=== PATIENT | male | born 1965 | race Caucasian/White ===

== ENCOUNTER → 2017-09-29 07:27 | Outpatient (CLI) | payer MEDICAID, SELFPAY ==
[2017-09-29 10:36] LABS: ALB/GLOB Ratio 1.2 RATIO (0.9-2.4); AST(SGOT) 25 U/L (15-37); Alanine Aminotransfer ALT/SGPT 57 U/L (16-61); Albumin, Serum 3.9 g/dL (3.2-5.0); Alkaline Phosphatase 71 U/L (45-117); Anion Gap 7 (5-15); BUN 24 mg/dL (7-18); BUN/Creat Ratio 27.7 RATIO (10-20); Calcium,Total 8.5 mg/dL (8.5-10.1); Chloride 105 mmol/L (98-107); Cholesterol 187 mg/dL (200); Creatinine, Serum 0.87 mg/dL (0.70-1.30); EST Glomerular Filtration Rate 98 mL/min (>60); Est Glom Filt Rate - Afr Amer 119 mL/min (>60); Globulin 3.2 g/dL (2.2-4.2); Glucose 87 mg/dL (74-106); High Density Lipoprotein 52 mg/dL; Potassium 4.1 mmol/L (3.5-5.1); Protein, Total 7.1 g/dL (6.4-8.2); Sodium Level 140 mmol/L (136-145); Triglycerides 80 mg/dL; Very Low Density Lipoprotein 16 mg/dL (5-40)
== END ==
PROVIDERS: Family Provider Family Medicine; PCP Family Medicine; Visit Provider Family Medicine
DX: I10 Essential (primary) hypertension (principal)
CPT/HCPCS: 36415; 80053; 80061

== ENCOUNTER → 2018-09-23 07:15 | Outpatient (CLI) | payer MEDICAID, SELFPAY ==
[2018-09-23 10:22] LABS: ALB/GLOB Ratio 1.2 RATIO (0.9-2.4); AST(SGOT) 23 U/L (15-37); Alanine Aminotransfer ALT/SGPT 55 U/L (16-61); Albumin, Serum 3.7 g/dL (3.2-5.0); Alkaline Phosphatase 68 U/L (45-117); Anion Gap 7 (5-15); BUN 21 mg/dL (7-18); BUN/Creat Ratio 22.8 RATIO (10-20); Calcium,Total 8.8 mg/dL (8.5-10.1); Chloride 105 mmol/L (98-107); Cholesterol 192 mg/dL (200); Creatinine, Serum 0.92 mg/dL (0.70-1.30); EST Glomerular Filtration Rate 91 mL/min (>60); Est Glom Filt Rate - Afr Amer 111 mL/min (>60); Globulin 3.2 g/dL (2.2-4.2); Glucose 94 mg/dL (74-106); High Density Lipoprotein 55 mg/dL; Potassium 4.2 mmol/L (3.5-5.1); Protein, Total 6.9 g/dL (6.4-8.2); Sodium Level 140 mmol/L (136-145); Triglycerides 83 mg/dL; Very Low Density Lipoprotein 17 mg/dL (5-40)
== END ==
PROVIDERS: Family Provider Family Medicine; PCP Family Medicine; Referring Provider Family Medicine; Visit Provider Family Medicine
DX: I10 Essential (primary) hypertension (principal); E29.1 Testicular hypofunction
CPT/HCPCS: 36415; 80053; 80061; 84403

== ENCOUNTER 2021-01-06 08:07 | Day surgery (SDC) | payer OTHER, SELFPAY ==
--- NOTE | 2021-01-06 08:31 | H&P.OPEN ---
HPI - General HPI Narrative BENJAMIN SINGLETON, is a 55 M who presents for screening colonoscopy. Patient is never had a previous colonoscopy. Patient denies any family history of colon cancer. Patient has bowel moods daily denies any blood. Patient denies any chronic abdominal pain/nausea/vomiting/reflux. [facility] Medical History (Updated 01/06/21 @ 08:[address] Radha Coe MD) High cholesterol Hypertension Non-smoker Wears glasses Home Medications atorvastatin 10 mg PO QHS 01/02/21 [History Last Taken Unknown] ibuprofen 400 mg PO Q6H PRN 01/02/21 [History Last Taken Unknown] lisinopril 5 mg PO DAILY 01/02/21 [History Last Taken Unknown] Allergy/AdvReac Type Severity Reaction Status Date / Time No Known Allergies Allergy Verified 01/02/21 09:51 Surgical History (Updated 01/02/21 @ 09:58 by Maribell Reid) History of total right hip replacement Hx of arthroscopic knee surgery Social History Smoking Status: Never smoker Past Medical/Surgical History Planned Operation Planned Operative Procedure/s: COLONOSCOPY Previous Hospitalizations/Surgeries HX Hospitalizations: No Any Problems With Anesthesia: No You/Your Family Experience Fever (Hyperthermia) With Anes: No Cholinesterase deficiency: No Cardiovascular Hx of Irregular Heartbeat and/or Afib: No Hx Heart Attack: No Hx Congestive Heart Failure: No Hx Hypertension: Yes (CONTROLLED ON MED) Hx Pacemaker: No Respiratory Hx Chronic Obstructive Pulmonary Disease (COPD): No Hx Asthma: No Hx Emphysema: No Hx Sleep Apnea: No Hx Respiratory Tract Infection/Cold (presently): No Do You Snore Loudly (louder than talking or can be heard): No Do You Often Feel Tired/ Fatigued/ Sleepy Dring Daytime?: No Has Anyone Observed You Stop Breathing During Sleep?: No Result (for STOP score): Negative Smoking Status: Never smoker Gastrointestinal Hx Gastroesophageal Reflux: No Hx Ulcer: No Neurological Hx Seizures: No Hx Head/Neck Injury: No Hx Headaches: No Hx Back Injury/Pain: No Does patient have nerve stimulator: No Allergies No Known Allergies Allergy (Verified 01/02/21 09:51) Discharge Is Pt Admitted From a [facility], or a [place] [facility]: No After D/C, Where Do you Plan to Go: Return Home Physical Exam Const alert, oriented x3 and no apparent distress HEENT normocephalic and head/scalp atraumatic Resp normal respiratory effort Cardio regular rate GI soft to palpation and non-tender; Negative for non-distended Palpation: Negative for guarding Extremity no clubbing, cyanosis or edema Neuro CN's II-XII intact bilaterally Psych mental status grossly normal Assessment & Plan Assessment/Plan (1) Screening for colon cancer: Procedure Criteria Type of Procedure Procedure Type: Elective Elective Risks - COVID COVID Risk Discussion: The surgeon/proceduralist and patient have discussed in detail the risk of exposure to and/or potential harm posed by the COVID-19 virus with having a surgery/procedure at this time versus the risk of delaying the surgery/procedure. It is not possible to know either the risk of delaying the surgery or procedure or chance of getting an infection with perfect accuracy, but a joint decision was made between the patient and the surgeon/proceduralist to proceed at this time with the scheduled surgery/procedure as indicated on the consent form. Surgery Risks - Colonoscopy Risks Include but are not Limited To: Risks include but are not limited to: Bleeding, perforation requiring further surgery, inability to complete colonoscopy requiring barium enema.
[2021-01-06 08:40] VITALS: BP 145/104; PULSE 92; RESP 16; TEMP 36.8; O2SAT 99; BMI 26.0
[2021-01-06] MEDS: Lactated Ringers 1,000 ML 100 ML IV (08:44)
[2021-01-06 09:12] VITALS: BP 101/79; BP 145/104; PULSE 75; RESP 16; TEMP 36.1; O2SAT 100
[2021-01-06 09:15] VITALS: BP 145/104; BP 99/84; PULSE 75; RESP 16; O2SAT 99
[2021-01-06 09:20] VITALS: BP 117/94; BP 145/104; PULSE 67; RESP 16; O2SAT 99
--- NOTE | 2021-01-06 09:23 | OP.COLON_ITS ---
Patient Name: Loyd Green Procedure Date: 01/06/2021 8:40 AM Date of : 1965 Age: 55 Procedure: Colonoscopy Indications: Screening for colorectal malignant neoplasm Providers: Radha Coe MD Medicines: Monitored Anesthesia Care Patient Profile: This is a 55 year old male. Last Colonoscopy: none. The patient's first colonoscopy is today. Complications: No immediate complications. Procedure: Pre-Anesthesia Assessment: - Prior to the procedure, a History and Physical was performed, and patient medications and allergies were reviewed. The patient's tolerance of previous anesthesia was also reviewed. The risks and benefits of the procedure and the sedation options and risks were discussed with the patient. All questions were answered, and informed consent was obtained. Prior Anticoagulants: The patient has taken no previous anticoagulant or antiplatelet agents. ASA Grade Assessment: Per anesthesia. After reviewing the risks and benefits, the patient was deemed in satisfactory condition to undergo the procedure. After I obtained informed consent, the scope was passed under direct vision. Throughout the procedure, the patient's blood pressure, pulse, and oxygen saturations were monitored continuously. The Duodenoscope was introduced through the anus and advanced to the cecum, identified by the appendiceal orifice, ileocecal valve and palpation. The colonoscopy was performed without difficulty. The patient tolerated the procedure well. The quality of the bowel preparation was good. Scope In: 8:56:29 AM Scope Withdrawal Time 0 hours 6 minutes 39 seconds Scope Out: 9:08:16 AM Total Procedure Duration Time 0 hours 11 minutes 47 seconds Findings: The perianal and digital rectal examinations were normal. Internal hemorrhoids were found during retroflexion. The hemorrhoids were Grade I (internal hemorrhoids that do not prolapse). The entire examined colon appeared normal. Impression: - Internal hemorrhoids. - The entire examined colon is normal. - No specimens collected. Recommendation: - Discharge patient to home. - Resume previous diet. - Continue present medications. - Repeat colonoscopy in 10 years for screening purposes. Procedure Code(s): --- Professional --- G0121, PT, Colorectal cancer screening; colonoscopy on individual not meeting criteria for high risk Diagnosis Code(s): --- Professional --- Z12.11, Encounter for screening for malignant neoplasm of colon CPT copyright 2017 [employer]. All rights reserved. The codes documented in this report are preliminary and upon tow motor operator review may be revised to meet current compliance requirements. MD Radha Zapata MD 01/06/2021 9:22:35 AM This report has been signed electronically. Number of Addenda: 0 Note Initiated On: 01/06/2021 8:40 AM
--- NOTE | 2021-01-06 09:24 | OP.CCLET_ITS ---
01/06/2021 Shay Askew MD [address] [phone] Re : Colonoscopy procedure for Loyd Green Dear Dr. Askew This procedure was performed on Wednesday, January 06, 2021. My impressions and recommendations are as follows: Impressions : - Internal hemorrhoids. - The entire examined colon is normal. - No specimens collected. Recommendations : - Discharge patient to home. - Resume previous diet. - Continue present medications. - Repeat colonoscopy in 10 years for screening purposes. My findings are described in the full procedure note, which is enclosed. If I can be of further assistance, please feel free to contact me at Doctor phone number(s): , Work: . Sincerely, MD Radha Zapata MD 01/06/2021 9:22:35 AM This report has been signed electronically.
[2021-01-06 09:25] VITALS: BP 145/104; BP 145/85; PULSE 72; RESP 16; TEMP 35.9; O2SAT 99
[2021-01-06 09:52] VITALS: BP 145/104
== END 2021-01-06 09:55 ==
LOC: EN 08:10 → AC 08:12
PROVIDERS: PCP Family Medicine; Referring Provider Family Medicine; Visit Provider Surgery
PROC: 0DJD8ZZ Inspection of Lower Intestinal Tract, Via Natural or Artificial Opening Endoscopic (ICD-10-PCS; CPT 45378; principal; 2021-01-06 08:55)
DX: Z12.11 Encounter for screening for malignant neoplasm of colon (principal); K64.0 First degree hemorrhoids; I10 Essential (primary) hypertension; E78.00 Pure hypercholesterolemia, unspecified; Z79.899 Other long term (current) drug therapy
CPT/HCPCS: 45378; J7120; J2405

== ENCOUNTER → 2021-12-19 | Outpatient (CLI) | payer OTHER, SELFPAY ==
[2021-12-19 11:34] LABS: ALB/GLOB Ratio 1.2 RATIO (0.9-2.4); AST(SGOT) 18 U/L (15-37); Alanine Aminotransfer ALT/SGPT 37 U/L (16-61); Albumin, Serum 3.9 g/dL (3.2-5.0); Alkaline Phosphatase 70 U/L (45-117); Anion Gap 7 (5-15); BUN 20 mg/dL (7-18); BUN/Creat Ratio 22.1 RATIO (10-20); Calcium,Total 8.9 mg/dL (8.5-10.1); Chloride 101 mmol/L (98-107); EST Glomerular Filtration Rate 92 mL/min (>60); Est Glom Filt Rate - Afr Amer 112 mL/min (>60); Globulin 3.3 g/dL (2.2-4.2); Glucose 87 mg/dL (74-106); PSA,Total - Annual Screen 0.46 ng/mL (0.00-4.00); Potassium 4.2 mmol/L (3.5-5.1); Protein, Total 7.2 g/dL (6.4-8.2); Sodium Level 136 mmol/L (136-145)
== END | disposition home or self-care (01) ==
PROVIDERS: PCP Family Medicine; Referring Provider Family Medicine; Visit Provider Family Medicine
DX: Z00.00 Encounter for general adult medical examination without abnormal findings (principal); Z12.5 Encounter for screening for malignant neoplasm of prostate
CPT/HCPCS: 36415; 80053; 84153; 84403; G0103

== ENCOUNTER → 2022-12-22 | Outpatient (CLI) | payer OTHER, SELFPAY ==
[2022-12-22 10:39] LABS: ALB/GLOB Ratio 1.2 RATIO (0.9-2.4); AST(SGOT) 16 U/L (15-37); Alanine Aminotransfer ALT/SGPT 34 U/L (16-61); Albumin, Serum 3.6 g/dL (3.2-5.0); Alkaline Phosphatase 59 U/L (45-117); Anion Gap 4 (5-15); BUN 18 mg/dL (7-18); BUN/Creat Ratio 20.9 RATIO (10-20); Calcium,Total 8.8 mg/dL (8.5-10.1); Chloride 106 mmol/L (98-107); Cholesterol 257 mg/dL (200); Creatinine, Serum 0.86 mg/dL (0.70-1.30); EST Glomerular Filtration Rate 97 mL/min (>60); Est Glom Filt Rate - Afr Amer 117 mL/min (>60); Globulin 3.1 g/dL (2.2-4.2); Glucose 95 mg/dL (74-106); High Density Lipoprotein 66 mg/dL; Potassium 4.3 mmol/L (3.5-5.1); Protein, Total 6.7 g/dL (6.4-8.2); Sodium Level 139 mmol/L (136-145); Triglycerides 83 mg/dL; Very Low Density Lipoprotein 17 mg/dL (5-40)
[2022-12-25 01:06] LABS: Alternaria alternata <0.10 kU/L (Class 0); Aspergillus fumigatus <0.10 kU/L (Class 0); Bahia Grass <0.10 kU/L (Class 0); Bermuda Grass <0.10 kU/L (Class 0); Bluegrass, Kentucky <0.10 kU/L (Class 0); Cat Hair/Dander, Standard <0.10 kU/L (Class 0); Cedar, Mountain <0.10 kU/L (Class 0); Cladosporium herbarum <0.10 kU/L (Class 0); Cockroach, American 0.31 kU/L (Class 0/I); D farinae Mite <0.10 kU/L (Class 0); D pteronyssinus <0.10 kU/L (Class 0); Dog Epithelia <0.10 kU/L (Class 0); Elm, American White <0.10 kU/L (Class 0); Hazelnut Tree <0.10 kU/L (Class 0); Hickory, White <0.10 kU/L (Class 0); Johnson Grass <0.10 kU/L (Class 0); Maple/Box Elder <0.10 kU/L (Class 0); Mucor racemosus <0.10 kU/L (Class 0); Mugwort <0.10 kU/L (Class 0); Mulberry, White <0.10 kU/L (Class 0); Nettle <0.10 kU/L (Class 0); Oak, White <0.10 kU/L (Class 0); Penicillium chrysogen <0.10 kU/L (Class 0); Pigweed, Rough <0.10 kU/L (Class 0); Plantain, English <0.10 kU/L (Class 0); Ragweed, Short/Common <0.10 kU/L (Class 0); Sheep Sorrel(Dock) <0.10 kU/L (Class 0); Stemphylium herbarum <0.10 kU/L (Class 0); Sweet Gum <0.10 kU/L (Class 0); Sycamore, American <0.10 kU/L (Class 0)
== END | disposition home or self-care (01) ==
PROVIDERS: PCP Family Medicine; Referring Provider Family Medicine; Visit Provider Family Medicine
DX: T78.40XA Allergy, unspecified, initial encounter (principal); X58.XXXA Exposure to other specified factors, initial encounter; I10 Essential (primary) hypertension
CPT/HCPCS: 36415; 80053; 80061; 86003

== ENCOUNTER → 2024-01-04 | Outpatient (CLI) | payer OTHER, SELFPAY ==
[2024-01-04 13:44] LABS: ALB/GLOB Ratio 1.2 RATIO (0.9-2.4); AST(SGOT) 16 U/L (15-37); Alanine Aminotransfer ALT/SGPT 32 U/L (16-61); Albumin, Serum 3.7 g/dL (3.2-5.0); Alkaline Phosphatase 63 U/L (45-117); Anion Gap 7 (5-15); BUN 17 mg/dL (7-18); Calcium,Total 8.8 mg/dL (8.5-10.1); Chloride 104 mmol/L (98-107); Cholesterol 196 mg/dL (200); Creatinine, Serum 0.85 mg/dL (0.70-1.30); EST Glomerular Filtration Rate 98 mL/min (>60); Est Glom Filt Rate - Afr Amer 119 mL/min (>60); Globulin 3.1 g/dL (2.2-4.2); Glucose 89 mg/dL (74-106); High Density Lipoprotein 59 mg/dL; PSA,Total - Annual Screen 1.47 ng/mL (0.00-4.00); Protein, Total 6.8 g/dL (6.4-8.2); Sodium Level 137 mmol/L (136-145); Triglycerides 104 mg/dL; Very Low Density Lipoprotein 21 mg/dL (5-40)
== END | disposition home or self-care (01) ==
LOC: MTLAB 09:43
PROVIDERS: PCP Family Medicine; Referring Provider Family Medicine; Visit Provider Family Medicine
DX: Z00.00 Encounter for general adult medical examination without abnormal findings (principal)
CPT/HCPCS: 36415; 80053; 80061; 84153; G0103

== ENCOUNTER → 2024-06-23 | Outpatient (CLI) | payer OTHER, SELFPAY ==
[2024-06-23 11:12] LABS: ALB/GLOB Ratio 1.2 RATIO (0.9-2.4); AST(SGOT) 24 U/L (15-37); Alanine Aminotransfer ALT/SGPT 54 U/L (16-61); Albumin, Serum 3.9 g/dL (3.2-5.0); Alkaline Phosphatase 63 U/L (45-117); Anion Gap 5 (5-15); BUN 19 mg/dL (7-18); BUN/Creat Ratio 19.3 RATIO (10-20); Calcium,Total 9.4 mg/dL (8.5-10.1); Chloride 104 mmol/L (98-107); Cholesterol 254 mg/dL (200); Creatinine, Serum 0.98 mg/dL (0.70-1.30); EST Glomerular Filtration Rate 83 mL/min (>60); Est Glom Filt Rate - Afr Amer 101 mL/min (>60); Globulin 3.2 g/dL (2.2-4.2); Glucose 99 mg/dL (74-106); High Density Lipoprotein 68 mg/dL; Potassium 4.4 mmol/L (3.5-5.1); Protein, Total 7.1 g/dL (6.4-8.2); Sodium Level 137 mmol/L (136-145); Triglycerides 115 mg/dL; Very Low Density Lipoprotein 23 mg/dL (5-40)
== END | disposition home or self-care (01) ==
LOC: MTLAB 08:39
PROVIDERS: PCP Family Medicine; Referring Provider Family Medicine; Visit Provider Family Medicine
DX: E78.00 Pure hypercholesterolemia, unspecified (principal)
CPT/HCPCS: 36415; 80053; 80061

== ENCOUNTER → 2024-09-29 | Outpatient (CLI) | payer OTHER, SELFPAY ==
--- NOTE | 2024-09-29 10:15 | RAD_ITS ---
EXAM: XR Lumbosacral Spine, 4 or 5 Views CLINICAL INDICATION: BACK PAIN TECHNIQUE: Frontal, lateral and bilateral oblique views of the lumbar spine. COMPARISON: No relevant prior studies available. FINDINGS: VERTEBRAE: Multilevel endplate degenerative change and disc disease of the lumbar spine from L1-S1. Mild vertebral body height loss of L5, L4, and L3 vertebral bodies, likely chronic. No acute fracture. Normal alignment. SACRUM/COCCYX: Unremarkable as visualized. No acute fracture. DISC SPACES: See above. SOFT TISSUES: Unremarkable. RAD/L/S Spine Min 4 Views IMPRESSION: 1. Mild vertebral body height loss of L5, L4, and L3 vertebral bodies, likely chronic. 2. If symptoms persist, further evaluation with MRI is recommended. Reading Location: [facility]
--- NOTE | 2024-09-29 10:15 | RAD_ITS ---
EXAM: XR Bilateral Hips With Pelvis When Performed, 2 Views CLINICAL INDICATION: HIP PAIN TECHNIQUE: Frontal view of the bilateral hips with pelvis when performed. COMPARISON: No relevant prior studies available. FINDINGS: BONES/JOINTS: Total right hip replacement. Intact hardware. Anatomic position. No acute fracture. No dislocation. SOFT TISSUES: Unremarkable. RAD/Hips B/L min 2 views w/ Pelvis IMPRESSION: Postoperative changes as above. Reading Location: [facility]
== END | disposition home or self-care (01) ==
LOC: MTRAD 10:11
PROVIDERS: PCP Family Medicine; Referring Provider Family Medicine; Visit Provider Family Medicine
DX: M54.9 Dorsalgia, unspecified (principal); M25.559 Pain in unspecified hip
CPT/HCPCS: 72110; 73521

== ENCOUNTER → 2024-11-01 | Outpatient (CLI) | payer OTHER, SELFPAY ==
[2024-11-01 11:01] LABS: ALB/GLOB Ratio 1.8 RATIO (0.9-2.4); AST(SGOT) 18 U/L (<=37); Alanine Aminotransfer ALT/SGPT 29 U/L (<=46); Albumin, Serum 4.4 g/dL (3.5-5.0); Alkaline Phosphatase 58 U/L (40-129); Anion Gap 10 (5-15); BUN 23 mg/dL (4-19); BUN/Creat Ratio 27.2 RATIO (10-20); Calcium,Total 9.3 mg/dL (7.6-11.0); Carbon Dioxide 24.8 mmol/L (21.0-32.0); Chloride 103 mmol/L (98-108); Cholesterol 208 mg/dL (<=200); Creatinine, Serum 0.83 mg/dL (0.70-1.20); EST Glomerular Filtration Rate 101 (>60); Globulin 2.4 g/dL (2.2-4.2); Glucose 104 mg/dL (70-99); High Density Lipoprotein 54 mg/dL; Low Density Lipoprotein Calc. 130 mg/dL; Potassium 4.6 mmol/L (3.3-5.1); Protein, Total 6.8 g/dL (5.9-8.4); Sodium Level 138 mmol/L (133-145); Total Bilirubin 0.58 mg/dL (0.00-1.30); Triglycerides 120 mg/dL; Very Low Density Lipoprotein 24 mg/dL (5-40); cholesterol:hdl ratio screen 3.84
== END | disposition home or self-care (01) ==
LOC: MTLAB 08:16
PROVIDERS: PCP Family Medicine; Referring Provider Family Medicine; Visit Provider Family Medicine
DX: E78.00 Pure hypercholesterolemia, unspecified (principal)
CPT/HCPCS: 36415; 80053; 80061

== ENCOUNTER 2024-11-03 09:30 | Outpatient (RCR) | payer OTHER, SELFPAY ==
--- NOTE | 2024-10-10 10:49 | HP.PTEVAL ---
Patient's Visit Information Visit Information Visit Information: BENJAMIN SINGLETON is a 59 year old M referred to Physical Therapy by Dr. Shay Askew MD with a diagnosis of Back pain. Date of Evaluation: 10/10/24 Physical Therapist: Kush Bethea, IZAT, OCS, CSCS Visit Plan Frequency: 2x /Week Duration: 4-6 Weeks Plan: 2x/week for 4-6 weeks for: IE HEP: PPU 10x every two hours, posture with towel roll only in firm chair and minimize sitting, body mechanics to avoid FW bending. Treat with : PA mobs and ext bias eex, L/S ROM ex, STM to lumbar paraspinals, rollout and stretch HS, core strength adn possibly eventual gym strength. ice and tens if needed. Subjective Subjective: June sat in [employer] long time 3 games and back started hurting, was not painful prior. Maybe previous episodes. Better in September with ibuprofen but helped neighbor [employer] sitting in tractor and got worse again. 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 sitting is the worst. Got much worse last week. Has seen R iverson and lateral leg/hip Askew and is now on ibuprofen 3x/day. Much worse in the am. Has to crawl sometimes. Has some pain in R iverson and lateral leg into LB. Long time it takes to shower and dress. has been this way for a week. Can walk 45 min a couple times per day with very little pain. Hurts to sit and relax and worse upon getting up, mostly in LB. Sleep is Ok with muscle relaxer is not bad. AM feels good , moves OK but hard to stand and walk to bathroom. Trying cobra pose in am trunk rotations, cat cow, PPU. 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 Pain R LB and leg: Pain Intensity (Out of 10): 5 Pain Intensity Range: 1 and 9 Objective Objective: Posture is flat lordosis, very stiff lumbar to PA pressure with just slight lower lumbar discomfort. L/S AROM ext mod limited with some pain, flexion mod limited, SB mod limited. Stiff and tight parapsinal mm prevent a lot of segmental spinal movemnt in lumbar and lower thoracic. parspinals not overly tender. reflexes 2/3 Patella andres achilles B. Sensation LE WNL to gross light touch. strength LE 4+/5 without myotomal abnormalities. core strength 4- abs and ext without much pain. transfers sit to stand and off table today without much evidence of pain. Balance/Special Test Scores Oswestry Low Back Score: 23 Goals Goal 1:: Lumbar spine AROM full and without pain Goal Time Frame: 2-4 Weeks Goal 2:: Pain for patient in am 80% better and 1/10 at worst Goal Time Frame: 2-4 Weeks Goal 3:: I appropriate HEP to minimize future probems(leg stretches, back ROM, posture adn core strength, possibly gym) Goal Time Frame: 2-4 Weeks Goal 4:: back oswestry 4 or better Goal Time Frame: 2-4 Weeks Goal 5:: Sit in car for trip in community without back pain Goal Time Frame: 2-4 Weeks Rehabilitation Potential Physical Therapy Diagnosis: Back pain limiting comfortable funciton likely discal in nature Rehabilitation Potential: Fair Anticipated Interventions Patient/Client Instruction: Educate patient on: Condition and Plan of Care For the Purpose of:: To decrease pain, To increase ROM, To improve nutrient delivery to tissue, To improve muscle performance and motor function, To increase tolerance to activity/condition/position, To improve ability of physical actions for home/community/work/leisure and To improve gait and locomotor functions Therapeutic Exercise to Include: Strength training, Postural training, Flexibilty training, Relaxation training, Passive ROM, Active ROM and Dynamic Lumbar Stabilization For the Purpose of:: To decrease pain, To increase ROM, To improve nutrient delivery to tissue, To improve muscle performance and motor function, To increase tolerance to activity/condition/position, To improve performance and independence with ADL's and To improve ability of physical actions for home/community/work/leisure Manual Therapy Techniques to Include: Mobilization, Passive ROM and Soft tissue mobilization For the Purpose of:: To decrease pain, To increase ROM and To improve nutrient delivery to tissue TENS: Yes Cryotherapy (ice pack, ice massage): Yes For the Purpose of:: To decrease pain, To decrease swelling/inflammation, To increase ROM, To improve nutrient delivery to tissue and To improve muscle performance and motor function Text: Thank you for the opportunity to evaluate your patient. For Medicare and Medicare HMO plans, please review the plan of care and approve it. It will need to be FAXED BACK to us at [phone] for Medicare purposes. For Medicare only, by signing this I certify the plan of care. Please let me know if there are questions or concerns regarding this plan of care. Physician Signature: Date:
--- NOTE | 2024-11-03 10:22 | HP.PTDCSUM ---
Discharge Summary D/C summary: It has been my pleasure to treat BENJAMIN SINGLETON referred by Dr. Shay Tejeda MD, with the diagnosis of Back pain for a total of 9 visit(s). Discharge Date: 11/03/24 Please see the following information for a summary of their discharge status. Subjective Subjective: Feeling better sometimes. Can walk again now. was great for 2 days. Sat a lot to travel and got worse again. am pain in the morning in iverson R . Better as day goes on bu 9 in am. Took muscle relaxer until 2 nights ago. Appointment with Dr. tejeda next Wednesday. Used towel roll . PT fels good as do dtrenthening. Walking 20 minutes afteer pain goes away in am. PPU religiously Pain R LB and leg: Pain Intensity (Out of 10): 0 Overall Improvement % Improvement: 50 Objective Objective/Function: ext adn SB are hesitant but decent and slight pain central LB with ext. Flexion is veery hsitant and unwilling and limited today, feels unstable. walks is good, trasnfers are hesitant and painful until upright with compression. Goals Goal 1:: Lumbar spine AROM full and without pain Goal Progress: Not Progressing Goal 2:: Pain for patient in am 80% better and 1/10 at worst Goal Progress: Progressing Goal 3:: I appropriate HEP to minimize future probems(leg stretches, back ROM, posture adn core strength, possibly gym) Goal Progress: Progressing Goal 4:: back oswestry 4 or better Goal Progress: Not Progressing Goal 5:: Sit in car for trip in community without back pain Goal Progress: Not Progressing Plan Plan: Overall some improvement but still veery unstable in improveement and wants appropriately to take nxt step with doctor. Will continue HEP and Posture and PPU and stretching, d/c and f/u with doctor for next medical step. D/C Information Discharge Comments: Pt back to doctor for next medical step. d/c sentence: If there are questions or concerns regarding this patient's physical therapy, please feel free to call me at [phone]. Thank you for the referral of this patient. Sincerely, Kush Bethea, DPT, OCS, CSCS Balance/Gait/Functional tests Balance/Special Test Scores Oswestry Low Back Score: 23 Improvement % Improvement: 50
== END 2024-11-03 19:00 | disposition home or self-care (01) ==
LOC: PT 09:30
PROVIDERS: PCP Family Medicine; Visit Provider Family Medicine
DX: M54.9 Dorsalgia, unspecified (principal)
CPT/HCPCS: 97014; 97110; 97140; 97161; 97164; G0283

== ENCOUNTER 2024-11-05 18:01 | Emergency (ER) | payer OTHER, SELFPAY ==
[2024-11-05 18:02] VITALS: PULSE 124; RESP 18; TEMP 36.7; O2SAT 98
[2024-11-05 18:04] VITALS: BMI 27.1
[2024-11-05 18:14] VITALS: BP 151/115
--- NOTE | 2024-11-05 18:21 | EDS_ITS ---
<Statement entered by Gagan Fong DO - 11/07/24 14:14> Patient was seen and examined with physician executive administrative assistant Nallely All components of the history and physical confirmed and agreed. History of present illness and physical exam: Patient is a 59-year-old male past medical history hypertension, hypercholesteremia who presented to the emergency department with a chief compla int of back pain. Patient states that he has had ongoing back pain for significant time now he states that he was doing well he was doing physical therapy and had improvement however the last 3 days he noted that he had worsening pain he states that he is trying to stretch. He states the pain is getting worse with sitting. Patient states that the physical therapy team ordered an MRI. He states that he has been taking ibuprofen and muscle relaxer at night. He states that he woke up this morning with pain shooting down to his foot and tingling. He states that it did resolve and he had another episode again. Patient denies any new falls or trauma. Patient states he has been urinating normally for himself having normal bowel movements. Review of systems: Agree with above Physical exam: Agree with above MDM Patient is a 59-year-old male who presented to the emergency department the chief complaint of back pain on the right side rating down his right leg. Patient has been going to physical therapy. On the differential diagnose includes Melamin to herniated disc, sciatica, musculoskeletal strain, compression fracture although do have low suspicion for this as he has no injuri es or new falls and no midline tenderness. Patient was given IM Toradol and later on he was reevaluated still having pain therefore he was given IM morphine. He is feeling better he would like to go home this point time. Discussed with him using multimodal pain therapy approach such as rotating Tylenol ibuprofen [id number] when he does this he can take something every 3 hours and he should use this for mild to moderate pain. He will be placed on prednisone taper as well as gabapentin and he is to use the Percocet and Zofran for breakthrough pain. He is also given prescription for Lidoderm patches. He is encouraged to follow-up his primary care physician as well as the physical therapy team he is agreeable to plan all questions turns answered he is discharged home in stable condition. Final impression: Back pain Lumbar radiculopathy Disposition: Patient will be discharged home in stable condition Supervising attending attestation: Gagan CONTRERAS History of Present Illness Chief Complaint: Back Narrative Narrative: 59-year-old male states he developed lumbar pain, right lateral hip pain, and pain in his right anterior iverson in June 2024. It feels like a sharp stabbing pain. He had x-rays of his lumbar spine and hips since he has had a right hip replacement and states they were normal. He just completed a month of physical therapy and initially had improvement, but over the last 3 days the stretches felt worse and he has had increased pain. The pain is worse with sitting. PT sent a request to his PCP to have an MRI done. He is taking ibuprofen every 6 hours and a muscle relaxer at night. This morning when he woke up his right foot was tingling. It resolved but then he had another episode of tingling and it has again gone away. Since these paresthesias were new he decided to come in for evaluation. He is had no new trauma or falls. No weakness. No saddle anesthesia or bladder or bowel incontinence. 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) Wears glasses High cholesterol Non-smoker Hypertension Home Medications ?Medication ?Instructions ?Recorded ?Last Taken ?Type atorvastatin 10 mg tablet 10 mg PO QHS 01/02/21 Unknow n History ibuprofen 200 mg tablet 400 mg PO Q6H PRN Pain 01/02 Unknown History lisinopril 5 mg tablet 5 mg PO DAILY 01/02/21 Unkno wn History atorvastatin 20 mg tablet 20 mg PO DAILY 11/05/24 Unkn own History cyclobenzaprine 5 mg tablet 5 mg PO QHS 11/05/24 Unkno wn History gabapentin 300 mg capsule 300 mg PO DAILY 14 days #14 caps 11/05/24 Unknown Rx hydrocodone-acetaminophen 5-325mg 1 tab PO Q6H PRN PRN Pain 3 days 11/05/24 Un known Rx 5mg-325mg #12 TABLETS lidocaine 5 % topical patch 1 patch topical DAILY #15 ea 11/05/24 Unknown Rx (Lidoderm) lisinopril 10 mg tablet 10 mg PO DAILY 11/05/24 Unkn own History ondansetron 4 mg disintegrating 4 mg PO Q8H PRN PRN Na usea #10 tabs 11/05/24 Unknown Rx tablet prednisone 20 mg tablet 40 mg (2 x 20 mg) PO DAILY 5 days 11/05/24 Unknown Rx #10 tabs Allergy/AdvReac Type Severity Reaction Status Date / Time No Known Allergies Allergy Verified 11/05/24 18:02 Surgical History Hx of arthroscopic knee surgery History of total right hip replacement Social History Smoking Status: Never smoker ROS ROS ED ROS Narrative Constitutional: Negative for fever, chills, malaise. : Negative for dysuria. Neuro: Negative for motor dysfunction. Musc: Negative for joint pain, swelling, trauma. EXAM Physical Exam Narrative Exam Narrative: CONST: Patient lying in bed in no acute distress. EYES: Normal inspection. NECK: Normal inspection. RESP: No respiratory distress, CTAB. CVS: Regular rate and rhythm, no murmur, no gallop. Back: Normal inspection, no midline tenderness or step-offs. SKIN: Color normal, no rash, warm, dry, intact. EXTREMITIES: Normal appearance, negative straight leg raise bilaterally. 5/5 strength in bilateral hip flexion, knee flexion/extension, and DF/PF. Normal sensation in all dermatomes. 2+ DP pulses. 2+ patellar and ankle reflexes. NEURO: Alert and answering questions appropriately. PSYCH: Normal affect. Const Vital Signs: 11/05/24 18:02 11/05/24 18:14 11/05/24 19:18 Temperature 98.1 F 98.1 F Temperature Source Oral Pulse Rate 124 H 124 H Respiratory Rate 18 18 Blood Pressure 151/115 H 151/115 H Blood Pressure Mean 127 127 Pulse Ox 98 98 Oxygen Delivery Method Room Air 11/05/24 19:47 Temperature Temperature Source Pulse Rate 84 Respiratory Rate 16 Blood Pressure Blood Pressure Mean Pulse Ox Oxygen Delivery Method MDM MDM MDM Narrative Medical decision making narrative: Differential includes but not limited to myofascial strain, lumbar radiculopathy, cauda equina syndrome 59-year-old male has had low back pain and radicular symptoms down his right leg over the last 4 months. He has been in physical therapy. It worsened over the last few days without change in activity or injury. He has had new intermittent right foot paresthesia today but none presently. He appears uncomfortable but nontoxic. Heart rate is elevated likely secondary to pain. He has no midline tenderness or step-offs. He has full range of motion of both lower extremities, MSPs intact, normal reflexes. Negative straight leg raise bilaterally. He has no red flag signs concerning for cauda equina syndrome so he does not require an emergent MRI. He was concerned about the new intermittent right foot paresthesias but he has normal sensation currently. He was treated with IM Toradol and morphine with improvement. He is ambulatory. His primary care doctor is arranging an MRI already. He is taking ibuprofen and a muscle relaxer at bedtime at home. I prescribed gabapentin, prednisone, Percocet and Zofran for breakthrough pain, and Lidoderm patches. He was counseled to follow-up with his PCP and was discharged in stable condition. Discharge Plan Triage Chief Complaint: Back ED Midlevel Provider: Nallely Aguilar ED Provider: Gagan Fong Dx/Rx/DC Orders Clinical Impression: Low back pain, Paresthesia of right foot, Acute lumbar radiculopathy Instructions: Back Basics: A Healthy Spine Prescriptions: New prednisone 20 mg tablet 40 mg PO DAILY 5 Days Qty: 10 0RF ondansetron 4 mg tablet,disintegrating 4 mg PO Q8H PRN PRN (Reason: Nausea) Qty: 10 0RF hydrocodone-acetaminophen 5-325 mg tablet 1 tab PO Q6H PRN PRN (Reason: Pain) 3 Days Qty: 12 0RF gabapentin 300 mg capsule 300 mg PO DAILY 14 Days Qty: 14 0RF Rx Instructions: 300 mg at night x 1, then 300 mg BID from then on. short script and pcp can refill lidocaine [Lidoderm] 5 % adhesive patch,medicated 1 patch topical DAILY Qty: 15 0RF Rx Instructions: leave on most painful area for up to 12 hrs No Action atorvastatin 10 mg tablet 10 mg PO QHS Patient Comments: TAKE 1 TABLET BY MOUTH ONCE DAILY ibuprofen 200 mg Tablet 400 mg PO Q6H PRN (Reason: Pain) lisinopril 5 mg tablet 5 mg PO DAILY Patient Comments: TAKE 1 TABLET BY MOUTH ONCE DAILY atorvastatin 20 mg tablet 20 mg PO DAILY lisinopril 10 mg tablet 10 mg PO DAILY cyclobenzaprine 5 mg tablet 5 mg PO QHS Primary Care Provider: Shay Askew Referrals: Shay Askew MD [Primary Care Provider] - Activity Restrictions/Additional Instructions: You can continue ibuprofen every 6 hours in addition to the new prescribed pain medications. Follow-up with your primary care doctor to discuss how the medications are helping and schedule your MRI. Print Language: [place]ian Disposition Disposition: Home, Self Care
[2024-11-05] MEDS: Ketorolac 15 MG/ML Vial IM (18:29)
--- OUTSIDE RECORDS SUMMARY | 2024-11-05 18:33 | XMS RPT_ITS | CCD ---
Author Organization [facility] Care Team Providers Care Brick Off Bearer Name Role Phone Dr. Shay Tejeda Primary Care Provider Jamilah, Dr. Day Referring Provider [phone] Piter HARTMAN, DEVAN Collazo Attending Provider Jamilah LYONS, Dr. Day Primary Care Provider Jamilah LYONS, Dr. Day Attending Provider [phone] Jamilah LYONS, Dr. Day Referring Provider Shay Tejeda Referring Unavailable Jamilah, Shay Primary Care Unavailable Tejeda, Shay Attending Unavailable Tejeda, Shay Primary Care Unavailable Tejeda, Shay Attending Unavailable JANIS, ED1 Referring Unavailable Jamilah, Shay Primary Care Unavailable Jamilah, Shay Attending Unavailable Tejeda, Shay Referring Unavailable Tejeda, Shay Primary Care Unavailable Jamilah, Shay Attending Unavailable Tejeda, Shay Referring Unavailable Tejeda, Shay Referring Unavailable Tejeda, Shay Primary Care Unavailable Jamilah, Shay Attending Unavailable Medications Current Medications Medication Drug Class(es) Dates Sig (Normalized) Sig (Original) atorvastatin 10 mg oral tablet (3 sources) HMG-CoA Reductase Inhibitor Start: 01-02-2021 take 1 tablet by mouth at bedtime Atorvastatin 10 mg tablet Active 10 mg PO AT BEDTIME January 02, 2021 12:00am ibuprofen 200 mg oral tablet (3 sources) Nonsteroidal Anti-inflammatory Drug Start: 01-02-2021 take 2 tablets by mouth every six hours as needed for pain Ibuprofen 200 mg Tablet Active 400 mg PO EVERY 6 HOURS as needed for Pain January 02, 2021 12:00am Start: 01-02-2021 take 400 mg by mouth every six hours Ibuprofen Active 400 MG PO EVERY 6 HOURS January 02, 2021 12:00am lisinopril 5 mg oral tablet (3 sources) Angiotensin Converting Enzyme Inhibitor Start: 01-02-2021 take 1 tablet by mouth once daily Lisinopril 5 mg tablet Active 5 mg PO DAILY January 02, 2021 12:00am Problems Problem Classification Problem Date Documented Date Episodic/Chronic Administrative/social admission (4 sources) Administrative reason for encounter; Translations: [Encounter for other administrative examinations] Episodic Disorders of lipid metabolism (1 source) Pure hypercholesterolemia, unspecified; Translations: [Pure hypercholesterolemia, unspecified] Onset: 07-06-2024 Chronic Other screening for suspected conditions (not mental disorders or infectious disease) (3 sources) Patient encounter status; Translations: [Encounter for screening for malignant neoplasm of colon] 01-06-2021 Episodic Spondylosis; intervertebral disc disorders; other back problems (2 sources) Dorsalgia, unspecified; Translations: [Dorsalgia, unspecified] Onset: 10-05-2024 Episodic Results Test Name Value Interpretation Reference Range Facility PT D/C Summary (1)on 025 PT D/C Summary (1) [facility] [address] [place] [address] [address] [place] [address] / REHABILITATION SERVICES DISCHARGE SUMMARY MR#: [id number] Acct: [id number] Name: BENJAMIN SINGLETON Rep #: [id number] : 1965 59 From: Kush Bethea DPT, OCS, CSCS Referring Dr.: Dr. Shay Tejeda MD Status: REG R Insurance: [facility] SELF PAY INSURANCE Discharge Summary D/C summary: It has been my pleasure to treat BENJAMIN SINGLETON referred by Dr. Shay Tejeda MD, with the diagnosis of Back pain for a total of 9 visit(s). Discharge Date: 11/03/24 Please see the following information for a summary of their discharge status. Subjective Subjective: Feeling better sometimes. Can walk again now. was great for 2 days. Sat a lot to travel and got worse again. am pain in the morning in iverson R . Better as day goes on bu 9/10 in am. Took muscle relaxer until 2 nights ago. Appointment with Dr. tejeda next Wednesday. Used towel roll . PT fels good as do dtrenthening. Walking 20 minutes afteer pain goes away in am. PPU religiously Pain R LB and leg: Pain Intensity (Out of 10): 0 Overall Improvement % Improvement: 50 Objective Objective/Function: ext adn SB are hesitant but decent and slight pain central LB with ext. Flexion is veery hsitant and unwilling and limited today, feels unstable. walks is good, trasnfers are hesitant and painful until upright with compression. Goals Goal 1:: Lumbar spine AROM full and without pain Goal Progress: Not Progressing Goal 2:: Pain for patient in am 80% better and 1/10 at worst Goal Progress: Progressing Goal 3:: I appropriate HEP to minimize future probems(leg stretches, back ROM, posture adn core strength, possibly gym) Goal Progress: Progressing Goal 4:: back oswestry 4 or better Goal Progress: Not Progressing Goal 5:: Sit in car for trip in community without back pain Goal Progress: Not Progressing Plan Plan: Overall some improvement but still veery unstable in improveement and wants appropriately to take nxt step with doctor. Will continue HEP and Posture and PPU and stretching, d/c and f/u with doctor for next medical step. D/C Information Discharge Comments: Pt back to doctor for next medical step. d/c sentence: If there are questions or concerns regarding this patient's physical therapy, please feel free to call me at [phone]. Thank you for the referral of this patient. Sincerely, Kush Bethea, DPT, OCS, CSCS Balance/Gait/Functi onal tests Balance/Special Test Scores Oswestry Low Back Score: 23 Improvement % Improvement: 50 11/03/24 1022 CC: Dr. Shay Tejeda MD; Shay Tejeda EBG Signed Normal [facility] Comprehensive Metabolic Prof sravan 11-01-2024 Albumin [Mass/Vol] 4.4 g/dL Normal 3.5-5.0 [facility] Comment on above: Order Comment: Inter face Comments: Hyperlipidimia Order Date: 06/28/24 Order Info: [id number] - CMP Order Info: [id number] - LIPID Comments: Hyperlipidimia Hyperlipidimia Performed By: #### L 500.4050, L500.4100 #### [facility] [address] [place], [place], [id number] Albumin/Globulin [Mass ratio] 1.8 {ratio} Normal 0.9-2.4 [facility] Comment on above: Order Comment: Inter face Comments: Hyperlipidimia Order Date: 06/28/24 Order Info: [id number] - CMP Order Info: - LIPID Comments: Hyperlipidimia Hyperlipidimia Performed By: #### L 500.4050, L500.4100 #### [facility] [address] [place], [place], [id number] ALK PHOS 58 U/L Normal 40-129 [facility] Comment on above: Order Comment: Inter face Comments: Hyperlipidimia Order Date: 06/28/24 Order Info: [id number] - CMP Order Info: - LIPID Comments: Hyperlipidimia Hyperlipidimia Performed By: #### L 500.4050, L500.4100 #### [facility] [address] [place], [place], [id number] ALT [Catalytic activity/Vol] 29 U/L Normal <=46 [facility] Comment on above: Order Comment: Inter face Comments: Hyperlipidimia Order Date: 06/28/24 Order Info: [id number] - CMP Order Info: [id number] - LIPID Comments: Hyperlipidimia Hyperlipidimia Performed By: #### L 500.4050, L500.4100 #### [facility] [address] [place], [address] AST [Catalytic activity/Vol] 18 U/L Normal <=37 [facility] Comment on above: Order Comment: Inter face Comments: Hyperlipidimia Order Date: 06/28/24 Order Info: [id number] - CMP Order Info: [id number] - LIPID Comments: Hyperlipidimia Hyperlipidimia Performed By: #### L 500.4050, L500.4100 #### [facility] [address] [place], [address] Bilirubin [Mass/Vol] 0.58 mg/dL Normal 0.00-1.30 [facility] Comment on above: Order Comment: Inter face Comments: Hyperlipidimia Order Date: 06/28/24 Order Info: [id number] - CMP Order Info: [id number] - LIPID Comments: Hyperlipidimia Hyperlipidimia Performed By: #### L 500.4050, L500.4100 #### [facility] [address] [place], [address] BUN/CRE 27.2 RATIO High 10-20 [facility] Comment on above: Order Comment: Inter face Comments: Hyperlipidimia Order Date: 06/28/24 Order Info: [id number] - CMP Order Info: - LIPID Comments: Hyperlipidimia Hyperlipidimia Performed By: #### L 500.4050, L500.4100 #### [facility] [address] [place], [address] Calcium [Mass/Vol] 9.3 mg/dL Normal 7.6-11.0 [facility] Comment on above: Order Comment: Inter face Comments: Hyperlipidimia Order Date: 06/28/24 Order Info: [id number] - CMP Order Info: [id number] - LIPID Comments: Hyperlipidimia Hyperlipidimia Performed By: #### L 500.4050, L500.4100 #### [facility] [address] [place], [address] Chloride [Moles/Vol] 103 mmol/L Normal 98-108 [facility] Comment on above: Order Comment: Inter face Comments: Hyperlipidimia Order Date: 06/28/24 Order Info: [id number] - CMP Order Info: [id number] - LIPID Comments: Hyperlipidimia Hyperlipidimia Performed By: #### L 500.4050, L500.4100 #### [facility] [address] [place], [place], [address] CO2 [Moles/Vol] 24.8 mmol/L Normal 21.0-32.0 [facility] Comment on above: Order Comment: Inter face Comments: Hyperlipidimia Order Date: 06/28/24 Order Info: [id number]- - CMP Order Info: [id number] - LIPID Comments: Hyperlipidimia Hyperlipidimia Performed By: #### L 500.4050, L500.4100 #### [facility] [address] [place], [place], [address] Creatinine [Mass/Vol] 0.83 mg/dL Normal 0.70-1.20 [facility] Comment on above: Order Comment: Inter face Comments: Hyperlipidimia Order Date: 06/28/24 Order Info: 07 - CMP Order Info: [id number] - LIPID Comments: Hyperlipidimia Hyperlipidimia Performed By: #### L 500.4050, L500.4100 #### [facility] [address] [place], [place], [address] GAP 10 Normal 5-15 [facility] Comment on above: Order Comment: Inter face Comments: Hyperlipidimia Order Date: 06/28/24 Order Info: [id number] - CMP Order Info: [id number] - LIPID Comments: Hyperlipidimia Hyperlipidimia Performed By: #### L 500.4050, L500.4100 #### [facility] [address] [place], [address] GFR/1.73 sq M.predicted among non-blacks MDRD (S/P/Bld) [Vol rate/Area] 101 mL/min/{1.73_m2} Normal >60 [facility] Comment on above: Order Comment: Inter face Comments: Hyperlipidimia Order Date: 06/28/24 Order Info: [id number]- - CMP Order Info: [id number] - LIPID Comments: Hyperlipidimia Hyperlipidimia Result Comment: mL/m in/1.73m2 CKD-EPI Creatinine Equation (2020) Performed By: #### L 500.4050, L500.4100 #### [facility] [address] [place], [address] Globulin (S) [Mass/Vol] 2.4 g/dL Normal 2.2-4.2 [facility] Comment on above: Order Comment: Inter face Comments: Hyperlipidimia Order Date: 06/28/24 Order Info: 785-05 - CMP Order Info: [id number] - LIPID Comments: Hyperlipidimia Hyperlipidimia Performed By: #### L 500.4050, L500.4100 #### [facility] [address] [place], [address] Glucose [Mass/Vol] 104 mg/dL High 70-99 [facility] Comment on above: Order Comment: Inter face Comments: Hyperlipidimia Order Date: 06/28/24 Order Info: [id number] - CMP Order Info: [id number] - LIPID Comments: Hyperlipidimia Hyperlipidimia Performed By: #### L 500.4050, L500.4100 #### [facility] [address] [place], [address] Potassium [Moles/Vol] 4.6 mmol/L Normal 3.3-5.1 [facility] Comment on above: Order Comment: Inter face Comments: Hyperlipidimia Order Date: 06/28/24 Order Info: 785-05 - CMP Order Info: [id number] - LIPID Comments: Hyperlipidimia Hyperlipidimia Performed By: #### L 500.4050, L500.4100 #### [facility] [address] [place], [address] Sodium [Moles/Vol] 138 mmol/L Normal 133-145 [facility] Comment on above: Order Comment: Inter face Comments: Hyperlipidimia Order Date: 06/28/24 Order Info: 785-05 - CMP Order Info: [id number] - LIPID Comments: Hyperlipidimia Hyperlipidimia Performed By: #### L 500.4050, L500.4100 #### [facility] [address] [place], [place], [address] T PROT 6.8 g/dL Normal 5.9-8.4 [facility] Comment on above: Order Comment: Inter face Comments: Hyperlipidimia Order Date: 06/28/24 Order Info: [id number]- - CMP Order Info: [id number] - LIPID Comments: Hyperlipidimia Hyperlipidimia Performed By: #### L 500.4050, L500.4100 #### [facility] [address] [place], [address] Urea nitrogen [Mass/Vol] 23 mg/dL High - [facility] Comment on above: Order Comment: Inter face Comments: Hyperlipidimia Order Date: 06/28/24 Order Info: 07 - CMP Order Info: [id number] - LIPID Comments: Hyperlipidimia Hyperlipidimia Performed By: #### L 500.4050, L500.4100 #### [facility] [address] [place], [place], [address] Lipid Profileon 11-01-2024 CHOL:HDL 3.84 Normal [facility] Comment on above: Order Comment: Inter face Comments: Hyperlipidimia Order Date: 06/28/24 Order Info: 07 - CMP Order Info: [id number] - LIPID Comments: Hyperlipidimia Performed By: #### L 500.4050, L500.4100 #### [facility] [address] [place], [address] Cholesterol [Mass/Vol] 208 mg/dL High <=200 [facility] Comment on above: Order Comment: Inter face Comments: Hyperlipidimia Order Date: 06/28/24 Order Info: 07 - CMP Order Info: [id number] - LIPID Comments: Hyperlipidimia Result Comment: Chol esterol level, Desirable <200 mg/dL Borderline high cholesterol 200-239 mg/dL High cholesterol >=240 mg/dL Recommendations of the NCEP Adult Treatment Panel for the following risk-cutoff thresholds for the [place] population. Performed By: #### L 500.4050, L500.4100 #### [facility] [address] [place], [address] Cholesterol in HDL [Mass/Vol] 54 mg/dL Normal [facility] Comment on above: Order Comment: Inter face Comments: Hyperlipidimia Order Date: 06/28/24 Order Info: 0786-1 - CMP Order Info: [id number] - LIPID Comments: Hyperlipidimia Result Comment: [place] Cholesterol Education Program (NCEP) guidelines: <40 mg/dL: Low HDL-cholesterol (major risk factor for CHD) >= 60 mg/dL: High HDL-cholesterol (negative risk factor for CHD) HDL-cholesterol is affected by a number of factors, e.g. smoking, exercise, hormones, sex and age. Performed By: #### L 500.4050, L500.4100 #### [facility] [address] [place], [address] Cholesterol in LDL [Mass/Vol] 130 mg/dL Normal [facility] Comment on above: Order Comment: Inter face Comments: Hyperlipidimia Order Date: 06/28/24 Order Info: 0786- - CMP Order Info: [id number] - LIPID Comments: Hyperlipidimia Result Comment: Bord vkcuyt=871-646 mg/dL Higher Kcke=185 mg/dL or greater Performed By: #### L 500.4050, L500.4100 #### [facility] [address] [place], [address] Cholesterol in VLDL [Mass/Vol] 24 mg/dL Normal 5-40 [facility] Comment on above: Order Comment: Inter face Comments: Hyperlipidimia Order Date: 06/28/24 Order Info: 0786- - CMP Order Info: [id number] - LIPID Comments: Hyperlipidimia Performed By: #### L 500.4050, L500.4100 #### [facility] [address] [place], [address] Triglyceride [Mass/Vol] 120 mg/dL Normal [facility] Comment on above: Order Comment: Inter face Comments: Hyperlipidimia Order Date: 06/28/24 Order Info: 0786-1 - CMP Order Info: [id number] - LIPID Comments: Hyperlipidimia Result Comment: The drugs N-Acetylcysteine and Metamizole may falsely depress this assay. Normal range: <150 mg/dL Borderline High: 150-199 mg/dL High: 200-499 mg/dL Very High: >500 mg/dL Performed By: #### L 500.4050, L500.4100 #### [facility] [address] [place], [place], [id number] Inital Evaluation (1) - PTon 10-10-2024 Inital Evaluation (1) - PT [facility] [address] [place] [address] / REHABILITATION SERVICES INITIAL EVALUATION MR#: [id number] Acct: [id number] Name: BENJAMIN SINGLETON Rep #: [id number] : 1965 59 From: Kush Bethea DPT, OCS, CSCS Referring Dr.: Dr. Shay Tejeda MD Status: REG R Insurance: [facility] SELF PAY INSURANCE Patient's Visit Information Visit Information Visit Information: BENJAMIN SINGLETON is a 59 year old M referred to Physical Therapy by Dr. Shay Tejeda MD with a diagnosis of Back pain. Date of Evaluation: 10/10/24 Physical Therapist: Kush Bethea DPT, OCS, CSCS Visit Plan Frequency: 2x /Week Duration: 4-6 Weeks Plan: 2x/week for 4-6 weeks for: IE HEP: PPU 10x every two hours, posture with towel roll only in firm chair and minimize sitting, body mechanics to avoid FW bending. Treat with : PA mobs and ext bias eex, L/S ROM ex, STM to lumbar paraspinals, rollout and stretch HS, core strength adn possibly eventual gym strength. ice and tens if needed. Subjective Subjective: June sat in [employer] long time 3 games and back started hurting, was not painful prior. Maybe previous episodes. Better in September with ibuprofen but helped neighbor [employer] sitting in tractor and got worse again. 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 sitting is the worst. Got much worse last week. Has seen R iverson and lateral leg/hip Tejeda and is now on ibuprofen 3x/day. Much worse in the am. Has to crawl sometimes. Has some pain in R iverson and lateral leg into LB. Long time it takes to shower and dress. has been this way for a week. Can walk 45 min a couple times per day with very little pain. Hurts to sit and relax and worse upon getting up, mostly in LB. Sleep is Ok with muscle relaxer is not bad. AM feels good , moves OK but hard to stand and walk to bathroom. Trying cobra pose in am trunk rotations, cat cow, PPU. 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 Pain R LB and leg: Pain Intensity (Out of 10): 5 Pain Intensity Range: 1 and 9 Objective Objective: Posture is flat lordosis, very stiff lumbar to PA pressure with just slight lower lumbar discomfort. L/S AROM ext mod limited with some pain, flexion mod limited, SB mod limited. Stiff and tight parapsinal mm prevent a lot of segmental spinal movemnt in lumbar and lower thoracic. parspinals not overly tender. reflexes 2/3 Patella andres achilles B. Sensation LE WNL to gross light touch. strength LE 4+/5 without myotomal abnormalities. core strength 4- abs and ext without much pain. transfers sit to stand and off table today without much evidence of pain. Balance/Special Test Scores Oswestry Low Back Score: 23 Goals Goal 1:: Lumbar spine AROM full and without pain Goal Time Frame: 2-4 Weeks Goal 2:: Pain for patient in am 80% better and 1/10 at worst Goal Time Frame: 2-4 Weeks Goal 3:: I appropriate HEP to minimize future probems(leg stretches, back ROM, posture adn core strength, possibly gym) Goal Time Frame: 2-4 Weeks Goal 4:: back oswestry 4 or better Goal Time Frame: 2-4 Weeks Goal 5:: Sit in car for trip in community without back pain Goal Time Frame: 2-4 Weeks Rehabilitation Potential Physical Therapy Diagnosis: Back pain limiting comfortable funciton likely discal in nature Rehabilitation Potential: Fair Anticipated Interventions Patient/Client Instruction: Educate patient on: Condition and Plan of Care For the Purpose of:: To decrease pain, To increase ROM, To improve nutrient delivery to tissue, To improve muscle performance and motor function, To increase tolerance to activity/condition/ position, To improve ability of physical actions for home/community/work /leisure and To improve gait and locomotor functions Therapeutic Exercise to Include: Strength training, Postural training, Flexibilty training, Relaxation training, Passive ROM, Active ROM and Dynamic Lumbar Stabilization For the Purpose of:: To decrease pain, To increase ROM, To improve nutrient delivery to tissue, To improve muscle performance and motor function, To increase tolerance to activity/condition/ position, To improve performance and independence with ADL's and To improve ability of physical actions for home/community/work /leisure Manual Therapy Techniques to Include: Mobilization, Passive ROM and Soft tissue mobilization For the Purpose of:: To decrease pain, To increase ROM and To improve nutrient delivery to tissue TENS: Yes Cryotherapy (ice pack, ice massage): Yes For the Purpose of:: To decrease pain, To decrease swelling/inflammati on, To increase ROM, To improve nutrient delivery to tissue and To improve muscle performance and motor function Text: Thank you for the opportunity to evaluate your patient. For Medicare and Medicare HMO plans, please review the plan of care and approve (more content not included)... Normal [facility] Hips B/L min 2 views w/ Pelv ros 09-29-2024 Hips B/L min 2 views w/ Pelvis [facility] [address] [place], [place] [address] Hips B/L min 2 views w/ Pelvis MR#: [id number] Acct: [id number] Name: BENJAMIN SINGLETON Rep #: [id number] : 1965 M 59 From: Grover Chauhan MD PCP: Dr. Shay Tejeda MD Status: REG CLI Study: Hips B/L min 2 views w/ Pelvis Date of Exam: 0 09/29/24 Exam# [id number] Ordering Dr: Shay Tejeda MD EXAM: XR Bilateral Hips With Pelvis When Performed, 2 Views CLINICAL INDICATION: HIP PAIN TECHNIQUE: Frontal view of the bilateral hips with pelvis when performed. COMPARISON: No relevant prior studies available. FINDINGS: BONES/JOINTS: Total right hip replacement. Intact hardware. Anatomic position. No acute fracture. No dislocation. SOFT TISSUES: Unremarkable. RAD/Hips B/L min 2 views w/ Pelvis IMPRESSION: Postoperative changes as above. Reading Location: [facility] CC: Dr. Shay Tejeda MD Senior Java Programmer: Signed Normal [facility] L/S Spine Min 4 Viewson 09-08 L/S Spine Min 4 Views [facility] [address] [place], [place] [address] L/S Spine Min 4 Views MR#: [id number] Acct: [id number] Name: BENJAMIN SINGLETON Rep #: [id number] : 1965 M 59 From: Grover Chauhan MD PCP: Dr. Shay Tejeda MD Status: REG CLI Study: L/S Spine Min 4 Views Date of Exam: 09/29/24 Exam# [id number] Ordering Dr: Shay Tejeda MD EXAM: XR Lumbosacral Spine, 4 or 5 Views CLINICAL INDICATION: BACK PAIN TECHNIQUE: Frontal, lateral and bilateral oblique views of the lumbar spine. COMPARISON: No relevant prior studies available. FINDINGS: VERTEBRAE: Multilevel endplate degenerative change and disc disease of the lumbar spine from L1-S1. Mild vertebral body height loss of L5, L4, and L3 vertebral bodies, likely chronic. No acute fracture. Normal alignment. SACRUM/COCCYX: Unremarkable as visualized. No acute fracture. DISC SPACES: See above. SOFT TISSUES: Unremarkable. RAD/L/S Spine Min 4 Views IMPRESSION: 1. Mild vertebral body height loss of L5, L4, and L3 vertebral bodies, likely chronic. 2. If symptoms persist, further evaluation with MRI is recommended. Reading Location: [facility] CC: Dr. Shay Tejeda MD Senior Java Programmer: Signed Normal [facility] Albumin to globulin ratioOrd ered By: Shay Tejeda on 06-23-2024 Albumin/Globulin [Mass ratio] 1.2 {ratio} 0.9-2.4 [facility] Bilirubin, totalOrdered By: Shay Tejeda on 06-23-2024 Bilirubin [Mass/Vol] 0.70 mg/dL 0.20-1.00 [facility] Comment on above: For patients on eltr ombopag therapy, use of Dimension D Lo TBIL is not recommended. Blood urea nitrogen (BUN)/cr eatinine ratioOrdered By: Shay Tejeda on 06-23-2024 Urea nitrogen/Creatinine [Mass ratio] 19.3 mg/mg 10-20 [facility] Carbon dioxide measurementOr dered By: Shay Tejeda on 06-23-2024 CO2 [Moles/Vol] 28.0 mmol/L 21.0-32.0 [facility] Chloride measurementOrdered By: Shay Tejeda on 06-23-2024 Chloride [Moles/Vol] 104 mmol/L 98-107 [facility] Comprehensive Metabolic Prof ilon 06-23-2024 Albumin [Mass/Vol] 3.9 g/dL Normal 3.2-5.0 [facility] Comment on above: Performed By: #### L 500.4050, L500.4100 #### [facility] [address] [place], [address] Albumin/Globulin [Mass ratio] 1.2 {ratio} Normal 0.9-2.4 [facility] Comment on above: Performed By: #### L 500.4050, L500.4100 #### [facility] [facility] [address] [place], [address] ALK P 63 U/L Normal 45-117 [facility] Comment on above: Performed By: #### L 500.4050, L500.4100 #### [facility] [address] [place], [address] ALT [Catalytic activity/Vol] 54 U/L Normal 16-61 [facility] Comment on above: Performed By: #### L 500.4050, L500.4100 #### [facility] [address] [place], [address] AST [Catalytic activity/Vol] 24 U/L Normal 15-37 [facility] Comment on above: Performed By: #### L 500.4050, L500.4100 #### [facility] [address] [place], [address] Bilirubin [Mass/Vol] 0.70 mg/dL Normal 0.20-1.00 [facility] Comment on above: Result Comment: For patients on eltrombopag therapy, use of Dimension D Lo TBIL is not recommended. Performed By: #### L 500.4050, L500.4100 #### [facility] [address] [place], [address] BUN/CRE 19.3 RATIO Normal 10-20 [facility] Comment on above: Performed By: #### L 500.4050, L500.4100 #### [facility] [address] [place], [address] CA,Total 9.4 mg/dL Normal 8.5-10.1 [facility] Comment on above: Performed By: #### L 500.4050, L500.4100 #### [facility] [address] [place], [address] Chloride [Moles/Vol] 104 mmol/L Normal 98-107 [facility] Comment on above: Performed By: #### L 500.4050, L500.4100 #### [facility] [address] [place], [address] CO2 [Moles/Vol] 28.0 mmol/L Normal 21.0-32.0 [facility] Comment on above: Performed By: #### L 500.4050, L500.4100 #### [facility] [address] [place], [address] Creatinine [Mass/Vol] 0.98 mg/dL Normal 0.70-1.30 [facility] Comment on above: Result Comment: The validity of the calculated GFR GFRAA in patients over 70 years has not been determined. Clinical correlation is essential. Performed By: #### L 500.4050, L500.4100 #### [facility] [address] [place], [address] EST GFR - AA 101 mL/min Normal >60 [facility] Comment on above: Result Comment: Afri can Liberian GFR Calc Performed By: #### L 500.4050, L500.4100 #### [facility] [address] [place], [address] GAP 5 Normal 5-15 [facility] Comment on above: Performed By: #### L 500.4050, L500.4100 #### [facility] [address] [place], [address] GFR/1.73 sq M.predicted among non-blacks MDRD (S/P/Bld) [Vol rate/Area] 83 mL/min/{1.73_m2} Normal >60 [facility] Comment on above: Result Comment: Non- GFR Calc Performed By: #### L 500.4050, L500.4100 #### [facility] [address] [place], [address] Globulin (S) [Mass/Vol] 3.2 g/dL Normal 2.2-4.2 [facility] Comment on above: Performed By: #### L 500.4050, L500.4100 #### [facility] [address] [place], [address] Glucose [Mass/Vol] 99 mg/dL Normal 74-106 [facility] Comment on above: Performed By: #### L 500.4050, L500.4100 #### [facility] [address] [place], [address] Potassium [Moles/Vol] 4.4 mmol/L Normal 3.5-5.1 [facility] Comment on above: Performed By: #### L 500.4050, L500.4100 #### [facility] [address] [place], [address] Sodium [Moles/Vol] 137 mmol/L Normal 136-145 [facility] Comment on above: Performed By: #### L 500.4050, L500.4100 #### [facility] [address] [place], [address] T PROT 7.1 g/dL Normal 6.4-8.2 [facility] Comment on above: Performed By: #### L 500.4050, L500.4100 #### [facility] [address] [place], [address] Urea nitrogen [Mass/Vol] 19 mg/dL High 7-18 [facility] Comment on above: Performed By: #### L 500.4050, L500.4100 #### [facility] [address] [place], [address] Glomerular filtration rate ( GFR) estimationOrdered By: Shay Tejeda on 06-23-2024 GFR/1.73 sq M.predicted among non-blacks MDRD (S/P/Bld) [Vol rate/Area] 83 mL/min/{1.73_m2} >60 [facility] Comment on above: Non- GFR Calc Glucose measurementOrdered B y: Shay Tejeda on 06-23-2024 Glucose [Mass/Vol] 99 mg/dL 74-106 [facility] High density lipoprotein (HD L) measurementOrdered By: Shay Tejeda on 06-23-2024 Cholesterol in HDL [Mass/Vol] 68 mg/dL >40 [facility] Comment on above: The drugs N-Acetylcy steine and Metamizole may falsely depress this assay. Reference Range HDL <40 mg/dL Low HDL Cholesterol HDL >or= 60 mg/dL High HDL Cholesterol Laboratory - Chemistry and C hemistry - challengeOrdered By: Shay Tejeda on 06-23-2024 AST [Catalytic activity/Vol] 24 U/L 15-37 [facility] Lipid Profileon 06-23-2024 Cholesterol [Mass/Vol] 254 mg/dL High 200 [facility] Comment on above: Result Comment: <200 mg/dL Desirable 200-240 mg/dL Borderline >240 mg/dL High Risk Performed By: #### L 500.4050, L500.4100 #### [facility] [address] [place], [address] Cholesterol in HDL [Mass/Vol] 68 mg/dL Normal [facility] Comment on above: Result Comment: The drugs N-Acetylcysteine and Metamizole may falsely depress this assay. Reference Range HDL <40 mg/dL Low HDL Cholesterol HDL >or= 60 mg/dL High HDL Cholesterol Performed By: #### L 500.4050, L500.4100 #### [facility] [address] [place], [address] Cholesterol in LDL [Mass/Vol] 163 mg/dL High 0-130 [facility] Comment on above: Performed By: #### L 500.4050, L500.4100 #### [facility] [address] [place], [address] Cholesterol in VLDL [Mass/Vol] 23 mg/dL Normal 5-40 [facility] Comment on above: Performed By: #### L 500.4050, L500.4100 #### [facility] [address] [place], [address] Triglyceride [Mass/Vol] 115 mg/dL Normal [facility] Comment on above: Result Comment: The drugs N-Acetylcysteine and Metamizole may falsely depress this assay. Serum Triglycerides Reference Interval Normal <150 mg/dL Borderline high 150 - 199 mg/dL High 200 - 499 mg/dL Very High > or = 500 mg/dL Performed By: #### L 500.4050, L500.4100 #### [facility] [address] [place], [address] Low density lipoprotein (LDL ) cholesterol measurementOrdered By: Shay Tejeda on 06-23-2024 Cholesterol in LDL [Mass/Vol] 163 mg/dL High 0-130 [facility] Potassium measurementOrdered By: Shay Tejeda on 06-23-2024 Potassium [Moles/Vol] 4.4 mmol/L 3.5-5.1 [facility] Serum anion gap measurementO rdered By: Shay Tejeda on 06-23-2024 Anion gap [Moles/Vol] 5 mmol/L 5-15 [facility] Serum globulin measurementOr dered By: Shay Tejeda on 06-23-2024 Globulin (S) [Mass/Vol] 3.2 g/dL 2.2-4.2 [facility] Serum or plasma alanine johnson otransferase (ALT) measurementOrdered By: Shay Tejeda on 06-23-2024 ALT [Catalytic activity/Vol] 54 U/L 16-61 [facility] Serum or plasma albumin trevon urement (mass/volume)Ordered By: Shay Tejeda on 06-23-2024 Albumin [Mass/Vol] 3.9 g/dL 3.2-5.0 [facility] Serum or plasma alkaline edith sphatase measurementOrdered By: Shay Tejeda on 06-23-2024 ALP [Catalytic activity/Vol] 63 U/L 45-117 [facility] Serum or plasma calcium trevon urement (mass/volume)Ordered By: Shay Tejeda on 06-23-2024 Calcium [Mass/Vol] 9.4 mg/dL 8.5-10.1 [facility] Serum or plasma cholesterol measurement (mass/volume)Ordered By: Shay Tejeda on 06-23-2024 Cholesterol [Mass/Vol] 254 mg/dL High <200 [facility] Comment on above: <200 mg/dL Desirable 200-240 mg/dL Borderline >240 mg/dL High Risk Serum or plasma creatinine m easurement (mass/volume)Ordered By: Shay Tejeda on 06-23-2024 Creatinine [Mass/Vol] 0.98 mg/dL 0.70-1.30 [facility] Comment on above: The validity of the calculated GFR & GFRAA in patients over 70 years has not been determined. Clinical correlation is essential. Serum or plasma urea nitroge n measurement (mass/volume)Ordered By: Shay Tejeda on 06-23-2024 Urea nitrogen [Mass/Vol] 19 mg/dL High 7-18 [facility] Sodium levelOrdered By: Shay Tejeda on 06-23-2024 Sodium [Moles/Vol] 137 mmol/L 136-145 [facility] Total proteinOrdered By: Lori Tejeda on 06-23-2024 Protein [Mass/Vol] 7.1 g/dL 6.4-8.2 [facility] Triglycerides measurementOrd ered By: Shay Tejeda on 06-23-2024 Triglyceride [Mass/Vol] 115 mg/dL <199 [facility] Comment on above: The drugs N-Acetylcy steine and Metamizole may falsely depress this assay.Serum Triglycerides Reference Interval Normal <150 mg/dL Borderline high 150 - 199 mg/dL High 200 - 499 mg/dL Very High > or = 500 mg/dL Very low density lipoprotein (VLDL) cholesterol measurementOrdered By: Shay Tejeda on 06-23-2024 Very low density lipoprotein (VLDL) cholesterol measurement 23 mg/dL 5-40 [facility] Comprehensive Metabolic Prof ilon 01-04-2024 Albumin [Mass/Vol] 3.7 g/dL Normal 3.2-5.0 [facility] Comment on above: Performed By: #### L 501.9910, L500.4100, L500.4050 #### [facility] [address] [place], [address] Albumin/Globulin [Mass ratio] 1.2 {ratio} Normal 0.9-2.4 [facility] Comment on above: Performed By: #### L 501.9910, L500.4100, L500.4050 #### [facility] [address] [place], [address] ALK P 63 U/L Normal 45-117 [facility] Comment on above: Performed By: #### L 501.9910, L500.4100, L500.4050 #### [facility] [address] [place], [address] ALT [Catalytic activity/Vol] 32 U/L Normal 16-61 [facility] Comment on above: Performed By: #### L 501.9910, L500.4100, L500.4050 #### [facility] [address] [place], [address] AST [Catalytic activity/Vol] 16 U/L Normal 15-37 [facility] Comment on above: Performed By: #### L 501.9910, L500.4100, L500.4050 #### [facility] [address] [place], [address] Bilirubin [Mass/Vol] 0.70 mg/dL Normal 0.20-1.00 [facility] Comment on above: Result Comment: For patients on eltrombopag therapy, use of Dimension D Lo TBIL is not recommended. Performed By: #### L 501.9910, L500.4100, L500.4050 #### [facility] [address] [place], [address] BUN/CRE 20.0 RATIO Normal 10-20 [facility] Comment on above: Performed By: #### L 501.9910, L500.4100, L500.4050 #### [facility] [address] [place], [address] CA,Total 8.8 mg/dL Normal 8.5-10.1 [facility] Comment on above: Performed By: #### L 501.9910, L500.4100, L500.4050 #### [facility] [address] [place], [address] Chloride [Moles/Vol] 104 mmol/L Normal 98-107 [facility] Comment on above: Performed By: #### L 501.9910, L500.4100, L500.4050 #### [facility] [address] [place], [address] CO2 [Moles/Vol] 26.0 mmol/L Normal 21.0-32.0 [facility] Comment on above: Performed By: #### L 501.9910, L500.4100, L500.4050 #### [facility] [address] [place], [address] Creatinine [Mass/Vol] 0.85 mg/dL Normal 0.70-1.30 [facility] Comment on above: Result Comment: The validity of the calculated GFR GFRAA in patients over 70 years has not been determined. Clinical correlation is essential. Performed By: #### L 501.9910, L500.4100, L500.4050 #### [facility] [address] [place], [address] EST GFR - AA 119 mL/min Normal >60 [facility] Comment on above: Result Comment: Afri can Liberian GFR Calc Performed By: #### L 501.9910, L500.4100, L500.4050 #### [facility] [address] [place], [address] GAP 7 Normal 5-15 [facility] Comment on above: Performed By: #### L 501.9910, L500.4100, L500.4050 #### [facility] [address] [place], [address] GFR/1.73 sq M.predicted among non-blacks MDRD (S/P/Bld) [Vol rate/Area] 98 mL/min/{1.73_m2} Normal >60 [facility] Comment on above: Result Comment: Non- GFR Calc Performed By: #### L 501.9910, L500.4100, L500.4050 #### [facility] [address] [place], [address] Globulin (S) [Mass/Vol] 3.1 g/dL Normal 2.2-4.2 [facility] Comment on above: Performed By: #### L 501.9910, L500.4100, L500.4050 #### [facility] [address] [place], [address] Glucose [Mass/Vol] 89 mg/dL Normal 74-106 [facility] Comment on above: Performed By: #### L 501.9910, L500.4100, L500.4050 #### [facility] [address] [place], [address] Potassium [Moles/Vol] 4.0 mmol/L Normal 3.5-5.1 [facility] Comment on above: Performed By: #### L 501.9910, L500.4100, L500.4050 #### [facility] [address] [place], [address] Sodium [Moles/Vol] 137 mmol/L Normal 136-145 [facility] Comment on above: Performed By: #### L 501.9910, L500.4100, L500.4050 #### [facility] [address] [place], [address] T PROT 6.8 g/dL Normal 6.4-8.2 [facility] Comment on above: Performed By: #### L 501.9910, L500.4100, L500.4050 #### [facility] [address] [place], [address] Urea nitrogen [Mass/Vol] 17 mg/dL Normal 7-18 [facility] Comment on above: Performed By: #### L 501.9910, L500.4100, L500.4050 #### [facility] [address] [place], [address] Lipid Profileon 01-04-2024 Cholesterol [Mass/Vol] 196 mg/dL Normal 200 [facility] Comment on above: Result Comment: <200 mg/dL Desirable 200-240 mg/dL Borderline >240 mg/dL High Risk Performed By: #### L 501.9910, L500.4100, L500.4050 #### [facility] [address] [place], [address] Cholesterol in HDL [Mass/Vol] 59 mg/dL Normal [facility] Comment on above: Result Comment: The drugs N-Acetylcysteine and Metamizole may falsely depress this assay. Reference Range HDL <40 mg/dL Low HDL Cholesterol HDL >or= 60 mg/dL High HDL Cholesterol Performed By: #### L 501.9910, L500.4100, L500.4050 #### [facility] [address] [place], [address] Cholesterol in LDL [Mass/Vol] 116 mg/dL Normal 0-130 [facility] Comment on above: Performed By: #### L 501.9910, L500.4100, L500.4050 #### [facility] [address] [place], [address] Cholesterol in VLDL [Mass/Vol] 21 mg/dL Normal 5-40 [facility] Comment on above: Performed By: #### L 501.9910, L500.4100, L500.4050 #### [facility] [address] [place], [address] Triglyceride [Mass/Vol] 104 mg/dL Normal [facility] Comment on above: Result Comment: The drugs N-Acetylcysteine and Metamizole may falsely depress this assay. Serum Triglycerides Reference Interval Normal <150 mg/dL Borderline high 150 - 199 mg/dL High 200 - 499 mg/dL Very High > or = 500 mg/dL Performed By: #### L 501.9910, L500.4100, L500.4050 #### [facility] [address] [place], [address] PSA,Total - Annual Screenon 01-04-2024 PSA,TOT SCREEN 1.47 ng/mL Normal 0.00-4.00 [facility] Comment on above: Result Comment: This test was performed using the TPSA assay method for the [employer] chemistry system. Values obtained with different assay methods cannot be used interchangably. When changing PSA assays in the course of monitoring a patient, additional sequential testing should be carried out to confirm baseline values. Performed By: #### L 501.9910, L500.4100, L500.4050 #### [facility] [address] [place], [address] Alternaria alternata IgE ser umOrdered By: Shay Tejeda on 12-22-2022 A. alternata IgE Qn (S) <0.10 kU/L Class 0 [facility] Basophil percentageOrdered B y: Shay Tejeda on 12-22-2022 Bilirubin [Mass/Vol] 0.40 mg/dL 0.20-1.00 [facility] Comment on above: For patients on eltr ombopag therapy, use of Dimension D Lo TBIL is not recommended. Chloride [Moles/Vol] 106 mmol/L 98-107 [facility] Cholesterol [Mass/Vol] 257 mg/dL <200 [facility] Comment on above: <200 mg/dL Desirable 200-240 mg/dL Borderline >240 mg/dL High Risk Glucose [Mass/Vol] 95 mg/dL 74-106 [facility] Potassium [Moles/Vol] 4.3 mmol/L 3.5-5.1 [facility] Protein [Mass/Vol] 6.7 g/dL 6.4-8.2 [facility] Sodium [Moles/Vol] 139 mmol/L 136-145 [facility] Triglyceride [Mass/Vol] 83 mg/dL <199 [facility] Comment on above: The drugs N-Acetylcy steine and Metamizole may falsely depress this assay.Serum Triglycerides Reference Interval Normal <150 mg/dL Borderline high 150 - 199 mg/dL High 200 - 499 mg/dL Very High > or = 500 mg/dL Laboratory - Chemistry and C hemistry - challengeOrdered By: Shay Tejeda on 12-22-2022 ALP [Catalytic activity/Vol] 59 U/L 45-117 [facility] ALT [Catalytic activity/Vol] 34 U/L 16-61 [facility] CO2 [Moles/Vol] 29.0 mmol/L 21.0-32.0 [facility] Globulin (S) [Mass/Vol] 3.1 g/dL 2.2-4.2 [facility] Urea nitrogen/Creatinine [Mass ratio] 20.9 mg/mg 10-20 [facility] - Miscellaneous t estsOrdered By: Shay Tejeda on 12-22-2022 Service comment (Unsp spec) [Interp] Comment . [facility] Comment on above: Levels of Specific I gE Class Description of Class ----- < 0.10 0 Negative 0.10 - 0.31 0/I Equivocal/Low 0.32 - 0.55 I Low 0.56 - 1.40 II Moderate 1.41 - 3.90 III High 3.91 - 19.00 IV Very High 19.01 - 100.00 V Very High >100.00 Very High No Panel InformationOrdered By: Shay Tejeda on 12-22-2022 Aspergillus fumigatus Allergen <0.10 kU/L Class 0 [facility] Common Ragweed (Short) Allergen <0.10 kU/L Class 0 [facility] Malagasy Plantain Allergen (RAST) <0.10 kU/L Class 0 [facility] Estimated GFR (MDRD) Amer 117 mL/min >60 [facility] Comment on above: GFR Calc Estimated GFR (MDRD) Non-Af Amer 97 mL/min >60 [facility] Comment on above: Non- GFR Calc Maple ([place]) Allergen IgE Ab <0.10 kU/L Class 0 [facility] Anna Tree Allergen <0.10 kU/L Class 0 [facility] Rough pigweed specific IgE a ntibody assayOrdered By: Shay Tejeda on 12-22-2022 Rough Pigweed IgE Qn (S) <0.10 kU/L Class 0 [facility] Serum Bermuda grass IgE anti body assay (units/volume)Ordered By: Shay Tejeda on 12-22-2022 Bermuda grass IgE Qn (S) <0.10 kU/L Class 0 [facility] Serum Cladosporium herbarum IgE antibody assay (units/volume)Ordered By: Shay Tejeda on 12-22-2022 C. herbarum IgE Qn (S) <0.10 kU/L Class 0 [facility] Serum Dermatophagoides farin ae specific IgE antibody assay (units/volume)Ordered By: Shay Tejeda on 12-22-2022 Liberian house dust mite IgE Qn (S) <0.10 kU/L Class 0 [facility] Serum house dust mi te IgE antibody assay (units/volume)Ordered By: Shay Tejeda on 12-22-2022 house dust mite IgE Qn (S) <0.10 kU/L Class 0 [facility] Serum Santy grass IgE anti body assay (units/volume)Ordered By: Shay Tejeda on 12-22-2022 Santy grass IgE Qn (S) <0.10 kU/L Class 0 [facility] Serum [place] blue grass Ig E antibody assay (units/volume)Ordered By: Shay Tejeda on 12-22-2022 [place] blue grass IgE Qn (S) <0.10 kU/L Class 0 [facility] Serum Mucor racemosus IgE an tibody assay (units/volume)Ordered By: Shay Tejeda on 12-22-2022 Mucor racemosus IgE Qn (S) <0.10 kU/L Class 0 [facility] Serum Penicillium notatum Ig E antibody assay (units/volume)Ordered By: Shay Tejeda on 12-22-2022 P. notatum IgE Qn (S) <0.10 kU/L Class [address] [facility] Serum Periplaneta americana IgE antibody assay (units/volume)Ordered By: Shay Tejeda on 12-22-2022 Liberian Cockroach IgE Qn (S) 0.31 kU/L Class 0/I [facility] Serum bahia grass IgE antibo dy assay (units/volume)Ordered By: Shay Tejeda on 12-22-2022 Bahia grass IgE Qn (S) <0.10 kU/L Class 0 [facility] Serum cat dander IgE antibod y assay (units/volume)Ordered By: Shay Tejeda on 12-22-2022 Cat dander IgE Qn (S) <0.10 kU/L Class [address] [facility] Serum dog epithelium IgE ant ibody assay (units/volume)Ordered By: Shay Tejeda on 12-22-2022 Dog epithelium IgE Qn (S) <0.10 kU/L Class 0 [facility] Serum hazelnut pollen IgE an tibody assay (units/volume)Ordered By: Shay Tejeda on 12-22-2022 Hazelnut Pollen IgE Qn (S) <0.10 kU/L Class 0 [facility] Serum mountain cedar specifi c IgE antibody assayOrdered By: Shay Tejeda on 12-22-2022 Mountain Juniper IgE Qn (S) <0.10 kU/L Class 0 [facility] Serum mugwort IgE antibody a ssay (units/volume)Ordered By: Shay Tejeda on 12-22-2022 Mugwort IgE Qn (S) <0.10 kU/L Class 0 [facility] Serum nettle IgE antibody as say (units/volume)Ordered By: Shay Tejeda on 12-22-2022 Nettle IgE Qn (S) <0.10 kU/L Class 0 [facility] Comment on above: Performed at: [address] [id number] Director: Coty Cross MD, Phone: [phone] Serum or plasma albumin trevon urement (mass/volume)Ordered By: Shay Tejeda on 12-22-2022 Albumin [Mass/Vol] 3.6 g/dL 3.2-5.0 [facility] Serum or plasma albumin/glob ulin mass ratioOrdered By: Shay Tejeda on 12-22-2022 Albumin/Globulin [Mass ratio] 1.2 {ratio} 0.9-2.4 [facility] Serum or plasma calcium trevon urement (mass/volume)Ordered By: Shay Tejeda on 12-22-2022 Calcium [Mass/Vol] 8.8 mg/dL 8.5-10.1 [facility] Serum or plasma cholesterol in HDL measurement (mass/volume)Ordered By: Shay Tejeda on 12-22-2022 Cholesterol in HDL [Mass/Vol] 66 mg/dL >40 [facility] Comment on above: The drugs N-Acetylcy steine and Metamizole may falsely depress this assay. Reference Range HDL <40 mg/dL Low HDL Cholesterol HDL >or= 60 mg/dL High HDL Cholesterol Serum or plasma cholesterol in VLDL measurement (mass/volume)Ordered By: Shay Tejeda on 12-22-2022 Cholesterol in VLDL [Mass/Vol] 17 mg/dL 5-40 [facility] Serum or plasma creatinine m easurement (mass/volume)Ordered By: Shay Tejeda on 12-22-2022 Creatinine [Mass/Vol] 0.86 mg/dL 0.70-1.30 [facility] Comment on above: The validity of the calculated GFR & GFRAA in patients over 70 years has not been determined. Clinical correlation is essential. Serum or plasma low density lipoprotein (LDL) cholesterol measurement (mass/volume)Ordered By: Shay Tejeda on 12-22-2022 Cholesterol in LDL [Mass/Vol] 174 mg/dL 0-130 [facility] Serum or plasma urea nitroge n measurement (mass/volume)Ordered By: Shay Tejeda on 12-22-2022 Urea nitrogen [Mass/Vol] 18 mg/dL 7-18 [facility] Serum sheep sorrel IgE antib jackie assay (units/volume)Ordered By: Shay Tejeda on 12-22-2022 Sheep [place] IgE Qn (S) <0.10 kU/L Class 0 [facility] Serum sweet gum IgE radioall ergosorbent test (RAST) class determinationOrdered By: Shay Tejeda on 12-22-2022 Sweet gum IgE RAST class (S) <0.10 kU/L Class 0 [facility] Serum white elm IgE antibody assay (units/volume)Ordered By: Shay Tejeda on 12-22-2022 [place] IgE Qn (S) <0.10 kU/L Class 0 [facility] Serum white hick[place] IgE anti body assay (units/volume)Ordered By: Shay Tejeda on 12-22-2022 [place] IgE Qn (S) <0.10 kU/L Class 0 [facility] Serum white mulberry IgE ant ibody assay (units/volume)Ordered By: Shay Tejeda on 12-22-2022 [place] IgE Qn (S) <0.10 kU/L Class 0 [facility] Serum white oak IgE antibody assay (units/volume)Ordered By: Shay Tejeda on 12-22-2022 [place] IgE Qn (S) <0.10 kU/L Class 0 [facility] Stemphylium herbarum IgE ser umOrdered By: Shay Tejeda on 12-22-2022 Stemphylium botryosum IgE Qn (S) <0.10 kU/L Class 0 [facility] Thin prep Papanicolaou smear with manual screeningOrdered By: Shay Tejeda on 12-22-2022 Thin prep Papanicolaou smear with manual screening 16 U/L 15-37 [facility] Thin prep Papanicolaou smear with manual screening 4 5-15 [facility] Basophil percentageon 2021 Bilirubin [Mass/Vol] 0.70 mg/dL 0.20-1.00 [facility] Work Phone: Comment on above: For patients on eltr ombopag therapy, use of Dimension D Lo TBIL is not recommended. Chloride [Moles/Vol] 101 mmol/L 98-107 [facility] Work Phone: Glucose [Mass/Vol] 87 mg/dL 74-106 [facility] Work Phone: Potassium [Moles/Vol] 4.2 mmol/L 3.5-5.1 [facility] Work Phone: Protein [Mass/Vol] 7.2 g/dL 6.4-8.2 [facility] Work Phone: Sodium [Moles/Vol] 136 mmol/L 136-145 [facility] Work Phone: Testosterone [Mass/Vol] 280.04 ng/dL [facility] Work Phone: Comment on above: CENTRAL 90% REFERENC E RANGES MALE AGE <50 197.44 - 669.58 ng/dL MALE AGE > or = 50 187.72 - 684.19 ng/dL FEMALE AGE <50 8.38 - 35.01 ng/dL FEMALE AGE > or = 50 <7.00 - 35.92 ng/dL Effective as of 12/03/20 Laboratory - Chemistry and C hemistry - challengeon 12-19-2021 ALP [Catalytic activity/Vol] 70 U/L 45-117 [facility] Work Phone: ALT [Catalytic activity/Vol] 37 U/L 16-61 [facility] Work Phone: CO2 [Moles/Vol] 28.0 mmol/L 21.0-32.0 [facility] Work Phone: Globulin (S) [Mass/Vol] 3.3 g/dL 2.2-4.2 [facility] Work Phone: Urea nitrogen/Creatinine [Mass ratio] 22.1 mg/mg 10-20 [facility] Work Phone: No Panel Informationon 12-19 Estimated GFR (MDRD) Amer 112 mL/min >60 [facility] Work Phone: Comment on above: GFR Calc Estimated GFR (MDRD) Non-Af Amer 92 mL/min >60 [facility] Work Phone: Comment on above: Non- GFR Calc Prostate Specific Antigen Screen 0.46 ng/mL 0.00-4.00 [facility] Work Phone: Comment on above: This test was perfor med using the TPSA assay method for [employer] chemistry system. Values obtained with differentassay methods cannot be used interchangably.When changing PSA assays in the course of monitoring apatient, additional sequential testing should be carriedout to confirm baseline values. Serum or plasma albumin trevon urement (mass/volume)on 12-19-2021 Albumin [Mass/Vol] 3.9 g/dL 3.2-5.0 [facility]: Serum or plasma albumin/glob ulin mass ratioon 12-19-2021 Albumin/Globulin [Mass ratio] 1.2 {ratio} 0.9-2.4 [facility] Work Phone: Serum or plasma calcium trevon urement (mass/volume)on 12-19-2021 Calcium [Mass/Vol] 8.9 mg/dL 8.5-10.1 [facility] Work Phone: Serum or plasma creatinine m easurement (mass/volume)on 12-19-2021 Creatinine [Mass/Vol] 0.90 mg/dL 0.70-1.30 [facility] Work Phone: Comment on above: The validity of the calculated GFR & GFRAA in patients over 70 years has not been determined. Clinical correlation is essential. Serum or plasma urea nitroge n measurement (mass/volume)on 12-19-2021 Urea nitrogen [Mass/Vol] 20 mg/dL 7-18 [facility] Work Phone: Thin prep Papanicolaou smear with manual screeningon 12-19-2021 Thin prep Papanicolaou smear with manual screening 18 U/L 15-37 [facility] Work Phone: Thin prep Papanicolaou smear with manual screening 7 5-15 [facility] Work Phone: Vital Signs Date Time Vital Sign Value Performing Clinician Faci lity 09-01-2021 07:20-0400 Body height 182.[address] Shay Tejeda Work Phone: [facility] Work Phone: Encounters Encounter Date Encounter Type Care Provider Facility Start: 11-03-2024 ambulatory Shay Tejeda Facility:[facility] Start: 11-01-2024 ambulatory Shay Tejeda Facility:[facility] Start: 09-29-2024 End: 09-29-[address] Shay Tejeda MD Work Phone: [facility] Work Phone: Start: 09-29-2024 End: 09-29-[address] Shay Tejeda MD [facility] [place] Work Phone: Start: 09-29-2024 End: 09-29-2024 ambulatory Shay Tejeda Facility:[facility] Start: 06-23-2024 End: 06-23-[address] Shay Tejeda MD -[facility] [place] Work Phone: Start: 06-23-2024 End: 06-23-2024 ambulatory Shay Tejeda Facility:[facility] Start: 01-18-2024 Encounter for genera l adult medical examination without abnormal findings Shay Tejeda [facility] Start: 01-04-2024 End: 01-04-2024 ambulatory Shay Tejeda Facility:[facility] Start: 12-22-2022 End: 12-22-2022 ambulatory [facility] Work Phone: Start: 12-22-2022 End: 12-22-2022 Patient encounter procedure [facility] Work Phone: Start: 12-19-2021 End: 12-19-[address] Shay Tejeda Work Phone: [facility] Start: 09-01-2021 End: 09-01-[address] Shay Tejeda Work Phone: [facility] Procedures Date Procedure Procedure Detail Performing Clinician Start: 09-29-2024 Plain x-ray of pelvi s and lower extremity Dr. Shay Tejeda MD Work Phone: Start: 09-29-2024 X-ray of lumbosacral spine Dr. Shay Tejeda MD Work Phone: Start: 06-23-2024 Measurement of renal function Dr. Shay Tejeda MD Work Phone: Comment on above: GFR Calc Payers Date Payer Category Payer Self-pay [id number] 2022 Unknown [id number] Unknown [id number] Unknown [id number] [id number] [id number] Unknown [id number] [id number] Unknown [id number] [id number] [id number] Unknown [id number] [id number] [id number] Unknown [id number] 2.16.8 [id number] Social History Date Type Detail Facility Start: 09-01-2021 Tobacco smoking stat [facility] Unknown if ever smoked [facility] Start: 1965 Sex Assigned At Male [facility] Start: 09-01-2021 Tobacco smoking stat [facility] Never smoked tobacco (finding) [facility] Radiology Diagnostic study note 09-29-2024 Note Date & Type Note Facility 09-29-2024 Radiology Diagnostic study note [facility] Imaging Services [address] [place], [place] [id number] Hips B/L min 2 views w/ Pelvis MR#: [id number] Acct: [id number] Name: BENJAMIN SINGLETON Rep #: [id number] : 1965 M 59 From: Cristy Chauhan MD PCP: Dr. Shay Tejeda MD Status: REG C Study:Hips B/L min 2 views w/ Pelvis Date of Exam: 09/29/24 Exam# [id number] Ordering Dr: Shay Tejeda MD EXAM: XR Bilateral Hips With Pelvis When Performed, 2 Views CLINICAL INDICATION: HIP PAIN TECHNIQUE: Frontal view of the bilateral hips with pelvis when performed. COMPARISON: No relevant prior studies available. FINDINGS: BONES/JOINTS: Total right hip replacement. Intact hardware. Anatomic position. No acute fracture. No dislocation. SOFT TISSUES: Unremarkable. RAD/Hips B/L min 2 views w/ Pelvis IMPRESSION: Postoperative changes as above. Reading Location: [facility] CC: Dr. Shay Tejeda MD ~ Senior Java Programmer: Signed [facility] Radiology Diagnostic study note 09-29-2024 Note Date & Type Note Facility 09-29-2024 Radiology Diagnostic study note [facility] Imaging Services [address] [place] [address] L/S Spine Min 4 Views MR#: [id number] Acct: [id number] Name: BENJAMIN SINGLETON Rep #: [id number] : 1965 M 59 From: Cristy Chauhan MD PCP: Dr. Shay Tejeda MD Status: REG C Study:L/S Spine Min 4 Views Date of Exam: 09/29/24 Exam# [id number] Ordering Dr: Shay Tejeda MD EXAM: XR Lumbosacral Spine, 4 or 5 Views CLINICAL INDICATION: BACK PAIN TECHNIQUE: Frontal, lateral and bilateral oblique views of the lumbar spine. COMPARISON: No relevant prior studies available. FINDINGS: VERTEBRAE: Multilevel endplate degenerative change and disc disease of the lumbar spine from L1-S1. Mild vertebral body height loss of L5, L4, and L3 vertebral bodies, likely chronic. No acute fracture. Normal alignment. SACRUM/COCCYX: Unremarkable as visualized. No acute fracture. DISC SPACES: See above. SOFT TISSUES: Unremarkable. RAD/L/S Spine Min 4 Views IMPRESSION: 1. Mild vertebral body height loss of L5, L4, and L3 vertebral bodies, likely chronic. 2. If symptoms persist, further evaluation with MRI is recommended. Reading Location: [facility] CC: Dr. 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) acute [facility] Work Phone: Evaluation note Note Date & Type Note Facility Evaluation note No assessment information availa [facility] Work Phone: Reason for referral (narrative) Note Date & Type Note Facility Reason for referral (narrative) No reason for referral information available [facility] Work Phone: Chief Complaint and Reason for Visit Chief Complaint 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 Reason for Visit Encounter for examin ation required by 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 (DOT) Chief Complaint Admit Date FASTING June 23, 2024 8:38am HIP AND BACK PAIN September 29, 2024 10:10 am Advance Directives No Advanced Directives Records Found Advance Directive Response Recorded Date/ Time Living Will No September 01, 2021 7:20am Power of Preventive Medicine Officer No September 01 7:20am Summary Purpose Family History No Family History Records Found Additional Source Comments Goals (unrecognized section and content) Goals may be documented in a n alternate sectionGoals may be documented in an alternate sectionGoals may be documented in an alternate section Care Teams (unrecognized sec tion and content) Team Status: Active Member Role Status Dates Dr. Shay Tejeda MD Family Provider Active Dr. Shay Tejeda MD Primary Care Provider Active Team Status: Inactive Member Role Status Dates Dr. Shay Tejeda MD Primary Care Provi daniella, Attending Provider, Referring Provider Active Team Status: Active Member Role Status Dates Dr. Shay Tejeda MD Primary Care Provider Active Team Status: Inactive Member Role Status Dates Dr. Shay Tejeda MD Primary Care Provider Active Start: June 23, 2024 End: June 23, 2024 Dr. Shay Tejeda MD Attending Provider Active Start: June 23, 2024 End: June 23, 2024 Dr. Shay Tejeda MD Referring Provider Active Start: June 23, 2024 End: June 23, 2024 Team Status: Inactive Member Role Status Dates Dr. Shay Tejeda MD Primary Care Provider Active Start: September 29, 2024 End: September 29, 2024 Dr. Shay Tejeda MD Attending Provider Active Start: September 29, 2024 End: September 29, 2024 Dr. Shay Tejeda MD Referring Provider Active Start: September 29, 2024 End: September 29, 2024 (unrecognized sect ion and content) No Status Records Found INFORMATION SOURCE (unrecogn ized section and content) DATE CREATED AUTHOR 11/04/2024 [facility] FOR RECORDS PERTAINING TO PATIENTS WHO ARE OR HAVE BEEN ENROLLED IN A CHEMICAL DEPENDENCY/SUBSTANCEABUSE PROGRAM, SOME INFORMATION MAY BE OMITTED. This clinical summary was aggregated from multiple sources. Caution should be exercised in using it in the provision of clinical care. This summary normalizes information from multiple sources, and as a consequence, information in this document may materially change the coding, format and clinical context of patient data. In addition, data may be omitted in some cases. CLINICAL DECISIONS SHOULD BE BASED ON THE PRIMARY CLINICAL RECORDS. [facility]. provides no warranty or guarantee of the accuracy or completeness of information in this document.
[2024-11-05] MEDS: predniSONE 20 MG Tablet 40 MG PO (18:58)
[2024-11-05] MEDS: morphine 10 MG/ML Syringe IM (18:58)
[2024-11-05] MEDS: Ondansetron ODT 4 MG Tablet PO (18:58)
[2024-11-05] MEDS: Lidocaine 5% Patch 1 PATCH TOPICAL (18:59)
[2024-11-05 19:18] VITALS: BP 151/115; PULSE 124; RESP 18; TEMP 36.7; O2SAT 98
[2024-11-05 19:47] VITALS: PULSE 84; RESP 16
== END 2024-11-05 20:19 | disposition home or self-care (01) ==
PROVIDERS: Emergency Provider Emergency Medicine; PCP Family Medicine; Referring Provider Emergency Medicine; Visit Provider Emergency Medicine
DX: M54.16 Radiculopathy, lumbar region (principal); R20.2 Paresthesia of skin; E78.00 Pure hypercholesterolemia, unspecified; I10 Essential (primary) hypertension; Z79.899 Other long term (current) drug therapy
CPT/HCPCS: 96372; 99282

== ENCOUNTER → 2024-11-14 | Outpatient (CLI) | payer OTHER, SELFPAY ==
--- NOTE | 2024-11-14 07:39 | MRI_ITS ---
PROCEDURE: SPINE LUMBAR (ROUTINE), 11/14/2024 REASON FOR EXAM: BACK PAIN TECHNIQUE: Multisequence multiplanar MR of the lumbar spine was performed without IV contrast. COMPARISON: 09/29/2024 FINDINGS: Grossly similar minimal chronic appearing vertebral body height loss at L3-L5. Degenerative type marrow signal changes are greatest from L 2-L5. Straightening of the normal lumbar lordosis. Trace likely degenerative grade 1 retrolisthesis at L3-L4 and L4-L5. Conus medullaris terminates normally at the L1 superior endplate level. Unremarkable appearance of the cauda equina allowing for crowding related to the below stenoses. Diffuse disc desiccation. Additional level by level findings as below: L1-2: Incompletely imaged L1 vertebral body on axial sequences, included on sagittal sequences. Diffuse disc bulging. Minimal facet arthropathy. No significant spinal canal or foraminal stenosis. L2-3: Prominent disc height loss with diffuse disc bulging and superimposed bilateral foraminal disc protrusions in the bilateral foraminal zones. Mild/moderate focal spinal canal stenosis with incomplete effacement of CSF. Narrowing of the bilateral lateral recesses. Minimal facet arthropathy. Mild bilateral foraminal stenosis. L3-4: Near-complete disc height loss with diffuse disc bulging, greatest in the bilateral foraminal regions. Inferiorly migrated disc sequestration measuring 12 x 8 x 15 mm extending into the RIGHT subarticular region posterior to the L4 vertebral body with associated effacement of the RIGHT lateral recess. Narrowing of the LEFT lateral recess. Mild ligamentum flavum hypertrophy. Facet arthropathy.. Moderate focal spinal canal stenosis with incomplete effacement of CSF. Mild/moderate LEFT and mild RIGHT foraminal stenosis. L4-5: Prominent disc height loss with diffuse disc bulging, again greatest in the foraminal regions. Facet arthropathy. Mild ligamentum flavum hypertrophy. Gccomnzd-ga-bcdwch focal spinal canal stenosis with near-complete effacement of CSF, spinal canal dimensions roughly 15 x 9 mm. Mild/moderate bilateral foraminal stenosis. L5-S1: Diffuse disc bulging, asymmetric to the LEFT particularly within the LEFT foraminal and lateral regions. Facet arthropathy and mild ligamentum flavum hypertrophy. Arrvocig-ox-jeiexs LEFT and moderate RIGHT foraminal stenosis. Mild focal spinal canal stenosis. Other: Cervical spondylosis on the coal bagger not well evaluated. Mucous retention cysts are polyp in the RIGHT maxillary sinus.. Presumed LEFT renal cysts up to 3.4 cm incompletely evaluated. Diverticulosis. MRI/Spine Lumbar (Routine) IMPRESSION: 1. Multilevel lumbar spondylosis as detailed, notably including a 15 mm L3-L4 d isc sequestration extending inferiorly into the RIGHT subarticular region with effacement of the RIGHT lateral recess. Variable foraminal stenoses up to vesxcilr-nw-tthbar on the LEFT at L5-S1. Variable spinal canal stenoses up to moderate at L3-L4. 2. Additional description as above. Reading Location: [id number]
== END | disposition home or self-care (01) ==
PROVIDERS: PCP Family Medicine; Referring Provider Family Medicine; Visit Provider Family Medicine
DX: M54.9 Dorsalgia, unspecified (principal); R73.09 Other abnormal glucose; Z68.27 Body mass index [BMI] 27.0-27.9, adult
CPT/HCPCS: 72148

== ENCOUNTER 2024-12-20 09:28 | Emergency (ER) | payer OTHER, SELFPAY ==
[2024-12-20] VITALS (7 sets, daily range): BP systolic 119–137; BP diastolic 78–106; PULSE 73–107; RESP 16–18; TEMP 36.4–37.1; O2SAT 96–100; BMI 27.3
--- NOTE | 2024-12-20 09:39 | EX.ED.DYSGE1 ---
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) Wears glasses High cholesterol Non-smoker Hypertension Home Medications ?Medication ?Instructions ?Recorded ?Last Taken ?Type atorvastatin 20 mg tablet 20 mg PO DAILY 11/05/24 Unknown History lidocaine 5 % topical patch 1 patch topical DAILY #15 ea 11/05/24 Unknown Rx (Lidoderm) lisinopril 10 mg tablet 10 mg PO DAILY 11/05/24 Unknown History ondansetron 4 mg disintegrating 4 mg PO Q8H PRN PRN Nausea #10 tabs 11/05/24 Unknown Rx tablet gabapentin 600 mg tablet 600 mg PO TID 12/06/24 Unknown History ibuprofen 200 mg tablet 600 mg PO TID Pain 12/06/24 Unknown History tramadol 50 mg tablet 50 mg PO TID PRN pain 12/06/24 Unknown History acetaminophen 500 mg capsule 1,000 mg PO TID PRN pain 12/13/24 Unknown History Allergy/AdvReac Type Severity Reaction Status Date / Time No Known Allergies Allergy Verified 12/13/24 13:31 Family History Other Diabetes High cholesterol Surgical History (Updated 12/13/24 @ 13:40 by Jacquelin Peters) Hx of colonoscopy Hx of arthroscopic knee surgery History of total right hip replacement Social History Smoking Status: Never smoker alcohol intake: never EXAM Physical Exam Const Vital Signs: 12/20/24 09:29 12/20/24 09:46 12/20/24 09:57 Temperature 97.6 F L Temperature Source Oral Pulse Rate 77 Respiratory Rate 16 Blood Pressure 120/91 H Blood Pressure Mean 100 Pulse Ox 96 Oxygen Delivery Method Room Air Room Air 12/20/24 09:57 12/20/24 10:28 12/20/24 11:02 Temperature Temperature Source Pulse Rate 79 73 Respiratory Rate 18 Blood Pressure 120/91 H 124/78 H 119/87 H Blood Pressure Mean 100 93 97 Pulse Ox 100 100 Oxygen Delivery Method Room Air 12/20/24 12:00 Temperature Temperature Source Pulse Rate 80 Respiratory Rate Blood Pressure 137/106 H Blood Pressure Mean 116 Pulse Ox Oxygen Delivery Method MDM MDM MDM Narrative Medical decision making narrative: HISTORY OF PRESENT ILLNESS: Chief complaint: Syncope 59-year-old male history of hyperlipidemia, hypertension presents via EMS after having a syncopal episode this morning. Notes he took some medications that he takes for back pain including gabapentin, ibuprofen, Tylenol and tramadol. States he typically gets a bit lightheaded after taking gabapentin. This morning it was no different but just more severe. He states has not been eating or drinking as much as he typically does next and may be dehydrated. Notes feeling warm, nauseous and lightheaded prior to passing out. No shaking tongue biting or bowel or bladder incontinence noted. Denies prodromal symptoms such as headache, chest pain, shortness of breath, leg swelling. Denies any focal numbness weakness or loss of sensation. Denies any recent bleeding diathesis. No abdominal pain. REVIEW OF SYSTEMS: Pertinent positives: Syncope Pertinent negatives: Headache, chest pain, leg swelling, abdominal pain, bleeding diathesis PHYSICAL EXAM: Nursing triage notes reviewed, Vital signs reviewed Constitutional: please see mdm HENT: Slight dry oral mucosa Eyes: Pupils equal round and reactive to light, Extraocular muscles intact Neck: No stridor, no JVD, full neck ROM Lungs: Clear to auscultation, No wheezing or rales. No increased work of breathing, no conversational dyspnea, no accessory muscle use, no nasal flaring. No respiratory distress noted Heart: Regular rate and rhythm, No murmurs, No rubs and No gallops, 2+ distal pulses (radial, femoral, posterior tibial) in all extremities Abdomen: Soft, there is no tenderness, rigidity, rebound or guarding, no obvious peritoneal signs, no palpable pulsatile abdominal masses, no auscultated abdominal bruit : No CVAT Extremities: No edema Neuro: No new focal neurological deficits, cranial nerves II through XII intact, 5/5 strength in all present extremities. Intact sensation to light touch in all present extremities, 2+ reflexes bilateral patella tendons. Skin: No rash or lesions noted MEDICAL DECISION MAKING: Chief Complaint: please see HPI External records reviewed: Factors affecting care: Lumbar stenosis Social determinants of health: Denies alcohol or illicit drug use History obtained from others: , EMS Consults: none [facility] Narrative: The patient was initially hemodynamically stable, afebrile and nontoxic-appearing. Exam without focal cardiopulmonary abnormalities. No focal neurologic deficits. No stigmata of VTE, dissection. I considered the following differential diagnosis: Dehydration, arrhythmia, anemia, electrolyte disturbance, ACS, VTE, dissection, subarachnoid hemorrhage, AAA I obtained a broad lab and imaging to further determine if the patient was suffering from a life-threatening etiology. This resuscitated the patient 1 L normal saline ALL IMAGES (IF OBTAINED) HAVE BEEN PERSONALLY REVIEWED AND INTERPRETED BY MYSELF. EKG with normal sinus rhythm rate of 73, normal axis, normal intervals, no obvious STEMI, no significant changes when compared to EKG from 12/18/2024 CBC with no leukocytosis, anemia or thrombocytopenia BMP without evidence of significant electrolyte abnormalities, no anion gap, no acute kidney injury. High-sensitivity troponin is negative, no evidence of myocardial ischemiax2 I have personally reviewed the patient's chest x-ray. Chest x-ray is unremarkable for pulmonary edema, pneumothorax, pneumonia or focal cardiopulmonary abnormality. The synthesis of the patient's history, physical exam, labs images suggest likely dehydration/adverse side effect of medication as a cause of his symptoms. No clear life or limb-threatening etiology to be ascertained. The patient is appropriate for discharge home. Strict return precautions were discussed The patient and/or family, caregivers express understanding. The patient and/or family, caregivers agrees with the plan. Shared decision making: I will have a discussion with the patient and or visitors regarding risk/benefits of further testing or admission. They will be made aware of of the risk/benefits inherent in this decision they will be given the opportunity to voice understanding. Total critical care time today provided was at least 0 minutes. This excludes separately billable procedures. Critical care time (if documented) is secondary to the patient having high probability of clinically significant/life threatening deterioration in the patient's condition which required my urgent intervention. Impression: 1. Syncope 2. Dehydration Dispo: Discharge home This note was generated with [employer] dictation software. It may contain incorrect words, spelling, and punctuation that were not noted in review of the chart prior to signing. Lab Data Labs: Laboratory Results - last 24 hr 12/20/24 12/20/24 10:08 11:46 WBC 5.0 RBC 4.11 L Hgb 13.5 Hct 38.7 L MCV 94.2 H MCH 32.8 H MCHC 34.9 RDW Std Deviation 39.6 RDW Coeff of Calvin 11.5 L Plt Count 185 MPV 8.9 Immature Gran % (Auto) 0.600 Neut % (Auto) 78.1 H Lymph % (Auto) 14.3 L [place] % (Auto) 5.4 Eos % (Auto) 1.0 Baso % (Auto) 0.6 Absolute Neuts (auto) 3.9 Absolute Lymphs (auto) 0.72 L Nucleated RBC % 0 Sodium 138 Potassium 4.0 Chloride 103 Carbon Dioxide 23.0 Anion Gap 12 BUN 21 H Creatinine 0.87 Estim Creat Clear Calc 100.34 Est GFR (MDRD) Non-Af 99 BUN/Creatinine Ratio 24.3 H Glucose 147 H Calcium 8.9 Troponin T High Sens 10 Troponin T Hi Sens 2 Hr 12 Radiography Diagnostic Testing: Clinical Impression(s) from Imaging Studies Chest X-Ray 12/20/24 10:15 IMPRESSION: No acute abnormality is seen. Reading Location: [facility] Discharge Plan Triage Chief Complaint: Syncope ED Provider: Garcia Vargas Dx/Rx/DC Orders Prescriptions: No Action gabapentin 600 mg tablet 600 mg PO TID tramadol 50 mg tablet 50 mg PO TID PRN (Reason: pain) ibuprofen 200 mg tablet 600 mg PO TID ondansetron 4 mg tablet,disintegrating 4 mg PO Q8H PRN PRN (Reason: Nausea) Qty: 10 0RF lidocaine [Lidoderm] 5 % adhesive patch,medicated 1 patch topical DAILY Qty: 15 0RF Rx Instructions: leave on most painful area for up to 12 hrs atorvastatin 20 mg tablet 20 mg PO DAILY lisinopril 10 mg tablet 10 mg PO DAILY acetaminophen 500 mg capsule 1,000 mg PO TID PRN (Reason: pain) Primary Care Provider: Shay Askew Referrals: Shay Askew MD [Primary Care Provider] - Print Language: Grenadian
--- NOTE | 2024-12-20 09:51 | EKG12_ITS ---
Test Reason : Blood Pressure : */* mmHG Vent. Rate : 73 BPM Atrial Rate : 73 BPM P-R Int : 160 ms QRS Dur : 86 ms QT Int : 384 ms P-R-T Axes : 41 56 46 degrees QTcB Int : 423 ms Normal sinus rhythm Normal ECG No previous ECGs available Confirmed by MIMA LYONS, JOSE ([id number]), newspaper or periodical editor MARLO PRICE ([id number]) on 12/26/2024 6:18:45 AM Referred By: Confirmed By: JOSE GUILLERMO MD
[2024-12-20] MEDS: 0.9% Normal Saline (1000mL) 1,000 ML 999 ML IV (10:06)
--- NOTE | 2024-12-20 10:15 | RAD_ITS ---
PROCEDURE: CHEST 1 VIEW (PORTABLE) 12/20/2024 REASON FOR EXAM: CHEST PAIN TECHNIQUE: Frontal view of the chest. COMPARISON: None FINDINGS: Hardware: EKG electrodes are seen. Heart: The heart size is normal. Lungs: The lungs are clear. Bones: Degenerative changes are identified within the thoracic spine. Other: RAD/Chest 1 View (Portable) IMPRESSION: No acute abnormality is seen. Reading Location: [facility]
[2024-12-20 10:17] LABS: Hematocrit 38.7 % (40-54); Hemoglobin 13.5 g/dL (13.0-16.5); Immature Granulocytes Count 0.030 X10^3/uL (0.0-0.0); Mean Corp Hgb Conc 34.9 g/dL (32-36); Mean Corpuscular Volume 94.2 fL (80-94); Mean Platelet Vol. 8.9 fl (6.2-12.0); NRBC Flagged by Analyzer 0 % (0-5); Platelet Count 185 K/mm3 (150-450); RBC Distribution Width CV 11.5 % (11.6-14.6); RBC Distribution Width SD 39.6 fl (35.1-43.9); Red Blood Count 4.11 M/mm3 (4.6-6.2); White Blood Count 5.0 K/mm3 (4.4-11.0)
[2024-12-20 11:04] LABS: Anion Gap 12 (5-15); BUN 21 mg/dL (4-19); BUN/Creat Ratio 24.3 RATIO (10-20); Calcium,Total 8.9 mg/dL (7.6-11.0); Carbon Dioxide 23.0 mmol/L (21.0-32.0); Chloride 103 mmol/L (98-108); Estimated Creatinine Clearance 100.34 ml/min (50-250); Glucose 147 mg/dL (70-99); Potassium 4.0 mmol/L (3.3-5.1); Troponin T High Sensitivity 10 ng/L (<=22)
[2024-12-20 12:19] LABS: Troponin T High Sens 2 HR 12 ng/L (<=22)
--- OUTSIDE RECORDS SUMMARY | 2024-12-20 17:38 | XMS RPT_ITS | CCD ---
Author Organization [facility] Care Team Providers Care Factory Focus Technician Name Role Phone Dr. Shay Askew Primary Care Provider [phone] Jamilah, Dr. Day Referring Provider Piter HARTMAN, PA Javier Collazo Attending Provider Jamilah LYONS, Dr. Day Primary Care Provider [phone] Jamilah LYONS, Dr. Day Attending Provider Jamilah LYONS, Dr. Day Referring Provider Jamilah LYONS, Dr. Day Primary Care Provider [phone] Jamilah LYONS, Dr. Day Attending Provider Jamilah LYONS, Dr. Day Referring Provider [phone] Shay Askew Referring Provider Unavailable Hetal STOCKTON, Dr. Farah Referring Provider Dr. Gagan Fong DO Emergency Provider Hetal STOCKTON, Dr. Farah Attending Provider [phone] Brenda Poe Attending Provider Abraham LYONS, Dr. Paula Attending Provider Chandana LYONS, Dr. Gunter Attending Provider [phone] Shay Askew Primary Care Unavailable Jani Ellington Attending Unavailable Jani Ellington Referring Unavailable Shay Askew Primary Care Unavailable Jamilah, Shay Attending Unavailable Jamilah, Shay Referring Unavailable Askew, Shay Primary Care Unavailable Gagan Fong Attending Unavailable Gagan Fong Referring Unavailable Askew, Shay Referring Unavailable Askew, Shay Attending Unavailable Askew, Shay Primary Care Unavailable Askew, Shay Referring Unavailable Askew, Shay Attending Unavailable Askew, Shay Primary Care Unavailable Askew, Shay Referring Unavailable Askew, Shay Attending Unavailable Askew, Shay Primary Care Unavailable Askew, Shay Primary Care Unavailable Brenda Patel Attending Unavailable Askew, Shay Referring Unavailable Abraham, Chai Attending Unavailable Askew, Shay Primary Care Unavailable Askew, Shay Primary Care Unavailable Jani Ellington Attending Unavailable Askew, Shay Referring Unavailable Abraham, Chai Attending Unavailable Askew, Shay Primary Care Unavailable Dani Frank Referring Unavailable Askew, Shay Primary Care Unavailable Askew, Shay Attending Unavailable sully kent Referring Unavailable Askew, Shay Referring Unavailable Askew, Shay Primary Care Unavailable Askew, Shay Attending Unavailable Monika LYONS, Dr. Louise Referring Provider Dr. Garcia Vargas DO Emergency Provider Medications Current Medications Medication Drug Class(es) Dates Sig (Normalized) Sig (Original) acetaminophen 500 mg oral capsule (1 source) Start: 12-13-2024 take 2 capsules by mouth three times daily as needed for pain Acetaminophen 500 mg capsule Active 1000 mg PO THREE TIMES A DAY as needed for pain December 13, 2024 12:00am atorvastatin 20 mg oral tablet (19 sources) HMG-CoA Reductase Inhibitor Start: 11-05-2024 take 1 tablet by mouth once daily Atorvastatin 20 mg tablet Active 20 mg PO DAILY November 05, 2024 12:00am Start: 01-02-2021 End: 11-16-2024 take 1 tablet by mouth at bedtime Atorvastatin 10 mg tablet Discontinued 10 mg PO AT BEDTIME January 02, 2021 12:00am November 16, 2024 1:24pm gabapentin 300 mg oral capsule (16 sources) Anti-epileptic Agent Start: 12-06-2024 Gabapenti n 300 mg capsule Active 600 mg PO THREE TIMES A DAY December 06, 2024 3:21pm 300 mg at night x 1, then 300 mg BID from then on. short script and pcp can refill Start: 12-06-2024 take 1 tablet by aneesh th three times daily Gabapentin 600 mg tablet Active 600 mg PO THREE TIMES A DAY December 06, 2024 12:00am Start: 11-16-2024 End: 12-06-2024 Gabapentin 300 mg capsule Discontinued 300 mg PO Q8H November 16, 2024 1:24pm December 06, 2024 3:22pm 300 mg at night x 1, then 300 mg BID from then on. short script and pcp can refill Start: 11-05-2024 End: 11-16-2024 Gabapentin 300 mg capsule Discontinued 300 mg PO DAILY 14 14 0 November 05, 2024 12:00am November 16, 2024 1:26pm 300 mg at night x 1, then 300 mg BID from then on. short script and pcp can refill ibuprofen 200 mg oral tablet (18 sources) Nonsteroidal Anti-inflammatory Drug Start: 12-06-2024 take 3 tablets by mouth three times daily Ibuprofen 200 mg tablet Active 600 mg PO THREE TIMES A DAY December 06, 2024 3:22pm Pain Start: 11-16-2024 End: 12-06-2024 take 2 tablets by mouth three times daily Ibuprofen 200 mg tablet Discontinued 400 mg PO THREE TIMES A DAY November 16, 2024 1:25pm December 06, 2024 3:22pm Pain Start: 01-02-2021 End: 11-16-2024 take 2 tablets by mouth every six hours as needed for pain Ibuprofen 200 mg Tablet Discontinued 400 mg PO EVERY 6 HOURS as needed for Pain January 02, 2021 12:00am November 16, 2024 1:26pm Start: 01-02-2021 take 400 mg by mouth every six hours Ibuprofen Active 400 MG PO EVERY 6 HOURS January 02, 2021 12:00am lidocaine 0.05 mg/mg medicated patch (8 sources) Antiarrhythmic, Amide Local Anesthetic Start: 11-05-2024 Lidocaine (Lidoderm) 5 % adhesive patch,medicated Active 1 NMA TOPICAL DAILY 15 0 November 05, 2024 12:00am leave on most painful area for up to 12 hrs lisinopril 10 mg oral tablet (19 sources) Angiotensin Converting Enzyme Inhibitor Start: 11-05-2024 take 1 tablet by mouth once daily Lisinopril 10 mg tablet Active 10 mg PO DAILY November 05, 2024 12:00am Start: 01-02-2021 End: 11-16-2024 take 1 tablet by mouth once daily Lisinopril 5 mg tablet Discontinued 5 mg PO DAILY January 02, 2021 12:00am November 16, 2024 1:26pm ondansetron 4 mg disintegrating oral tablet (8 sources) Serotonin-3 Receptor Antagonist Start: 11-05-2024 take 1 tablet by mouth every eight hours as needed for nausea Ondansetron 4 mg tablet,disintegrating Active 4 mg PO EVERY 8 HOURS NEEDED as needed for Nausea 10 0 November 05, 2024 12:00am traMADol hydrochloride 50 mg oral tablet (2 sources) Opioid Agonist Start: 12-06-2024 take 1 tablet by mouth three times daily as needed for pain Tramadol 50 mg tablet Active 50 mg PO THREE TIMES A DAY as needed for pain December 06, 2024 12:00am Completed/Discontinued Medications Medication Drug Class(es) Dates Sig (Normalized) Sig (Original) acetaminophen 325 mg / HYDROcodone bitartrate 5 mg oral tablet (8 sources) Opioid Agonist Start: 11-05-2024 End: 12-06-2024 Hydrocodone-Acetamin ophen 5-325 mg tablet Discontinued 1 {tbl} PO EVERY 6 HOURS NEEDED as needed for Pain 12 3 0 November 05, 2024 December 06, 2024 3:21pm Low back pain Low back pain, unspecified cyclobenzaprine hydrochloride 5 mg oral tablet (8 sources) Muscle Relaxant Start: 11-05-2024 End: 12-06-2024 take 1 tablet by mouth at bedtime Cyclobenzaprine 5 mg tablet Discontinued 5 mg PO AT BEDTIME November 05, 2024 12:00am December 06, 2024 3:22pm predniSONE 20 mg oral tablet (8 sources) Start: 11-05-2024 End: 12-06-2024 take 2 tablets by mouth once daily Prednisone 20 mg tablet Discontinued 40 mg PO DAILY 10 5 0 November 05, 2024 12:00am December 06, 2024 3:22pm Problems Problem Classification Problem Date Documented Date Episodic/Chronic Administrative/social admission (12 sources) Administrative reason for encounter; Translations: [Encounter for other administrative examinations] Episodic Disorders of lipid metabolism (1 source) Pure hypercholesterolemia, unspecified; Translations: [Pure hypercholesterolemia, unspecified] Onset: 11-06-2024 Chronic Other nervous system disorders (8 sources) Paresthesia of foot ; Translations: [Paresthesia of skin] 11-05-2024 Episodic Other screening for suspected conditions (not mental disorders or infectious disease) (11 sources) Patient encounter status; Translations: [Encounter for screening for malignant neoplasm of colon] 01-06-2021 Episodic Spondylosis; intervertebral disc disorders; other back problems (7 sources) Degeneration of lumbar intervertebral disc; Translations: [Degenerative disc disease (DDD) of lumbar region with discogenic back pain and leg pa] 11-16-2024 Chronic Spondylosis; intervertebral disc disorders; other back problems (20 sources) Lumbar radiculopathy; Translations: [Radiculopathy, lumbar region] Onset: 11-20-2024 11-05-2024 Episodic Unclassified (3 sources) Spinal stenosis of lumbar region without neurogenic claudication Unclassified (3 sources) Spinal stenosis of lumbar region without neurogenic claudication Unclassified (3 sources) M51.362 - Other intervertebral disc degeneration, lumbar region with discogenic back pain and lower extremity pain,M48.061 - Spinal stenosis, lumbar region without neurogenic claudication Unclassified (1 source) Low back pain, unspecified; Translations: [Low back pain, unspecified] Onset: 11-05-2024 Results Test Name Value Interpretation Reference Range Facility Absolute lymphocyte countOrd ered By: Garcia Vargas on 12-20-2024 Lymphocytes Auto (Unsp spec) [#/Vol] 0.72 10*3/uL Low 0.83-4.51 [facility] Absolute neutrophil countOrd ered By: Garcia Vargas on 12-20-2024 Neutrophils (Bld) [#/Vol] 3.9 10*3/uL 2.0-7.7 [facility] Anion gap in Serum or Plasma Ordered By: Garcia Vargas on 12-20-2024 Anion gap [Moles/Vol] 12 mmol/L 5-15 [facility] Automated lymphocyte count a s percentage of total leukocytesOrdered By: Garcia Vargas on 12-20-2024 Lymphocytes/100 WBC Auto (Unsp spec) 14.3 % Low 19-41 [facility] BUN/creatinine ratioOrdered By: Garcia Vargas on 12-20-2024 Urea nitrogen/Creatinine [Mass ratio] 24.3 mg/mg High 10-20 [facility] Basophil percentageOrdered B y: Garcia Vargas on 12-20-2024 Basophils/100 WBC (Bld) 0.6 % 0-1 [facility] Carbon dioxide, total [Moles /volume] in Central venous bloodOrdered By: Garcia Vargas on 12-20-2024 CO2 [Moles/Vol] 23.0 mmol/L 21.0-32.0 [facility] Chloride assayOrdered By: Janee Vargas on 12-20-2024 Chloride [Moles/Vol] 103 mmol/L 98-108 [facility] Eosinophil percentageOrdered By: Garcia Vargas on 12-20-2024 Eosinophils/100 WBC (Bld) 1.0 % 0-5 [facility] Erythrocyte distribution wid th ratioOrdered By: Garcia Vargas on 12-20-2024 Erythrocyte distribution width (RBC) [Ratio] 11.5 % Low 11.6-14.6 [facility] Erythrocyte distribution wid th standard deviationOrdered By: Garcia Vargas on 12-20-2024 Erythrocyte distribution width (RBC) [Ratio] 39.6 fl 35.1-43.9 [facility] Glomerular filtration rate ( GFR) estimation/1.73 sq m using serum, plasma, or whole bOrdered By: Garcia Vargas on 12-20-2024 GFR/1.73 sq M.predicted among non-blacks MDRD (S/P/Bld) [Vol rate/Area] 99 mL/min/{1.73_m2} >60 [facility] Comment on above: mL/min/1.73m2 CKD-EP I Creatinine Equation (2020) Hematocrit Auto (Bld) [Volum e fraction]Ordered By: Garcia Vargas on 12-20-2024 Hematocrit (Bld) [Volume fraction] 38.7 % Low 40-54 [facility] Hemoglobin measurementOrdere d By: Garcia Vargas on 12-20-2024 Hemoglobin (Bld) [Mass/Vol] 13.5 g/dL 13.0-16.5 [facility] Immature granulocytes/100 WB C Auto (Bld)Ordered By: Garcia Vargas on 12-20-2024 Immature granulocytes/100 WBC (Bld) 0.600 % 0.0-0.9 [facility] Comment on above: IG% - Immature Granu locytes (promyelocytes, myelocytes and metamyelocytes) > 1% indicates that a LEFT SHIFT is Present. MCV (mean corpuscular volume ) determinationOrdered By: Garcia Vargas on 12-20-2024 MCV (RBC) [Entitic vol] 94.2 fL High 80-94 [facility] Mean corpuscular hemoglobin (MCH) determinationOrdered By: Garcia Vargas on 12-20-2024 MCH (RBC) [Entitic mass] 32.8 pg High 27.0-32.0 [facility] Mean corpuscular hemoglobin concentration (MCHC) determinationOrdered By: Garcia Vargas on 12-20-2024 MCHC (RBC) [Mass/Vol] 34.9 g/dL 32-36 [facility] Mean platelet volume determi nationOrdered By: Garcia Vargas on 12-20-2024 Platelet mean volume (Bld) [Entitic vol] 8.9 fL 6.2-12.0 [facility] Monocyte percentageOrdered B y: Garcia Vargas on 12-20-2024 Monocytes/100 WBC (Bld) 5.4 % 0-10 [facility] Neutrophil percentageOrdered By: Garcia Vargas on 12-20-2024 Neutrophils/100 WBC (Bld) 78.1 % High 47-70 [facility] Nucleated red blood cell per centageOrdered By: Garcia Vargas on 12-20-2024 Nucleated RBC/100 WBC (Bld) [Ratio] 0 % 0-5 [facility] Platelet countOrdered By: Janee Vargas on 12-20-2024 Platelets (Bld) [#/Vol] 185 10*3/uL 150-450 [facility] Potassium measurement (mass/ volume)Ordered By: Garcia Vargas on 12-20-2024 Potassium (Unsp spec) [Mass/Vol] 4.0 mmol/L 3.3-5.1 [facility] RBC Auto (Bld) [#/Vol]Ordere d By: Garcia Vargas on 12-20-2024 RBC (Bld) [#/Vol] 4.11 10*6/uL Low 4.6-6.2 [facility] Serum creatinine measurement (mass/volume)Ordered By: Garcia Vargas on 12-20-2024 Creatinine [Mass/Vol] 0.87 mg/dL 0.70-1.20 [facility] Serum glucose measurement (m ass/volume)Ordered By: Garcia Vargas on 12-20-2024 Glucose [Mass/Vol] 147 mg/dL High 70-99 [facility] Serum or plasma calcium trevon urement (mass/volume)Ordered By: Garcia Vargas on 12-20-2024 Calcium [Mass/Vol] 8.9 mg/dL 7.6-11.0 [facility] Serum or plasma urea nitroge n measurement (mass/volume)Ordered By: Garcia Vargas on 12-20-2024 Urea nitrogen [Mass/Vol] 21 mg/dL High 4-19 [facility] Sodium levelOrdered By: Halle Vargas on 12-20-2024 Sodium [Moles/Vol] 138 mmol/L 133-145 [facility] Troponin T.cardiac [Mass/vol ume] in Serum or Plasma by High sensitivity methodOrdered By: Garcia Vargas on 12-20-2024 Troponin T.cardiac High sensitivity method [Mass/Vol] 12 ng/L <22 [facility] Troponin T.cardiac High sensitivity method [Mass/Vol] 10 ng/L <22 [facility] White blood cell (WBC) count Ordered By: Garcia Vargas on 12-20-2024 WBC (Bld) [#/Vol] 5.0 10*3/uL 4.4-11.0 [facility] Hepatitis A AB, Totalon 12-08 HEPATITIS A,TOT Negative Normal Negative [facility] Comment on above: Result Comment: Comm ent: The HAV total antibody assay detects both IgG and IgM but does not differentiate between them. A negative result suggests susceptibility to infection. A positive result could be due to vaccination, previously resolved infection or active infection. Testing for HAV IgM should be performed if active HAV infection is suspected. [facility] offers profiles that will automatically reflex positive HAV total antibody results to IgM (e.g., panel #[id number] HAV Antibody w/ Rfx). Performed at: [address] [id number] Load Builder: Sherman Romero PhD, Phone: [phone] Performed By: #### B TSPAT, L100.0100, L501.9985, L3890.6202, L500.2500, L3890.6006, L3890.6301, L3100.0300, M100.651 ####[facility] [address] [facility] [place], [address] MRSA/SAID NASAL SCREENon MRSA+SAID SCRN Reason for Exam: PRE OP MRSA MRSA Negative S. AUREUS S. aureus Negative Normal [facility] Comment on above: Performed By: #### B TSPAT, L100.0100, L501.9985, L3890.6202, L500.2500, L3890.6006, L3890.6301, L3100.0300, M100.651 ####[facility] [address] [facility] [place], [address] 12 Lead EKGon 12-18-2024 12 Lead EKG [facility] [address] [place] [address] 12 Lead EKG 12/18/24 0856 MR#: [id number] Acct: [id number] Name: BENJAMIN SINGLETON Rep #: [id number] : 1965 59 From: Chai Rosario MD Attending Dr: Dr. Jani Ellington MD [place]: [place] [facility] [place]: Jani Ellington MD Date: 12/18/24 [place] [facility] [place]: M C Admitted: Test Reason : PREOP Blood Pressure : */* mmHG Vent. Rate : 67 BPM Atrial Rate : 67 BPM P-R Int : 158 ms QRS Dur : 86 ms QT Int : 388 ms P-R-T Axes : 34 44 46 degrees QTcB Int : 409 ms Normal sinus rhythm Normal ECG Confirmed by CHAI ROSARIO MD ([id number]), associate editor NGOC HUNTER ([id number]) on 12/18/2024 1:17:34 PM Referred By: Jani Ellington Confirmed By: CHAI ROSARIO MD 12/18/24 1317 Date Chai Rosario MD CC: Dr. Jani Ellington MD; Dr. Shay Askew MD Signed Normal [facility] Basic Metabolic Profile (BMP )on 12-18-2024 BUN/CRE 23.9 RATIO High 10-20 [facility] Comment on above: Performed By: #### B TSPAT, L100.0100, L501.9985, L3890.6202, L500.2500, L3890.6006, L3890.6301, L3100.0300, M100.651 ####[facility] [address] [place], [address] Calcium [Mass/Vol] 9.2 mg/dL Normal 7.6-11.0 [facility] Comment on above: Performed By: #### B TSPAT, L100.0100, L501.9985, L3890.6202, L500.2500, L3890.6006, L3890.6301, L3100.0300, M100.651 ####[facility] [address] [place], [address] Chloride [Moles/Vol] 105 mmol/L Normal 98-108 [facility] Comment on above: Performed By: #### B TSPAT, L100.0100, L501.9985, L3890.6202, L500.2500, L3890.6006, L3890.6301, L3100.0300, M100.651 ####[facility] [address] [place], [address] CO2 [Moles/Vol] 22.5 mmol/L Normal 21.0-32.0 [facility] Comment on above: Performed By: #### B TSPAT, L100.0100, L501.9985, L3890.6202, L500.2500, L3890.6006, L3890.6301, L3100.0300, M100.651 ####[facility] [address] [place], [address] Creatinine [Mass/Vol] 0.83 mg/dL Normal 0.70-1.20 [facility] Comment on above: Performed By: #### B TSPAT, L100.0100, L501.9985, L3890.6202, L500.2500, L3890.6006, L3890.6301, L3100.0300, M100.651 ####[facility] [address] [place], [address] GAP 13 Normal 5-15 [facility] Comment on above: Performed By: #### B TSPAT, L100.0100, L501.9985, L3890.6202, L500.2500, L3890.6006, L3890.6301, L3100.0300, M100.651 ####[facility] [address] [place], [place], [phone](573) GFR/1.73 sq M.predicted among non-blacks MDRD (S/P/Bld) [Vol rate/Area] 101 mL/min/{1.73_m2} Normal >60 [facility] Comment on above: Result Comment: mL/m in/1.73m2 CKD-EPI Creatinine Equation (2020) Performed By: #### B TSPAT, L100.0100, L501.9985, L3890.6202, L500.2500, L3890.6006, L3890.6301, L3100.0300, M100.651 ####[facility] [address] [place], [place], [phone] Glucose [Mass/Vol] 105 mg/dL High 70-99 [facility] Comment on above: Performed By: #### B TSPAT, L100.0100, L501.9985, L3890.6202, L500.2500, L3890.6006, L3890.6301, L3100.0300, M100.651 ####[facility] [address] [place], [place], [phone] Potassium [Moles/Vol] 4.6 mmol/L Normal 3.3-5.1 [facility] Comment on above: Performed By: #### B TSPAT, L100.0100, L501.9985, L3890.6202, L500.2500, L3890.6006, L3890.6301, L3100.0300, M100.651 ####[facility] [address] [place], [place], [phone]) Sodium [Moles/Vol] 140 mmol/L Normal 133-145 [facility] Comment on above: Performed By: #### B TSPAT, L100.0100, L501.9985, L3890.6202, L500.2500, L3890.6006, L3890.6301, L3100.0300, M100.651 ####[facility] [address] [place], [place], [phone] Urea nitrogen [Mass/Vol] 20 mg/dL High 4-19 [facility] Comment on above: Performed By: #### B TSPAT, L100.0100, L501.9985, L3890.6202, L500.2500, L3890.6006, L3890.6301, L3100.0300, M100.651 ####[facility] [address] [place], [place], [phone] CBC W/Diff, Automatedon 08 Absolute Lymph 1.21 X10 3/uL Normal 0.83-4.51 [facility] Comment on above: Performed By: #### B TSPAT, L100.0100, L501.9985, L3890.6202, L500.2500, L3890.6006, L3890.6301, L3100.0300, M100.651 ####[facility] [address] [place], [place], [phone](316) Absolute Neut 3.5 X10 3/uL Normal 2.0-7.7 [facility] Comment on above: Performed By: #### B TSPAT, L100.0100, L501.9985, L3890.6202, L500.2500, L3890.6006, L3890.6301, L3100.0300, M100.651 ####[facility] [address] [place], [address] Basophils/100 WBC (Bld) 0.8 % Normal 0-1 [facility] Comment on above: Performed By: #### B TSPAT, L100.0100, L501.9985, L3890.6202, L500.2500, L3890.6006, L3890.6301, L3100.0300, M100.651 ####[facility] [address] [place], [address] Eosinophils/100 WBC (Bld) 2.9 % Normal 0-5 [facility] Comment on above: Performed By: #### B TSPAT, L100.0100, L501.9985, L3890.6202, L500.2500, L3890.6006, L3890.6301, L3100.0300, M100.651 ####[facility] [address] [place], [address] Erythrocyte distribution width (RBC) [Ratio] 11.5 % Low 11.6-14.6 [facility] Comment on above: Performed By: #### B TSPAT, L100.0100, L501.9985, L3890.6202, L500.2500, L3890.6006, L3890.6301, L3100.0300, M100.651 ####[facility] [address] [place], [address] Hematocrit (Bld) [Volume fraction] 41.5 % Normal 40-54 [facility] Comment on above: Performed By: #### B TSPAT, L100.0100, L501.9985, L3890.6202, L500.2500, L3890.6006, L3890.6301, L3100.0300, M100.651 ####[facility] [address] [place], [address] Hemoglobin (Bld) [Mass/Vol] 14.4 g/dL Normal 13.0-16.5 [facility] Comment on above: Performed By: #### B TSPAT, L100.0100, L501.9985, L3890.6202, L500.2500, L3890.6006, L3890.6301, L3100.0300, M100.651 ####[facility] [address] [place], [address] IG% 0.400 Normal 0.0-0.9 [facility] Comment on above: Result Comment: IG% - Immature Granulocytes (promyelocytes, myelocytes and metamyelocytes) > 1% indicates that a LEFT SHIFT is Present. Performed By: #### B TSPAT, L100.0100, L501.9985, L3890.6202, L500.2500, L3890.6006, L3890.6301, L3100.0300, M100.651 ####[facility] [address] [place], [address] Lymphocytes/100 WBC (Bld) 23.2 % Normal 19-41 [facility] Comment on above: Performed By: #### B TSPAT, L100.0100, L501.9985, L3890.6202, L500.2500, L3890.6006, L3890.6301, L3100.0300, M100.651 ####[facility] [address] [place], [address] MCH (RBC) [Entitic mass] 33.0 pg High 27.0-32.0 [facility] Comment on above: Performed By: #### B TSPAT, L100.0100, L501.9985, L3890.6202, L500.2500, L3890.6006, L3890.6301, L3100.0300, M100.651 ####[facility] [address] [place], [address] MCHC (RBC) [Mass/Vol] 34.7 g/dL Normal 32-36 [facility] Comment on above: Performed By: #### B TSPAT, L100.0100, L501.9985, L3890.6202, L500.2500, L3890.6006, L3890.6301, L3100.0300, M100.651 ####[facility] [address] [place], [address] MCV (RBC) [Entitic vol] 95.0 fL High 80-94 [facility] Comment on above: Performed By: #### B TSPAT, L100.0100, L501.9985, L3890.6202, L500.2500, L3890.6006, L3890.6301, L3100.0300, M100.651 ####[facility] [address] [place], [address] Monocytes/100 WBC (Bld) 6.3 % Normal 0-10 [facility] Comment on above: Performed By: #### B TSPAT, L100.0100, L501.9985, L3890.6202, L500.2500, L3890.6006, L3890.6301, L3100.0300, M100.651 ####[facility] [address] [place], [address] Neutrophils/100 WBC (Bld) 66.4 % Normal 47-70 [facility] Comment on above: Performed By: #### B TSPAT, L100.0100, L501.9985, L3890.6202, L500.2500, L3890.6006, L3890.6301, L3100.0300, M100.651 ####[facility] [address] [place], [address] Nucleated RBC (Bld) [#/Vol] 0 10*3/uL Normal 0-5 [facility] Comment on above: Performed By: #### B TSPAT, L100.0100, L501.9985, L3890.6202, L500.2500, L3890.6006, L3890.6301, L3100.0300, M100.651 ####[facility] [address] [place], [address] Platelet mean volume (Bld) [Entitic vol] 9.2 fL Normal 6.2-12.0 [facility] Comment on above: Performed By: #### B TSPAT, L100.0100, L501.9985, L3890.6202, L500.2500, L3890.6006, L3890.6301, L3100.0300, M100.651 ####[facility] [address] [place], [address] Platelets (Bld) [#/Vol] 233 10*3/uL Normal 150-450 [facility] Comment on above: Performed By: #### B TSPAT, L100.0100, L501.9985, L3890.6202, L500.2500, L3890.6006, L3890.6301, L3100.0300, M100.651 ####[facility] [address] [place], [address] RBC (Bld) [#/Vol] 4.37 10*6/uL Low 4.6-6.2 [facility] Comment on above: Performed By: #### B TSPAT, L100.0100, L501.9985, L3890.6202, L500.2500, L3890.6006, L3890.6301, L3100.0300, M100.651 ####[facility] [address] [place], [address] RDW SD 39.8 fl Normal 35.1-43.9 [facility] Comment on above: Performed By: #### B TSPAT, L100.0100, L501.9985, L3890.6202, L500.2500, L3890.6006, L3890.6301, L3100.0300, M100.651 ####[facility] [address] [place], [address] WBC (Bld) [#/Vol] 5.2 10*3/uL Normal 4.4-11.0 [facility] Comment on above: Performed By: #### B TSPAT, L100.0100, L501.9985, L3890.6202, L500.2500, L3890.6006, L3890.6301, L3100.0300, M100.651 ####[facility] [address] [place], [address] HIVon 12-18-2024 HIV Non-Reactive Normal Nonreactive [facility] Comment on above: Result Comment: Non- Reactive Reactive Repeatedly reactive samples must be confirmed according to CDC recommended confirmatory algorithms. The subresults for either HIVAG or AHIV can be used as an aid in the selection of the confirmation algorithm for reactive samples. Send out specimens with Reactive results to [facility] for confirmation. Order the HIV antibody detection and differentiation: lc#[id number] Performed By: #### B TSPAT, L100.0100, L501.9985, L3890.6202, L500.2500, L3890.6006, L3890.6301, L3100.0300, M100.651 ####[facility] [address] [place], [address] Hemoglobin A1con 12-18-2024 HbA1c (Bld) [Mass fraction] 5.9 % High <=5.6 [facility] Comment on above: Result Comment: Norm al < 5.7 % Prediabetic 5.7 - 6.4 % Diabetic >or= 6.5 % Please note range changes. Performed By: #### B TSPAT, L100.0100, L501.9985, L3890.6202, L500.2500, L3890.6006, L3890.6301, L3100.0300, M100.651 ####[facility] [address] [place], [address] Hepatitis B Surface Antibody on 12-18-2024 HEP B Surf Ab Non-Reactive Normal [facility] Comment on above: Result Comment: <8.5 mIU/mL: Non-Reactive 8.5<= x <11.5 mIU/mL: Indeterminate >=11.5 mIU/mL: Reactive Non Reactive: Inconsistent with immunity less than <10 mIU/mL Reactive: Consistent with immunity greater than or equal to 10 mIU/mL Performed By: #### B TSPAT, L100.0100, L501.9985, L3890.6202, L500.2500, L3890.6006, L3890.6301, L3100.0300, M100.651 ####[facility] [address] [facility] [place], [address] Hepatitis C Antibodyon 12-18 Hepatitis C Ab Non-Reactive Normal Nonreactive [facility] Comment on above: Result Comment: Reac tive: Presumptive evidence of antibodies to HCV. Follow CDC recommendations for supplemental testing. Non-Reactive: Antibodies to HCV were not detected; does not exclude the possibility of exposure to HCV Reactive Results are presumptive evidence of antibodies to HCV. Follow CDC recommendations for supplemental testing. Order confirmation testing: HCV Quant by PCR testing - HCVPCR #[id number] Non Reactive: < 0.8 Equivocal: >/= 0.8 to < 1.0 Reactive: >/= 1.0 The CDC requires that a reactive/equivocal HCV antibody result be sent out for confirmation. HCV Quant by PCR testing. Performed By: #### B TSPAT, L100.0100, L501.9985, L3890.6202, L500.2500, L3890.6006, L3890.6301, L3100.0300, M100.651 ####[facility] [address] [place], [address] Magnesiumon 12-18-2024 Magnesium [Mass/Vol] 2.3 mg/dL High 1.5-2.2 [facility] Comment on above: Performed By: #### L 501.5200 #### [facility] [address] [place], [place], [address] Type AND Screen - PAT ONLYon 12-18-2024 Ab SCREEN GEL Negative Normal [facility] Comment on above: Order Comment: Reaso n for Laboratory Test PRE [id number] DISCECTOMY Performed By: #### B TSPAT, L100.0100, L501.9985, L3890.6202, L500.2500, L3890.6006, L3890.6301, L3100.0300, M100.651 ####[facility] [address] [place], [address] Orthopedic Visit Reporton Orthopedic Visit Report [facility] [address] [place], [place] [address] OFFICE VISIT Date of Service: 12/06/24 MR#: [id number] Acct: [id number] Name: BENJAMIN SINGLETON Rep #: [id number] : 1965 Provider: Dr. Jani Ellington MD Age/Sex: 59/M Location: [facility] Status: Signed Intake Vital Signs 11/16/24 13:23 Height 6 ft Weight: 202 lb BMI 27.3 Intake Visit Reasons: LUMBAR SPINE Accompanied by: Is patient in pain?: Yes Pain scale (1-10): 4 Allergies No Known Allergies Allergy (Verified 12/06/24 15:20) Medications ???Medication ???Instructions ???Recorded ???Confirmed ???Type atorvastatin 20 mg tablet 20 mg PO DAILY 11/05/24 12/06/24 H istory lidocaine 5 % topical patch 1 patch topical DAILY #15 ea 11/0512/06/24 Rx (Lidoderm) lisinopril 10 mg tablet 10 mg PO DAILY 11/05/24 12/06/24 H istory ondansetron 4 mg disintegrating 4 mg PO Q8H PRN PRN Nausea #10 tab s 11/05/24 12/06/24 Rx tablet gabapentin 300 mg capsule 600 mg PO TID 12/06/24 12/06/24 Hi story gabapentin 600 mg tablet 600 mg PO TID 12/06/24 12/06/24 Hi story ibuprofen 200 mg tablet 600 mg PO TID Pain 12/06/24 History tramadol 50 mg tablet 50 mg PO TID PRN 12/06/24 12/06/24 History PFSH Medical History 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 Jani Ellington MD 12/06/24 0812. Part of today???s visit was documented by Monica WARNER, acting as scribe. BENJAMIN SINGLETON is a 59 year old M here today for a follow-up on continued low back pain. He states that he only had the one injection which was on 11-22-24 he had a right TFE L3-L4, L4-L5 with Dr. Lam. He stats the first day after the injection he did get some mild relief but after the first day he was back to where he was before the injection. He notes that his lower back pain is worse in the mornings after he first wakes up. He would like to talk about his next steps today. The patient is a 59-year-old male presenting with lumbar disc herniation and associated symptoms. The issue began in June with lower back pain after sitting on bleachers for an extended period, which has always been bothersome for him. The pain initially improved in early September but worsened later that month, particularly with sitting, which is the worst position for him. 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 By the end of September, the pain had become debilitating, especially in the mornings. The patient describes the pain as feeling like his thigh is going to explode, with tingling sensations in the iverson, and occasionally in the foot. He uses crutches in the morning to alleviate pressure on his back and takes ibuprofen for pain relief. The patient has reduced his walking distance due to frustration with not knowing what activities exacerbate his condition. He was previously walking 45 minutes daily but has cut back to 10-15 minutes, 2-3 times a day. The patient has undergone an injection, which initially provided relief but ultimately did not improve his symptoms. MRI findings indicate a herniated disc at L3-4 with a cystic swelling and stenosis at L4-5. The patient has a history of hypertension and hyperlipidemia, managed with medication. - Musculoskeletal: Reports right-sided leg pain, tingling in the iverson, and occasional foot tingling. Denies left-sided symptoms. - Neurological: Reports morning tingling sensation in the iverson, no foot drop. - General: Reports pain exacerbated by sitting, relieved by ibuprofen and crutches. Attestation: Documentation on this patient encounter was supported using ambient scribe technology/ voice AI technology. The patient consented to recording for the purpose of documenting the encounter. Provider reviewed content of the generated note prior to signature. 11/16/24: BENJAMIN SINGLETON is a 59 year old M here today for middle low back that radiates sharp right sided lateral thigh pain and right sided iverson pain. He denies any left-sided involvement. He has completed PT for 4 weeks in 10/2024 with some improvement at first then sx appea (more content not included)... Normal [facility] L/S Spine Bending Flex/Bowman 11-16-2024 L/S Spine Bending Flex/Ext [facility] Imaging Services [address] [place] [place], [place] [address] L/S Spine Bending Flex/Ext MR#: [id number] Acct: [id number] Name: BENJAMIN SINGLETON Rep #: [id number] : 1965 M 59 From: Josiah trejo MD PCP: Dr. Shay Askew MD Status: DEP AMB Study: L/S Spine Bending Flex/Ext Date of Exam: 11/16 Exam# [id number] Ordering Dr: Brenda Patel PROCEDURE: L/S SPINE BENDING FLEX/EXT 11/16/2024 REASON FOR EXAM: ONGOING BACK PAIN TECHNIQUE: L/S SPINE BENDING FLEX/EXT COMPARISON: 11/14/2024 MRI was reviewed FINDINGS: Dynamic flexion and extension views were obtained. L3 and L4 minimal retrolisthesis is noted on both flexion and extension views. Moderate lumbar degenerative changes evidenced by reduced disc heights, facet arthropathy and tiny endplates osteophytes. Stable chronic appearing reduced vertebral bodies height of L3, L4 and L5. No definite acute findings RAD/L/S Spine Bending Flex/Ext IMPRESSION: L3 and L4 minimal retrolisthesis is noted on both flexion and extension views. Moderate lumbar degenerative changes. Reading Location: [place] [address] CC: JASIEL Arreguin; Dr. Shay Askew MD Unit Tender: Signed Normal [facility] Orthopedic Visit Reporton Orthopedic Visit Report [facility] [address] [place] [address] OFFICE VISIT Date of Service: 11/16/24 MR#: [id number] Acct: [id number] Name: BENJAMIN SINGLETON Rep #: [id number] : 1965 Provider: JASIEL Arreguin Age/Sex: 59/M Location: 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 Required: No Accompanied by: Self Is patient in pain?: Yes Pain scale (1-10): 1 Allergies No Known Allergies Allergy (Verified 11/16/24 13:23) Medications ???Medication ???Instructions ???Recorded ???Confirmed ???Type atorvastatin 20 mg tablet 20 mg PO DAILY 11/05/24 11/16/24 H istory cyclobenzaprine 5 mg tablet 5 mg PO QHS 11/05/24 11/05/24 Hist ory hydrocodone-acetaminophen 5-325mg 1 tab PO Q6H PRN PRN Pain 3 days 11/05/24 11/16/24 Rx 5mg-325mg #12 TABLETS lidocaine 5 % topical patch 1 patch topical DAILY #15 ea 11/05 Rx (Lidoderm) lisinopril 10 mg tablet 10 mg PO DAILY 11/05/24 11/16/24 H istory ondansetron 4 mg disintegrating 4 mg PO Q8H PRN PRN Nausea #10 tab s 11/05/24 Rx tablet prednisone 20 mg tablet 40 mg (2 x 20 mg) PO DAILY 5 days 11/05/24 Rx #10 tabs gabapentin 300 mg capsule 300 mg PO Q8H 11/16/24 History ibuprofen 200 mg tablet 400 mg PO TID Pain 11/16/24 History PFSH Medical History (Updated 11/16/24 @ 15:41 by JASIEL Arreguin) Encounter for examination required by 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 (DOT) Wears glasses High cholesterol Non-smoker Hypertension Surgical History (Updated 11/16/24 @ 13:27 by Nahomi Morales) Hx of arthroscopic knee surgery History of total right hip replacement Family History (Updated 11/16/24 @ 13:29 by Nahomi Morales) Other Diabetes High cholesterol Social History (Updated 11/16/24 @ 13:29 by Nahomi Morales) Smoking Status: Never smoker alcohol intake: never HPI LUMBAR SPINE Details: This documentation accurately reflects the service provided and the decisions made by me, JASIEL Arreguin 11/16/24 1322. Part of today???s visit was documented by [ ], acting as scribe. BENJAMIN SINGLETON is a 59 year old M here today for middle low back that radiates sharp right sided lateral thigh pain and right sided iverson pain. He denies any left-sided involvement. He has completed PT for 4 weeks in 10/2024 with some improvement at first then sx appeared to worsen. Pain began about 06/2024 after prolonged sitting on bleachers while watching basketball game. Says that prior to June he has had some chronic low back pain over several years that would come and go. Intensified 09/2024 and has gradually worsened. Says that he was playing pickle ball. XRAY of hip and back in 10/2024. Recent MRI. Hx of right total hip replacement. History of right knee arthroscopy. Denies hx of injections. Pain exacerbated with sitting for long periods. Pain improved with laying flat and movement. Recently prescribed [place] and gabapentin 10 days ago with significant relief. Says that he has been taking the [place] 3 times a day. His pain is worse in the morning and gradually gets better throughout the day. He says that over the last couple of days his pain has slowly started to show some improvement. Sitting worsens the pain. Says that he can only sit for about 20 to 30 minutes before he gets an increase in pain and he needs to move. Walking does not seem to increase his pain. Patient was standing for most of the duration of his exam today. Says that at first when his pain was at its worst back in September he was using some crutches to help take some pressure off of the spine. This did give some improvement. No prior surgeries on the back. He has also been given cyclobenzaprine 5 mg which he has been taking as needed with some mild improvement. No diabetes, no heart or lung issues, no blood thinners. Ortho Exam General General: Yes no acute distress Neurologic: Yes alert and Yes oriented x3 Spine SPINE TESTING CERVICAL THORACIC LUMBAR Musculoskeletal Strength 0=absent - 5=normal Details: Neurological exam of the lower extremities shows 5x5 power. Normal sensations across all dermatomes. No hyperreflexia. No midline tenderness, mild right paraspinal tenderness. Figure 4 and Galen's negative. Coding Level of Care Code Off vis,new,level 4 Diagnoses Lumbar stenosis without neurogenic claudication M48.061 Degenerative disc disease (DDD) of lumbar region with discogenic back pain and leg pain M51.362 Assessment and Plan Assessment and Plan (1) Lumbar stenosis without neurogenic claudication: Status: Acute (2) Degenerative disc disease (DDD) of lumbar region with discogenic back pain and l (more content not included)... Normal [facility] Magnetic resonance imaging r eportOrdered By: Grover Enciso on 11-14-2024 Study report [facility] Imaging Services [address] [place] [address] Spine Lumbar (Routine) MR#: [id number] Acct: [id number] Name: BENJAMIN SINGLETON Rep #: [id number] : 1965 [place] 59 From: Cristy Enciso MD PCP: Dr. Shay Askew MD Status: REG C LI Study:Spine Lumbar (Routine) Date of Exam: 11/14/24 Exam# [id number] Ordering Dr: Shay Askew MD PROCEDURE: SPINE LUMBAR (ROUTINE), 11/14/2024 REASON FOR EXAM: BACK PAIN TECHNIQUE: Multisequence multiplanar MR of the lumbar spine was performed without IV contrast. COMPARISON: 09/29/2024 FINDINGS: Grossly similar minimal chronic appearing vertebral body height loss at L3-L5. Degenerative type marrow signal changes are greatest from L 2-L5. Straightening of the normal lumbar lordosis. Trace likely degenerative grade 1 retrolisthesis at L3-L4 and L4-L5. Conus medullaris terminates normally at the L1 superior endplate level. Unremarkable appearance of the cauda equina allowing for crowding related to the below stenoses. Diffuse disc desiccation. Additional level by level findings as below: L1-2: Incompletely imaged L1 vertebral body on axial sequences, included on sagittal sequences. Diffuse disc bulging. Minimal facet arthropathy. No significant spinal canal or foraminal stenosis. L2-3: Prominent disc height loss with diffuse disc bulging and superimposed bilateral foraminal disc protrusions in the bilateral foraminal zones. Mild/moderate focal spinal canal stenosis with incomplete effacement of CSF. Narrowing of the bilateral lateral recesses. Minimal facet arthropathy. Mild bilateral foraminal stenosis. L3-4: Near-complete disc height loss with diffuse disc bulging, greatest in the bilateral foraminal regions. Inferiorly migrated disc sequestration measuring 12 x 8 x 15 mm extending into the RIGHT subarticular region posterior to the L4 vertebral body with associated effacement of the RIGHT lateral recess. Narrowing of the LEFT lateral recess. Mild ligamentum flavum hypertrophy. Facet arthropathy.. Moderate focal spinal canal stenosis with incomplete effacement of CSF. Mild/moderate LEFT and mild RIGHT foraminal stenosis. L4-5: Prominent disc height loss with diffuse disc bulging, again greatest in the foraminal regions. Facet arthropathy. Mild ligamentum flavum hypertrophy. Wcfmbnil-ej-bejiie focal spinal canal stenosis with near-complete effacement of CSF, spinal canal dimensions roughly 15 x 9 mm. Mild/moderate bilateral foraminal stenosis. L5-S1: Diffuse disc bulging, asymmetric to the LEFT particularly within the LEFTforaminal and lateral regions. Facet arthropathy and mild ligamentum flavum hypertrophy. Epfvnojn-vz-cpgnxt LEFT andmoderate RIGHT foraminal stenosis. Mild focal spinal canal stenosis. Other: Cervical spondylosis on the oncology social worker not well evaluated. Mucous retention cysts are polyp in the RIGHT maxillary sinus.. Presumed LEFT renal cysts up to 3.4 cm incompletely evaluated. Diverticulosis. MRI/Spine Lumbar (Routine) IMPRESSION: 1. Multilevel lumbar spondylosis as detailed, notably including a 15 mm L3-L4 disc sequestration extending inferiorly into the RIGHT subarticular region with effacement of the RIGHT lateral recess. Variable foraminal stenoses up to dqftujuv-yo-ztcyjo on the LEFT at L5-S1. Variable spinal canal stenoses up to moderate at L3-L4. 2. Additional description as above. Reading Location: [facility] CC: Dr. Shay Askew MD ~ Unit Tender: Signed [facility] Spine Lumbar (Routine)on Spine Lumbar (Routine) [facility] Imaging Services [address] [place] [address] Spine Lumbar (Routine) MR#: [id number] Acct: [id number] Name: BENJAMIN SINGLETON Rep #: [id number] : 1965 M 59 From: Grover Enciso MD PCP: Dr. Shay Askew MD Status: REG CLI Study: Spine Lumbar (Routine) Date of Exam: 11/14/24 Exam# [id number] Ordering Dr: Shay Askew MD PROCEDURE: SPINE LUMBAR (ROUTINE), 11/14/2024 REASON FOR EXAM: BACK PAIN TECHNIQUE: Multisequence multiplanar MR of the lumbar spine was performed without IV contrast. COMPARISON: 09/29/2024 FINDINGS: Grossly similar minimal chronic appearing vertebral body height loss at L3-L5. Degenerative type marrow signal changes are greatest from L 2-L5. Straightening of the normal lumbar lordosis. Trace likely degenerative grade 1 retrolisthesis at L3-L4 and L4-L5. Conus medullaris terminates normally at the L1 superior endplate level. Unremarkable appearance of the cauda equina allowing for crowding related to the below stenoses. Diffuse disc desiccation. Additional level by level findings as below: L1-2: Incompletely imaged L1 vertebral body on axial sequences, included on sagittal sequences. Diffuse disc bulging. Minimal facet arthropathy. No significant spinal canal or foraminal stenosis. L2-3: Prominent disc height loss with diffuse disc bulging and superimposed bilateral foraminal disc protrusions in the bilateral foraminal zones. Mild/moderate focal spinal canal stenosis with incomplete effacement of CSF. Narrowing of the bilateral lateral recesses. Minimal facet arthropathy. Mild bilateral foraminal stenosis. L3-4: Near-complete disc height loss with diffuse disc bulging, greatest in the bilateral foraminal regions. Inferiorly migrated disc sequestration measuring 12 x 8 x 15 mm extending into the RIGHT subarticular region posterior to the L4 vertebral body with associated effacement of the RIGHT lateral recess. Narrowing of the LEFT lateral recess. Mild ligamentum flavum hypertrophy. Facet arthropathy.. Moderate focal spinal canal stenosis with incomplete effacement of CSF. Mild/moderate LEFT and mild RIGHT foraminal stenosis. L4-5: Prominent disc height loss with diffuse disc bulging, again greatest in the foraminal regions. Facet arthropathy. Mild ligamentum flavum hypertrophy. Prlcztnc-qq-kpgkgu focal spinal canal stenosis with near-complete effacement of CSF, spinal canal dimensions roughly 15 x 9 mm. Mild/moderate bilateral foraminal stenosis. L5-S1: Diffuse disc bulging, asymmetric to the LEFT particularly within the LEFT foraminal and lateral regions. Facet arthropathy and mild ligamentum flavum hypertrophy. Wvwdkihj-nk-uqbjrq LEFT and moderate RIGHT foraminal stenosis. Mild focal spinal canal stenosis. Other: Cervical spondylosis on the oncology social worker not well evaluated. Mucous retention cysts are polyp in the RIGHT maxillary sinus.. Presumed LEFT renal cysts up to 3.4 cm incompletely evaluated. Diverticulosis. MRI/Spine Lumbar (Routine) IMPRESSION: 1. Multilevel lumbar spondylosis as detailed, notably including a 15 mm L3-L4 disc sequestration extending inferiorly into the RIGHT subarticular region with effacement of the RIGHT lateral recess. Variable foraminal stenoses up to vxhjsnoc-cp-ksxiti on the LEFT at L5-S1. Variable spinal canal stenoses up to moderate at L3-L4. 2. Additional description as above. Reading Location: [id number] CC: Dr. Shay Askew MD Unit Tender: Signed Normal [facility] Emergency Department Summary on 11-05-2024 Emergency Department Summary [facility] Medical Records Department [address] [place] [address] Emergency Department Summary 11/05/24 MR#: [id number] Acct: [id number] Name: BENJAMIN SINGLETON Rep #: [id number] : 1965 59 From: Gagan Fong DO PCP: Dr. Shay Askew MD Status:[facility] ER Location: ED Patient was seen and examined with physician assistant baseball coach Nallely All components of the history and physical confirmed and agreed. History of present illness and physical exam: Patient is a 59-year-old male past medical history hypertension, hypercholesteremia who presented to the emergency department with a chief complaint of back pain. Patient states that he has had ongoing back pain for significant time now he states that he was doing well he was doing physical therapy and had improvement however the last 3 days he noted that he had worsening pain he states that he is trying to stretch. He states the pain is getting worse with sitting. Patient states that the physical therapy team ordered an MRI. He states that he has been taking ibuprofen and muscle relaxer at night. He states that he woke up this morning with pain shooting down to his foot and tingling. He states that it did resolve and he had another episode again. Patient denies any new falls or trauma. Patient states he has been urinating normally for himself having normal bowel movements. Review of systems: Agree with above Physical exam: Agree with above MDM Patient is a 59-year-old male who presented to the emergency department the chief complaint of back pain on the right side rating down his right leg. Patient has been going to physical therapy. On the differential diagnose includes [place] to herniated disc, sciatica, musculoskeletal strain, compression fracture although do have low suspicion for this as he has no injuries or new falls and no midline tenderness. Patient was given IM Toradol and later on he was reevaluated still having pain therefore he was given IM morphine. He is feeling better he would like to go home this point time. Discussed with him using multimodal pain therapy approach such as rotating Tylenol ibuprofen [id number] when he does this he can take something every 3 hours and he should use this for mild to moderate pain. He will be placed on prednisone taper as well as gabapentin and he is to use the Percocet and Zofran for breakthrough pain. He is also given prescription for Lidoderm patches. He is encouraged to follow-up his primary care physician as well as the physical therapy team he is agreeable to plan all questions turns answered he is discharged home in stable condition. Final impression: Back pain Lumbar radiculopathy Disposition: Patient will be discharged home in stable condition Supervising attending attestation: Gagan CONTRERAS History of Present Illness Chief Complaint: Back Narrative Narrative: 59-year-old male states he developed lumbar pain, right lateral hip pain, and pain in his right anterior iverson in June 2024. It feels like a sharp stabbing pain. He had x-rays of his lumbar spine and hips since he has had a right hip replacement and states they were normal. He just completed a month of physical therapy and initially had improvement, but over the last 3 days the stretches felt worse and he has had increased pain. The pain is worse with sitting. PT sent a request to his PCP to have an MRI done. He is taking ibuprofen every 6 hours and a muscle relaxer at night. This morning when he woke up his right foot was tingling. It resolved but then he had another episode of tingling and it has again gone away. Since these paresthesias were new he decided to come in for evaluation. He is had no new trauma or falls. No weakness. No saddle anesthesia or bladder or bowel incontinence. [facility] Medical History (Updated 11/05/24 @ 19:59 by JASIEL Hilton) Encounter for examination required by 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 (DOT) Wears glasses High cholesterol Non-smoker Hypertension Home Medications ???Medication ???Instructions ???Recorded ???Last Taken ???Type atorvastatin 10 mg tablet 10 mg PO QHS 01/02/21 Unknown Hist ory ibuprofen 200 mg tablet 400 mg PO Q6H PRN Pain 01/02/21 Un known History lisinopril 5 mg tablet 5 mg PO DAILY 01/02/21 Unknown His tory atorvastatin 20 mg tablet 20 mg PO DAILY 11/05/24 Unknown Hi story cyclobenzaprine 5 mg tablet 5 mg PO QHS 11/05/24 Unknown Histo ry gabapentin 300 mg capsule 300 mg PO DAILY 14 days #14 caps 0 11/05/24 Unknown Rx hydrocodone-acetaminophen 5-325mg 1 tab PO Q6H PRN PRN Pain 3 days 11/05/24 Unknown Rx 5mg-325mg #12 TABLETS lidocaine 5 % topical patch 1 patch topical DAILY #15 ea 11/05 Unknown Rx (Lidoderm) lisinopril 10 mg tablet 10 mg PO DAILY 11/05/24 Unknown Hi story ondansetron 4 mg disintegra (more content not included)... Normal [facility] PT D/C Summary (1)on 025 PT D/C Summary (1) [facility] [address] [place] [address] [address] [place] [address] / REHABILITATION SERVICES DISCHARGE SUMMARY MR#: [id number] Acct: [id number] Name: BENJAMIN SINGLETON Rep #: [id number] : 1965 59 From: Kush Bethea DPT, OCS, CSCS Referring Dr.: Dr. Shay Askew MD Status: REG [facility] Insurance: [facility] SELF PAY INSURANCE Discharge Summary D/C summary: It has been my pleasure to treat BENJAMIN SINGLETON referred by Dr. Shay Askew MD, with the diagnosis of Back pain [...] until 2 nights ago. Appointment with Dr. askew next Wednesday. Used towel roll . PT [...] please feel free to call me at [phone]. Thank you for the referral of this patient. Sincerely, Kush Bethea, DPT, OCS, CSCS Balance/Gait/Functional tests Balance/Special Test Scores Oswestry Low Back Score: 23 Improvement % Improvement: 50 11/03/24 1022 CC: Dr. Shay Askew MD; Shay Askew EBG Signed Normal [facility] Anion gap in Serum or Plasma Ordered By: Shay Askew on 11-01-2024 Anion gap [Moles/Vol] 10 mmol/L 5-15 [facility] BUN/creatinine ratioOrdered By: Shay Askew on 11-01-2024 Urea nitrogen/Creatinine [Mass ratio] 27.2 mg/mg High 10-20 [facility] Bilirubin, totalOrdered By: Shay Askew on 11-01-2024 Bilirubin [Mass/Vol] 0.58 mg/dL 0.00-1.30 [facility] Calculated very low density lipoprotein (VLDL) cholesterol measurementOrdered By: Shay Askew on 11-01-2024 Calculated very low density lipoprotein (VLDL) cholesterol measurement 24 mg/dL 5-40 [facility] Carbon dioxide, total [Moles /volume] in Central venous bloodOrdered By: Shay Askew on 11-01-2024 CO2 [Moles/Vol] 24.8 mmol/L 21.0-32.0 [facility] Chloride assayOrdered By: Jasiel Askew on 11-01-2024 Chloride [Moles/Vol] 103 mmol/L 98-108 [facility] Comprehensive Metabolic Prof ilon 11-01-2024 Albumin [Mass/Vol] 4.4 g/dL Normal 3.5-5.0 [facility] Comment on above: Order Comment: Inter face Comments:HyperlipidimiaOrder Date: 06/28/24Order Info: [id number] - CMPOrder Info: [id number] - LIPIDComments: HyperlipidimiaHyperlipidimia Performed By: #### L 500.4050, L500.4100 ####[facility] [address] [place], [address] Albumin/Globulin [Mass ratio] 1.8 {ratio} Normal 0.9-2.4 [facility] Comment on above: Order Comment: Inter face Comments:HyperlipidimiaOrder Date: 06/28/24Order Info: [id number]- - CMPOrder Info: [id number] - LIPIDComments: HyperlipidimiaHyperlipidimia Performed By: #### L 500.4050, L500.4100 ####[facility] [address] [place], [address] ALK PHOS 58 U/L Normal 40-129 [facility] Comment on above: Order Comment: Inter face Comments:HyperlipidimiaOrder Date: 06/28/24Order Info: [id number]- - CMPOrder Info: [id number] - LIPIDComments: HyperlipidimiaHyperlipidimia Performed By: #### L 500.4050, L500.4100 ####[facility] [address] [place], [address] ALT [Catalytic activity/Vol] 29 U/L Normal <=46 [facility] Comment on above: Order Comment: Inter face Comments:HyperlipidimiaOrder Date: 06/28/24Order Info: [id number] - CMPOrder Info: [id number] - LIPIDComments: HyperlipidimiaHyperlipidimia Performed By: #### L 500.4050, L500.4100 ####[facility] [address] [place], [address] AST [Catalytic activity/Vol] 18 U/L Normal <=37 [facility] Comment on above: Order Comment: Inter face Comments:HyperlipidimiaOrder Date: 06/28/24Order Info: [id number] - CMPOrder Info: [id number] - LIPIDComments: HyperlipidimiaHyperlipidimia Performed By: #### L 500.4050, L500.4100 ####[facility] [address] [place], [address] Bilirubin [Mass/Vol] 0.58 mg/dL Normal 0.00-1.30 [facility] Comment on above: Order Comment: Inter face Comments:HyperlipidimiaOrder Date: 06/28/24Order Info: [id number] - CMPOrder Info: [id number] - LIPIDComments: HyperlipidimiaHyperlipidimia Performed By: #### L 500.4050, L500.4100 ####[facility] [address] [place], [address] BUN/CRE 27.2 RATIO High 10-20 [facility] Comment on above: Order Comment: Inter face Comments:HyperlipidimiaOrder Date: 06/28/24Order Info: [id number] - CMPOrder Info: [id number] - LIPIDComments: HyperlipidimiaHyperlipidimia Performed By: #### L 500.4050, L500.4100 ####[facility] [address] [place], [address] Calcium [Mass/Vol] 9.3 mg/dL Normal 7.6-11.0 [facility] Comment on above: Order Comment: Inter face Comments:HyperlipidimiaOrder Date: 06/28/24Order Info: [id number] - CMPOrder Info: [id number] - LIPIDComments: HyperlipidimiaHyperlipidimia Performed By: #### L 500.4050, L500.4100 ####[facility] [address] [place], [address] Chloride [Moles/Vol] 103 mmol/L Normal 98-108 [facility] Comment on above: Order Comment: Inter face Comments:HyperlipidimiaOrder Date: 06/28/24Order Info: [id number] - CMPOrder Info: [id number] - LIPIDComments: HyperlipidimiaHyperlipidimia Performed By: #### L 500.4050, L500.4100 ####[facility] [address] [place], [address] CO2 [Moles/Vol] 24.8 mmol/L Normal 21.0-32.0 [facility] Comment on above: Order Comment: Inter face Comments:HyperlipidimiaOrder Date: 06/28/24Order Info: [id number] - CMPOrder Info: [id number] - LIPIDComments: HyperlipidimiaHyperlipidimia Performed By: #### L 500.4050, L500.4100 ####[facility] [address] [place], [address] Creatinine [Mass/Vol] 0.83 mg/dL Normal 0.70-1.20 [facility] Comment on above: Order Comment: Inter face Comments:HyperlipidimiaOrder Date: 06/28/24Order Info: [id number] - CMPOrder Info: [id number] - LIPIDComments: HyperlipidimiaHyperlipidimia Performed By: #### L 500.4050, L500.4100 ####[facility] [address] [place], [address] GAP 10 Normal 5-15 [facility] Comment on above: Order Comment: Inter face Comments:HyperlipidimiaOrder Date: 06/28/24Order Info: [id number]- - CMPOrder Info: [id number] - LIPIDComments: HyperlipidimiaHyperlipidimia Performed By: #### L 500.4050, L500.4100 ####[facility] [address] [place], [address] GFR/1.73 sq M.predicted among non-blacks MDRD (S/P/Bld) [Vol rate/Area] 101 mL/min/{1.73_m2} Normal >60 [facility] Comment on above: Order Comment: Inter face Comments:HyperlipidimiaOrder Date: 06/28/24Order Info: [id number] - CMPOrder Info: [id number] - LIPIDComments: HyperlipidimiaHyperlipidimia Result Comment: mL/m in/1.73m2 CKD-EPI Creatinine Equation (2020) Performed By: #### L 500.4050, L500.4100 ####[facility] [address] [place], [address] Globulin (S) [Mass/Vol] 2.4 g/dL Normal 2.2-4.2 [facility] Comment on above: Order Comment: Inter face Comments:HyperlipidimiaOrder Date: 06/28/24Order Info: [id number] - CMPOrder Info: [id number] - LIPIDComments: HyperlipidimiaHyperlipidimia Performed By: #### L 500.4050, L500.4100 ####[facility] [address] [place], [address] Glucose [Mass/Vol] 104 mg/dL High 70-99 [facility] Comment on above: Order Comment: Inter face Comments:HyperlipidimiaOrder Date: 06/28/24Order Info: [id number] - CMPOrder Info: [id number] - LIPIDComments: HyperlipidimiaHyperlipidimia Performed By: #### L 500.4050, L500.4100 ####[facility] [address] [place], [address] Potassium [Moles/Vol] 4.6 mmol/L Normal 3.3-5.1 [facility] Comment on above: Order Comment: Inter face Comments:HyperlipidimiaOrder Date: 06/28/24Order Info: 785- - CMPOrder Info: [id number] - LIPIDComments: HyperlipidimiaHyperlipidimia Performed By: #### L 500.4050, L500.4100 ####[facility] [address] [place], [address] Sodium [Moles/Vol] 138 mmol/L Normal 133-145 [facility] Comment on above: Order Comment: Inter face Comments:HyperlipidimiaOrder Date: 06/28/24Order Info: [id number] - CMPOrder Info: [id number] - LIPIDComments: HyperlipidimiaHyperlipidimia Performed By: #### L 500.4050, L500.4100 ####[facility] [address] [place], [address] T PROT 6.8 g/dL Normal 5.9-8.4 [facility] Comment on above: Order Comment: Inter face Comments:HyperlipidimiaOrder Date: 06/28/24Order Info: [id number] - CMPOrder Info: [id number] - LIPIDComments: HyperlipidimiaHyperlipidimia Performed By: #### L 500.4050, L500.4100 ####[facility] [address] [place], [address] Urea nitrogen [Mass/Vol] 23 mg/dL High 4-19 [facility] Comment on above: Order Comment: Inter face Comments:HyperlipidimiaOrder Date: 06/28/24Order Info: [id number] - CMPOrder Info: [id number] - LIPIDComments: HyperlipidimiaHyperlipidimia Performed By: #### L 500.4050, L500.4100 ####[facility] [address] [place], [address] Glomerular filtration rate ( GFR) estimation/1.73 sq m using serum, plasma, or whole bOrdered By: Shay Askew on 11-01-2024 GFR/1.73 sq M.predicted among non-blacks MDRD (S/P/Bld) [Vol rate/Area] 101 mL/min/{1.73_m2} >60 [facility] Comment on above: mL/min/1.73m2 CKD-EP I Creatinine Equation (2020) LDL calc ser/plasOrdered By: Shay Askew on 11-01-2024 Cholesterol in LDL [Mass/Vol] 130 mg/dL [facility] Comment on above: Gacczbtixm=253-547 m g/dL & Higher Fixp=185 mg/dL or greater Laboratory - Chemistry and C hemistry - challengeOrdered By: Shay Askew on 11-01-2024 AST [Catalytic activity/Vol] 18 U/L <38 [facility] Lipid Profileon 11-01-2024 CHOL:HDL 3.84 Normal [facility] Comment on above: Order Comment: Inter face Comments:HyperlipidimiaOrder Date: 06/28/24Order Info: [id number] - CMPOrder Info: [id number] - LIPIDComments: Hyperlipidimia Performed By: #### L 500.4050, L500.4100 ####[facility] [address] [place], [place], [address] Cholesterol [Mass/Vol] 208 mg/dL High <=200 [facility] Comment on above: Order Comment: Inter face Comments:HyperlipidimiaOrder Date: 06/28/24Order Info: [id number] - CMPOrder Info: [id number] - LIPIDComments: Hyperlipidimia Result Comment: Chol esterol level, Desirable <200 mg/dL Borderline high cholesterol 200-239 mg/dL High cholesterol >=240 mg/dL Recommendations of the NCEP Adult Treatment Panel for the following risk-cutoff thresholds for the [place] population. Performed By: #### L 500.4050, L500.4100 ####[facility] [address] [place], [address] Cholesterol in HDL [Mass/Vol] 54 mg/dL Normal [facility] Comment on above: Order Comment: Inter face Comments:HyperlipidimiaOrder Date: 06/28/24Order Info: [id number] - CMPOrder Info: [id number] - LIPIDComments: Hyperlipidimia Result Comment: Sena onal Cholesterol Education Program (NCEP) guidelines: <40 mg/dL: Low HDL-cholesterol (major risk factor for CHD) >= 60 mg/dL: High HDL-cholesterol (negative risk factor for CHD) HDL-cholesterol is affected by a number of factors, e.g. smoking, exercise, hormones, sex and age. Performed By: #### L 500.4050, L500.4100 ####[facility] [address] [place], [address] Cholesterol in LDL [Mass/Vol] 130 mg/dL Normal [facility] Comment on above: Order Comment: Inter face Comments:HyperlipidimiaOrder Date: 06/28/24Order Info: [id number]- - CMPOrder Info: [id number] - LIPIDComments: Hyperlipidimia Result Comment: Bord hihgiq=632-764 mg/dL Higher Wbwr=645 mg/dL or greater Performed By: #### L 500.4050, L500.4100 ####[facility] [address] [place], [address] Cholesterol in VLDL [Mass/Vol] 24 mg/dL Normal 5-40 [facility] Comment on above: Order Comment: Inter face Comments:HyperlipidimiaOrder Date: 06/28/24Order Info: 0786-1 - CMPOrder Info: [id number] - LIPIDComments: Hyperlipidimia Performed By: #### L 500.4050, L500.4100 ####[facility] [address] [place], [address] Triglyceride [Mass/Vol] 120 mg/dL Normal [facility] Comment on above: Order Comment: Inter face Comments:HyperlipidimiaOrder Date: 06/28/24Order Info: [id number] - CMPOrder Info: [id number] - LIPIDComments: Hyperlipidimia Result Comment: The drugs N-Acetylcysteine and Metamizole may falsely depress this assay. Normal range: <150 mg/dL Borderline High: 150-199 mg/dL High: 200-499 mg/dL Very High: >500 mg/dL Performed By: #### L 500.4050, L500.4100 ####[facility] [address] [place], [address] Potassium measurement (mass/ volume)Ordered By: Shay Askew on 11-01-2024 Potassium (Unsp spec) [Mass/Vol] 4.6 mmol/L 3.3-5.1 [facility] Screening total cholesterol/ high density lipoprotein (HDL) cholesterol ratioOrdered By: Shay Askew on 11-01-2024 Cholesterol.total/Cho lesterol in HDL [Mass ratio] 3.84 {ratio} [facility] Serum creatinine measurement (mass/volume)Ordered By: Shay Askew on 11-01-2024 Creatinine [Mass/Vol] 0.83 mg/dL 0.70-1.20 [facility] Serum globulin measurementOr dered By: Shay Askew on 11-01-2024 Globulin (S) [Mass/Vol] 2.4 g/dL 2.2-4.2 [facility] Serum glucose measurement (m ass/volume)Ordered By: Shay Askew on 11-01-2024 Glucose [Mass/Vol] 104 mg/dL High 70-99 [facility] Serum or plasma alanine johnson otransferase (ALT) measurementOrdered By: Shay Askew on 11-01-2024 ALT [Catalytic activity/Vol] 29 U/L <47 [facility] Serum or plasma albumin trevon urement (mass/volume)Ordered By: Shay Askew on 11-01-2024 Albumin [Mass/Vol] 4.4 g/dL 3.5-5.0 [facility] Serum or plasma albumin/glob ulin mass ratioOrdered By: Shay Askew on 11-01-2024 Albumin/Globulin [Mass ratio] 1.8 {ratio} 0.9-2.4 [facility] Serum or plasma alkaline edith sphatase measurementOrdered By: Shay Askew on 11-01-2024 ALP [Catalytic activity/Vol] 58 U/L 40-129 [facility] Serum or plasma calcium trevon urement (mass/volume)Ordered By: Shay Askew on 11-01-2024 Calcium [Mass/Vol] 9.3 mg/dL 7.6-11.0 [facility] Serum or plasma cholesterol in HDL measurement (mass/volume)Ordered By: Shay Askew on 11-01-2024 Cholesterol in HDL [Mass/Vol] 54 mg/dL >40 [facility] Comment on above: National Cholesterol Education Program (NCEP) guidelines:<40 mg/dL: Low HDL-cholesterol (major risk factor for CHD)>= 60 mg/dL: High HDL-cholesterol (negative risk factor for CHD)HDL-cholesterol is affected by a number of factors, e.g. smoking, exercise, hormones, sex and age. Serum or plasma cholesterol measurement (mass/volume)Ordered By: Shay Askew on 11-01-2024 Cholesterol [Mass/Vol] 208 mg/dL High <201 [facility] Comment on above: Cholesterol level, D esirable <200 mg/dLBorderline high cholesterol 200-239 mg/dLHigh cholesterol >=240 mg/dLRecommendations of the NCEP Adult Treatment Panel for the following risk-cutoff thresholds for the [place] population. Serum or plasma urea nitroge n measurement (mass/volume)Ordered By: Shay Askew on 11-01-2024 Urea nitrogen [Mass/Vol] 23 mg/dL High 4-19 [facility] Sodium levelOrdered By: Shay Askew on 11-01-2024 Sodium [Moles/Vol] 138 mmol/L 133-145 [facility] Total proteinOrdered By: Lori Askew on 11-01-2024 Protein [Mass/Vol] 6.8 g/dL 5.9-8.4 [facility] Triglycerides measurementOrd ered By: Shay Askew on 11-01-2024 Triglyceride [Mass/Vol] 120 mg/dL <199 [facility] Comment on above: The drugs N-Acetylcy steine and Metamizole may falsely depress this assay. Normal range: <150 mg/dLBorderline High: 150-199 mg/dLHigh: 200-499 mg/dLVery High: >500 mg/dL Inital Evaluation (1) - PTon 10-10-2024 Inital Evaluation (1) - PT [facility] Physical [facility] [address] [place] [address] / REHABILITATION SERVICES INITIAL EVALUATION MR#: [id number] Acct: [id number] Name: BENJAMIN SINGLETON Rep #: [id number] : 1965 59 From: Kush Bethea DPT, OCS, CSCS Referring Dr.: Dr. Shay Askew MD Status: REG RCR Insurance: [facility] SELF PAY INSURANCE Patient's Visit Information Visit Information Visit Information: BENJAMIN SINGLETON is a 59 year old M referred to Physical Therapy by Dr. Shay Askew MD with a diagnosis of Back pain. [...] if needed. Subjective Subjective: June sat in [employer] long time 3 games and back started hurting, was not painful prior. Maybe previous episodes. Better in September with ibuprofen but helped neighbor [employer] sitting in tractor and got worse again. 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 sitting is the worst. Got much worse last week. Has seen R iverson and lateral leg/hip Askew and is now on ibuprofen 3x/day. Much [...] trunk rotations, cat cow, PPU. 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 Pain R LB and leg: Pain Intensity [...] and motor function, To increase tolerance to activity/condition/position , To improve ability of physical actions for home/community/work/leisure and To improve gait and locomotor functions Therapeutic Exercise to Include: Strength training, Postural training, Flexibilty training, Relaxation training, Passive ROM, Active ROM and Dynamic Lumbar Stabilization For the Purpose of:: To decrease pain, To increase ROM, To improve nutrient delivery to tissue, To improve muscle performance and motor function, To increase tolerance to activity/condition/position , To improve performance and independence with ADL's and To improve ability of physical actions for home/community/work/leisure Manual Therapy Techniques to Include: Mobilization, Passive ROM and Soft tissue mobilization For the Purpose of:: To decrease pain, To increase ROM and To improve nutrient delivery to tissue TENS: Yes Cryotherapy (ice pack, ice massage): Yes For the Purpose of:: To decrease pain, To decrease swelling/inflammation, To increase ROM, To improve nutrient delivery to tissue and To improve muscle performance and motor function Text: Thank you for the opportunity to evaluate your patient. For Medicare and Medicare HMO plans, please review the plan of care and approve (more content not included)... Normal [facility] Hips B/L min 2 views w/ Pelv ros 09-29-2024 Hips B/L min 2 views w/ Pelvis [facility] Services [address] [place] [address] Hips B/L min 2 views w/ Pelvis MR#: [id number] Acct: [id number] Name: BENJAMIN SINGLETON Rep #: [id number] : 1965 M 59 From: Grover Chauhan MD PCP: Dr. Shay Askew MD Status: REG CLI Study: Hips B/L min 2 views w/ Pelvis Date of Exam: 0 09/29/24 Exam# [id number] Ordering Dr: Shay Askew MD EXAM: XR Bilateral Hips With Pelvis [...] IMPRESSION: Postoperative changes as above. Reading [facility] CC: Dr. Shay Askew MD Unit Tender: Signed Normal [facility] L/S Spine Min 4 Viewson 09-08 L/S Spine Min 4 Views [facility] Services [address] [place] [address] L/S Spine Min 4 Views MR#: [id number] Acct: [id number] Name: BENJAMIN SINGLETON Rep #: [id number] : 1965 M 59 From: Grover Chauhan MD PCP: Dr. Shay Askew MD Status: REG CLI Study: L/S Spine Min 4 Views Date of Exam: 09/29/24 Exam# [id number] Ordering Dr: Shay Askew MD EXAM: XR Lumbosacral Spine, 4 or [...] evaluation with MRI is recommended. Reading Location: [facility] CC: Dr. Shay Askew MD Unit Tender: Signed Normal [facility] Albumin to globulin ratioOrd ered By: Shay Askew on 06-23-2024 Albumin/Globulin [Mass ratio] 1.2 {ratio} 0.9-2.4 [facility] Bilirubin, totalOrdered By: Shay Askew on 06-23-2024 Bilirubin [Mass/Vol] 0.70 mg/dL 0.20-1.00 [facility] Comment on above: For patients on eltr ombopag therapy, use of Dimension [place] TBIL is not recommended. Blood urea nitrogen (BUN)/cr eatinine ratioOrdered By: Shay Askew on 06-23-2024 Urea nitrogen/Creatinine [Mass ratio] 19.3 mg/mg 10-20 [facility] Carbon dioxide measurementOr dered By: Shay Askew on 06-23-2024 CO2 [Moles/Vol] 28.0 mmol/L 21.0-32.0 [facility] Chloride measurementOrdered By: Shay Askew on 06-23-2024 Chloride [Moles/Vol] 104 mmol/L 98-107 [facility] Comprehensive Metabolic Prof ilon 06-23-2024 Albumin [Mass/Vol] 3.9 g/dL Normal 3.2-5.0 [facility] Comment on above: Performed By: #### L 500.4050, L500.4100 #### [facility] [address] [place], [address] Albumin/Globulin [Mass ratio] 1.2 {ratio} Normal 0.9-2.4 [facility] Comment on above: Performed By: #### L 500.4050, L500.4100 #### [facility] [address] [place], [address] ALK P 63 U/L Normal 45-117 [facility] Comment on above: Performed By: #### L 500.4050, L500.4100 #### [facility] [address] [place], [address] ALT [Catalytic activity/Vol] 54 U/L Normal 16-61 [facility] Comment on above: Performed By: #### L 500.4050, L500.4100 #### [facility] [address] [place], [address] AST [Catalytic activity/Vol] 24 U/L Normal 15-37 [facility] Comment on above: Performed By: #### L 500.4050, L500.4100 #### [facility] [address] [place], [address] Bilirubin [Mass/Vol] 0.70 mg/dL Normal 0.20-1.00 [facility] Comment on above: Result Comment: For patients on eltrombopag therapy, use of Dimension [place] TBIL is not recommended. Performed By: #### L 500.4050, L500.4100 #### [facility] [address] [place], [address] BUN/CRE 19.3 RATIO Normal 10-20 [facility] Comment on above: Performed By: #### L 500.4050, L500.4100 #### [facility] [address] [place], [address] CA,Total 9.4 mg/dL Normal 8.5-10.1 [facility] Comment on above: Performed By: #### L 500.4050, L500.4100 #### [facility] [address] [place], [address] Chloride [Moles/Vol] 104 mmol/L Normal 98-107 [facility] Comment on above: Performed By: #### L 500.4050, L500.4100 #### [facility] [address] [place], [address] CO2 [Moles/Vol] 28.0 mmol/L Normal 21.0-32.0 [facility] Comment on above: Performed By: #### L 500.4050, L500.4100 #### [facility] [address] [place], [address] Creatinine [Mass/Vol] 0.98 mg/dL Normal 0.70-1.30 [facility] Comment on above: Result Comment: The validity of the calculated GFR GFRAA in patients over 70 years has not been determined. Clinical correlation is essential. Performed By: #### L 500.4050, L500.4100 #### [facility] [address] [place], [address] EST GFR - AA 101 mL/min Normal >60 [facility] Comment on above: Result Comment: Afri can Nigerian GFR Calc Performed By: #### L 500.4050, L500.4100 #### [facility] [address] [place], [address] GAP 5 Normal 5-15 [facility] Comment on above: Performed By: #### L 500.4050, L500.4100 #### [facility] [address] [place], [address] GFR/1.73 sq M.predicted among non-blacks MDRD (S/P/Bld) [Vol rate/Area] 83 mL/min/{1.73_m2} Normal >60 [facility] Comment on above: Result Comment: Non- GFR Calc Performed By: #### L 500.4050, L500.4100 #### [facility] [address] [place], [address] Globulin (S) [Mass/Vol] 3.2 g/dL Normal 2.2-4.2 [facility] Comment on above: Performed By: #### L 500.4050, L500.4100 #### [facility] [address] [place], [address] Glucose [Mass/Vol] 99 mg/dL Normal 74-106 [facility] Comment on above: Performed By: #### L 500.4050, L500.4100 #### [facility] [address] [place], [address] Potassium [Moles/Vol] 4.4 mmol/L Normal 3.5-5.1 [facility] Comment on above: Performed By: #### L 500.4050, L500.4100 #### [facility] [address] [place], [address] Sodium [Moles/Vol] 137 mmol/L Normal 136-145 [facility] Comment on above: Performed By: #### L 500.4050, L500.4100 #### [facility] [address] [place], [address] T PROT 7.1 g/dL Normal 6.4-8.2 [facility] Comment on above: Performed By: #### L 500.4050, L500.4100 #### [facility] [address] [place], [address] Urea nitrogen [Mass/Vol] 19 mg/dL High 7-18 [facility] Comment on above: Performed By: #### L 500.4050, L500.4100 #### [facility] [address] [place], [address] Glomerular filtration rate ( GFR) estimationOrdered By: Shay Askew on 06-23-2024 GFR/1.73 sq M.predicted among non-blacks MDRD (S/P/Bld) [Vol rate/Area] 83 mL/min/{1.73_m2} >60 [facility] Comment on above: Non- GFR Calc Glucose measurementOrdered B y: Shay Askew on 06-23-2024 Glucose [Mass/Vol] 99 mg/dL 74-106 [facility] High density lipoprotein (HD L) measurementOrdered By: Shay Askew on 06-23-2024 Cholesterol in HDL [Mass/Vol] 68 mg/dL >40 [facility] Comment on above: The drugs N-Acetylcy steine and Metamizole may falsely depress this assay. Reference Range HDL <40 mg/dL Low HDL Cholesterol HDL >or= 60 mg/dL High HDL Cholesterol Laboratory - Chemistry and C hemistry - challengeOrdered By: Shay Askew on 06-23-2024 AST [Catalytic activity/Vol] 24 U/L 15-37 [facility] Lipid Profileon 06-23-2024 Cholesterol [Mass/Vol] 254 mg/dL High 200 [facility] Comment on above: Result Comment: <200 mg/dL Desirable 200-240 mg/dL Borderline >240 mg/dL High Risk Performed By: #### L 500.4050, L500.4100 #### [facility] [address] [place], [address] Cholesterol in HDL [Mass/Vol] 68 mg/dL Normal [facility] Comment on above: Result Comment: The drugs N-Acetylcysteine and Metamizole may falsely depress this assay. Reference Range HDL <40 mg/dL Low HDL Cholesterol HDL >or= 60 mg/dL High HDL Cholesterol Performed By: #### L 500.4050, L500.4100 #### [facility] [address] [place], [address] Cholesterol in LDL [Mass/Vol] 163 mg/dL High 0-130 [facility] Comment on above: Performed By: #### L 500.4050, L500.4100 #### [facility] [address] [place], [address] Cholesterol in VLDL [Mass/Vol] 23 mg/dL Normal 5-40 [facility] Comment on above: Performed By: #### L 500.4050, L500.4100 #### [facility] [address] [place], [address] Triglyceride [Mass/Vol] 115 mg/dL Normal [facility] Comment on above: Result Comment: The drugs N-Acetylcysteine and Metamizole may falsely depress this assay. Serum Triglycerides Reference Interval Normal <150 mg/dL Borderline high 150 - 199 mg/dL High 200 - 499 mg/dL Very High > or = 500 mg/dL Performed By: #### L 500.4050, L500.4100 #### [facility] [address] [place], [address] Low density lipoprotein (LDL ) cholesterol measurementOrdered By: Shay Askew on 06-23-2024 Cholesterol in LDL [Mass/Vol] 163 mg/dL High 0-130 [facility] Potassium measurementOrdered By: Shay Askew on 06-23-2024 Potassium [Moles/Vol] 4.4 mmol/L 3.5-5.1 [facility] Serum anion gap measurementO rdered By: Shay Askew on 06-23-2024 Anion gap [Moles/Vol] 5 mmol/L 5-15 [facility] Serum globulin measurementOr dered By: Shay Askew on 06-23-2024 Globulin (S) [Mass/Vol] 3.2 g/dL 2.2-4.2 [facility] Serum or plasma alanine johnson otransferase (ALT) measurementOrdered By: Shay Askew on 06-23-2024 ALT [Catalytic activity/Vol] 54 U/L 16-61 [facility] Serum or plasma albumin trevon urement (mass/volume)Ordered By: Shay Aksew on 06-23-2024 Albumin [Mass/Vol] 3.9 g/dL 3.2-5.0 [facility] Serum or plasma alkaline edith sphatase measurementOrdered By: Shay Askew on 06-23-2024 ALP [Catalytic activity/Vol] 63 U/L 45-117 [facility] Serum or plasma calcium trevon urement (mass/volume)Ordered By: Shay Askew on 06-23-2024 Calcium [Mass/Vol] 9.4 mg/dL 8.5-10.1 [facility] Serum or plasma cholesterol measurement (mass/volume)Ordered By: Shay Askew on 06-23-2024 Cholesterol [Mass/Vol] 254 mg/dL High <200 [facility] Comment on above: <200 mg/dL Desirable 200-240 mg/dL Borderline >240 mg/dL High Risk Serum or plasma creatinine m easurement (mass/volume)Ordered By: Shay Askew on 06-23-2024 Creatinine [Mass/Vol] 0.98 mg/dL 0.70-1.30 [facility] Comment on above: The validity of the calculated GFR & GFRAA in patients over 70 years has not been determined. Clinical correlation is essential. Serum or plasma urea nitroge n measurement (mass/volume)Ordered By: Shay Askew on 06-23-2024 Urea nitrogen [Mass/Vol] 19 mg/dL High 7-18 [facility] Sodium levelOrdered By: Shay Askew on 06-23-2024 Sodium [Moles/Vol] 137 mmol/L 136-145 [facility] Total proteinOrdered By: Lori Askew on 06-23-2024 Protein [Mass/Vol] 7.1 g/dL 6.4-8.2 [facility] Triglycerides measurementOrd ered By: Shay Askew on 06-23-2024 Triglyceride [Mass/Vol] 115 mg/dL <199 [facility] Comment on above: The drugs N-Acetylcy steine and Metamizole may falsely depress this assay.Serum Triglycerides Reference Interval Normal <150 mg/dL Borderline high 150 - 199 mg/dL High 200 - 499 mg/dL Very High > or = 500 mg/dL Very low density lipoprotein (VLDL) cholesterol measurementOrdered By: Shay Askew on 06-23-2024 Very low density lipoprotein (VLDL) cholesterol measurement 23 mg/dL 5-40 [facility] Comprehensive Metabolic Prof ilon 01-04-2024 Albumin [Mass/Vol] 3.7 g/dL Normal 3.2-5.0 [facility] Comment on above: Performed By: #### L 500.4050, L500.4100, L501.9910 #### [facility] [address] [place], [address] Albumin/Globulin [Mass ratio] 1.2 {ratio} Normal 0.9-2.4 [facility] Comment on above: Performed By: #### L 500.4050, L500.4100, L501.9910 #### [facility] [address] [place], [address] ALK P 63 U/L Normal 45-117 [facility] Comment on above: Performed By: #### L 500.4050, L500.4100, L501.9910 #### [facility] [address] [place], [address] ALT [Catalytic activity/Vol] 32 U/L Normal 16-61 [facility] Comment on above: Performed By: #### L 500.4050, L500.4100, L501.9910 #### [facility] [address] [place], [address] AST [Catalytic activity/Vol] 16 U/L Normal 15-37 [facility] Comment on above: Performed By: #### L 500.4050, L500.4100, L501.9910 #### [facility] [address] [place], [address] Bilirubin [Mass/Vol] 0.70 mg/dL Normal 0.20-1.00 [facility] Comment on above: Result Comment: For patients on eltrombopag therapy, use of Dimension [place] TBIL is not recommended. Performed By: #### L 500.4050, L500.4100, L501.9910 #### [facility] [address] [place], [address] BUN/CRE 20.0 RATIO Normal 10-20 [facility] Comment on above: Performed By: #### L 500.4050, L500.4100, L501.9910 #### [facility] [address] [place], [address] CA,Total 8.8 mg/dL Normal 8.5-10.1 [facility] Comment on above: Performed By: #### L 500.4050, L500.4100, L501.9910 #### [facility] [address] [place], [address] Chloride [Moles/Vol] 104 mmol/L Normal 98-107 [facility] Comment on above: Performed By: #### L 500.4050, L500.4100, L501.9910 #### [facility] [address] [place], [address] CO2 [Moles/Vol] 26.0 mmol/L Normal 21.0-32.0 [facility] Comment on above: Performed By: #### L 500.4050, L500.4100, L501.9910 #### [facility] [address] [place], [address] Creatinine [Mass/Vol] 0.85 mg/dL Normal 0.70-1.30 [facility] Comment on above: Result Comment: The validity of the calculated GFR GFRAA in patients over 70 years has not been determined. Clinical correlation is essential. Performed By: #### L 500.4050, L500.4100, L501.9910 #### [facility] [address] [place], [address] EST GFR - AA 119 mL/min Normal >60 [facility] Comment on above: Result Comment: Afri can Nigerian GFR Calc Performed By: #### L 500.4050, L500.4100, L501.9910 #### [facility] [address] [place], [address] GAP 7 Normal 5-15 [facility] Comment on above: Performed By: #### L 500.4050, L500.4100, L501.9910 #### [facility] [address] [place], [address] GFR/1.73 sq M.predicted among non-blacks MDRD (S/P/Bld) [Vol rate/Area] 98 mL/min/{1.73_m2} Normal >60 [facility] Comment on above: Result Comment: Non- GFR Calc Performed By: #### L 500.4050, L500.4100, L501.9910 #### [facility] [address] [place], [address] Globulin (S) [Mass/Vol] 3.1 g/dL Normal 2.2-4.2 [facility] Comment on above: Performed By: #### L 500.4050, L500.4100, L501.9910 #### [facility] [address] [place], [address] Glucose [Mass/Vol] 89 mg/dL Normal 74-106 [facility] Comment on above: Performed By: #### L 500.4050, L500.4100, L501.9910 #### [facility] [address] [place], [address] Potassium [Moles/Vol] 4.0 mmol/L Normal 3.5-5.1 [facility] Comment on above: Performed By: #### L 500.4050, L500.4100, L501.9910 #### [facility] [address] [place], [address] Sodium [Moles/Vol] 137 mmol/L Normal 136-145 [facility] Comment on above: Performed By: #### L 500.4050, L500.4100, L501.9910 #### [facility] [address] [place], [address] T PROT 6.8 g/dL Normal 6.4-8.2 [facility] Comment on above: Performed By: #### L 500.4050, L500.4100, L501.9910 #### [facility] [address] [place], [address] Urea nitrogen [Mass/Vol] 17 mg/dL Normal 7-18 [facility] Comment on above: Performed By: #### L 500.4050, L500.4100, L501.9910 #### [facility] [address] [place], [address] Lipid Profileon 01-04-2024 Cholesterol [Mass/Vol] 196 mg/dL Normal 200 [facility] Comment on above: Result Comment: <200 mg/dL Desirable 200-240 mg/dL Borderline >240 mg/dL High Risk Performed By: #### L 500.4050, L500.4100, L501.9910 #### [facility] [address] [place], [address] Cholesterol in HDL [Mass/Vol] 59 mg/dL Normal [facility] Comment on above: Result Comment: The drugs N-Acetylcysteine and Metamizole may falsely depress this assay. Reference Range HDL <40 mg/dL Low HDL Cholesterol HDL >or= 60 mg/dL High HDL Cholesterol Performed By: #### L 500.4050, L500.4100, L501.9910 #### [facility] [address] [place], [address] Cholesterol in LDL [Mass/Vol] 116 mg/dL Normal 0-130 [facility] Comment on above: Performed By: #### L 500.4050, L500.4100, L501.9910 #### [facility] [address] [place], [address] Cholesterol in VLDL [Mass/Vol] 21 mg/dL Normal 5-40 [facility] Comment on above: Performed By: #### L 500.4050, L500.4100, L501.9910 #### [facility] [address] [place], [address] Triglyceride [Mass/Vol] 104 mg/dL Normal [facility] Comment on above: Result Comment: The drugs N-Acetylcysteine and Metamizole may falsely depress this assay. Serum Triglycerides Reference Interval Normal <150 mg/dL Borderline high 150 - 199 mg/dL High 200 - 499 mg/dL Very High > or = 500 mg/dL Performed By: #### L 500.4050, L500.4100, L501.9910 #### [facility] [address] [place], [address] PSA,Total - Annual Screenon 01-04-2024 PSA,TOT SCREEN 1.47 ng/mL Normal 0.00-4.00 [facility] Comment on above: Result Comment: This test was performed using the TPSA assay method for the UGOBE chemistry system. Values obtained with different assay methods cannot be used interchangably. When changing PSA assays in the course of monitoring a patient, additional sequential testing should be carried out to confirm baseline values. Performed By: #### L 500.4050, L500.4100, L501.9910 #### [facility] [address] [place], [address] Alternaria alternata IgE ser umOrdered By: Shay Askew on 12-22-2022 A. alternata IgE Qn (S) <0.10 kU/L Class 0 [facility] Basophil percentageOrdered B y: Shay Askew on 12-22-2022 Bilirubin [Mass/Vol] 0.40 mg/dL 0.20-1.00 [facility] Comment on above: For patients on eltr ombopag therapy, use of Dimension [place] TBIL is not recommended. Chloride [Moles/Vol] 106 mmol/L 98-107 [facility] Cholesterol [Mass/Vol] 257 mg/dL <200 [facility] Comment on above: <200 mg/dL Desirable 200-240 mg/dL Borderline >240 mg/dL High Risk Glucose [Mass/Vol] 95 mg/dL 74-106 [facility] Potassium [Moles/Vol] 4.3 mmol/L 3.5-5.1 [facility] Protein [Mass/Vol] 6.7 g/dL 6.4-8.2 [facility] Sodium [Moles/Vol] 139 mmol/L 136-145 [facility] Triglyceride [Mass/Vol] 83 mg/dL <199 [facility] Comment on above: The drugs N-Acetylcy steine and Metamizole may falsely depress this assay.Serum Triglycerides Reference Interval Normal <150 mg/dL Borderline high 150 - 199 mg/dL High 200 - 499 mg/dL Very High > or = 500 mg/dL Laboratory - Chemistry and C hemistry - challengeOrdered By: Shay Askew on 12-22-2022 ALP [Catalytic activity/Vol] 59 U/L 45-117 [facility] ALT [Catalytic activity/Vol] 34 U/L 16-61 [facility] CO2 [Moles/Vol] 29.0 mmol/L 21.0-32.0 [facility] Globulin (S) [Mass/Vol] 3.1 g/dL 2.2-4.2 [facility] Urea nitrogen/Creatinine [Mass ratio] 20.9 mg/mg 10-20 [facility] - Miscellaneous t estsOrdered By: Shay Askew on 12-22-2022 Service comment (Unsp spec) [Interp] Comment . [facility] Comment on above: Levels of Specific I gE Class Description of Class ----- < 0.10 0 Negative 0.10 - 0.31 0/I Equivocal/Low 0.32 - 0.55 I Low 0.56 - 1.40 II Moderate 1.41 - 3.90 III High 3.91 - 19.00 IV Very High 19.01 - 100.00 V Very High >100.00 Very High No Panel InformationOrdered By: Shay Askew on 12-22-2022 Aspergillus fumigatus Allergen <0.10 kU/L Class 0 [facility] Common Ragweed (Short) Allergen <0.10 kU/L Class 0 [facility] Telugu Plantain Allergen (RAST) <0.10 kU/L Class 0 [facility] Estimated GFR (MDRD) Amer 117 mL/min >60 [facility] Comment on above: GFR Calc Estimated GFR (MDRD) Non-Af Amer 97 mL/min >60 [facility] Comment on above: Non- GFR Calc Maple ([place]) Allergen IgE Ab <0.10 kU/L Class 0 [facility] [place] Tree Allergen <0.10 kU/L Class 0 [facility] Rough pigweed specific IgE a ntibody assayOrdered By: Shay Askew on 12-22-2022 Rough Pigweed IgE Qn (S) <0.10 kU/L Class 0 [facility] Serum Bermuda grass IgE anti body assay (units/volume)Ordered By: Shay Askew on 12-22-2022 Bermuda grass IgE Qn (S) <0.10 kU/L Class 0 [facility] Serum Cladosporium herbarum IgE antibody assay (units/volume)Ordered By: Shay Askew on 12-22-2022 C. herbarum IgE Qn (S) <0.10 kU/L Class 0 [facility] Serum Dermatophagoides farin ae specific IgE antibody assay (units/volume)Ordered By: Shay Askew on 12-22-2022 Nigerian house dust mite IgE Qn (S) <0.10 kU/L Class 0 [facility] Serum house dust mi te IgE antibody assay (units/volume)Ordered By: Shay Askew on 12-22-2022 house dust mite IgE Qn (S) <0.10 kU/L Class 0 [facility] Serum Santy grass IgE anti body assay (units/volume)Ordered By: Shay Askew on 12-22-2022 Santy grass IgE Qn (S) <0.10 kU/L Class 0 [facility] Serum [place] blue grass Ig E antibody assay (units/volume)Ordered By: Shay Askew on 12-22-2022 [place] blue grass IgE Qn (S) <0.10 kU/L Class 0 [facility] Serum Mucor racemosus IgE an tibody assay (units/volume)Ordered By: Shay Askew on 12-22-2022 Mucor racemosus IgE Qn (S) <0.10 kU/L Class 0 [facility] Serum Penicillium notatum Ig E antibody assay (units/volume)Ordered By: Shay Askew on 12-22-2022 P. notatum IgE Qn (S) <0.10 kU/L Class 0 [facility] Serum Periplaneta americana IgE antibody assay (units/volume)Ordered By: Shay Askew on 12-22-2022 Nigerian Cockroach IgE Qn (S) 0.31 kU/L Class 0/I [facility] Serum bahia grass IgE antibo dy assay (units/volume)Ordered By: Shay Askew on 12-22-2022 Bahia grass IgE Qn (S) <0.10 kU/L Class 0 [facility] Serum cat dander IgE antibod y assay (units/volume)Ordered By: Shay Askew on 12-22-2022 Cat dander IgE Qn (S) <0.10 kU/L Class 0 [facility] Serum dog epithelium IgE ant ibody assay (units/volume)Ordered By: Shay Askew on 12-22-2022 Dog epithelium IgE Qn (S) <0.10 kU/L Class 0 [facility] Serum hazelnut pollen IgE an tibody assay (units/volume)Ordered By: Shay Askew on 12-22-2022 Hazelnut Pollen IgE Qn (S) <0.10 kU/L Class 0 [facility] Serum mountain cedar specifi c IgE antibody assayOrdered By: Shay Askew on 12-22-2022 Mountain Juniper IgE Qn (S) <0.10 kU/L Class 0 [facility] Serum mugwort IgE antibody a ssay (units/volume)Ordered By: Shay Askew on 12-22-2022 Mugwort IgE Qn (S) <0.10 kU/L Class 0 [facility] Serum nettle IgE antibody as say (units/volume)Ordered By: Shay Askew on 12-22-2022 Nettle IgE Qn (S) <0.10 kU/L Class 0 [facility] Comment on above: Performed at: - [address] [id number] Director: Coty Cross MD, Phone: [phone] Serum or plasma albumin trevon urement (mass/volume)Ordered By: Shay Askew on 12-22-2022 Albumin [Mass/Vol] 3.6 g/dL 3.2-5.0 [facility] Serum or plasma albumin/glob ulin mass ratioOrdered By: Shay Askew on 12-22-2022 Albumin/Globulin [Mass ratio] 1.2 {ratio} 0.9-2.4 [facility] Serum or plasma calcium trevon urement (mass/volume)Ordered By: Shay Askew on 12-22-2022 Calcium [Mass/Vol] 8.8 mg/dL 8.5-10.1 [facility] Serum or plasma cholesterol in HDL measurement (mass/volume)Ordered By: Shay Askew on 12-22-2022 Cholesterol in HDL [Mass/Vol] 66 mg/dL >40 [facility] Comment on above: The drugs N-Acetylcy steine and Metamizole may falsely depress this assay. Reference Range HDL <40 mg/dL Low HDL Cholesterol HDL >or= 60 mg/dL High HDL Cholesterol Serum or plasma cholesterol in VLDL measurement (mass/volume)Ordered By: Shay Askew on 12-22-2022 Cholesterol in VLDL [Mass/Vol] 17 mg/dL 5-40 [facility] Serum or plasma creatinine m easurement (mass/volume)Ordered By: Shay Askew on 12-22-2022 Creatinine [Mass/Vol] 0.86 mg/dL 0.70-1.30 [facility] Comment on above: The validity of the calculated GFR & GFRAA in patients over 70 years has not been determined. Clinical correlation is essential. Serum or plasma low density lipoprotein (LDL) cholesterol measurement (mass/volume)Ordered By: Shay Askew on 12-22-2022 Cholesterol in LDL [Mass/Vol] 174 mg/dL 0-130 [facility] Serum or plasma urea nitroge n measurement (mass/volume)Ordered By: Shay Askew on 12-22-2022 Urea nitrogen [Mass/Vol] 18 mg/dL 7-18 [facility] Serum sheep sorrel IgE antib jackie assay (units/volume)Ordered By: Shay Askew on 12-22-2022 Sheep [place] IgE Qn (S) <0.10 kU/L Class 0 [facility] Serum sweet gum IgE radioall ergosorbent test (RAST) class determinationOrdered By: Shay Askew on 12-22-2022 Sweet gum IgE RAST class (S) <0.10 kU/L Class 0 [facility] Serum white elm IgE antibody assay (units/volume)Ordered By: Shay Askew on 12-22-2022 White Elm IgE Qn (S) <0.10 kU/L Class 0 [facility] Serum white hickory IgE anti body assay (units/volume)Ordered By: Shay Askew on 12-22-2022 [place] IgE Qn (S) <0.10 kU/L Class 0 [facility] Serum white mulberry IgE ant ibody assay (units/volume)Ordered By: Shay Askew on 12-22-2022 White mulberry IgE Qn (S) <0.10 kU/L Class 0 [facility] Serum white oak IgE antibody assay (units/volume)Ordered By: Shay Askew on 12-22-2022 [place] IgE Qn (S) <0.10 kU/L Class 0 [facility] Stemphylium herbarum IgE ser umOrdered By: Shay Askew on 12-22-2022 Stemphylium botryosum IgE Qn (S) <0.10 kU/L Class 0 [facility] Thin prep Papanicolaou smear with manual screeningOrdered By: Shay Askew on 12-22-2022 Thin prep Papanicolaou smear with manual screening 16 U/L 15-37 [facility] Thin prep Papanicolaou smear with manual screening 4 5-15 [facility] Basophil percentageon 2021 Bilirubin [Mass/Vol] 0.70 mg/dL 0.20-1.00 [facility] Work Phone: Comment on above: For patients on eltr ombopag therapy, use of Dimension [place] TBIL is not recommended. Chloride [Moles/Vol] 101 mmol/L 98-107 [facility] Work Phone: Glucose [Mass/Vol] 87 mg/dL 74-106 [facility] Work Phone: Potassium [Moles/Vol] 4.2 mmol/L 3.5-5.1 [facility] Work [facility]: Protein [Mass/Vol] 7.2 g/dL 6.4-8.2 [facility] Work Phone: Sodium [Moles/Vol] 136 mmol/L 136-145 [facility] Work Phone: Testosterone [Mass/Vol] 280.04 ng/dL [facility] Work Phone: Comment on above: CENTRAL 90% REFERENC E RANGES MALE AGE <50 197.44 - 669.58 ng/dL MALE AGE > or = 50 187.72 - 684.19 ng/dL FEMALE AGE <50 8.38 - 35.01 ng/dL FEMALE AGE > or = 50 <7.00 - 35.92 ng/dL Effective as of 12/03/20 Laboratory - Chemistry and C hemistry - challengeon 12-19-2021 ALP [Catalytic activity/Vol] 70 U/L 45-117 [facility] Work Phone: ALT [Catalytic activity/Vol] 37 U/L 16-61 [facility] Work Phone: CO2 [Moles/Vol] 28.0 mmol/L 21.0-32.0 [facility] Work Phone: Globulin (S) [Mass/Vol] 3.3 g/dL 2.2-4.2 [facility] Work Phone: Urea nitrogen/Creatinine [Mass ratio] 22.1 mg/mg 10-20 [facility] Work Phone: No Panel Informationon 12-19 Estimated GFR (MDRD) Amer 112 mL/min >60 [facility] Work Phone: Comment on above: GFR Calc Estimated GFR (MDRD) Non-Af Amer 92 mL/min >60 [facility] Work Phone: Comment on above: Non- GFR Calc Prostate Specific Antigen Screen 0.46 ng/mL 0.00-4.00 [facility] Work Phone: Comment on above: This test was perfor med using the TPSA assay method for [employer] chemistry system. Values obtained with differentassay methods cannot be used interchangably.When changing PSA assays in the course of monitoring apatient, additional sequential testing should be carriedout to confirm baseline values. Serum or plasma albumin trevon urement (mass/volume)on 12-19-2021 Albumin [Mass/Vol] 3.9 g/dL 3.2-5.0 [facility] Work Phone: Serum or plasma albumin/glob ulin mass ratioon 12-19-2021 Albumin/Globulin [Mass ratio] 1.2 {ratio} 0.9-2.4 [facility] Work Phone: Serum or plasma calcium trevon urement (mass/volume)on 12-19-2021 Calcium [Mass/Vol] 8.9 mg/dL 8.5-10.1 [facility] Work Phone: Serum or plasma creatinine m easurement (mass/volume)on 12-19-2021 Creatinine [Mass/Vol] 0.90 mg/dL 0.70-1.30 [facility] Work Phone: Comment on above: The validity of the calculated GFR & GFRAA in patients over 70 years has not been determined. Clinical correlation is essential. Serum or plasma urea nitroge n measurement (mass/volume)on 12-19-2021 Urea nitrogen [Mass/Vol] 20 mg/dL 7-18 [facility] Work Phone: Thin prep Papanicolaou smear with manual screeningon 12-19-2021 Thin prep Papanicolaou smear with manual screening 18 U/L 15-37 [facility] Work Phone: Thin prep Papanicolaou smear with manual screening 7 5-15 [facility] Work Phone: Vital Signs Date Time Vital Sign Value Performing Clinician Priscila avrelay 12-20-2024 13:13-0400 Body temperature 98.7 [degF] Dr. Shay Askew MD Work Phone: [facility] 12-20-2024 13:13-0400 Diastolic blood pressure 84 mm[Hg] Dr. Shay Askew MD Work Phone: [facility] 12-20-2024 13:13-0400 Heart rate 107 /min Dr. Shay Askew MD Work Phone: [facility] 12-20-2024 13:13-0400 Respiratory rate 18 /min Dr. Shay Askew MD Work Phone: [facility] 12-20-2024 13:13-0400 SaO2% (BldA) [Mass fraction] 97 % Dr. Shay Askew MD Work Phone: [facility] 12-20-2024 13:13-0400 Systolic blood pressure 124 mm[Hg] Dr. Shay Askew MD Work Phone: [facility] 12-20-2024 09:29-0400 Body height 182.[address] Shay Askew MD Work Phone: [facility] 12-20-2024 09:29-0400 Body mass index (BMI) [Ratio] 27.3 kg/m2 Dr. Shay Askew MD Work Phone: [facility] 12-20-2024 09:29-0400 Body weight 91.[address] Shay Askew MD Work Phone: [facility] 11-16-2024 13:23-0400 Body height 182.[address] Shay Askew MD Work Phone: [facility] 11-16-2024 13:23-0400 Body mass index (BMI) [Ratio] 27.3 kg/m2 Dr. Shay Askew MD Work Phone: [facility] 11-16-2024 13:23-0400 Body weight 91.[address] Shay Askew MD Work Phone: [facility] 11-05-2024 19:47-0400 Heart rate 84 /min Dr. Shay Askew MD Work Phone: [facility] 11-05-2024 19:47-0400 Respiratory rate 16 /min Dr. Shay Askew MD Work Phone: [facility] 11-05-2024 19:18-0400 Body temperature 98.1 [degF] Dr. Shay Askew MD Work Phone: [facility] 11-05-2024 19:18-0400 Diastolic blood pressure 115 mm[Hg] Dr. Shay Askew MD Work Phone: [phone] [place] [address] 11-05-2024 19:18-0400 SaO2% (BldA) [Mass fraction] 98 % Dr. Shay Askew MD Work Phone: [facility] 11-05-2024 19:18-0400 Systolic blood pressure 151 mm[Hg] Dr. Shay Askew MD Work Phone: [facility] 11-05-2024 18:04-0400 Body mass index (BMI) [Ratio] 27.1 kg/m2 Dr. Shay Askew MD Work Phone: [facility] 11-05-2024 18:04-0400 Body weight 90.[address] Shay Askew MD Work Phone: [facility] 11-05-2024 18:02-0400 Body height 182.[address] Shay Askew MD Work Phone: [facility] 09-01-2021 07:20-0400 Body height 182.[address] Shay Askew Work Phone: [facility] Work Phone: Encounters Encounter Date Encounter Type Care Provider Facility Start: 12-27-2024 ambulatory Shay Askew Facility:[facility] Start: 12-20-2024 End: 12-20-2024 Emergency department patient visit Dr. Shay Askew MD Work Phone: -Emergency Department Work Phone: Start: 12-19-2024 [facility]: [facility]-18-[facility]24 ambulatory Chai Rosario Facility:[facility] Start: 12-18-2024 Non-patient / Non-visit Dr. Deja LYONS -[facility] Work Phone: Start: 12-06-2024 End: 12-06-[address] Jani Ellington MD -[facility] Work Phone: Start: 12-06-2024 End: 12-06-[address] Shay Askew MD Work Phone: -[facility] Start: 11-16-2024 End: 11-16-[address] Chai Rosario MD -[facility] Start: 11-16-2024 End: 11-16-[address] Shay Askew MD Work Phone: -[facility] Start: 11-14-2024 End: 11-14-[address] Shay Askew MD Work Phone: -[facility] Start: 11-14-2024 End: 11-14-[address] Shay Askew MD -[facility] Work Phone: Start: 11-14-2024 End: 11-14-2024 ambulatory Shay Askew Facility:[facility] Start: 11-05-2024 End: 11-05-2024 Emergency department patient visit Dr. Shay Askew MD Work Phone: -Emergency Department Work Phone: Start: 11-03-2024 End: 11-03-[address] Shay Askew MD Work Phone: -Physical Therapy Start: 11-03-2024 End: 11-03-[address] Shay Askew MD -Physical Therapy Work Phone: Start: 11-03-[address] Shay trejo MD -Physical Therapy Work Phone: Start: 11-01-2024 End: 11-01-[address] Shay Askew MD Work Phone: -[facility] [place] Start: 11-01-2024 End: 11-01-[address] Shay Askew MD -[facility] [place] Work Phone: Start: 11-01-2024 End: 11-01-2024 ambulatory Shay Askew Facility:[facility] Start: 09-29-2024 End: 09-29-[address] Shay Askew MD Work Phone: [facility] Work Phone: Start: 09-29-2024 End: 09-29-[address] Shay Askew MD -[facility] [place] Work Phone: Start: 09-29-2024 End: 09-29-2024 ambulatory Shay Askew Facility:[facility] Start: 06-23-2024 End: 06-23-[address] Shay Askew MD -[facility] [place] Work Phone: Start: 06-23-2024 End: 06-23-2024 ambulatory Shay Askew Facility:[facility] Start: 01-18-2024 Encounter for genera l adult medical examination without abnormal findings Shay Askew [facility] Start: 01-04-2024 End: 01-04-2024 ambulatory Shay Askew Facility:[facility] Start: 12-22-2022 End: 12-22-2022 ambulatory [facility] Work Phone: Start: 12-22-2022 End: 12-22-2022 Patient encounter procedure [facility] [place] Work Phone: Start: 12-19-2021 End: 12-19-[address] Shay Askew Work Phone: [facility] Start: 09-01-2021 End: 09-01-[address] Shay Askew Work Phone: [facility] Procedures Date Procedure Procedure Detail Performing Clinician Start: 12-20-2024 Plain chest X-ray Dr. Micheline Askew MD Work Phone: Start: 12-20-[address] Shay Askew MD Work Phone: Start: 11-16-2024 X-ray of lumbosacral spine Dr. Shay Askew MD Work Phone: Start: 11-14-2024 MRI of lumbar spine Dr. Shay Askew MD Work Phone: Start: 09-29-2024 Plain x-ray of pelvi s and lower extremity Dr. Shay Askew MD Work Phone: Start: 09-29-2024 X-ray of lumbosacral spine Dr. Shay Askew MD Work Phone: Start: 06-23-2024 Measurement of renal function Dr. Shay Askew MD Work Phone: Comment on above: GFR Calc Plan of Treatment Date Care Activity Detail Author Start: 12-20-2024 [facility] Start: 12-20-2024 [facility] Start: 11-16-2024 X-ray of lumbosacral spine L/S Spine Bending Flex/Ext [facility] Start: 11-16-2024 XR Spine Lumbar and Sacrum Views [facility] Start: 11-05-2024 [facility] Patient Education [facility] Work Phone: Payers Date Payer Category Payer Self-pay [id number] 2022 Unknown [id number] Unknown [id number] Unknown [id number] Unknown [id number] Unknown [id number] 2.16.8 [id number] Unknown [id number] 2.16.8 [id number] Unknown [id number] 2.16.8 [id number] Unknown [id number] 2.16.8 [id number] Unknown [id number] 2.16.8 [id number] Unknown [id number] 2.16.8 [id number] Unknown [id number] 2.16.8 [id number] Unknown [id number] 2.16.8 [id number] Unknown [id number] 2.16.8 [id number] Unknown [id number] 2.16.8 [id number] Unknown [id number] 2.16.8 [id number] Unknown [id number] 2.16.8 [id number] Social History Date Type Detail Facility [facility]: [facility] Start: 1965 Sex Assigned At Male [facility] Start: 09-01-2021 End: 12-20-2024 Tobacco smoking status [facility]IS Never smoked tobacco (finding) [facility] Mental Status Date Assessment Result Facility 12-20-2024 Cognitive function Level Of Cons ciousness Awake;Alert;Appropriate;Follow s Commands [facility] Work Phone: Clinical Notes 09-29-2024 to 12-20-2024 Note Date & Type Note Facility 12-20-2024 Discharge summary [facility] 12-20-2024 Radiology Diagnostic study note [facility] Imaging Services [address] [place] [address] Chest 1 View (Portable) MR#: [id number] Acct: [id number] Name: BENJAMIN SINGLETON Rep #: [id number] : 1965 M 59 From: Mark Davies MD PCP: Dr. Shay Askew MD Status: REG E R Study:Chest 1 View (Portable) Date of Exam: 12/20/24 Exam# [id number] Ordering Dr: Neda Vargas DO PROCEDURE: CHEST 1 VIEW (PORTABLE) 12/20/2024 REASON FOR EXAM: CHEST PAIN TECHNIQUE: Frontal view of the chest. COMPARISON: None FINDINGS: Hardware: EKG electrodes are seen. Heart: The heart size is normal. Lungs: The lungs are clear. Bones: Degenerative changes are identified within the thoracic spine. Other: RAD/Chest 1 View (Portable) IMPRESSION: No acute abnormality is seen. Reading Location: [id number] CC: Dr. Shay Askew MD; Dr. Garcia Vargas DO ~ Unit Tender: Signed [facility] 11-16-2024 Evaluation note Diagnosis Onset Date Resolution Degenerative disc disease (DDD) of lumbar region with discogenic back pain acute November 16, 2024 12:38pm Lumbar stenosis without neurogenic claudication acute November 12:38pm [facility] Work Phone: 1(458) 105-398407-10-2025 Evaluation note* Diagnosis Onset Date Resolution Status Admit Date Degenerative disc disease (D DD) of lumbar region with discogenic back pain acute November 16, 2024 12:38pm Lumbar stenosis without neurogenic claudication acute November 12:38pm Degenerative disc disease (D DD) of lumbar region with discogenic back pain acute December 06, 2024 3:11pm Lumbar disc herniation with radiculopathy acute December 06, 2024 3:11pm Lumbar stenosis without neurogenic claudication acute November 3:11pm [facility] Work Phone: 1(523) 447-425206-27-2025 Discharge summary Author Kush Johnsonam [facility] Note Date/Time November 03, 2024 7:00 pm [facility] Physical Therapy [facility] [address] [place] [address] / REHABILITATION SERVICES DISCHARGE SUMMARY MR#: [id number] Acct: [id number] Name: BENJAMIN SINGLETON Rep #: [id number] : 1965 59 From: Kush Bethea DPT, OCS, CSCS Referring Dr.: Dr. Shay Askew MD Status: REG RCR Insurance: [facility] SELF PAY INSURANCE Discharge Summary D/C summary: It has been my pleasure to treat BENJAMIN SINGLETON referred by Dr. Shay Askew MD, with the diagnosis of Back pain [...] until 2 nights ago. Appoint[address] with Dr. askew next Wednesday. Used towel roll . PT [...] step with doctor. Will continue HEP and Postureand PPU and stretching, d/c and f/u with doctor for next medical step. D/C Information Discharge Comments: Pt back to doctor for next medical step. d/c sentence: If there are questions or concerns regarding this patient's physical therapy, please feel free to call me at [phone]. Thank you for the referral of thispatient. Sincerely, Kush Bethea DPT, OCS, CSCS Balance/Gait/Functional tests Balance/Special Test Scores Oswestry Low Back Score: 23 Improvement % Improvement: 50 <Electronically signed by Kush Bethea DPT, EDER, CSCS> 11/03/24 1022 CC: Dr. Shay Askew MD; Shay Askew ~ EBG Signed [facility] Work Phone: 1(757) 902-476206-27-2025 Discharge summary [facility] [address] [place] [address] [address] [place] [address] / REHABILITATION SERVICES DISCHARGE SUMMARY MR#: [id number] Acct: [id number] Name: BENAJMIN SINGLETON Rep #: [id number] : 1965 59 From: Kush Bethea DPT, EDER, CSCS Referring Dr.: Dr. Shay Askew MD Status: REG RCR Insurance: [facility] SELF PAY INSURANCE Discharge Summary D/C summary: It has been my pleasure to treat BENJAMIN SINGLETON referred by Dr. Shay Askew MD, with the diagnosis of Back pain for a total of 9 visit(s). Discharge Date: 11/03/24 Please see the following information for a summary of their discharge status. Subjective Subjective: Feeling better sometimes. Can walk again now. was great for 2 days. Sat a lot to traveland got worse again. am pain in the morning in [place] R . Better as day goes on bu 9/10 in am. Took muscle relaxer until 2 nights ago. Appoint[address] with Dr. askew next Wednesday. Used towel roll . PT fels good as do dtrenthening. Walking 20 minutes afteer pain goes away in am. PPU religiously Pain R LB and leg: Pain Intensity (Out of 10): 0 Overall Improvement % Improvement: 50 Objective Objective/Function: ext adn SB are hesitant but decent and slight pain central LB with ext. Flexionis veery hsitant and unwilling and limited today, [...] step with doctor. Will continue HEP and Postureand PPU and stretching, d/c and f/u with doctor for next medical step. D/C Information Discharge Comments: Pt back to doctor for next medical step. d/c sentence: If there are questions or concerns regarding this patient's physical therapy, please feel free to call me at [phone]. Thank you for the referral of thispatient. Sincerely, Kush Bethea, DPT, OCS, CSCS Balance/Gait/Functional tests Balance/Special Test Scores Oswestry Low Back Score: 23 Improvement % Improvement: 50 11/03/24 1022 CC: Dr. Shay Askew MD; Shay Askew ~ EBG Signed [facility]05-23-2025 Radiology Diagnostic study note [facility] Imaging Services [address] [place], [place] [id number] Hips B/L min 2 views w/ Pelvis MR#: [id number] Acct: [id number] Name: BENJAMIN SINGLETON Rep #: [id number] : 1965 M 59 From: Cristy Chauhan MD PCP: Dr. Shay Askew MD Status: [facility] Study:Hips B/L min 2 views w/ Pelvis Date of Exam: 09/29/24 Exam# [id number] Ordering Dr: Shay Askew MD EXAM: XR Bilateral Hips With Pelvis [...] IMPRESSION: Postoperative changes as above. Reading Location: [facility] CC: Dr. Shay Askew MD ~ Unit Tender: Signed [facility]05-23-2025 Radiology Diagnostic study note [facility] Imaging Services [address] [place] [address] L/S Spine Min 4 Views MR#: [id number] Acct: [id number] Name: BENJAMIN SINGLETON Rep #: [id number] : 1965 M 59 From: Cristy Chauhan MD PCP: Dr. Shay Askew MD Status: [facility] Study:L/S Spine Min 4 Views Date of Exam: 09/29/24 Exam# [id number] Ordering Dr: Shay Askew MD EXAM: XR Lumbosacral Spine, 4 or 5 Views CLINICAL INDICATION: BACK PAIN TECHNIQUE: Frontal, lateral and bilateral oblique views of the lumbar spine. COMPARISON: No relevant prior studies available. FINDINGS: VERTEBRAE: Multilevel endplate degenerative change and disc disease of the lumbar spine from L1-S1.Mild vertebral body height loss of L5, L4, [...] evaluation with MRI is recommended. Reading Location: [facility] CC: Dr. Shay Askew MD ~ Unit Tender: [facility]igned [facility] Author Garcia Vargas [facility] Note Date/Time December 20, 2024 1: 00pm [facility] Medical Records Department [address] [place] [address] Emergency Department Summary 12/20/24 MR#: [id number] Acct: [id number] Name: BENJAMIN SINGLETON Rep #:[id number] : 1965 59 From: Garcia Martin PCP: Dr. 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) Wears glasses High cholesterol Non-smoker Hypertension Home Medications ?Medication ?Instructions ?Recorded ?Last Taken ?Type atorvastatin 20 mg tablet 20 mg PO DAILY 11/05/24 Unkn own History lidocaine 5 % topical patch 1 patch topical DAILY #15 ea 11/05/24 Unknown Rx (Lidoderm) lisinopril 10 mg tablet 10 mg PO DAILY 11/05/24 Unkn own History ondansetron 4 mg disintegrating 4 mg PO Q8H PRN PRN Na usea #10 tabs 11/05/24 Unknown Rx tablet gabapentin 600 mg tablet 600 mg PO TID 12/06/24 Unkno wn History ibuprofen 200 mg tablet 600 mg PO TID Pain 12/06/24 Unknown History tramadol 50 mg tablet 50 mg PO TID PRN pain Unknown History acetaminophen 500 mg capsule 1,000 mg PO TID PRN pain 12/13/24 Unknown History Allergy/AdvReac Type Severity Reaction Status Date / Time No Known Allergies Allergy Verified 12/13/24 13:31 Family History Other Diabetes High cholesterol Surgical History (Updated 12/13/24 @ 13:40 by Jacquelin Peters) Hx of colonoscopy Hx of arthroscopic knee surgery History of total right hip replacement Social History Smoking Status: Never smoker alcohol intake: never EXAM Physical Exam Const Vital Signs: 12/20/24 09:29 12/20/24 09:46 12/20/24 09:57 Temperature 97.6 F L Temperature Source Oral Pulse Rate 77 Respiratory Rate 16 Blood Pressure 120/91 H Blood Pressure Mean 100 Pulse Ox 96 Oxygen Delivery Method Room Air Room Air 12/20/24 09:57 12/20/24 10:28 12/20/24 11:02 Temperature Temperature Source Pulse Rate 79 73 Respiratory Rate 18 Blood Pressure 120/91 H 124/78 H 119/87 H Blood Pressure Mean 100 93 97 Pulse Ox 100 100 Oxygen Delivery Method Room Air 12/20/24 12:00 Temperature Temperature Source Pulse Rate 80 Respiratory Rate Blood Pressure 137/106 H Blood Pressure Mean 116 Pulse Ox Oxygen Delivery Method MDM MDM MDM Narrative Medical decision making narrative: HISTORY OF PRESENT ILLNESS: Chief complaint: Syncope 59-year-old male history of hyperlipidemia, hypertension presents via EMS after having a syncopal episode this morning. Notes he took some medications that he takes for back pain including gabapentin, ibuprofen, Tylenol and tramadol. States he typically gets a bit lightheaded after taking gabapentin. This morning it was no different but just more severe. He states has not been eatingor drinking as much as he typically does next and may be dehydrated. Notes feeling warm, nauseous and lightheaded prior to passing out. No shaking tongue biting or bowel or bladder incontinence noted. Denies prodromal symptoms such as headache, chest pain, shortness of breath, leg swelling. Denies any focal numbness weakness or loss of sensation. Denies any recent bleeding diathesis. No abdominal pain. REVIEW OF SYSTEMS: Pertinent positives: Syncope Pertinent negatives: Headache, chest pain, leg swelling, abdominal pain, bleeding diathesis PHYSICAL EXAM: Nursing triage notes reviewed, Vital signs reviewed Constitutional: please see mdm HENT: Slight dry oral mucosa Eyes: Pupils equal round and reactive to light, Extraocular muscles intact Neck: No stridor, no JVD, full neck ROM Lungs: Clear to auscultation, No wheezing or rales. No increased work of breathing, no conversational dyspnea, no accessory muscle use, no nasal flaring. No respiratory distress noted Heart: Regular rate and rhythm, No murmurs, No rubs and No gallops, 2+ distal pulses (radial, femoral, posterior tibial) in all extremities Abdomen: Soft, there is no tenderness, rigidity, rebound or guarding, no obviousperitoneal signs, no palpable pulsatile abdominal masses, no auscultated abdominal bruit : No CVAT Extremities: No edema Neuro: No new focal neurological deficits, cranial nerves II through XII intact,5/5 strength in all present extremities. Intact sensation to light touch in all present extremities, 2+ reflexes bilateral patella tendons. Skin: No rash or lesions noted MEDICAL DECISION MAKING: Chief Complaint: please see HPI External records reviewed: Factors affecting care: Lumbar stenosis Social determinants of health: Denies alcohol or illicit drug use History obtained from others: , EMS Consults: none MDM Narrative: The patient was initially hemodynamically stable, afebrile and nontoxic- appearing. Exam without focal cardiopulmonary abnormalities. No focal neurologic deficits. No stigmata of VTE, dissection. I considered the following differential diagnosis: Dehydration, arrhythmia, anemia, electrolyte disturbance, ACS, VTE, dissection, subarachnoid hemorrhage, AAA I obtained a broad lab and imaging to further determine if the patient was suffering from a life-threatening etiology. This resuscitated the patient 1 L normal saline ALL IMAGES (IF OBTAINED) HAVE BEEN PERSONALLY REVIEWED AND INTERPRETED BY MYSELF. EKG with normal sinus rhythm rate of 73, normal axis, normal intervals, no obvious STEMI, no significant changes when compared to EKG from 12/18/2024 CBC with no leukocytosis, anemia or thrombocytopenia BMP without evidence of significant electrolyte abnormalities, no anion gap, no acute kidney injury. High-sensitivity troponin is negative, no evidence of myocardial ischemiax2 I have personally reviewed the patient's chest x-ray. Chest x-ray is unremarkable for pulmonary edema, pneumothorax, pneumonia or focal cardiopulmonary abnormality. The synthesis of the patient's history, physical exam, labs images suggest likely dehydration/adverse side effect of medication as a cause of his symptoms. No clear life or limb-threatening etiology to be ascertained. The patient is appropriate for discharge home. Strict return precautions were discussed The patient and/or family, caregivers express understanding. The patient and/orfamily, caregivers agrees with the plan. Shared decision making: I will have a discussion with the patient and or visitors regarding risk/benefits of further testing or admission. They will be made aware of of the risk/benefits inherent in this decision they will be given the opportunity to voice understanding. Total critical care time today provided was at least 0 minutes. This excludes separately billable procedures. Critical care time (if documented) is secondary to the patient having high probability of clinically significant/life threatening deterioration in the patient's condition which required my urgent intervention. Impression: 1. Syncope 2. Dehydration Dispo: Discharge home This note was generated with [employer] dictation software. It may contain incorrectwords, spelling, and punctuation that were not noted in review of the chart prior to signing. Lab Data Labs: Laboratory Results - last 24 hr 12/20/24 12/20/24 10:08 11:46 WBC 5.0 RBC 4.11 L Hgb 13.5 Hct 38.7 L MCV 94.2 H MCH 32.8 H MCHC 34.9 RDW Std Deviation 39.6 RDW Coeff of Calvin 11.5 L Plt Count 185 MPV 8.9 Immature Gran % (Auto) 0.600 Neut % (Auto) 78.1 H Lymph % (Auto) 14.3 L Miner % (Auto) 5.4 Eos % (Auto) 1.0 Baso % (Auto) 0.6 Absolute Neuts (auto) 3.9 Absolute Lymphs (auto) 0.72 L Nucleated RBC % 0 Sodium 138 Potassium 4.0 Chloride 103 Carbon Dioxide 23.0 Anion Gap 12 BUN 21 H Creatinine 0.87 Estim Creat Clear Calc 100.34 Est GFR (MDRD) Non-Af 99 BUN/Creatinine Ratio 24.3 H Glucose 147 H Calcium 8.9 Troponin T High Sens 10 Troponin T Hi Sens 2 Hr 12 Radiography Diagnostic Testing: Clinical Impression(s) from Imaging Studies Chest X-Ray 12/20/24 10:15 IMPRESSION: No acute abnormality is seen. Reading Location: [id number] Discharge Plan Triage Chief Complaint: Syncope ED Provider: Garcia Vargas Dx/Rx/DC Orders Prescriptions: No Action gabapentin 600 mg tablet 600 mg PO TID tramadol 50 mg tablet 50 mg PO TID PRN (Reason: pain) ibuprofen 200 mg tablet 600 mg PO TID ondansetron 4 mg tablet,disintegrating 4 mg PO Q8H PRN PRN (Reason: Nausea) Qty: 10 0RF lidocaine [Lidoderm] 5 % adhesive patch,medicated 1 patch topical DAILY Qty: 15 0RF Rx Instructions: leave on most painful area for up to 12 hrs atorvastatin 20 mg tablet 20 mg PO DAILY lisinopril 10 mg tablet 10 mg PO DAILY acetaminophen 500 mg capsule 1,000 mg PO TID PRN (Reason: pain) Primary Care Provider: Shay Askew Referrals: Shay Askew MD [Primary Care Provider] - Print Language: Telugu What to do if you have Problems For any increased pain, shortness of breath, bleeding, nausea or vomiting, chestpain, or any unexpected problems, contact your Primary Care Provider. Call [facility] ([phone]) or report to the closest Emergency Room. Call 911 if necessary. 12/20/24 1300 <Electronically signed by Garcia Vargas DO> Cosigner Signature (if applicable): CC: Dr. Shay Askew MD ~ Signed [facility] Work Phone: Evaluation note* Diagnosis Onset Date Resolution Status Encounter for examination re quired by 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 (DOT) acute [facility] Work Phone: Evaluation noteNo assessment information available [facility] Work Phone: Hospital Discharge instructionsAdditional Instructions You can continue ibuprofen every 6 hours in addition to the new prescribed pain medications. Follow-up with your primary care doctor to discuss how the medications are helping and schedule your MRI.[facility] Work Phone: Hospital Discharge instructionsAdditional Instructions Thank you for trusting us with your care today! Please drink plenty of oral fluids recommend Body Armor, Pedialyte or Gatorade. Please return to the emergency department if your symptoms change or worsen. 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 RX HERE November 03, 2024 9:30 am BACK PAIN November 05, 2024 6:01 pm Chief Complaint Admit Date HIP AND BACK PAIN September 29, 2024 10:10 am EORDERS November 01, 2024 8:15 am BACK PAIN. RX HERE November 03, 2024 9:30 am BACK PAIN November 05, 2024 6:01 pm BACK PAIN November 14, 2024 6:58a m LUMBAR SPINE November 16, 2024 12:3 8pm Room 4 November 16, 2024 1:37 pm Reason for Visit Admit Date Degenerative disc disease (D DD) of lumbar region with discogenic back pain November 16, 2024 12:38pm Lumbar stenosis without neurogenic dean ication November 16, 2024 12:38pm Chief Complaint Admit Date HIP AND BACK PAIN September 29, 2024 10:10 am EORDERS November 01, 2024 8:15 am BACK PAIN. RX HERE November 03, 2024 9:30 am BACK PAIN November 05, 2024 6:01 pm BACK PAIN November 14, 2024 6:58a m LUMBAR SPINE November 16, 2024 12:3 8pm Room 4 November 16, 2024 1:37 pm LUMBAR SPINE December 06, 2024 3:11 pm Chief Complaint Admit Date HIP AND BACK PAIN September 29, 2024 10:10 am EORDERS November 01, 2024 8:15 am BACK PAIN. RX HERE November 03, 2024 9:30 am BACK PAIN November 05, 2024 6:01 pm BACK PAIN November 14, 2024 6:58a m LUMBAR SPINE November 16, 2024 12:3 8pm Room 4 November 16, 2024 1:37 pm LUMBAR SPINE December 06, 2024 3:11 pm PREOP December 18, 2024 8: 56am syncope December 20, 2024 9: 28am Reason for Visit Admit Date Degenerative disc disease (D DD) of lumbar region with discogenic back pain November 16, 2024 12:38pm Lumbar stenosis without neurogenic dean ication November 16, 2024 12:38pm Degenerative disc disease (D DD) of lumbar region with discogenic back pain December 06, 2024 3:11pm Lumbar disc herniation with radiculopath y December 06, 2024 3:11pm Lumbar stenosis without neurogenic dean ication December 06, 2024 3:11pm Advance Directives Advance Directive Response Recorded Date/ Time Living Will No September 01, 2021 7:20am Power of Play Therapist No September 01 7:20am Advance Directive Response Recorded Date/ Time Do you have a Healthcare Power of Play Therapist? No November 05, 2024 6:15pm Advance Directive Response Recorded Date/ Time Do you have a Healthcare Power of Play Therapist? No November 05, 2024 6:15pm Do you have a Healthcare Power of Play Therapist? No December 20, 2024 9:32am Family History Relationship Condition Age at Onset Recorded Date/T nadeem Not Specified Diabetes mellitus Unknown High blood cholesterol Unknown Summary Purpose Additional Source Comments Goals (unrecognized section and [...] Active Member Role Status Dates Dr. Shay Askew MD Family Provider Active Dr. Shay Askew MD Primary Care Provider Active Team Status: Inactive Member Role Status Dates Dr. Shay Askew MD Primary Care Provi daniella, Attending Provider, Referring Provider Active Team Status: Active Member Role Status Dates Dr. Shay Askew MD Primary Care Provider Active Team Status: Inactive Member Role Status Dates Dr. Shay Askew MD Primary Care Provider Active Start: June 23, 2024 End: June 23, 2024 Dr. Shay Askew MD Attending Provider Active Start: June 23, 2024 End: June 23, 2024 Dr. Shay Askew MD Referring Provider Active Start: June 23, 2024 End: June 23, 2024 Team Status: Inactive Member Role Status Dates Dr. Shay Askew MD Primary Care Provider Active Start: September 29, 2024 End: September 29, 2024 Dr. Shay Askew MD Attending Provider Active Start: September 29, 2024 End: September 29, 2024 Dr. Shay Askew MD Referring Provider Active Start: September 29, 2024 End: September 29, 2024 Team Status: Active Member Role/Relationship Status Dates Dr. Shay Askew MD Primary Care Provider Active Team Status: Inactive Member Role/Relationship Status Dates Dr. Shay Askew MD Primary Care Provider Active Start: September 29, 2024 End: September 29, 2024 Dr. Shay Askew MD Attending Provider Active Start: September 29, 2024 End: September 29, 2024 Dr. Shay Askew MD Referring Provider Active Start: September 29, 2024 End: September 29, 2024 Team Status: Active Member Role/Relationship Status Dates Dr. Shay Askew MD Primary Care Provider Active Start: November 01, 2024 Dr. Shay Askew MD Attending Provider Active Start: November 01, 2024 Dr. Shay Askew MD Referring Provider Active Start: November 01, 2024 Team Status: Active Member Role/Relationship Status Dates Dr. Shay Askew MD Primary Care Provider Active Start: November 03, 2024 Dr. Shay Askew MD Attending Provider Active Start: November 03, 2024 Jamilah Day Referring Provider Active Start: 2024 Team Status: Inactive Member Role/Relationship Status Dates Dr. Shay Askew MD Primary Care Provider Active Start: November 05, 2024 End: November 05, 2024 Dr. Gagan Fong DO Referring Provider Active Start: November 05, 2024 End: November 05, 2024 Dr. Gagan Fong DO Emergency Provider Active Start: November 05, 2024 End: November 05, 2024 Team Status: Inactive Member Role/Relationship Status Dates Dr. Shay Askew MD Primary Care Provider Active Start: November 03, 2024 End: November 03, 2024 Dr. Shay Askew MD Attending Provider Active Start: November 03, 2024 End: November 03, 2024 Jamilah Day Referring Provider Active Start: J 2024 End: November 03, 2024 Team Status: Inactive Member Role/Relationship Status Dates Dr. Shay Askew MD Primary Care Provider Active Start: November 01, 2024 End: November 01, 2024 Dr. Shay Askew MD Attending Provider Active Start: November 01, 2024 End: November 01, 2024 Dr. Shay Askew MD Referring Provider Active Start: November 01, 2024 End: November 01, 2024 Team Status: Inactive Member Role/Relationship Status Dates Dr. Shay Askew MD Primary Care Provider Active Start: November 05, 2024 End: November 05, 2024 Dr. Gagan Fong DO Attending Provider Active Start: November 05, 2024 End: November 05, 2024 Dr. Gagan Fong DO Referring Provider Active Start: November 05, 2024 End: November 05, 2024 Dr. Gagan Fong DO Emergency Provider Active Start: November 05, 2024 End: November 05, 2024 Team Status: Active Member Role/Relationship Status Dates Dr. Shay Askew MD Primary Care Provider Active Start: November 14, 2024 Dr. Shay Askew MD Attending Provider Active Start: November 14, 2024 Dr. Shay Askew MD Referring Provider Active Start: November 14, 2024 Team Status: Active Member Role/Relationship Status Dates Dr. Shay Askew MD Primary Care Provider Active Start: November 16, 2024 Dr. Shay Askew MD Referring Provider Active Start: November 16, 2024 JASIEL Arreguin Attending Provider Active Star t: November 16, 2024 Team Status: Inactive Member Role/Relationship Status Dates Dr. Shay Askew MD Primary Care Provider Active Start: November 16, 2024 End: November 16, 2024 Dr. Chai Rosario MD Attending Provider Active S tart: November 16, 2024 End: November 16, 2024 Team Status: Inactive Member Role/Relationship Status Dates Dr. Shay Askew MD Primary Care Provider Active Start: November 16, 2024 End: November 16, 2024 Dr. Shay Askew MD Referring Provider Active Start: November 16, 2024 End: November 16, 2024 JASIEL Arreguin Attending Provider Active Star t: November 16, 2024 End: November 16, 2024 Team Status: Inactive Member Role/Relationship Status Dates Dr. Shay Askew MD Primary Care Provider Active Start: November 14, 2024 End: November 14, 2024 Dr. Shay Askew MD Attending Provider Active Start: November 14, 2024 End: November 14, 2024 Dr. Shay Askew MD Referring Provider Active Start: November 14, 2024 End: November 14, 2024 Team Status: Inactive Member Role/Relationship Status Dates Dr. Shay Askew MD Primary Care Provider Active Start: December 06, 2024 End: December 06, 2024 Dr. Shay Askew MD Referring Provider Active Start: December 06, 2024 End: December 06, 2024 Dr. Jani Ellington MD Attending Provider Active Start: December 06, 2024 End: December 06, 2024 Team Status: Active Member Role/Relationship Status Dates Dr. Shay Askew MD Primary Care Provider Active Start: December 18, 2024 Dr. Chai Rosario MD Attending Provider Active S tart: December 18, 2024 Dr. Dani Frank MD Referring Provider Active St art: December 18, 2024 Team Status: Inactive Member Role/Relationship Status Dates Dr. Shay Askew MD Primary Care Provider Active Start: December 20, 2024 End: December 20, 2024 Dr. Garcia Vargas DO Emergency Provider Active Start: December 20, 2024 End: December 20, 2024 (unrecognized sect ion and content) No Status Records Found INFORMATION SOURCE (unrecogn ized section and content) DATE CREATED AUTHOR 12/20/2024 [facility] FOR RECORDS PERTAINING TO PATIENTS WHO ARE [...] BE BASED ON THE PRIMARY CLINICAL RECORDS. [employer] provides no warranty or guarantee of the accuracy or completeness of information in this document.
== END 2024-12-20 13:18 | disposition home or self-care (01) ==
PROVIDERS: Emergency Provider Emergency Medicine; PCP Family Medicine; Visit Provider Emergency Medicine
DX: R55 Syncope and collapse (principal); E86.0 Dehydration; E78.00 Pure hypercholesterolemia, unspecified; I10 Essential (primary) hypertension; Z79.899 Other long term (current) drug therapy; Z96.641 Presence of right artificial hip joint
CPT/HCPCS: 71045; 80048; 84484; 85025; 93005; 96360; 96361; 99285; A4216

== ENCOUNTER 2024-12-27 11:16 | Day surgery (SDC) | payer OTHER, SELFPAY ==
--- NOTE | 2024-12-18 08:47 | EKG12_ITS ---
Test Reason : PREOP Blood Pressure : */* mmHG Vent. Rate : 67 BPM Atrial Rate : 67 BPM P-R Int : 158 ms QRS Dur : 86 ms QT Int : 388 ms P-R-T Axes : 34 44 46 degrees QTcB Int : 409 ms Normal sinus rhythm Normal ECG Confirmed by MIMA LYONS, JOSE ([id number]), editor dictionary NGOC HUNTER ([id number]) on 12/18/2024 1:17:34 PM Referred By: Jani Ellington Confirmed By: JOSE GUILLERMO MD
[2024-12-18 09:58] LABS: Hematocrit 41.5 % (40-54); Hemoglobin 14.4 g/dL (13.0-16.5); Immature Granulocytes Count 0.020 X10^3/uL (0.0-0.0); Mean Corp Hgb Conc 34.7 g/dL (32-36); Mean Corpuscular Volume 95.0 fL (80-94); Mean Platelet Vol. 9.2 fl (6.2-12.0); NRBC Flagged by Analyzer 0 % (0-5); Platelet Count 233 K/mm3 (150-450); RBC Distribution Width CV 11.5 % (11.6-14.6); RBC Distribution Width SD 39.8 fl (35.1-43.9); Red Blood Count 4.37 M/mm3 (4.6-6.2); White Blood Count 5.2 K/mm3 (4.4-11.0)
[2024-12-18 10:49] LABS: Magnesium 2.3 mg/dL (1.5-2.2)
[2024-12-18 11:24] LABS: Anion Gap 13 (5-15); BUN 20 mg/dL (4-19); BUN/Creat Ratio 23.9 RATIO (10-20); Calcium,Total 9.2 mg/dL (7.6-11.0); Carbon Dioxide 22.5 mmol/L (21.0-32.0); Chloride 105 mmol/L (98-108); Glucose 105 mg/dL (70-99); Potassium 4.6 mmol/L (3.3-5.1)
[2024-12-18 11:38] LABS: HIV Nonreactive (Nonreactive); Hepatitis C Antibody Nonreactive (Nonreactive)
[2024-12-27] VITALS (10 sets, daily range): BP systolic 137–159; BP diastolic 85–110; PULSE 81–97; RESP 14–16; TEMP 36.3–37; O2SAT 96–99; BMI 26.0
[2024-12-27] MEDS: Lactated Ringers 1,000 ML 15 ML IV (12:40)
[2024-12-27] MEDS: Magnesium 1 GM over 15 mins IV (12:41)
--- NOTE | 2024-12-27 13:10 | PCM.HP.BLA ---
History and Physical MR#: [id number] Acct: [id number] Name: BENJAMIN SINGLETON Rep #: [id number] : 1965 Provider: Dr. Jani Ellington MD Age/Sex: 59/M Location: [facility] Status: Signed Intake Vital Signs 11/16/2512:23 Height 6 ft Weight: 202 lb BMI 27.3 Intake Visit Reasons: LUMBAR SPINE Accompanied by: Is patient in pain?: Yes Pain scale (1-10): 4 Allergies No Known Allergies Allergy (Verified 12/06/24 15:20) Medications ?Medication ?Instructions ?Recorded ?Confirmed ?Type atorvastatin 20 mg tablet 20 mg PO DAILY 11/05/24 12/06/24 History lidocaine 5 % topical patch 1 patch topical DAILY #15 ea 11/05/24 12/06/24 Rx (Lidoderm) lisinopril 10 mg tablet 10 mg PO DAILY 11/05/24 12/06/24 History ondansetron 4 mg disintegrating 4 mg PO Q8H PRN PRN Nausea #10 tabs 11/05/24 12/06/24 Rx tablet gabapentin 300 mg capsule 600 mg PO TID 12/06/24 12/06/24 History gabapentin 600 mg tablet 600 mg PO TID 12/06/24 12/06/24 History ibuprofen 200 mg tablet 600 mg PO TID Pain 12/06/24 12/06/24 History tramadol 50 mg tablet 50 mg PO TID PRN 12/06/24 12/06/24 History PFSH Medical History 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 Jani Ellington MD 12/06/24 0812. Part of today?s visit was documented by Monica WARNER, acting as scribe. BENJAMIN SINGLETON is a 59 year old M here today for a follow-up on continued low back pain. He states that he only had the one injection which was on 11-22-24 he had a right TFE L3-L4, L4-L5 with Dr. Lam. He stats the first day after the injection he did get some mild relief but after the first day he was back to where he was before the injection. He notes that his lower back pain is worse in the mornings after he first wakes up. He would like to talk about his next steps today. The patient is a 59-year-old male presenting with lumbar disc herniation and associated symptoms. The issue began in June with lower back pain after sitting on bleachers for an extended period, which has always been bothersome for him. The pain initially improved in early September but worsened later that month, particularly with sitting, which is the worst position for him. 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 By the end of September, the pain had become debilitating, especially in the mornings. The patient describes the pain as feeling like his thigh is going to explode, with tingling sensations in the iverson, and occasionally in the foot. He uses crutches in the morning to alleviate pressure on his back and takes ibuprofen for pain relief. The patient has reduced his walking distance due to frustration with not knowing what activities exacerbate his condition. He was previously walking 45 minutes daily but has cut back to 10-15 minutes, 2-3 times a day. The patient has undergone an injection, which initially provided relief but ultimately did not improve his symptoms. MRI findings indicate a herniated disc at L3-4 with a cystic swelling and stenosis at L4-5. The patient has a history of hypertension and hyperlipidemia, managed with medication. - Musculoskeletal: Reports right-sided leg pain, tingling in the iverson, and occasional foot tingling. Denies left-sided symptoms. - Neurological: Reports morning tingling sensation in the iverson, no foot drop. - General: Reports pain exacerbated by sitting, relieved by ibuprofen and crutches. Attestation: Documentation on this patient encounter was supported using ambient scribe technology/ voice AI technology. The patient consented to recording for the purpose of documenting the encounter. Provider reviewed content of the generated note prior to signature. 11/16/24: BENJAMIN SINGLETON is a 59 year old M here today for middle low back that radiates sharp right sided lateral thigh pain and right sided iverson pain. He denies any left-sided involvement. He has completed PT for 4 weeks in 10/2024 with some improvement at first then sx appeared to worsen. Pain began about 06/2024 after prolonged sitting on bleachers while watching basketball game. Says that prior to June he has had some chronic low back pain over several years that would come and go. Intensified 09/2024 and has gradually worsened. Says that he was playing pickle ball. XRAY of hip and back in 10/2024. Recent MRI. Hx of right total hip replacement. History of right knee arthroscopy. Denies hx of injections. Pain exacerbated with sitting for long periods. Pain improved with laying flat and movement. Recently prescribed Minster and gabapentin 10 days ago with significant relief. Says that he has been taking the Minster 3 times a day. His pain is worse in the morning and gradually gets better throughout the day. He says that over the last couple of days his pain has slowly started to show some improvement. Sitting worsens the pain. Says that he can only sit for about 20 to 30 minutes before he gets an increase in pain and he needs to move. Walking does not seem to increase his pain. Patient was standing for most of the duration of his exam today. Says that at first when his pain was at its worst back in September he was using some crutches to help take some pressure off of the spine. This did give some improvement. No prior surgeries on the back. He has also been given cyclobenzaprine 5 mg which he has been taking as needed with some mild improvement. No diabetes, no heart or lung issues, no blood thinners. Ortho Exam General General: Yes no acute distress Neurologic: Yes alert and Yes oriented x3 Spine SPINE TESTING CERVICAL THORACIC LUMBAR Musculoskeletal Strength 0=absent - 5=normal Details: Neurological exam of the lower extremities shows 5x5 power. Normal sensations across all dermatomes. No hyperreflexia. No midline tenderness, mild right paraspinal tenderness. Figure 4 and Keke's negative. Coding Level of Care Code Off vis,est,level 5 Diagnoses Degenerative disc disease (DDD) of lumbar region with discogenic back pain and leg pain M51.362 Lumbar stenosis without neurogenic claudication M48.061 Lumbar disc herniation with radiculopathy M51.16 Time Spent (min) 45 Assessment and Plan Assessment and Plan (1) Degenerative disc disease (DDD) of lumbar region with discogenic back pain and leg pain: Status: Acute (2) Lumbar stenosis without neurogenic claudication: Status: Acute (3) Lumbar disc herniation with radiculopathy: Status: Acute Plan Again reviewed prior AP and lateral x-rays from September 2024. X-rays show a multilevel disc height loss throughout the lumbar spine, there is vacuum phenomenon seen at L2-3, L3-4, L4-5. No significant instability, no acute fractures. Reviewed lumbar MRI from November 14, 2024 which showed L2-3 prominent disc height loss with a diffuse disc bulge resulting in mild to moderate spinal stenosis with mild bilateral foraminal stenosis, L3-4 significant disc height loss with a diffuse disc bulge with inferiorly migrated disc towards the right. This causes moderate focal spinal stenosis and mild to moderate left and mild right foraminal stenosis. L4-5 disc height loss with diffuse disc bulge resulting in moderate to severe spinal stenosis and mild to moderate bilateral foraminal stenosis. L5-S1 moderate to severe left and moderate right foraminal stenosis. - Imaging: MRI shows herniated disc at L3-4 with cystic swelling and stenosis at L4-5. 1. Lumbar disc herniation - Surgical intervention with discectomy and laminectomy is planned to relieve nerve pressure and address herniation and stenosis at L3-4 and L4-5. 2. Right-sided radiculopathy - The surgery aims to alleviate the right-sided nerve compression symptoms. 3. Hypertension - Continue current management with medication, ensure blood pressure is controlled preoperatively. 4. Hyperlipidemia - Continue current management with medication, monitor lipid levels as part of routine care. - Continue taking prescribed medications for hypertension and hyperlipidemia. - Use crutches as needed to alleviate back pressure. - Avoid activities that exacerbate back pain, such as prolonged sitting. - Follow up with primary care for surgical clearance. - Prepare for surgery by maintaining good nutrition and mobility. Discussed imaging findings in detail. Patient has a large disc extrusion at L3-4 with inferior migration with severe central stenosis at L4-5 as well. Discussed treatment options which include continued nonoperative treat measures versus surgery. Patient symptoms are not improving with time and they are affecting his quality of life and ability to get around. Considering patient has exhausted nonsurgical treatment with physical therapy and injections no longer giving him relief, at this point I recommend L3-5 laminectomy with L3-4 discectomy. All risk benefits and alternatives were discussed in detail. The risks include but are not limited to infection, bleeding, hematoma formation, need for further surgery, injury to nerves and vessels, foot drop, nerve root injury, dural leak, need for further surgery, need for fusion in future, persistent pain, persistent numbness and weakness, DVT, pulm embolism, pneumonia, atelectasis, cardiopulmonary event. Patient understands agrees to proceed with surgery.
--- NOTE | 2024-12-27 13:25 | PCM.PRE.AN2 ---
ASA Classification* ASA Classification ASA Classification: 2 Assessment & Plan Anesthesia* Anesthesia Assessment Anesthesia Assessment: Discussed sedation and/or anesthesia options, risks, benefits, and alternatives with patient/parents/legal guardian/POA. Questions invited. The patient/parents/legal guardian/POA seems to understand and agrees to proceed with anesthesia plan. Reviewed the physical assessment, medical history, allergy history and patient home medications list prior to surgery/procedure/anesthetic and documented any changes. Performed airway and anesthesia risk assessments. Anesthesia Type Anesthesia Type: General History Source History Obtained from:: Patient and Chart Anesthesia Focused Assessment* Temperature: 98.6 F Pulse Rate: 87 Blood Pressure: 146/97 Respiratory Rate: 16 Pulse Ox: 97 Oxygen Delivery Method: Room Air Airway Assessment Mouth opens: >3 cm Mallampati Score: III Teeth Condition: Chipped/Broken (Chipped tooth #5. Most of the teeth are tight.) Neck Range of motion (ROM): Limited ROM (Slight Decrease) Labs Anesthesia Preop lab: CBC WBC 5.0 K/mm3 (4.4-11.0) 12/20/24 10:08 12/20/24 RBC 4.11 M/mm3 (4.6-6.2) L 12/20/24 10:08 12/20/24 Hgb 13.5 g/dL (13.0-16.5) 12/20/24 10:08 12/20/24 Hct 38.7 % (40-54) L 12/20/24 10:08 12/20/24 Plt Count 185 K/mm3 (150-450) 12/20/24 10:08 12/20/24 CHEMISTRY Potassium 4.0 mmol/L (3.3-5.1) 12/20/24 10:08 12/20/24 Sodium 138 mmol/L (133-145) 12/20/24 10:08 12/20/24 Magnesium 2.3 mg/dL (1.5-2.2) H 12/18/24 09:15 12/18/24 BUN 21 mg/dL (4-19) H 12/20/24 10:08 12/20/24 Creatinine 0.87 mg/dL (0.70-1.20) 12/20/24 10:08 12/20/24 Glucose 147 mg/dL (70-99) H 12/20/24 10:08 12/20/24 TSH 3.20 uIU/mL (0.358-3.74) 07/16/16 08:03 07/16/16 COAG Pre-Assessment Diagnosis/Proposed Procedure Planned Operative Procedure(s): ERAS, Lumbar laminectomy L3-4 and L4-5, discectomy Anesthesia History Anesthesia History - patch driller: Anesthesia History - patch driller Hx Hospitalization No 12/13/24 13:40 Any Problems With Anesthesia No 12/13/24 13:40 Cholinesterase deficiency No 12/13/24 13:40 You/Your Family Experience No 12/13/24 13:40 fever (hyperthermia) with Relationship Recent Exposure to Contagious No 12/27/24 12:53 Disease Does patient have nerve No 12/13/24 13:40 stimulator Patient instructed to have device shut off --Does patient have Pacemaker No 12/27/24 12:53 or ICD? When Was Last Pacemaker Check QUESTION #4 FULL TEXT: You/Your Family Experience fever (hyperthermia) with Anesthesia Last Oral Intake Last Oral intake: Last Oral Intake NPO since 00:00 12/27/24 12:53 Meds taken in AM with sips of Yes 12/27/24 12:53 water? Meds patient instructed to take am of surgery Any additional information?: Yes NPO since: 09:30 (Patient had preop Ensure at 9:30 AM.) Meds taken in AM with sips of water?: Yes PONV PONV - patch driller: PONV - patch driller Female No 12/13/24 13:40 HX of Motion Sickness Yes 12/13/24 13:40 HX of N/V After Surgery No 12/13/24 13:40 Non-Smoker Yes 12/13/24 13:40 Duration of Surgery greater Yes 12/13/24 13:40 than 60 minutes Number of Risk Factors 3 12/13/24 13:40 PONV Score Moderate Risk 12/13/24 13:40 Height & Weight Height & Weight: Anesthesia: Height & Weight Height 6 ft 12/27/24 12:53 Weight: 87.09 kg 12/27/24 12:53 Body Mass Index (BMI) 26.0 12/27/24 12:53 Respiratory Assessment Respiratory Assessment - patch driller: Respiratory Tract Infection Hx - patch driller Hx Respiratory Tract Infection No 12/13/24 13:40 STOP Sleep Apnea STOP Sleep Apnea - patch driller: STOP Sleep Apnea - patch driller Hx Hypertension Yes 12/13/24 13:40 Hx Sleep Apnea No 12/13/24 13:40 CPAP BIPAP Do you snore loudly (louder No 12/13/24 13:40 than talking or can be heard Do you often feel tired/ No 12/13/24 13:40 fatigued/ sleepy during daytime? Has anyone observed you stop No 12/13/24 13:40 breathing during sleep? STOP Results Negative 12/13/24 13:40 QUESTION #5 FULL TEXT : Do you snore loudly (louder than talking or can be heard through closed doors)? 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 Specify any problems Hx of Preganancy in last 3 N/A 12/13/24 13:40 Months Nurse Filling Out Transfusion LUCILA 12/13/24 13:40 & Questions: Date: 12/13/24 12/13/24 13:40 Time: 13:42 12/13/24 13:40 Patient unable to answer at this time (ie. confused, unrespo /Reproduction History /Reproductive History - patch driller: /Reproductive Hx- patch driller Hx Now No 12/13/24 13:40 Gestational Age (in weeks): EDC: Hx Hx Para Hx Section SAB No 12/13/24 13:40 Active Medications Active Medications: Current Medications Generic Name Dose Route Start Last Admin Trade Name Freq PRN Reason Stop Dose Admin Acetaminophen 1,000 mg 12/27/24 14:15 12/27/24 12:59 Acetaminophen 500 Mg Tablet PO 12/27/24 14:16 1,000 mg PREOP ONE Administration Magnesium Sulfate 1 gm/ 102 mls @ 408 mls/hr 12/27/24 14:15 12/27/24 13:00 Dextrose IV 12/27/24 14:29 Infused PREOP ONE Infusion Cefazolin Sodium 2 gm/ Sodium 110 mls @ 150 mls/hr 12/27/24 14:15 Chloride IV 12/27/24 14:58 INTRAOP ONE Tranexamic Acid 1,000 mg/ 110 mls @ 440 mls/hr 12/27/24 14:15 Sodium Chloride IV 12/27/24 14:29 INTRAOP ONE Tranexamic Acid 1,000 mg/ 110 mls @ 440 mls/hr 12/27/24 14:15 Sodium Chloride IV 12/27/24 14:29 INTRAOP ONE Lactated Ringer's 1,000 mls @ 15 mls/hr 12/27/24 11:45 12/27/24 12:40 IV 15 mls/hr .Q48H RJ Administration Insulin Human Lispro 1 - 6 unit 12/27/24 14:15 Insulin Lispro 100 Unit/Ml Insuln.Pen SC 12/28/24 14:16 Q4H PRN PRN BG>/= 180, SEE PROTOCOL Protocol PFSH Medical History Arthritis Encounter for examination required by 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 (DOT) Wears glasses High cholesterol Non-smoker Hypertension Home Medications ?Medication ?Instructions ?Recorded ?Last Taken ?Type atorvastatin 20 mg tablet 20 mg PO DAILY 11/05/24 12/26/24 History lidocaine 5 % topical patch 1 patch topical DAILY #15 ea 11/05/24 Unknown Rx (Lidoderm) lisinopril 10 mg tablet 10 mg PO DAILY 11/05/24 12/26/24 History ondansetron 4 mg disintegrating 4 mg PO Q8H PRN PRN Nausea #10 tabs 11/05/24 Unknown Rx tablet gabapentin 600 mg tablet 600 mg PO TID 12/06/24 12/27/24 History ibuprofen 200 mg tablet 600 mg PO TID Pain 12/06/24 12/17/24 History acetaminophen 500 mg capsule 1,000 mg PO TID PRN pain 12/13/24 12/26/24 History hydrocodone-acetaminophen 5-325mg 1 tab PO 4X/DAY PRN PRN pain 12/27/24 12/27/24 History 5mg-325mg Allergy/AdvReac Type Severity Reaction Status Date / Time No Known Allergies Allergy Verified 12/27/24 12:40 Family History Other Diabetes High cholesterol Surgical History Hx of colonoscopy Hx of arthroscopic knee surgery History of total right hip replacement Social History Smoking Status: Never smoker alcohol intake: never Review of Systems (Anesthesia) ROS Narrative System reviewed and no additional complaints, except as documented.
[2024-12-27] MEDS: Lactated Ringers 1,000 ML 1000 ML IV (13:51)
[2024-12-27] MEDS: Cefazolin 1 GM/5 ML Vial 2 GM IV (13:51)
[2024-12-27] MEDS: Lidocaine 1% (5 ml sdv) 5 ML Vial 10 ML IV (13:52)
[2024-12-27] MEDS: fentaNYL 100 MCG/2 ML Ampul IV (13:52)
--- NOTE | 2024-12-27 14:38 | PCM.POST.ANE ---
Anesthesia: Postop Eval I Current Vital Signs Temperature: 97.3 F Pulse Rate: 96 Blood Pressure: 159/110 Respiratory Rate: 16 Pulse Ox: 99 Oxygen Delivery Method: Room Air Assessment Airway patent: Yes Spontaneous unlabored respirations: Yes Mental status: Awake nausea: No Vomiting: No Anesthesia Complication: No Fluid Hydration Crystalloid volume administer (ml): 500 Total IV fluid infused: 500 Progress Note Anesthesia document: Postop Eval 1 completed: Yes
[2024-12-27] MEDS: HYDROcodone Bitartrate/Apap 5/325 Tablet PO (15:36)
--- OUTSIDE RECORDS SUMMARY | 2024-12-27 18:40 | XMS RPT_ITS | CCD ---
Author Organization [facility] CliniSyga Care Team Providers Care Slotter Operator Name Role Phone Dr. Shay Askew Primary Care Provider Dr. Shay Askew Referring Provider Piter HARTMAN, [place] Javier Clolazo Attending Provider Jamilah LYONS, Dr. Day Primary Care Provider Jamilah LYONS, Dr. Day Attending Provider Jamilah LYONS, Dr. Day Referring Provider Jamilah LYONS, Dr. Day Primary Care Provider Jamilah LYONS, Dr. Day Attending Provider Jamilah LYONS, Dr. Day Referring Provider Shay Askew Referring Provider Unavailable Dr. Gagan Fong DO Referring Provider Dr. Gagan Fong DO Emergency Provider Hetal STOCKTON, Dr. Farah Attending Provider Brenda Poe Attending Provider Dr. Chai Rosario MD Attending Provider Dr. Jani Ellington MD Attending Provider Monika LYONS, Dr. Louise Referring Provider [phone] Garcia Vargas DO Emergency Provider Shay Askew Primary Care Unavailable Gagan Fong Attending Unavailable Gagan Fong Referring Unavailable Jamilah, Shay Referring Unavailable Jamilah, Shay Attending Unavailable Askew, Shay Primary Care Unavailable Askew, Shay Referring Unavailable Askew, Shay Attending Unavailable Askew, Shay Primary Care Unavailable Askew, Shay Referring Unavailable Askew, Shay Attending Unavailable Askew, Shay Primary Care Unavailable Askew, Shay Primary Care Unavailable Askew, Shay Attending Unavailable Skyla Santo Referring Unavailable Abraham, Chai Attending Unavailable Askew, Shay Primary Care Unavailable Askew, Shay Primary Care Unavailable Jani Ellington Attending Unavailable Askew, Shay Referring Unavailable Abraham, Chai Attending Unavailable Askew, Shay Primary Care Unavailable Dani Frank Referring Unavailable Askew, Shay Primary Care Unavailable Brenda Patel Attending Unavailable Askew, Shay Referring Unavailable Askew, Shay Primary Care Unavailable Askew, Shay Attending Unavailable Askew, Shay Referring Unavailable Askew, Shay Primary Care Unavailable Jani Ellington Attending Unavailable Jani Ellington Referring Unavailable Askew, Shay Primary Care Unavailable Askew, Shay Attending Unavailable Askew, Shay Referring Unavailable Askew, Shay Primary Care Unavailable Garcia Vargas Attending Unavailable Alicia STOCKTON, Dr. Zelaya Attending Provider Chandana LYONS, Dr. Gunter Referring Provider [phone] Chandana LYONS, Dr. Gunter Other Provider Medications Current Medications Medication Drug Class(es) Dates Sig (Normalized) Sig (Original) acetaminophen 500 mg oral capsule (2 sources) Start: 12-13-2024 take 2 capsules by mouth three times daily as needed for pain Acetaminophen 500 mg capsule Active 1000 mg PO THREE TIMES A DAY as needed for pain December 13, 2024 12:00am acetaminophen 325 mg / HYDROcodone bitartrate 5 mg oral tablet (10 sources) Opioid Agonist Start: 12-27-2024 Hydrocodone-Acetami nophen 5-325 mg tablet Active 1 {tbl} PO 4 TIMES DAILY NEEDED as needed for pain December 27, 2024 12:00am Start: 11-05-2024 End: 12-06-2024 Hydrocodone-Acetaminophen 5- 325 mg tablet Discontinued 1 {tbl} PO EVERY 6 HOURS NEEDED as needed for Pain 12 3 0 November 05, 2024 December 06, 2024 3:21pm Low back pain Low back pain, unspecified atorvastatin 20 mg oral tablet (20 sources) HMG-CoA Reductase Inhibitor Start: 11-05-2024 take 1 tablet by mouth once daily Atorvastatin 20 mg tablet Active 20 mg PO DAILY November 05, 2024 12:00am Start: 01-02-2021 End: 11-16-2024 take 1 tablet by mouth at bedtime Atorvastatin 10 mg tablet Discontinued 10 mg PO AT BEDTIME January 02, 2021 12:00am November 16, 2024 1:24pm gabapentin 300 mg oral capsule (19 sources) Anti-epileptic Agent Start: 12-06-2024 Gabapenti n [...] can refill ibuprofen 200 mg oral tablet (20 sources) Nonsteroidal Anti-inflammatory Drug Start: 12-06-2024 take [...] 2021 12:00am lidocaine 0.05 mg/mg medicated patch (9 sources) Antiarrhythmic, Amide Local Anesthetic Start: 11-05-2024 Lidocaine (Lidoderm) 5 % adhesive patch,medicated Active 1 NMA TOPICAL DAILY 15 0 November 05, 2024 12:00am leave on most painful area for up to 12 hrs lisinopril 10 mg oral tablet (20 sources) Angiotensin Converting Enzyme Inhibitor Start: 11-05-2024 take 1 tablet by mouth once daily Lisinopril 10 mg tablet Active 10 mg PO DAILY November 05, 2024 12:00am Start: 01-02-2021 End: 11-16-2024 take 1 tablet by mouth once daily Lisinopril 5 mg tablet Discontinued 5 mg PO DAILY January 02, 2021 12:00am November 16, 2024 1:26pm ondansetron 4 mg disintegrating oral tablet (9 sources) Serotonin-3 Receptor Antagonist Start: 11-05-2024 take 1 tablet by mouth every eight hours as needed for nausea Ondansetron 4 mg tablet,disintegrating Active 4 mg PO EVERY 8 HOURS NEEDED as needed for Nausea 10 0 November 05, 2024 12:00am Completed/Discontinued Medications Medication Drug Class(es) Dates Sig (Normalized) Sig (Original) cyclobenzaprine hydrochloride 5 mg oral tablet (9 sources) Muscle Relaxant Start: 11-05-2024 End: 12-06-2024 take 1 tablet by mouth at bedtime Cyclobenzaprine 5 mg tablet Discontinued 5 mg PO AT BEDTIME November 05, 2024 12:00am December 06, 2024 3:22pm predniSONE 20 mg oral tablet (9 sources) Start: 11-05-2024 End: 12-06-2024 take 2 tablets by mouth once daily Prednisone 20 mg tablet Discontinued 40 mg PO DAILY 10 5 0 November 05, 2024 12:00am December 06, 2024 3:22pm traMADol hydrochloride 50 mg oral tablet (3 sources) Opioid Agonist Start: 12-06-2024 End: 12-27-2024 take 1 tablet by mouth three times daily as needed for pain Tramadol 50 mg tablet Discontinued 50 mg PO THREE TIMES A DAY as needed for pain December 06, 2024 12:00am December 27, 2024 12:51pm Problems Problem Classification Problem Date Documented Date Episodic/Chronic Administrative/social admission (13 sources) Administrative reason for encounter; Translations: [Encounter for other administrative examinations] Episodic Disorders of lipid metabolism (1 source) Pure hypercholesterolemia, unspecified; Translations: [Pure hypercholesterolemia, unspecified] Onset: 11-06-2024 Chronic Other nervous system disorders (9 sources) Paresthesia of foot ; Translations: [Paresthesia of skin] 11-05-2024 Episodic Other screening for suspected conditions (not mental disorders or infectious disease) (12 sources) Patient encounter status; Translations: [Encounter for screening for malignant neoplasm of colon] 01-06-2021 Episodic Spondylosis; intervertebral disc disorders; other back problems (10 sources) Degeneration of lumbar intervertebral disc; Translations: [Degenerative disc disease (DDD) of lumbar region with discogenic back pain and leg pa] 11-16-2024 Chronic Spondylosis; intervertebral disc disorders; other back problems (20 sources) Lumbar radiculopathy; Translations: [Radiculopathy, lumbar region] Onset: 11-20-2024 11-05-2024 Episodic Syncope (1 source) Syncope and collapse; Translations: [Syncope and collapse] Onset: 12-26-2024 Episodic Unclassified (4 sources) Spinal stenosis of lumbar region without neurogenic claudication Unclassified (4 sources) Spinal stenosis of lumbar region without neurogenic claudication Unclassified (4 sources) M51.362 - Other intervertebral disc degeneration, lumbar region with discogenic back pain and lower extremity pain,M48.061 - Spinal stenosis, lumbar region without neurogenic claudication Unclassified (1 source) Low back pain, unspecified; Translations: [Low back pain, unspecified] Onset: 11-05-2024 Results Test Name Value Interpretation Reference Range Facility Glucose measurement at [facility] deOrdered By: Jani Ellington on 12-27-2024 Glucose [Mass/Vol] 120 mg/dL High 74-106 [facility] Comment on above: MANAGEMENT OF PATIEN T CARE PER NURSING PROTOCOL 12 Lead EKGon 12-20-2024 12 Lead EKG [facility] Cardiovascular Services [address] [place] [address] 12 Lead EKG 12/20/24 0931 MR#: [id number] Acct: [id number] Name: BENJAMIN SINGLETON Rep #: [id number] : 1965 59 From: Chai Rosario MD Attending Dr: Status: DEP ER Ordering Dr: Garcia Vargas DO Date: 12/20/24 Location: ED Sex: M C Admitted: Test Reason : Blood Pressure : */* mmHG Vent. Rate : 73 BPM Atrial Rate : 73 BPM P-R Int : 160 ms QRS Dur : 86 ms QT Int : 384 ms P-R-T Axes : 41 56 46 degrees QTcB Int : 423 ms Normal sinus rhythm Normal ECG No previous ECGs available Confirmed by CHAI ROSARIO MD ([id number]), film editor supervisor MARLO PRICE ([id number]) on 12/26/2024 6:18:45 AM Referred By: Confirmed By: CHAI ROSARIO MD 12/26/24 0618 Date Chai Rosario MD CC: Dr. Shay Askew MD; Dr. Garcia Vargas DO Signed Normal [facility] Absolute lymphocyte countOrd ered By: Garcia Vargas on 12-20-2024 Lymphocytes Auto (Unsp spec) [#/Vol] 0.72 10*3/uL Low 0.83-4.51 [facility] Absolute neutrophil countOrd ered By: Garcia Vargas on 12-20-2024 Neutrophils (Bld) [#/Vol] 3.9 10*3/uL 2.0-7.7 [facility] Anion gap in Serum or Plasma Ordered By: Garcia Vargas on 12-20-2024 Anion gap [Moles/Vol] 12 mmol/L 5-15 [facility] Automated lymphocyte count a s percentage of total leukocytesOrdered By: Garcia Vargas on 12-20-2024 Lymphocytes/100 WBC Auto (Unsp spec) 14.3 % Low 19-41 [facility] BUN/creatinine ratioOrdered By: Garcia Vargas on 12-20-2024 Urea nitrogen/Creatinine [Mass ratio] 24.3 mg/mg High 02-26 [facility] Basic Metabolic Profile (BMP )on 12-20-2024 BUN/CRE 24.3 RATIO High 02-26 [facility] Comment on above: Performed By: #### L 501.4021, L100.0100, L500.2500 ####[facility] [address] [place], [address] Calcium [Mass/Vol] 8.9 mg/dL Normal 7.6-11.0 [facility] Comment on above: Performed By: #### L 501.4021, L100.0100, L500.2500 ####[facility] [address] [place], [address] Chloride [Moles/Vol] 103 mmol/L Normal 98-108 [facility] Comment on above: Performed By: #### L 501.4021, L100.0100, L500.2500 ####[facility] [address] [place], [address] CO2 [Moles/Vol] 23.0 mmol/L Normal 21.0-32.0 [facility] Comment on above: Performed By: #### L 501.4021, L100.0100, L500.2500 ####[facility] [address] [place], [address] Creatinine [Mass/Vol] 0.87 mg/dL Normal 0.70-1.20 [facility] Comment on above: Performed By: #### L 501.4021, L100.0100, L500.2500 ####[facility] [address] [place], [address] ECRCL 100.34 ml/min Normal 50-250 [facility] Comment on above: Performed By: #### L 501.4021, L100.0100, L500.2500 ####[facility] [address] [place], [address] GAP 12 Normal 5-15 [facility] Comment on above: Performed By: #### L 501.4021, L100.0100, L500.2500 ####[facility] [address] [place], [address] GFR/1.73 sq M.predicted among non-blacks MDRD (S/P/Bld) [Vol rate/Area] 99 mL/min/{1.73_m2} Normal >60 [facility] Comment on above: Result Comment: mL/m in/1.73m2 CKD-EPI Creatinine Equation (2020) Performed By: #### L 501.4021, L100.0100, L500.2500 ####[facility] [address] [place], [address] Glucose [Mass/Vol] 147 mg/dL High 70-99 [facility] Comment on above: Performed By: #### L 501.4021, L100.0100, L500.2500 ####[facility] [address] [place], [address] Potassium [Moles/Vol] 4.0 mmol/L Normal 3.3-5.1 [facility] Comment on above: Performed By: #### L 501.4021, L100.0100, L500.2500 ####[facility] [address] [place], [address] Sodium [Moles/Vol] 138 mmol/L Normal 133-145 [facility] Comment on above: Performed By: #### L 501.4021, L100.0100, L500.2500 ####[facility] [address] [place], [address] Urea nitrogen [Mass/Vol] 21 mg/dL High 4-19 [facility] Comment on above: Performed By: #### L 501.4021, L100.0100, L500.2500 ####[facility] [address] [place], [address] Basophil percentageOrdered B y: Garcia aVrgas on 12-20-2024 Basophils/100 WBC (Bld) 0.6 % 0-1 [facility] CBC W/Diff, Automatedon 12-08 Absolute Lymph 0.72 X10 3/uL Low 0.83-4.51 [facility] Comment on above: Performed By: #### L 501.4021, L100.0100, L500.2500 ####[facility] [address] [place], [address] Absolute Neut 3.9 X10 3/uL Normal 2.0-7.7 [facility] Comment on above: Performed By: #### L 501.4021, L100.0100, L500.2500 ####[facility] [address] [place], [address] Basophils/100 WBC (Bld) 0.6 % Normal 0-1 [facility] Comment on above: Performed By: #### L 501.4021, L100.0100, L500.2500 ####[facility] [address] [place], [address] Eosinophils/100 WBC (Bld) 1.0 % Normal 0-5 [facility] Comment on above: Performed By: #### L 501.4021, L100.0100, L500.2500 ####[facility] [address] [place], [address] Erythrocyte distribution width (RBC) [Ratio] 11.5 % Low 11.6-14.6 [facility] Comment on above: Performed By: #### L 501.4021, L100.0100, L500.2500 ####[facility] [address] [place], [address] Hematocrit (Bld) [Volume fraction] 38.7 % Low 40-54 [facility] Comment on above: Performed By: #### L 501.4021, L100.0100, L500.2500 ####[facility] [address] [place], [address] Hemoglobin (Bld) [Mass/Vol] 13.5 g/dL Normal 13.0-16.5 [facility] Comment on above: Performed By: #### L 501.4021, L100.0100, L500.2500 ####[facility] [address] [place], [address] IG% 0.600 Normal 0.0-0.9 [facility] Comment on above: Result Comment: IG% - Immature Granulocytes (promyelocytes, myelocytes and metamyelocytes) > 1% indicates that a LEFT SHIFT is Present. Performed By: #### L 501.4021, L100.0100, L500.2500 ####[facility] [address] [place], [address] Lymphocytes/100 WBC (Bld) 14.3 % Low 19-41 [facility] Comment on above: Performed By: #### L 501.4021, L100.0100, L500.2500 ####[facility] [address] [place], [address] MCH (RBC) [Entitic mass] 32.8 pg High 27.0-32.0 [facility] Comment on above: Performed By: #### L 501.4021, L100.0100, L500.2500 ####[facility] [address] [place], [address] MCHC (RBC) [Mass/Vol] 34.9 g/dL Normal 32-36 [facility] Comment on above: Performed By: #### L 501.4021, L100.0100, L500.2500 ####[facility] [address] [place], [address] MCV (RBC) [Entitic vol] 94.2 fL High 80-94 [facility] Comment on above: Performed By: #### L 501.4021, L100.0100, L500.2500 ####[facility] [address] [place], [address] Monocytes/100 WBC (Bld) 5.4 % Normal 0-10 [facility] Comment on above: Performed By: #### L 501.4021, L100.0100, L500.2500 ####[facility] [address] [place], [address] Neutrophils/100 WBC (Bld) 78.1 % High 47-70 [facility] Comment on above: Performed By: #### L 501.4021, L100.0100, L500.2500 ####[facility] [address] [place], [address] Nucleated RBC (Bld) [#/Vol] 0 10*3/uL Normal 0-5 [facility] Comment on above: Performed By: #### L 501.4021, L100.0100, L500.2500 ####[facility] [address] [place], [address] Platelet mean volume (Bld) [Entitic vol] 8.9 fL Normal 6.2-12.0 [facility] Comment on above: Performed By: #### L 501.4021, L100.0100, L500.2500 ####[facility] [address] [place], [address] Platelets (Bld) [#/Vol] 185 10*3/uL Normal 150-450 [facility] Comment on above: Performed By: #### L 501.4021, L100.0100, L500.2500 ####[facility] [address] [place], [address] RBC (Bld) [#/Vol] 4.11 10*6/uL Low 4.6-6.2 [facility] Comment on above: Performed By: #### L 501.4021, L100.0100, L500.2500 ####[facility] [address] [place], [address] RDW SD 39.6 fl Normal 35.1-43.9 [facility] Comment on above: Performed By: #### L 501.4021, L100.0100, L500.2500 ####[facility] [address] [place], [address] WBC (Bld) [#/Vol] 5.0 10*3/uL Normal 4.4-11.0 [facility] Comment on above: Performed By: #### L 501.4021, L100.0100, L500.2500 ####[facility] [address] [place], [address] Carbon dioxide, total [Moles /volume] in Central venous bloodOrdered By: Garcia Vargas on 12-20-2024 CO2 [Moles/Vol] 23.0 mmol/L 21.0-32.0 [facility] Chest 1 View (Portable)on Chest 1 View (Portable) [facility] Imaging Services [address] [place] [address] Chest 1 View (Portable) MR#: [id number] Acct: [id number] Name: BENJAMIN SINGLETON Rep #: [id number] : 1965 M 59 From: Trae toribio MD PCP: Dr. Shay Askew MD Status: [facility] ER Study: Chest 1 View (Portable) Date of Exam: 12/20/24 Exam# [id number] Ordering Dr: Garcia Vargas DO PROCEDURE: CHEST 1 VIEW (PORTABLE) 12/20/2024 REASON FOR EXAM: CHEST PAIN TECHNIQUE: Frontal view of the chest. COMPARISON: None FINDINGS: Hardware: EKG electrodes are seen. Heart: The heart size is normal. Lungs: The lungs are clear. Bones: Degenerative changes are identified within the thoracic spine. Other: RAD/Chest 1 View (Portable) IMPRESSION: No acute abnormality is seen. Reading Location: [facility] CC: Dr. Shay Askew MD; Dr. Garcia Vargas DO Analytics Associate: Signed Normal [facility] Chloride assayOrdered By: Janee Vargas on 12-20-2024 Chloride [Moles/Vol] 103 mmol/L 98-108 [facility] Emergency Department Summary on 12-20-2024 Emergency Department Summary [facility] Medical Records Department [address] [place] [address] Emergency Department Summary 12/20/24 MR#: [id number] Acct: [id number] Name: BENJAMIN SINGLETON Rep #: [id number] : 1965 59 From: Garcia Vargas DO PCP: Dr. 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) Wears glasses High cholesterol Non-smoker Hypertension Home Medications ???Medication ???Instructions ???Recorded ???Last Taken ???Type atorvastatin 20 mg tablet 20 mg PO DAILY 11/05/24 Unknown Hi story lidocaine 5 % topical patch 1 patch topical DAILY #15 ea 11/05 Unknown Rx (Lidoderm) lisinopril 10 mg tablet 10 mg PO DAILY 11/05/24 Unknown Hi story ondansetron 4 mg disintegrating 4 mg PO Q8H PRN PRN Nausea #10 tab s 11/05/24 Unknown Rx tablet gabapentin 600 mg tablet 600 mg PO TID 12/06/24 Unknown His tory ibuprofen 200 mg tablet 600 mg PO TID Pain 12/06/24 Unknow n History tramadol 50 mg tablet 50 mg PO TID PRN pain 12/06/24 Unk nown History acetaminophen 500 mg capsule 1,000 mg [...] that he takes for back pain including ed apentin, ibuprofen, Tylenol and tramadol. States he typically gets a bit lightheaded after taking gabapentin. This morning it was no different but just more severe. He states has not been eating or drinking as much as he typically does [...] no tenderness, rigidity, rebound or guarding, no obvious peritoneal signs, no palpable pulsatile abdominal masses, no auscultated abdominal bruit : No CVAT Extremities: No edema Neuro: No new focal neurological deficits, cranial nerves II through XII intact, 5/5 strength in all present extremities. Intact sensation to light touch in all present extremities, 2+ reflexes bilateral patella tendons. Skin: No rash or lesions noted MEDICAL DECISION MAKING: Chief Complaint: please see HPI External records reviewed: Factors affectin (more content not included)... Normal [facility] Eosinophil percentageOrdered By: Garcia Vargas on 12-20-2024 Eosinophils/100 WBC (Bld) 1.0 % 0-5 [facility] Erythrocyte distribution wid th ratioOrdered By: Gracia Vargas on 12-20-2024 Erythrocyte distribution width (RBC) [Ratio] 11.5 % Low 11.6-14.6 [facility] Erythrocyte distribution wid th standard deviationOrdered By: Garcia Vargas on 12-20-2024 Erythrocyte distribution width (RBC) [Ratio] 39.6 fl 35.1-43.9 [facility] Glomerular filtration rate ( GFR) estimation/1.73 sq m using serum, plasma, or whole bOrdered By: Garcia Vargas on 12-20-2024 GFR/1.73 sq M.predicted among non-blacks MDRD (S/P/Bld) [Vol rate/Area] 99 mL/min/{1.73_m2} >60 [facility] Comment on above: mL/min/1.73m2 CKD-EP I Creatinine Equation (2020) Hematocrit Auto (Bld) [Volum e fraction]Ordered By: Garcia Vargas on 12-20-2024 Hematocrit (Bld) [Volume fraction] 38.7 % Low 40-54 [facility] Hemoglobin measurementOrdere d By: Garcia Vargas on 12-20-2024 Hemoglobin (Bld) [Mass/Vol] 13.5 g/dL 13.0-16.5 [facility] Immature granulocytes/100 WB C Auto (Bld)Ordered By: Garcia Vargas on 12-20-2024 Immature granulocytes/100 WBC (Bld) 0.600 % 0.0-0.9 [facility] Comment on above: IG% - Immature Granu locytes (promyelocytes, myelocytes and metamyelocytes) > 1% indicates that a LEFT SHIFT is Present. L501.4021on 12-20-2024 Trop T High Sen 10 ng/L Normal <=22 [facility] Comment on above: Performed By: #### L 501.4021, L100.0100, L500.2500 ####[facility] [address] [place], [address] MCV (mean corpuscular volume ) determinationOrdered By: Garcia Vargas on 12-20-2024 MCV (RBC) [Entitic vol] 94.2 fL High 80-94 [facility] Mean corpuscular hemoglobin (MCH) determinationOrdered By: Garcia Vargas on 12-20-2024 MCH (RBC) [Entitic mass] 32.8 pg High 27.0-32.0 [facility] Mean corpuscular hemoglobin concentration (MCHC) determinationOrdered By: Garcia Vargas on 12-20-2024 MCHC (RBC) [Mass/Vol] 34.9 g/dL 32-36 [facility] Mean platelet volume determi nationOrdered By: Garcia Vargas on 12-20-2024 Platelet mean volume (Bld) [Entitic vol] 8.9 fL 6.2-12.0 [facility] Monocyte percentageOrdered B y: Garcia Vargas on 12-20-2024 Monocytes/100 WBC (Bld) 5.4 % 0-10 [facility] Neutrophil percentageOrdered By: Garcia Vargas on 12-20-2024 Neutrophils/100 WBC (Bld) 78.1 % High 47-70 [facility] Nucleated red blood cell per centageOrdered By: Garcia Vargas on 12-20-2024 Nucleated RBC/100 WBC (Bld) [Ratio] 0 % 0-5 [facility] Platelet countOrdered By: Janee Vargas on 12-20-2024 Platelets (Bld) [#/Vol] 185 10*3/uL 150-450 [facility] Potassium measurement (mass/ volume)Ordered By: Garcia Vargas on 12-20-2024 Potassium (Unsp spec) [Mass/Vol] 4.0 mmol/L 3.3-5.1 [facility] RBC Auto (Bld) [#/Vol]Ordere d By: Garcia Vargas on 12-20-2024 RBC (Bld) [#/Vol] 4.11 10*6/uL Low 4.6-6.2 [facility] Serum creatinine measurement (mass/volume)Ordered By: Garcia Vargas on 12-20-2024 Creatinine [Mass/Vol] 0.87 mg/dL 0.70-1.20 [facility] Serum glucose measurement (m ass/volume)Ordered By: Garcia Vargas on 12-20-2024 Glucose [Mass/Vol] 147 mg/dL High 70-99 [facility] Serum or plasma calcium trevon urement (mass/volume)Ordered By: Garcia Vargas on 12-20-2024 Calcium [Mass/Vol] 8.9 mg/dL 7.6-11.0 [facility] Serum or plasma urea nitroge n measurement (mass/volume)Ordered By: Garcia Vargas on 12-20-2024 Urea nitrogen [Mass/Vol] 21 mg/dL High 4-19 [facility] Sodium levelOrdered By: Halle Vargas on 12-20-2024 Sodium [Moles/Vol] 138 mmol/L 133-145 [facility] Troponin T HS 2 HRon 025 Trop T High Sen 12 ng/L Normal <=22 [facility] Comment on above: Performed By: #### L 499.0042 #### [facility] Laboratory [address] [place], [place], [address] Troponin T HS 4 HRon 025 Trop T High Sen Normal <=22 [facility] Comment on above: Result Comment: Canc elled via OM: Order cancelled - Patient discharged Performed By: #### L 499.0043 ####[facility] [address] [place], [place], [address] Troponin T.cardiac [Mass/vol ume] in Serum or Plasma by High sensitivity methodOrdered By: Garcia Vargas on 12-20-2024 Troponin T.cardiac High sensitivity method [Mass/Vol] 12 ng/L <22 [facility] Troponin T.cardiac High sensitivity method [Mass/Vol] 10 ng/L <22 [facility] White blood cell (WBC) count Ordered By: Garcia Vargas on 12-20-2024 WBC (Bld) [#/Vol] 5.0 10*3/uL 4.4-11.0 [facility] Hepatitis A AB, Totalon 12-08 HEPATITIS A,TOT Negative Normal Negative [facility] Comment on above: Result Comment: Comm ent: The HAV total antibody assay detects both IgG and IgM but does not differentiate between them. A negative result suggests susceptibility to infection. A positive result could be due to vaccination, previously resolved infection or active infection. Testing for HAV IgM should be performed if active HAV infection is suspected. [employer] offers profiles that will automatically reflex positive HAV total antibody results to IgM (e.g., panel #[id number] HAV Antibody w/ Rfx). Performed at: [facility] [address] [id number] Radiocommunications Technician: Sherman Romero PhD, Phone: [phone] Performed By: #### B TSPAT, L3890.6202, L501.9985, L100.0100, L500.2500, L3890.6006, L3890.6301, L3100.0300, M100.651 ####[facility] [address] [place], [address] MRSA/SAID NASAL SCREENon MRSA+SAID SCRN Reason for Exam: PRE OP MRSA MRSA Negative S. AUREUS S. aureus Negative Normal [facility] Comment on above: Performed By: #### B TSPAT, L3890.6202, L501.9985, L100.0100, L500.2500, L3890.6006, L3890.6301, L3100.0300, M100.651 ####[facility] [address] [place], [address] 12 Lead EKGon 12-18-2024 12 Lead EKG [facility] Cardiovascular Services [address] [place] [address] 12 Lead EKG 12/18/24 0856 MR#: [id number] Acct: [id number] Name: BENJAMIN SINGLETON Rep #: [id number] : 1965 59 From: Chai Rosario MD Attending Dr: Dr. Jani Ellington MD Status: PRE [facility] Ordering Dr: Jani Ellington MD Date: 12/18/24 Location: [facility] Sex: M C Admitted: Test Reason : PREOP Blood Pressure : */* mmHG Vent. Rate : 67 BPM Atrial Rate : 67 BPM P-R Int : 158 ms QRS Dur : 86 ms QT Int : 388 ms P-R-T Axes : 34 44 46 degrees QTcB Int : 409 ms Normal sinus rhythm Normal ECG Confirmed by CHAI ROSARIO MD ([id number]), film editor supervisor NGOC HUNTER ([id number]) on 12/18/2024 1:17:34 PM Referred By: Jani Ellington Confirmed By: CHAI ROSARIO MD 12/18/24 1317 Date Chai Rosario MD CC: Dr. Jani Ellington MD; Dr. Shay Askew MD Signed Normal [facility] Absolute lymphocyte countOrd ered By: Jani Ellington on 12-18-2024 Lymphocytes Auto (Unsp spec) [#/Vol] 1.21 10*3/uL 0.83-4.51 [facility] Absolute neutrophil countOrd ered By: Jani Ellington on 12-18-2024 Neutrophils (Bld) [#/Vol] 3.5 10*3/uL 2.0-7.7 [facility] Anion gap in Serum or Plasma Ordered By: Jani Ellington on 12-18-2024 Anion gap [Moles/Vol] 13 mmol/L 5-15 [facility] Automated lymphocyte count a s percentage of total leukocytesOrdered By: Jani Ellington on 12-18-2024 Lymphocytes/100 WBC Auto (Unsp spec) 23.2 % 19-41 [facility] BUN/creatinine ratioOrdered By: Jani Ellington on 12-18-2024 Urea nitrogen/Creatinine [Mass ratio] 23.9 mg/mg High 10-20 [facility] Basic Metabolic Profile (BMP )on 12-18-2024 BUN/CRE 23.9 RATIO High 10-20 [facility] Comment on above: Performed By: #### B TSPAT, L3890.6202, L501.9985, L100.0100, L500.2500, L3890.6006, L3890.6301, L3100.0300, M100.651 ####[facility] [address] [place], [place], [phone]) Calcium [Mass/Vol] 9.2 mg/dL Normal 7.6-11.0 [facility] Comment on above: Performed By: #### B TSPAT, L3890.6202, L501.9985, L100.0100, L500.2500, L3890.6006, L3890.6301, L3100.0300, M100.651 ####[facility] [address] [place], [place], [phone]) Chloride [Moles/Vol] 105 mmol/L Normal 98-108 [facility] Comment on above: Performed By: #### B TSPAT, L3890.6202, L501.9985, L100.0100, L500.2500, L3890.6006, L3890.6301, L3100.0300, M100.651 ####[facility] [address] [place], [place], [phone]) CO2 [Moles/Vol] 22.5 mmol/L Normal 21.0-32.0 [facility] Comment on above: Performed By: #### B TSPAT, L3890.6202, L501.9985, L100.0100, L500.2500, L3890.6006, L3890.6301, L3100.0300, M100.651 ####[facility] [address] [place], [address] Creatinine [Mass/Vol] 0.83 mg/dL Normal 0.70-1.20 [facility] Comment on above: Performed By: #### B TSPAT, L3890.6202, L501.9985, L100.0100, L500.2500, L3890.6006, L3890.6301, L3100.0300, M100.651 ####[facility] [address] [place], [address] GAP 13 Normal 5-15 [facility] Comment on above: Performed By: #### B TSPAT, L3890.6202, L501.9985, L100.0100, L500.2500, L3890.6006, L3890.6301, L3100.0300, M100.651 ####[facility] [address] [place], [address] GFR/1.73 sq M.predicted among non-blacks MDRD (S/P/Bld) [Vol rate/Area] 101 mL/min/{1.73_m2} Normal >60 [facility] Comment on above: Result Comment: mL/m in/1.73m2 CKD-EPI Creatinine Equation (2020) Performed By: #### B TSPAT, L3890.6202, L501.9985, L100.0100, L500.2500, L3890.6006, L3890.6301, L3100.0300, M100.651 ####[facility] [address] [place], [address] Glucose [Mass/Vol] 105 mg/dL High 70-99 [facility] Comment on above: Performed By: #### B TSPAT, L3890.6202, L501.9985, L100.0100, L500.2500, L3890.6006, L3890.6301, L3100.0300, M100.651 ####[facility] [address] [place], [place], [phone](045) Potassium [Moles/Vol] 4.6 mmol/L Normal 3.3-5.1 [facility] Comment on above: Performed By: #### B TSPAT, L3890.6202, L501.9985, L100.0100, L500.2500, L3890.6006, L3890.6301, L3100.0300, M100.651 ####[facility] [address] [place], [address] Sodium [Moles/Vol] 140 mmol/L Normal 133-145 [facility] Comment on above: Performed By: #### B TSPAT, L3890.6202, L501.9985, L100.0100, L500.2500, L3890.6006, L3890.6301, L3100.0300, M100.651 ####[facility] [address] [place], [address] Urea nitrogen [Mass/Vol] 20 mg/dL High 4-19 [facility] Comment on above: Performed By: #### B TSPAT, L3890.6202, L501.9985, L100.0100, L500.2500, L3890.6006, L3890.6301, L3100.0300, M100.651 ####[facility] [address] [place], [address] Basophil percentageOrdered B y: Jani Ellington on 12-18-2024 Basophils/100 WBC (Bld) 0.8 % 0-1 [facility] CBC W/Diff, Automatedon 12-08 Absolute Lymph 1.21 X10 3/uL Normal 0.83-4.51 [facility] Comment on above: Performed By: #### B TSPAT, L3890.6202, L501.9985, L100.0100, L500.2500, L3890.6006, L3890.6301, L3100.0300, M100.651 ####[facility] [address] [place], [address] Absolute Neut 3.5 X10 3/uL Normal 2.0-7.7 [facility] Comment on above: Performed By: #### B TSPAT, L3890.6202, L501.9985, L100.0100, L500.2500, L3890.6006, L3890.6301, L3100.0300, M100.651 ####[facility] [address] [place], [address] Basophils/100 WBC (Bld) 0.8 % Normal 0-1 [facility] Comment on above: Performed By: #### B TSPAT, L3890.6202, L501.9985, L100.0100, L500.2500, L3890.6006, L3890.6301, L3100.0300, M100.651 ####[facility] [address] [place], [address] Eosinophils/100 WBC (Bld) 2.9 % Normal 0-5 [facility] Comment on above: Performed By: #### B TSPAT, L3890.6202, L501.9985, L100.0100, L500.2500, L3890.6006, L3890.6301, L3100.0300, M100.651 ####[facility] [address] [place], [address] Erythrocyte distribution width (RBC) [Ratio] 11.5 % Low 11.6-14.6 [facility] Comment on above: Performed By: #### B TSPAT, L3890.6202, L501.9985, L100.0100, L500.2500, L3890.6006, L3890.6301, L3100.0300, M100.651 ####[facility] [address] [place], [address] Hematocrit (Bld) [Volume fraction] 41.5 % Normal 40-54 [facility] Comment on above: Performed By: #### B TSPAT, L3890.6202, L501.9985, L100.0100, L500.2500, L3890.6006, L3890.6301, L3100.0300, M100.651 ####[facility] [address] [place], [address] Hemoglobin (Bld) [Mass/Vol] 14.4 g/dL Normal 13.0-16.5 [facility] Comment on above: Performed By: #### B TSPAT, L3890.6202, L501.9985, L100.0100, L500.2500, L3890.6006, L3890.6301, L3100.0300, M100.651 ####[facility] [address] [place], [address] IG% 0.400 Normal 0.0-0.9 [facility] Comment on above: Result Comment: IG% - Immature Granulocytes (promyelocytes, myelocytes and metamyelocytes) > 1% indicates that a LEFT SHIFT is Present. Performed By: #### B TSPAT, L3890.6202, L501.9985, L100.0100, L500.2500, L3890.6006, L3890.6301, L3100.0300, M100.651 ####[facility] [address] [place], [address] Lymphocytes/100 WBC (Bld) 23.2 % Normal 19-41 [facility] Comment on above: Performed By: #### B TSPAT, L3890.6202, L501.9985, L100.0100, L500.2500, L3890.6006, L3890.6301, L3100.0300, M100.651 ####[facility] [address] [place], [address] MCH (RBC) [Entitic mass] 33.0 pg High 27.0-32.0 [facility] Comment on above: Performed By: #### B TSPAT, L3890.6202, L501.9985, L100.0100, L500.2500, L3890.6006, L3890.6301, L3100.0300, M100.651 ####[facility] [address] [place], [address] MCHC (RBC) [Mass/Vol] 34.7 g/dL Normal 32-36 [facility] Comment on above: Performed By: #### B TSPAT, L3890.6202, L501.9985, L100.0100, L500.2500, L3890.6006, L3890.6301, L3100.0300, M100.651 ####[facility] [address] [place], [address] MCV (RBC) [Entitic vol] 95.0 fL High 80-94 [facility] Comment on above: Performed By: #### B TSPAT, L3890.6202, L501.9985, L100.0100, L500.2500, L3890.6006, L3890.6301, L3100.0300, M100.651 ####[facility] [address] [place], [address] Monocytes/100 WBC (Bld) 6.3 % Normal 0-10 [facility] Comment on above: Performed By: #### B TSPAT, L3890.6202, L501.9985, L100.0100, L500.2500, L3890.6006, L3890.6301, L3100.0300, M100.651 ####[facility] [address] [place], [address] Neutrophils/100 WBC (Bld) 66.4 % Normal 47-70 [facility] Comment on above: Performed By: #### B TSPAT, L3890.6202, L501.9985, L100.0100, L500.2500, L3890.6006, L3890.6301, L3100.0300, M100.651 ####[facility] [address] [place], [address] Nucleated RBC (Bld) [#/Vol] 0 10*3/uL Normal 0-5 [facility] Comment on above: Performed By: #### B TSPAT, L3890.6202, L501.9985, L100.0100, L500.2500, L3890.6006, L3890.6301, L3100.0300, M100.651 ####[facility] [address] [place], [address] Platelet mean volume (Bld) [Entitic vol] 9.2 fL Normal 6.2-12.0 [facility] Comment on above: Performed By: #### B TSPAT, L3890.6202, L501.9985, L100.0100, L500.2500, L3890.6006, L3890.6301, L3100.0300, M100.651 ####[facility] [address] [place], [address] Platelets (Bld) [#/Vol] 233 10*3/uL Normal 150-450 [facility] Comment on above: Performed By: #### B TSPAT, L3890.6202, L501.9985, L100.0100, L500.2500, L3890.6006, L3890.6301, L3100.0300, M100.651 ####[facility] [address] [place], [address] RBC (Bld) [#/Vol] 4.37 10*6/uL Low 4.6-6.2 [facility] Comment on above: Performed By: #### B TSPAT, L3890.6202, L501.9985, L100.0100, L500.2500, L3890.6006, L3890.6301, L3100.0300, M100.651 ####[facility] [address] [place], [address] RDW SD 39.8 fl Normal 35.1-43.9 [facility] Comment on above: Performed By: #### B TSPAT, L3890.6202, L501.9985, L100.0100, L500.2500, L3890.6006, L3890.6301, L3100.0300, M100.651 ####[facility] [address] [place] [place], [address] WBC (Bld) [#/Vol] 5.2 10*3/uL Normal 4.4-11.0 [facility] Comment on above: Performed By: #### B TSPAT, L3890.6202, L501.9985, L100.0100, L500.2500, L3890.6006, L3890.6301, L3100.0300, M100.651 ####[facility] [address] [place], [address] Carbon dioxide, total [Moles /volume] in Central venous bloodOrdered By: Jani Ellington on 12-18-2024 CO2 [Moles/Vol] 22.5 mmol/L 21.0-32.0 [facility] Chloride assayOrdered By: Brenden Ellington on 12-18-2024 Chloride [Moles/Vol] 105 mmol/L 98-108 [facility] Electrocardiogram reportOrde red By: Chai Rosario on 12-18-2024 EKG study [facility] Cardiovascular Services [address] [place] [address] 12 Lead EKG 12/18/24 0856 MR#: [id number] Acct: [id number] Name: BENJAMIN SINGLETON Rep #:[id number] : 1965 59 From: Chai Rosario MD Attending Dr: Dr. Jani Ellington MD Status: PRE [facility] Ordering Dr: Jani Ellington MD Date: Location: [facility] Sex: M C Admitted: Test Reason : PREOP Blood Pressure : */* mmHG Vent. Rate : 67 BPM Atrial Rate : 67 BPM P-R Int : 158 ms QRS Dur : 86 ms QT Int : 388 ms P-R-T Axes : 34 44 46 degrees QTcB Int : 409 ms Normal sinus rhythm Normal ECG Confirmed by CHAI ROSARIO MD ([id number]), film editor supervisor NGOC HUNTER ([id number]) on 12/18/2024 1:17:34 PM Referred By: Jani Ellington Confirmed By: CHAI ROSARIO MD 12/18/24 1317 Date _ Chai Rosario MD CC: Dr. Jani Ellington MD; Dr. Shay Askew MD ~ Signed [facility] Work Phone: Eosinophil percentageOrdered By: Jani Ellington on 12-18-2024 Eosinophils/100 WBC (Bld) 2.9 % 0-5 [facility] Erythrocyte distribution wid th ratioOrdered By: Jani Ellington on 12-18-2024 Erythrocyte distribution width (RBC) [Ratio] 11.5 % Low 11.6-14.6 [facility] Erythrocyte distribution wid th standard deviationOrdered By: Jani Ellington on 12-18-2024 Erythrocyte distribution width (RBC) [Ratio] 39.8 fl 35.1-43.9 [facility] Glomerular filtration rate ( GFR) estimation/1.73 sq m using serum, plasma, or whole bOrdered By: Jani Ellington on 12-18-2024 GFR/1.73 sq M.predicted among non-blacks MDRD (S/P/Bld) [Vol rate/Area] 101 mL/min/{1.73_m2} >60 [facility] Comment on above: mL/min/1.73m2 CKD-EP I Creatinine Equation (2020) HIVon 12-18-2024 HIV Non-Reactive Normal Nonreactive [facility] Comment on above: Result Comment: Non- Reactive Reactive Repeatedly reactive samples must be confirmed according to CDC recommended confirmatory algorithms. The subresults for either HIVAG or AHIV can be used as an aid in the selection of the confirmation algorithm for reactive samples. Send out specimens with Reactive results to [facility] for confirmation. Order the HIV antibody detection and differentiation: lc#[id number] Performed By: #### B TSPAT, L3890.6202, L501.9985, L100.0100, L500.2500, L3890.6006, L3890.6301, L3100.0300, M100.651 ####[facility] [address] [place], [address] Hematocrit Auto (Bld) [Volum e fraction]Ordered By: Jani Ellington on 12-18-2024 Hematocrit (Bld) [Volume fraction] 41.5 % 40-54 [facility] Hemoglobin A1con 12-18-2024 HbA1c (Bld) [Mass fraction] 5.9 % High <=5.6 [facility] Comment on above: Result Comment: Norm al < 5.7 % Prediabetic 5.7 - 6.4 % Diabetic >or= 6.5 % Please note range changes. Performed By: #### B TSPAT, L3890.6202, L501.9985, L100.0100, L500.2500, L3890.6006, L3890.6301, L3100.0300, M100.651 ####[facility] [address] [place], [address] Hemoglobin A1c percentageOrd ered By: Jani Ellington on 12-18-2024 HbA1c (Bld) [Mass fraction] 5.9 % High <5.7 [facility] Comment on above: Normal < 5.7 % Predi abetic 5.7 - 6.4 % Diabetic >or= 6.5 % Please note range changes. Hemoglobin measurementOrdere d By: Jani Ellington on 12-18-2024 Hemoglobin (Bld) [Mass/Vol] 14.4 g/dL 13.0-16.5 [facility] Hepatitis B Surface Antibody on 12-18-2024 HEP B Surf Ab Non-Reactive Normal [facility] Comment on above: Result Comment: <8.5 mIU/mL: Non-Reactive 8.5<= x <11.5 mIU/mL: Indeterminate >=11.5 mIU/mL: Reactive Non Reactive: Inconsistent with immunity less than <10 mIU/mL Reactive: Consistent with immunity greater than or equal to 10 mIU/mL Performed By: #### B TSPAT, L3890.6202, L501.9985, L100.0100, L500.2500, L3890.6006, L3890.6301, L3100.0300, M100.651 ####[facility] [address] [place], [address](894) Hepatitis C Antibodyon 12-18 Hepatitis C Ab Non-Reactive Normal Nonreactive [facility] Comment on above: Result Comment: Reac tive: Presumptive evidence of antibodies to HCV. Follow CDC recommendations for supplemental testing. Non-Reactive: Antibodies to HCV were not detected; does not exclude the possibility of exposure to HCV Reactive Results are presumptive evidence of antibodies to HCV. Follow CDC recommendations for supplemental testing. Order confirmation testing: HCV Quant by PCR testing - HCVPCR #[id number] Non Reactive: < 0.8 Equivocal: >/= 0.8 to < 1.0 Reactive: >/= 1.0 The CDC requires that a reactive/equivocal HCV antibody result be sent out for confirmation. HCV Quant by PCR testing. Performed By: #### B TSPAT, L3890.6202, L501.9985, L100.0100, L500.2500, L3890.6006, L3890.6301, L3100.0300, M100.651 ####[facility] [address] [place], [place], [phone] Immature granulocytes/100 WB C Auto (Bld)Ordered By: Jani Ellington on 12-18-2024 Immature granulocytes/100 WBC (Bld) 0.400 % 0.0-0.9 [facility] Comment on above: IG% - Immature Granu locytes (promyelocytes, myelocytes and metamyelocytes) > 1% indicates that a LEFT SHIFT is Present. MCV (mean corpuscular volume ) determinationOrdered By: Jani Ellington on 12-18-2024 MCV (RBC) [Entitic vol] 95.0 fL High 80-94 [facility] MRSA screenOrdered By: Suzanne Ellington on 12-18-2024 MRSA DNA HECTOR+probe Ql (Unsp spec) [facility] Magnesiumon 12-18-2024 Magnesium [Mass/Vol] 2.3 mg/dL High 1.5-2.2 [facility] Comment on above: Performed By: #### L 501.5200 #### [facility] [address] [place], [place] [address]em[place], [id number] Magnesium measurement (mass/ volume)Ordered By: Dani Frank on 12-18-2024 Magnesium (Unsp spec) [Mass/Vol] 2.3 mg/dL High 1.5-2.2 [facility] Mean corpuscular hemoglobin (MCH) determinationOrdered By: Jani Ellington on 12-18-2024 MCH (RBC) [Entitic mass] 33.0 pg High 27.0-32.0 [facility] Mean corpuscular hemoglobin concentration (MCHC) determinationOrdered By: Jani Ellington on 12-18-2024 MCHC (RBC) [Mass/Vol] 34.7 g/dL 32-36 [facility] Mean platelet volume determi nationOrdered By: Jani Ellington on 12-18-2024 Platelet mean volume (Bld) [Entitic vol] 9.2 fL 6.2-12.0 [facility] Monocyte percentageOrdered B y: Jani Ellington on 12-18-2024 Monocytes/100 WBC (Bld) 6.3 % 0-10 [facility] Neutrophil percentageOrdered By: Jani Ellington on 12-18-2024 Neutrophils/100 WBC (Bld) 66.4 % 47-70 [facility] No Panel InformationOrdered By: Jani Ellington on 12-18-2024 HIV (1&2) Antibody Non-Reactive Nonreactive [facility] Comment on above: Non-ReactiveReactive Repeatedly reactive samples must be confirmed according to CDC recommended confirmatory algorithms. The subresults for either HIVAG or AHIV can be used as an aid in the selection of the confirmation algorithm for reactive samples.Send out specimens with Reactive results to [facility] for confirmation.Order the HIV antibody detection and differentiation: #[id number] Nucleated red blood cell per centageOrdered By: Jani Ellington on 12-18-2024 Nucleated RBC/100 WBC (Bld) [Ratio] 0 % 0-5 [facility] Platelet countOrdered By: Brenden Ellington on 12-18-2024 Platelets (Bld) [#/Vol] 233 10*3/uL 150-450 [facility] Potassium measurement (mass/ volume)Ordered By: Jani Ellington on 12-18-2024 Potassium (Unsp spec) [Mass/Vol] 4.6 mmol/L 3.3-5.1 [facility] RBC Auto (Bld) [#/Vol]Ordere d By: Jani Ellington on 12-18-2024 RBC (Bld) [#/Vol] 4.37 10*6/uL Low 4.6-6.2 [facility] Serum creatinine measurement (mass/volume)Ordered By: Jani Ellington on 12-18-2024 Creatinine [Mass/Vol] 0.83 mg/dL 0.70-1.20 [facility] Serum glucose measurement (m ass/volume)Ordered By: Jani Ellington on 12-18-2024 Glucose [Mass/Vol] 105 mg/dL High 70-99 [facility] Serum hepatitis B virus surf lubna antibody detectionOrdered By: Jani Ellington on 12-18-2024 HBV surface Ab Ql (S) Non-Reactive [facility] Comment on above: <8.5 mIU/mL: Non-Dutton ctive8.5<= x <11.5 mIU/mL: Indeterminate>=11.5 mIU/mL: Reactive Non Reactive: Inconsistent with immunity less than <10 mIU/mL Reactive: Consistent with immunity greater than or equal to 10 mIU/mL Serum or plasma calcium trevon urement (mass/volume)Ordered By: Jani Ellington on 12-18-2024 Calcium [Mass/Vol] 9.2 mg/dL 7.6-11.0 [facility] Serum or plasma urea nitroge n measurement (mass/volume)Ordered By: Jani Ellington on 12-18-2024 Urea nitrogen [Mass/Vol] 20 mg/dL High 4-19 [facility] Sodium levelOrdered By: Sunil Ellington on 12-18-2024 Sodium [Moles/Vol] 140 mmol/L 133-145 [facility] Type AND Screen - PAT ONLYon 12-18-2024 Ab SCREEN GEL Negative Normal [facility] Comment on above: Order Comment: Reaso n for Laboratory Test PRE [id number] DISCECTOMY Performed By: #### B TSPAT, L3890.6202, L501.9985, L100.0100, L500.2500, L3890.6006, L3890.6301, L3100.0300, M100.651 ####[facility] [address] [place], [place], [address] White blood cell (WBC) count Ordered By: Jani Ellington on 12-18-2024 WBC (Bld) [#/Vol] 5.2 10*3/uL 4.4-11.0 [facility] Orthopedic Visit Reporton Orthopedic Visit Report [facility] [address] [place] [address] OFFICE VISIT Date of Service: 12/06/24 MR#: [id number] Acct: [id number] Name: BENJAMIN SINGLETON Rep #: [id number] : 1965 Provider: Dr. Jani Ellington MD Age/Sex: 59/M Location: [facility] Status: Signed Intake Vital Signs 11/16/24 13:23 [...] sx appea (more content not included)... Normal [facility] L/S Spine Bending Flex/[place] 11-16-2024 L/S Spine Bending Flex/Ext [facility] [address] [place] [id number] L/S Spine Bending Flex/Ext MR#: [id number] Acct: [id number] Name: BENJAMIN SINGLETON Rep #: [id number] : 1965 M 59 From: Josiah trejo MD PCP: Dr. Shay Askew MD Status: DEP AMB Study: L/S Spine Bending Flex/Ext Date of Exam: 11/16 Exam# [id number] Ordering Dr: Brenda Patel PROCEDURE: L/S SPINE [...] views. Moderate lumbar degenerative changes. Reading Location: [place] [address] CC: JASIEL Arreguin; Dr. Shay Askew MD Analytics Associate: Signed Normal [facility] Orthopedic Visit Reporton Orthopedic Visit Report [facility] [address] [place] [address] OFFICE VISIT Date of Service: 11/16/24 MR#: [id number] Acct: [id number] Name: BENJAMIN SINGLETON Rep #: [id number] : 1965 Provider: JASIEL Arreguin Age/Sex: 59/M Location: 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 Recently prescribed Langley and gabapentin 10 days ago with significant relief. Says that he has been taking the Langley 3 times a day. His pain is [...] mild right paraspinal tenderness. Figure 4 and Gaenslen's negative. Coding Level of Care Code Off [...] and l (more content not included)... Normal [facility] Magnetic resonance imaging r eportOrdered By: Grover Enciso on 11-14-2024 Study report [facility] [address] [place] [address] Spine Lumbar (Routine) MR#: [id number] Acct: [id number] Name: BENJAMIN SINGLETON Rep #: [id number] : 1965 M 59 From: Cristy Enciso MD PCP: Dr. Shay Askew MD Status: REG C LI Study:Spine Lumbar (Routine) Date of Exam: 11/14/24 Exam# [id number] Ordering Dr: Shay Askew MD PROCEDURE: SPINE [...] regions. Facet arthropathy. Mild ligamentum flavum hypertrophy. Oldqlkde-hl-hxrghu focal spinal canal stenosis with near-complete effacement of CSF, spinal canal dimensions roughly 15 x 9 mm. Mild/moderate bilateral foraminal stenosis. L5-S1: Diffuse disc bulging, asymmetric to the LEFT particularly within the LEFTforaminal and lateral regions. Facet arthropathy and mild ligamentum flavum hypertrophy. Ppbgrpgg-fc-enllbf LEFT andmoderate RIGHT foraminal stenosis. Mild focal spinal canal stenosis. Other: Cervical spondylosis on the scheduling assistant not well evaluated. Mucous retention cysts are polyp in the RIGHT maxillary sinus.. Presumed LEFT renal cysts up to 3.4 cm incompletely evaluated. Diverticulosis. MRI/Spine Lumbar (Routine) IMPRESSION: 1. Multilevel lumbar spondylosis as detailed, notably including a 15 mm L3-L4 disc sequestration extending inferiorly into the RIGHT subarticular region with effacement of the RIGHT lateral recess. Variable foraminal stenoses up to donaiohb-ms-nodspl on the LEFT at L5-S1. Variable spinal canal stenoses up to moderate at L3-L4. 2. Additional description as above. Reading Location: [facility] CC: Dr. Shay Askew MD ~ Analytics Associate: Signed [facility] Spine Lumbar (Routine)on Spine Lumbar (Routine) [facility] [address] [place], [place] [address] Spine Lumbar (Routine) MR#: [id number] Acct: [id number] Name: BENJAMIN SINGLETON Rep #: [id number] : 1965 M 59 From: Grover Enciso MD PCP: Dr. Shay Askew MD Status: REG CLI Study: Spine Lumbar (Routine) Date of Exam: 11/14/24 Exam# [id number] Ordering Dr: Shay Askew MD PROCEDURE: SPINE [...] regions. Facet arthropathy. Mild ligamentum flavum hypertrophy. Eceqobrx-lx-etygoz focal spinal canal stenosis with near-complete effacement of CSF, spinal canal dimensions roughly 15 x 9 mm. Mild/moderate bilateral foraminal stenosis. L5-S1: Diffuse disc bulging, asymmetric to the LEFT particularly within the LEFT foraminal and lateral regions. Facet arthropathy and mild ligamentum flavum hypertrophy. Hltjoiaj-pj-ziqhnc LEFT and moderate RIGHT foraminal stenosis. Mild focal spinal canal stenosis. Other: Cervical spondylosis on the scheduling assistant not well evaluated. Mucous retention cysts are polyp in the RIGHT maxillary sinus.. Presumed LEFT renal cysts up to 3.4 cm incompletely evaluated. Diverticulosis. MRI/Spine Lumbar (Routine) IMPRESSION: 1. Multilevel lumbar spondylosis as detailed, notably including a 15 mm L3-L4 disc sequestration extending inferiorly into the RIGHT subarticular region with effacement of the RIGHT lateral recess. Variable foraminal stenoses up to hexolvzr-iu-yvxhlf on the LEFT at L5-S1. Variable spinal canal stenoses up to moderate at L3-L4. 2. Additional description as above. Reading Location: [id number] CC: Dr. Shay Askew MD Analytics Associate: Signed Normal [facility] Emergency Department Summary on 11-05-2024 Emergency Department Summary [facility] Medical Records Department [address] [place] [address] Emergency Department Summary 11/05/24 MR#: [id number] Acct: [id number] Name: BENJAMIN SINGLETON Rep #: [id number] : 1965 59 From: Gagan Fong DO PCP: Dr. Shay Askew MD Status:[facility] ER Location: ED Patient was seen and examined with physician tmd teacher assistant Nallely All components of the history and [...] with above Physical exam: Agree with above [facility] Patient is a 59-year-old male who presented [...] therapy approach such as rotating Tylenol ibuprofen yumlqk-ebv-zuivr when he does this he can take [...] saddle anesthesia or bladder or bowel incontinence. [facility] Medical History (Updated 11/05/24 @ 19:59 by [...] mg disintegra (more content not included)... Normal [facility] PT D/C Summary (1)on 025 PT D/C Summary (1) [facility] Physical Therapy Health[address] [place] [address] / REHABILITATION SERVICES DISCHARGE SUMMARY MR#: [id number] Acct: [id number] Name: BENJAMIN SINGLETON Rep #: [id number] : 1965 59 From: Kush Bethea DPT, OCS, CSCS Referring Dr.: Dr. Shay Askew MD Status: REG R Insurance: [facility] SELF PAY INSURANCE Discharge Summary [...] please feel free to call me at [phone]. Thank you for the referral of this patient. Sincerely, Kush Bethea, DPT, OCS, CSCS Balance/Gait/Functional tests Balance/Special Test Scores Oswestry Low Back Score: 23 Improvement % Improvement: 50 11/03/24 1022 CC: Dr. Shay Askew MD; Shay Askew EBG Signed Normal [facility] Anion gap in Serum or Plasma Ordered By: Shay Askew on 11-01-2024 Anion gap [Moles/Vol] 10 mmol/L 5-15 [facility] BUN/creatinine ratioOrdered By: Shay Askew on 11-01-2024 Urea nitrogen/Creatinine [Mass ratio] 27.2 mg/mg High 10-20 [facility] Bilirubin, totalOrdered By: Shay Askew on 11-01-2024 Bilirubin [Mass/Vol] 0.58 mg/dL 0.00-1.30 [facility] Calculated very low density lipoprotein (VLDL) cholesterol measurementOrdered By: Shay Askew on 11-01-2024 Calculated very low density lipoprotein (VLDL) cholesterol measurement 24 mg/dL 5-40 [facility] Carbon dioxide, total [Moles /volume] in Central venous bloodOrdered By: Shay Askew on 11-01-2024 CO2 [Moles/Vol] 24.8 mmol/L 21.0-32.0 [facility] Chloride assayOrdered By: Jasiel Askew on 11-01-2024 Chloride [Moles/Vol] 103 mmol/L 98-108 [facility] Comprehensive Metabolic Prof ilon 11-01-2024 Albumin [Mass/Vol] 4.4 g/dL Normal 3.5-5.0 [facility] Comment on above: Order Comment: Inter face Comments:HyperlipidimiaOrder Date: 06/28/24Order Info: [id number] - CMPOrder Info: [id number] - LIPIDComments: HyperlipidimiaHyperlipidimia Performed By: #### L 500.4050, L500.4100 ####[facility] [address] [facility] [place], [place], [id number] Albumin/Globulin [Mass ratio] 1.8 {ratio} Normal 0.9-2.4 [facility] Comment on above: Order Comment: Inter face Comments:HyperlipidimiaOrder Date: 06/28/24Order Info: 0786-1 - CMPOrder Info: [id number] - LIPIDComments: HyperlipidimiaHyperlipidimia Performed By: #### L 500.4050, L500.4100 ####[facility] [address] [facility] [address] [place], [place], [address] ALK PHOS 58 U/L Normal 40-129 [facility] Comment on above: Order Comment: Inter face Comments:HyperlipidimiaOrder Date: 06/28/24Order Info: 0786-1 - CMPOrder Info: [id number] - LIPIDComments: HyperlipidimiaHyperlipidimia Performed By: #### L 500.4050, L500.4100 ####[facility] [address] [place], [place], [address] ALT [Catalytic activity/Vol] 29 U/L Normal <=46 [facility] Comment on above: Order Comment: Inter face Comments:HyperlipidimiaOrder Date: 06/28/24Order Info: 785- - CMPOrder Info: [id number] - LIPIDComments: HyperlipidimiaHyperlipidimia Performed By: #### L 500.4050, L500.4100 ####[facility] [address] [place], [place], [address] AST [Catalytic activity/Vol] 18 U/L Normal <=37 [facility] Comment on above: Order Comment: Inter face Comments:HyperlipidimiaOrder Date: 06/28/24Order Info: [id number] - CMPOrder Info: [id number] - LIPIDComments: HyperlipidimiaHyperlipidimia Performed By: #### L 500.4050, L500.4100 ####[facility] [address] [place], [address] Bilirubin [Mass/Vol] 0.58 mg/dL Normal 0.00-1.30 [facility] Comment on above: Order Comment: Inter face Comments:HyperlipidimiaOrder Date: 06/28/24Order Info: 785-05 - CMPOrder Info: [id number] - LIPIDComments: HyperlipidimiaHyperlipidimia Performed By: #### L 500.4050, L500.4100 ####[facility] [address] [place], [address] BUN/CRE 27.2 RATIO High 10-20 [facility] Comment on above: Order Comment: Inter face Comments:HyperlipidimiaOrder Date: 06/28/24Order Info: [id number] - CMPOrder Info: [id number] - LIPIDComments: HyperlipidimiaHyperlipidimia Performed By: #### L 500.4050, L500.4100 ####[facility] [address] [place], [address] Calcium [Mass/Vol] 9.3 mg/dL Normal 7.6-11.0 [facility] Comment on above: Order Comment: Inter face Comments:HyperlipidimiaOrder Date: 06/28/24Order Info: 0786-1 - CMPOrder Info: [id number] - LIPIDComments: HyperlipidimiaHyperlipidimia Performed By: #### L 500.4050, L500.4100 ####[facility] [address] [place], [address] Chloride [Moles/Vol] 103 mmol/L Normal 98-108 [facility] Comment on above: Order Comment: Inter face Comments:HyperlipidimiaOrder Date: 06/28/24Order Info: 0786- - CMPOrder Info: [id number] - LIPIDComments: HyperlipidimiaHyperlipidimia Performed By: #### L 500.4050, L500.4100 ####[facility] [address] [place], [address] CO2 [Moles/Vol] 24.8 mmol/L Normal 21.0-32.0 [facility] Comment on above: Order Comment: Inter face Comments:HyperlipidimiaOrder Date: 06/28/24Order Info: 0786 - CMPOrder Info: [id number] - LIPIDComments: HyperlipidimiaHyperlipidimia Performed By: #### L 500.4050, L500.4100 ####[facility] [address] [place], [address] Creatinine [Mass/Vol] 0.83 mg/dL Normal 0.70-1.20 [facility] Comment on above: Order Comment: Inter face Comments:HyperlipidimiaOrder Date: 06/28/24Order Info: 0786- - CMPOrder Info: [id number] - LIPIDComments: HyperlipidimiaHyperlipidimia Performed By: #### L 500.4050, L500.4100 ####[facility] [address] [place], [address] GAP 10 Normal 5-15 [facility] Comment on above: Order Comment: Inter face Comments:HyperlipidimiaOrder Date: 06/28/24Order Info: 07-1 - CMPOrder Info: [id number] - LIPIDComments: HyperlipidimiaHyperlipidimia Performed By: #### L 500.4050, L500.4100 ####[facility] [address] [place], [address] GFR/1.73 sq M.predicted among non-blacks MDRD (S/P/Bld) [Vol rate/Area] 101 mL/min/{1.73_m2} Normal >60 [facility] Comment on above: Order Comment: Inter face Comments:HyperlipidimiaOrder Date: 06/28/24Order Info: 785- - CMPOrder Info: [id number] - LIPIDComments: HyperlipidimiaHyperlipidimia Result Comment: mL/m in/1.73m2 CKD-EPI Creatinine Equation (2020) Performed By: #### L 500.4050, L500.4100 ####[facility] [address] [place], [address] Globulin (S) [Mass/Vol] 2.4 g/dL Normal 2.2-4.2 [facility] Comment on above: Order Comment: Inter face Comments:HyperlipidimiaOrder Date: 06/28/24Order Info: 07- - CMPOrder Info: [id number] - LIPIDComments: HyperlipidimiaHyperlipidimia Performed By: #### L 500.4050, L500.4100 ####[facility] [address] [place], [address] Glucose [Mass/Vol] 104 mg/dL High 70-99 [facility] Comment on above: Order Comment: Inter face Comments:HyperlipidimiaOrder Date: 06/28/24Order Info: 07- - CMPOrder Info: [id number] - LIPIDComments: HyperlipidimiaHyperlipidimia Performed By: #### L 500.4050, L500.4100 ####[facility] [address] [place], [address] Potassium [Moles/Vol] 4.6 mmol/L Normal 3.3-5.1 [facility] Comment on above: Order Comment: Inter face Comments:HyperlipidimiaOrder Date: 06/28/24Order Info: 0786- - CMPOrder Info: [id number] - LIPIDComments: HyperlipidimiaHyperlipidimia Performed By: #### L 500.4050, L500.4100 ####[facility] [address] [place], [address] Sodium [Moles/Vol] 138 mmol/L Normal 133-145 [facility] Comment on above: Order Comment: Inter face Comments:HyperlipidimiaOrder Date: 06/28/24Order Info: 0786- - CMPOrder Info: [id number] - LIPIDComments: HyperlipidimiaHyperlipidimia Performed By: #### L 500.4050, L500.4100 ####[facility] [address] [place], [address] T PROT 6.8 g/dL Normal 5.9-8.4 [facility] Comment on above: Order Comment: Inter face Comments:HyperlipidimiaOrder Date: 06/28/24Order Info: 0786- - CMPOrder Info: [id number] - LIPIDComments: HyperlipidimiaHyperlipidimia Performed By: #### L 500.4050, L500.4100 ####[facility] [address] [place], [address] Urea nitrogen [Mass/Vol] 23 mg/dL High 4-19 [facility] Comment on above: Order Comment: Inter face Comments:HyperlipidimiaOrder Date: 06/28/24Order Info: 0786- - CMPOrder Info: [id number] - LIPIDComments: HyperlipidimiaHyperlipidimia Performed By: #### L 500.4050, L500.4100 ####[facility] [address] [place], [place], [id number] Glomerular filtration rate ( GFR) estimation/1.73 sq m using serum, plasma, or whole bOrdered By: Shay Askew on 11-01-2024 GFR/1.73 sq M.predicted among non-blacks MDRD (S/P/Bld) [Vol rate/Area] 101 mL/min/{1.73_m2} >60 [facility] Comment on above: mL/min/1.73m2 CKD-EP I Creatinine Equation (2020) LDL calc ser/plasOrdered By: Shay Askew on 11-01-2024 Cholesterol in LDL [Mass/Vol] 130 mg/dL [facility] Comment on above: Smofvkdyke=383-610 m g/dL & Higher Zaux=827 mg/dL or greater Laboratory - Chemistry and C hemistry - challengeOrdered By: Shay Askew on 11-01-2024 AST [Catalytic activity/Vol] 18 U/L <38 [facility] Lipid Profileon 11-01-2024 CHOL:HDL 3.84 Normal [facility] Comment on above: Order Comment: Inter face Comments:HyperlipidimiaOrder Date: 06/28/24Order Info: 0786-1 - CMPOrder Info: [id number] - LIPIDComments: Hyperlipidimia Performed By: #### L 500.4050, L500.4100 ####[facility] [address] [place], [place], [id number] Cholesterol [Mass/Vol] 208 mg/dL High <=200 [facility] Comment on above: Order Comment: Inter face Comments:HyperlipidimiaOrder Date: 06/28/24Order Info: 0786-1 - CMPOrder Info: [id number] - LIPIDComments: Hyperlipidimia Result Comment: Chol esterol level, Desirable <200 mg/dL Borderline high cholesterol 200-239 mg/dL High cholesterol >=240 mg/dL Recommendations of the NCEP Adult Treatment Panel for the following risk-cutoff thresholds for the [place] population. Performed By: #### L 500.4050, L500.4100 ####[facility] [address] [place], [address] Cholesterol in HDL [Mass/Vol] 54 mg/dL Normal [facility] Comment on above: Order Comment: Inter face Comments:HyperlipidimiaOrder Date: 06/28/24Order Info: 0786-1 - CMPOrder Info: [id number] - LIPIDComments: Hyperlipidimia Result Comment: [place] Cholesterol Education Program (NCEP) guidelines: <40 mg/dL: Low HDL-cholesterol (major risk factor for CHD) >= 60 mg/dL: High HDL-cholesterol (negative risk factor for CHD) HDL-cholesterol is affected by a number of factors, e.g. smoking, exercise, hormones, sex and age. Performed By: #### L 500.4050, L500.4100 ####[facility] [address] [place], [address] Cholesterol in LDL [Mass/Vol] 130 mg/dL Normal [facility] Comment on above: Order Comment: Inter face Comments:HyperlipidimiaOrder Date: 06/28/24Order Info: 07 - CMPOrder Info: [id number] - LIPIDComments: Hyperlipidimia Result Comment: Bord zjrcbb=958-620 mg/dL Higher Fybl=671 mg/dL or greater Performed By: #### L 500.4050, L500.4100 ####[facility] [address] [place], [address] Cholesterol in VLDL [Mass/Vol] 24 mg/dL Normal 5-40 [facility] Comment on above: Order Comment: Inter face Comments:HyperlipidimiaOrder Date: 06/28/24Order Info: 0786 - CMPOrder Info: [id number] - LIPIDComments: Hyperlipidimia Performed By: #### L 500.4050, L500.4100 ####[facility] [address] [place], [address] Triglyceride [Mass/Vol] 120 mg/dL Normal [facility] Comment on above: Order Comment: Inter face Comments:HyperlipidimiaOrder Date: 06/28/24Order Info: 0786-1 - CMPOrder Info: [id number] - LIPIDComments: Hyperlipidimia Result Comment: The drugs N-Acetylcysteine and Metamizole may falsely depress this assay. Normal range: <150 mg/dL Borderline High: 150-199 mg/dL High: 200-499 mg/dL Very High: >500 mg/dL Performed By: #### L 500.4050, L500.4100 ####[facility] [address] [place], [address] Potassium measurement (mass/ volume)Ordered By: Shay Askew on 11-01-2024 Potassium (Unsp spec) [Mass/Vol] 4.6 mmol/L 3.3-5.1 [facility] Screening total cholesterol/ high density lipoprotein (HDL) cholesterol ratioOrdered By: Shay Askew on 11-01-2024 Cholesterol.total/Cho lesterol in HDL [Mass ratio] 3.84 {ratio} [facility] Serum creatinine measurement (mass/volume)Ordered By: Shay Askew on 11-01-2024 Creatinine [Mass/Vol] 0.83 mg/dL 0.70-1.20 [facility] Serum globulin measurementOr dered By: Shay Askew on 11-01-2024 Globulin (S) [Mass/Vol] 2.4 g/dL 2.2-4.2 [facility] Serum glucose measurement (m ass/volume)Ordered By: Shay Askew on 11-01-2024 Glucose [Mass/Vol] 104 mg/dL High 70-99 [facility] Serum or plasma alanine johnson otransferase (ALT) measurementOrdered By: Shay Askew on 11-01-2024 ALT [Catalytic activity/Vol] 29 U/L <47 [facility] Serum or plasma albumin trevon urement (mass/volume)Ordered By: Shay Askew on 11-01-2024 Albumin [Mass/Vol] 4.4 g/dL 3.5-5.0 [facility] Serum or plasma albumin/glob ulin mass ratioOrdered By: Shay Askew on 11-01-2024 Albumin/Globulin [Mass ratio] 1.8 {ratio} 0.9-2.4 [facility] Serum or plasma alkaline edith sphatase measurementOrdered By: Shay Askew on 11-01-2024 ALP [Catalytic activity/Vol] 58 U/L 40-129 [facility] Serum or plasma calcium trevon urement (mass/volume)Ordered By: Shay Askew on 11-01-2024 Calcium [Mass/Vol] 9.3 mg/dL 7.6-11.0 [facility] Serum or plasma cholesterol in HDL measurement (mass/volume)Ordered By: Shay Askew on 11-01-2024 Cholesterol in HDL [Mass/Vol] 54 mg/dL >40 [facility] Comment on above: National Cholesterol Education Program (NCEP) guidelines:<40 mg/dL: Low HDL-cholesterol (major risk factor for CHD)>= 60 mg/dL: High HDL-cholesterol (negative risk factor for CHD)HDL-cholesterol is affected by a number of factors, e.g. smoking, exercise, hormones, sex and age. Serum or plasma cholesterol measurement (mass/volume)Ordered By: Shay Askew on 11-01-2024 Cholesterol [Mass/Vol] 208 mg/dL High <201 [facility] Comment on above: Cholesterol level, D esirable <200 mg/dLBorderline high cholesterol 200-239 mg/dLHigh cholesterol >=240 mg/dLRecommendations of the NCEP Adult Treatment Panel for the following risk-cutoff thresholds for the [place] population. Serum or plasma urea nitroge n measurement (mass/volume)Ordered By: Shay Askew on 11-01-2024 Urea nitrogen [Mass/Vol] 23 mg/dL High 4-19 [facility] Sodium levelOrdered By: Shay Askew on 11-01-2024 Sodium [Moles/Vol] 138 mmol/L 133-145 [facility] Total proteinOrdered By: Lori Askew on 11-01-2024 Protein [Mass/Vol] 6.8 g/dL 5.9-8.4 [facility] Triglycerides measurementOrd ered By: Shay Askew on 11-01-2024 Triglyceride [Mass/Vol] 120 mg/dL <199 [facility] Comment on above: The drugs N-Acetylcy steine and Metamizole may falsely depress this assay. Normal range: <150 mg/dLBorderline High: 150-199 mg/dLHigh: 200-499 mg/dLVery High: >500 mg/dL Inital Evaluation (1) - PTon 10-10-2024 Inital Evaluation (1) - PT [facility] [address] [place] [address] / REHABILITATION SERVICES INITIAL EVALUATION MR#: [id number] Acct: [id number] Name: BENJAMIN SINGLETON Rep #: [id number] : 1965 59 From: Kush Bethea DPT, OCS, CSCS Referring Dr.: Dr. Shya Askew MD Status: REG RCR Insurance: [facility] SELF PAY INSURANCE Patient's Visit [...] if needed. Subjective Subjective: June sat in [employer] long time 3 games and back started hurting, was not painful prior. Maybe previous episodes. Better in September with ibuprofen but helped neighbor vendome 1699 sitting in tractor and got worse again. 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 sitting is the worst. Got much worse last week. Has seen R iverson and lateral leg/hip Jamilah and is now on ibuprofen 3x/day. Much [...] rotations, cat cow, PPU. 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 Pain R LB and leg: Pain Intensity [...] and approve (more content not included)... Normal [facility] Hips B/L min 2 views w/ Pelv ros 09-29-2024 Hips B/L min 2 views w/ Pelvis [facility] Services [address] [place], [place] [id number] [phone] Hips B/L min 2 views w/ Pelvis MR#: [id number] Acct: [id number] Name: BENJAMIN SINGLETON Rep #: [id number] : 1965 M 59 From: Grover Chauhan MD PCP: Dr. Shay Askew MD Status: REG CLI Study: Hips B/L min 2 views w/ Pelvis Date of Exam: 0 09/29/24 Exam# [id number] Ordering Dr: Shay Askew MD EXAM: XR [...] IMPRESSION: Postoperative changes as above. Reading Location: [facility] CC: Dr. Shay Askew MD Analytics Associate: Signed Normal [facility] L/S Spine Min 4 Viewson 09-08 L/S Spine Min 4 Views [facility] [address] [place] [address] L/S Spine Min 4 Views MR#: [id number] Acct: [id number] Name: BENJAMIN SINGLETON Rep #: [id number] : 1965 M 59 From: Grover Chauhan MD PCP: Dr. Shay Askew MD Status: REG CLI Study: L/S Spine Min 4 Views Date of Exam: 09/29/24 Exam# [id number] Ordering Dr: Shay Askew MD EXAM: XR [...] MRI is recommended. Reading Location: [facility] CC: Dr. Shay Askew MD Analytics Associate: Signed Normal [facility] Albumin to globulin ratioOrd ered By: Shay Askew on 06-23-2024 Albumin/Globulin [Mass ratio] 1.2 {ratio} 0.9-2.4 [facility] Bilirubin, totalOrdered By: Shay Askew on 06-23-2024 Bilirubin [Mass/Vol] 0.70 mg/dL 0.20-1.00 [facility] Comment on above: For patients on eltr ombopag therapy, use of Dimension [place] TBIL is not recommended. Blood urea nitrogen (BUN)/cr eatinine ratioOrdered By: Shay Askew on 06-23-2024 Urea nitrogen/Creatinine [Mass ratio] 19.3 mg/mg 10-20 [facility] Carbon dioxide measurementOr dered By: Shay Askew on 06-23-2024 CO2 [Moles/Vol] 28.0 mmol/L 21.0-32.0 [facility] Chloride measurementOrdered By: Shay Askew on 06-23-2024 Chloride [Moles/Vol] 104 mmol/L 98-107 [facility] Comprehensive Metabolic Prof ilon 06-23-2024 Albumin [Mass/Vol] 3.9 g/dL Normal 3.2-5.0 [facility] Comment on above: Performed By: #### L 500.4050, L500.4100 #### [facility] [address] [place], [address] Albumin/Globulin [Mass ratio] 1.2 {ratio} Normal 0.9-2.4 [facility] Comment on above: Performed By: #### L 500.4050, L500.4100 #### [facility] [address] [place], [address] ALK P 63 U/L Normal 45-117 [facility] Comment on above: Performed By: #### L 500.4050, L500.4100 #### [facility] [address] [place], [address] ALT [Catalytic activity/Vol] 54 U/L Normal 16-61 [facility] Comment on above: Performed By: #### L 500.4050, L500.4100 #### [facility] [address] [place], [address] AST [Catalytic activity/Vol] 24 U/L Normal 15-37 [facility] Comment on above: Performed By: #### L 500.4050, L500.4100 #### [facility] [address] [place], [address] Bilirubin [Mass/Vol] 0.70 mg/dL Normal 0.20-1.00 [facility] Comment on above: Result Comment: For patients on eltrombopag therapy, use of Dimension [place] TBIL is not recommended. Performed By: #### L 500.4050, L500.4100 #### [facility] [address] [place], [address] BUN/CRE 19.3 RATIO Normal 10-20 [facility] Comment on above: Performed By: #### L 500.4050, L500.4100 #### [facility] [address] [place], [address] CA,Total 9.4 mg/dL Normal 8.5-10.1 [facility] Comment on above: Performed By: #### L 500.4050, L500.4100 #### [facility] [address] [place], [address] Chloride [Moles/Vol] 104 mmol/L Normal 98-107 [facility] Comment on above: Performed By: #### L 500.4050, L500.4100 #### [facility] [address] [place], [address] CO2 [Moles/Vol] 28.0 mmol/L Normal 21.0-32.0 [facility] Comment on above: Performed By: #### L 500.4050, L500.4100 #### [facility] [address] [place], [address] Creatinine [Mass/Vol] 0.98 mg/dL Normal 0.70-1.30 [facility] Comment on above: Result Comment: The validity of the calculated GFR GFRAA in patients over 70 years has not been determined. Clinical correlation is essential. Performed By: #### L 500.4050, L500.4100 #### [facility] [address] [place], [address] EST GFR - AA 101 mL/min Normal >60 [facility] Comment on above: Result Comment: Afri can [place] GFR Calc Performed By: #### L 500.4050, L500.4100 #### [facility] [address] [place], [address] GAP 5 Normal 5-15 [facility] Comment on above: Performed By: #### L 500.4050, L500.4100 #### [facility] [address] [place], [address] GFR/1.73 sq M.predicted among non-blacks MDRD (S/P/Bld) [Vol rate/Area] 83 mL/min/{1.73_m2} Normal >60 [facility] Comment on above: Result Comment: Non- GFR Calc Performed By: #### L 500.4050, L500.4100 #### [facility] [address] [place], [address] Globulin (S) [Mass/Vol] 3.2 g/dL Normal 2.2-4.2 [facility] Comment on above: Performed By: #### L 500.4050, L500.4100 #### [facility] [address] [place], [address] Glucose [Mass/Vol] 99 mg/dL Normal 74-106 [facility] Comment on above: Performed By: #### L 500.4050, L500.4100 #### [facility] [address] [place], [address] Potassium [Moles/Vol] 4.4 mmol/L Normal 3.5-5.1 [facility] Comment on above: Performed By: #### L 500.4050, L500.4100 #### [facility] [address] [place], [address] Sodium [Moles/Vol] 137 mmol/L Normal 136-145 [facility] Comment on above: Performed By: #### L 500.4050, L500.4100 #### [facility] [address] [place], [address] T PROT 7.1 g/dL Normal 6.4-8.2 [facility] Comment on above: Performed By: #### L 500.4050, L500.4100 #### [facility] [address] [place], [place], [address] Urea nitrogen [Mass/Vol] 19 mg/dL High 7-18 [facility] Comment on above: Performed By: #### L 500.4050, L500.4100 #### [facility] [address] [place], [address] Glomerular filtration rate ( GFR) estimationOrdered By: Shay Askew on 06-23-2024 GFR/1.73 sq M.predicted among non-blacks MDRD (S/P/Bld) [Vol rate/Area] 83 mL/min/{1.73_m2} >60 [facility] Comment on above: Non- GFR Calc Glucose measurementOrdered B y: Shay Askew on 06-23-2024 Glucose [Mass/Vol] 99 mg/dL 74-106 [facility] High density lipoprotein (HD L) measurementOrdered By: Shay Askew on 06-23-2024 Cholesterol in HDL [Mass/Vol] 68 mg/dL >40 [facility] Comment on above: The drugs N-Acetylcy steine and Metamizole may falsely depress this assay. Reference Range HDL <40 mg/dL Low HDL Cholesterol HDL >or= 60 mg/dL High HDL Cholesterol Laboratory - Chemistry and C hemistry - challengeOrdered By: Shay Askew on 06-23-2024 AST [Catalytic activity/Vol] 24 U/L 15-37 [facility] Lipid Profileon 06-23-2024 Cholesterol [Mass/Vol] 254 mg/dL High 200 [facility] Comment on above: Result Comment: <200 mg/dL Desirable 200-240 mg/dL Borderline >240 mg/dL High Risk Performed By: #### L 500.4050, L500.4100 #### [facility] [address] [place], [address] Cholesterol in HDL [Mass/Vol] 68 mg/dL Normal [facility] Comment on above: Result Comment: The drugs N-Acetylcysteine and Metamizole may falsely depress this assay. Reference Range HDL <40 mg/dL Low HDL Cholesterol HDL >or= 60 mg/dL High HDL Cholesterol Performed By: #### L 500.4050, L500.4100 #### [facility] [address] [place], [address] Cholesterol in LDL [Mass/Vol] 163 mg/dL High 0-130 [facility] Comment on above: Performed By: #### L 500.4050, L500.4100 #### [facility] [address] [place], [address] Cholesterol in VLDL [Mass/Vol] 23 mg/dL Normal 5-40 [facility] Comment on above: Performed By: #### L 500.4050, L500.4100 #### [facility] [address] [place], [address] Triglyceride [Mass/Vol] 115 mg/dL Normal [facility] Comment on above: Result Comment: The drugs N-Acetylcysteine and Metamizole may falsely depress this assay. Serum Triglycerides Reference Interval Normal <150 mg/dL Borderline high 150 - 199 mg/dL High 200 - 499 mg/dL Very High > or = 500 mg/dL Performed By: #### L 500.4050, L500.4100 #### [facility] [address] [place], [address] Low density lipoprotein (LDL ) cholesterol measurementOrdered By: Shay Askew on 06-23-2024 Cholesterol in LDL [Mass/Vol] 163 mg/dL High 0-130 [facility] Potassium measurementOrdered By: Shay Askew on 06-23-2024 Potassium [Moles/Vol] 4.4 mmol/L 3.5-5.1 [facility] Serum anion gap measurementO rdered By: Shay Askew on 06-23-2024 Anion gap [Moles/Vol] 5 mmol/L 5-15 [facility] Serum globulin measurementOr dered By: Shay Askew on 06-23-2024 Globulin (S) [Mass/Vol] 3.2 g/dL 2.2-4.2 [facility] Serum or plasma alanine johnson otransferase (ALT) measurementOrdered By: Shay Askew on 06-23-2024 ALT [Catalytic activity/Vol] 54 U/L 16-61 [facility] Serum or plasma albumin trevon urement (mass/volume)Ordered By: Shay Askew on 06-23-2024 Albumin [Mass/Vol] 3.9 g/dL 3.2-5.0 [facility] Serum or plasma alkaline edith sphatase measurementOrdered By: Shay Askew on 06-23-2024 ALP [Catalytic activity/Vol] 63 U/L 45-117 [facility] Serum or plasma calcium trevon urement (mass/volume)Ordered By: Shay Askew on 06-23-2024 Calcium [Mass/Vol] 9.4 mg/dL 8.5-10.1 [facility] Serum or plasma cholesterol measurement (mass/volume)Ordered By: Shay Askew on 06-23-2024 Cholesterol [Mass/Vol] 254 mg/dL High <200 [facility] Comment on above: <200 mg/dL Desirable 200-240 mg/dL Borderline >240 mg/dL High Risk Serum or plasma creatinine m easurement (mass/volume)Ordered By: Shay Askew on 06-23-2024 Creatinine [Mass/Vol] 0.98 mg/dL 0.70-1.30 [facility] Comment on above: The validity of the calculated GFR & GFRAA in patients over 70 years has not been determined. Clinical correlation is essential. Serum or plasma urea nitroge n measurement (mass/volume)Ordered By: Shay Askew on 06-23-2024 Urea nitrogen [Mass/Vol] 19 mg/dL High 7-18 [facility] Sodium levelOrdered By: Shay Askew on 06-23-2024 Sodium [Moles/Vol] 137 mmol/L 136-145 [facility] Total proteinOrdered By: Lori Askew on 06-23-2024 Protein [Mass/Vol] 7.1 g/dL 6.4-8.2 [facility] Triglycerides measurementOrd ered By: Shay Askew on 06-23-2024 Triglyceride [Mass/Vol] 115 mg/dL <199 [facility] Comment on above: The drugs N-Acetylcy steine and Metamizole may falsely depress this assay.Serum Triglycerides Reference Interval Normal <150 mg/dL Borderline high 150 - 199 mg/dL High 200 - 499 mg/dL Very High > or = 500 mg/dL Very low density lipoprotein (VLDL) cholesterol measurementOrdered By: Shay Askew on 06-23-2024 Very low density lipoprotein (VLDL) cholesterol measurement 23 mg/dL 5-40 [facility] Comprehensive Metabolic Prof ilon 01-04-2024 Albumin [Mass/Vol] 3.7 g/dL Normal 3.2-5.0 [facility] Comment on above: Performed By: #### L 500.4050, L501.9910, L500.4100 #### [facility] [address] [place], [address] Albumin/Globulin [Mass ratio] 1.2 {ratio} Normal 0.9-2.4 [facility] Comment on above: Performed By: #### L 500.4050, L501.9910, L500.4100 #### [facility] [address] [place], [address] ALK P 63 U/L Normal 45-117 [facility] Comment on above: Performed By: #### L 500.4050, L501.9910, L500.4100 #### [facility] [address] [place], [address] ALT [Catalytic activity/Vol] 32 U/L Normal 16-61 [facility] Comment on above: Performed By: #### L 500.4050, L501.9910, L500.4100 #### [facility] [address] [place], [address] AST [Catalytic activity/Vol] 16 U/L Normal 15-37 [facility] Comment on above: Performed By: #### L 500.4050, L501.9910, L500.4100 #### [facility] [address] [place], [address] Bilirubin [Mass/Vol] 0.70 mg/dL Normal 0.20-1.00 [facility] Comment on above: Result Comment: For patients on eltrombopag therapy, use of Dimension [place] TBIL is not recommended. Performed By: #### L 500.4050, L501.9910, L500.4100 #### [facility] [address] [place], [address] BUN/CRE 20.0 RATIO Normal 10-20 [facility] Comment on above: Performed By: #### L 500.4050, L501.9910, L500.4100 #### [facility] [address] [place], [address] CA,Total 8.8 mg/dL Normal 8.5-10.1 [facility] Comment on above: Performed By: #### L 500.4050, L501.9910, L500.4100 #### [facility] [address] [place], [address] Chloride [Moles/Vol] 104 mmol/L Normal 98-107 [facility] Comment on above: Performed By: #### L 500.4050, L501.9910, L500.4100 #### [facility] [address] [place], [address] CO2 [Moles/Vol] 26.0 mmol/L Normal 21.0-32.0 [facility] Comment on above: Performed By: #### L 500.4050, L501.9910, L500.4100 #### [facility] [address] [place], [address] Creatinine [Mass/Vol] 0.85 mg/dL Normal 0.70-1.30 [facility] Comment on above: Result Comment: The validity of the calculated GFR GFRAA in patients over 70 years has not been determined. Clinical correlation is essential. Performed By: #### L 500.4050, L501.9910, L500.4100 #### [facility] [address] [place], [address] EST GFR - AA 119 mL/min Normal >60 [facility] Comment on above: Result Comment: Afri can [place] GFR Calc Performed By: #### L 500.4050, L501.9910, L500.4100 #### [facility] [address] [place], [address] GAP 7 Normal 5-15 [facility] Comment on above: Performed By: #### L 500.4050, L501.9910, L500.4100 #### [facility] [address] [place], [address] GFR/1.73 sq M.predicted among non-blacks MDRD (S/P/Bld) [Vol rate/Area] 98 mL/min/{1.73_m2} Normal >60 [facility] Comment on above: Result Comment: Non- GFR Calc Performed By: #### L 500.4050, L501.9910, L500.4100 #### [facility] [address] [place], [address] Globulin (S) [Mass/Vol] 3.1 g/dL Normal 2.2-4.2 [facility] Comment on above: Performed By: #### L 500.4050, L501.9910, L500.4100 #### [facility] [address] [place], [address] Glucose [Mass/Vol] 89 mg/dL Normal 74-106 [facility] Comment on above: Performed By: #### L 500.4050, L501.9910, L500.4100 #### [facility] [address] [place], [address] Potassium [Moles/Vol] 4.0 mmol/L Normal 3.5-5.1 [facility] Comment on above: Performed By: #### L 500.4050, L501.9910, L500.4100 #### [facility] [address] [place], [address] Sodium [Moles/Vol] 137 mmol/L Normal 136-145 [facility] Comment on above: Performed By: #### L 500.4050, L501.9910, L500.4100 #### [facility] [address] [place], [address] T PROT 6.8 g/dL Normal 6.4-8.2 [facility] Comment on above: Performed By: #### L 500.4050, L501.9910, L500.4100 #### [facility] [address] [place], [address] Urea nitrogen [Mass/Vol] 17 mg/dL Normal 7-18 [facility] Comment on above: Performed By: #### L 500.4050, L501.9910, L500.4100 #### [facility] [address] [place], [address] Lipid Profileon 01-04-2024 Cholesterol [Mass/Vol] 196 mg/dL Normal 200 [facility] Comment on above: Result Comment: <200 mg/dL Desirable 200-240 mg/dL Borderline >240 mg/dL High Risk Performed By: #### L 500.4050, L501.9910, L500.4100 #### [facility] [address] [place], [address] Cholesterol in HDL [Mass/Vol] 59 mg/dL Normal [facility] Comment on above: Result Comment: The drugs N-Acetylcysteine and Metamizole may falsely depress this assay. Reference Range HDL <40 mg/dL Low HDL Cholesterol HDL >or= 60 mg/dL High HDL Cholesterol Performed By: #### L 500.4050, L501.9910, L500.4100 #### [facility] [address] [place], [address] Cholesterol in LDL [Mass/Vol] 116 mg/dL Normal 0-130 [facility] Comment on above: Performed By: #### L 500.4050, L501.9910, L500.4100 #### [facility] [address] [place], [address] Cholesterol in VLDL [Mass/Vol] 21 mg/dL Normal 5-40 [facility] Comment on above: Performed By: #### L 500.4050, L501.9910, L500.4100 #### [facility] [address] [place], [address] Triglyceride [Mass/Vol] 104 mg/dL Normal [facility] Comment on above: Result Comment: The drugs N-Acetylcysteine and Metamizole may falsely depress this assay. Serum Triglycerides Reference Interval Normal <150 mg/dL Borderline high 150 - 199 mg/dL High 200 - 499 mg/dL Very High > or = 500 mg/dL Performed By: #### L 500.4050, L501.9910, L500.4100 #### [facility] [address] [place], [address] PSA,Total - Annual Screenon 01-04-2024 PSA,TOT SCREEN 1.47 ng/mL Normal 0.00-4.00 [facility] Comment on above: Result Comment: This test was performed using the TPSA assay method for the [employer] chemistry system. Values obtained with different assay methods cannot be used interchangably. When changing PSA assays in the course of monitoring a patient, additional sequential testing should be carried out to confirm baseline values. Performed By: #### L 500.4050, L501.9910, L500.4100 ####[facility] [id number] [place], [address] Alternaria alternata IgE ser umOrdered By: Shay Askew on 12-22-2022 A. alternata IgE Qn (S) <0.10 kU/L Class 0 [facility] Basophil percentageOrdered B y: Shay Askew on 12-22-2022 Bilirubin [Mass/Vol] 0.40 mg/dL 0.20-1.00 [facility] Comment on above: For patients on eltr ombopag therapy, use of Dimension [place] TBIL is not recommended. Chloride [Moles/Vol] 106 mmol/L 98-107 [facility] Cholesterol [Mass/Vol] 257 mg/dL <200 [facility] Comment on above: <200 mg/dL Desirable 200-240 mg/dL Borderline >240 mg/dL High Risk Glucose [Mass/Vol] 95 mg/dL 74-106 [facility] Potassium [Moles/Vol] 4.3 mmol/L 3.5-5.1 [facility] Protein [Mass/Vol] 6.7 g/dL 6.4-8.2 [facility] Sodium [Moles/Vol] 139 mmol/L 136-145 [facility] Triglyceride [Mass/Vol] 83 mg/dL <199 [facility] Comment on above: The drugs N-Acetylcy steine and Metamizole may falsely depress this assay.Serum Triglycerides Reference Interval Normal <150 mg/dL Borderline high 150 - 199 mg/dL High 200 - 499 mg/dL Very High > or = 500 mg/dL Laboratory - Chemistry and C hemistry - challengeOrdered By: Shay Askew on 12-22-2022 ALP [Catalytic activity/Vol] 59 U/L 45-117 [facility] ALT [Catalytic activity/Vol] 34 U/L 16-61 [facility] CO2 [Moles/Vol] 29.0 mmol/L 21.0-32.0 [facility] Globulin (S) [Mass/Vol] 3.1 g/dL 2.2-4.2 [facility] Urea nitrogen/Creatinine [Mass ratio] 20.9 mg/mg 10-20 [facility] Laboratory - Miscellaneous t estsOrdered By: Shay Askew on 12-22-2022 Service comment (Unsp spec) [Interp] Comment . [facility] Comment on above: Levels of Specific [...] Aspergillus fumigatus Allergen <0.10 kU/L Class 0 [facility] Common Ragweed (Short) Allergen <0.10 kU/L Class 0 [facility] Serbian Plantain Allergen (RAST) <0.10 kU/L Class 0 [facility] Estimated GFR (MDRD) Amer 117 mL/min >60 [facility] Comment on above: GFR Calc Estimated GFR (MDRD) Non-Af Amer 97 mL/min >60 [facility] Comment on above: Non- GFR Calc Maple ([place]) Allergen IgE Ab <0.10 kU/L Class 0 [facility] [place] Tree Allergen <0.10 kU/L Class 0 [facility] Rough pigweed specific IgE a ntibody assayOrdered By: Shay Askew on 12-22-2022 Rough Pigweed IgE Qn (S) <0.10 kU/L Class 0 [facility] Serum Bermuda grass IgE anti body assay (units/volume)Ordered By: Shay Askew on 12-22-2022 Bermuda grass IgE Qn (S) <0.10 kU/L Class 0 [facility] Serum Cladosporium herbarum IgE antibody assay (units/volume)Ordered By: Shay Askew on 12-22-2022 C. herbarum IgE Qn (S) <0.10 kU/L Class 0 [facility] Serum Dermatophagoides farin ae specific IgE antibody assay (units/volume)Ordered By: Shay Askew on 12-22-2022 South [place] house dust mite IgE Qn (S) <0.10 kU/L Class 0 [facility] Serum house dust mi te IgE antibody assay (units/volume)Ordered By: Shay Askew on 12-22-2022 house dust mite IgE Qn (S) <0.10 kU/L Class 0 [facility] Serum Santy grass IgE anti body assay (units/volume)Ordered By: Shay Askew on 12-22-2022 Santy grass IgE Qn (S) <0.10 kU/L Class 0 [facility] Serum [place] blue grass Ig E antibody assay (units/volume)Ordered By: Shay Askew on 12-22-2022 [place] blue grass IgE Qn (S) <0.10 kU/L Class 0 [facility] Serum Mucor racemosus IgE an tibody assay (units/volume)Ordered By: Shay Askew on 12-22-2022 Mucor racemosus IgE Qn (S) <0.10 kU/L Class 0 [facility] Serum Penicillium notatum Ig E antibody assay (units/volume)Ordered By: Shay Askew on 12-22-2022 P. notatum IgE Qn (S) <0.10 kU/L Class 0 [facility] Serum Periplaneta americana IgE antibody assay (units/volume)Ordered By: Shay Askew on 12-22-2022 [place] Cockroach IgE Qn (S) 0.31 kU/L Class 0/I [facility] Serum bahia grass IgE antibo dy assay (units/volume)Ordered By: Shay Askew on 12-22-2022 Bahia grass IgE Qn (S) <0.10 kU/L Class 0 [facility] Serum cat dander IgE antibod y assay (units/volume)Ordered By: Shay Askew on 12-22-2022 Cat dander IgE Qn (S) <0.10 kU/L Class 0 [facility] Serum dog epithelium IgE ant ibody assay (units/volume)Ordered By: Shay Askew on 12-22-2022 Dog epithelium IgE Qn (S) <0.10 kU/L Class 0 [facility] Serum hazelnut pollen IgE an tibody assay (units/volume)Ordered By: Shay Askew on 12-22-2022 Hazelnut Pollen IgE Qn (S) <0.10 kU/L Class 0 [facility] Serum mountain cedar specifi c IgE antibody assayOrdered By: Shay Askew on 12-22-2022 Mountain Juniper IgE Qn (S) <0.10 kU/L Class 0 [facility] Serum mugwort IgE antibody a ssay (units/volume)Ordered By: Shay Askew on 12-22-2022 Mugwort IgE Qn (S) <0.10 kU/L Class 0 [facility] Serum nettle IgE antibody as say (units/volume)Ordered By: Shay Askew on 12-22-2022 Nettle IgE Qn (S) <0.10 kU/L Class 0 [facility] Comment on above: Performed at: [address] [id number] Director: Coty Cross MD, Phone: [phone] Serum or plasma albumin trevon urement (mass/volume)Ordered By: Shay Askew on 12-22-2022 Albumin [Mass/Vol] 3.6 g/dL 3.2-5.0 [facility] Serum or plasma albumin/glob ulin mass ratioOrdered By: Shay Askew on 12-22-2022 Albumin/Globulin [Mass ratio] 1.2 {ratio} 0.9-2.4 [facility] Serum or plasma calcium trevon urement (mass/volume)Ordered By: Shay Askew on 12-22-2022 Calcium [Mass/Vol] 8.8 mg/dL 8.5-10.1 [facility] Serum or plasma cholesterol in HDL measurement (mass/volume)Ordered By: Shay Askew on 12-22-2022 Cholesterol in HDL [Mass/Vol] 66 mg/dL >40 [facility] Comment on above: The drugs N-Acetylcy steine and Metamizole may falsely depress this assay. Reference Range HDL <40 mg/dL Low HDL Cholesterol HDL >or= 60 mg/dL High HDL Cholesterol Serum or plasma cholesterol in VLDL measurement (mass/volume)Ordered By: Shay Askew on 12-22-2022 Cholesterol in VLDL [Mass/Vol] 17 mg/dL 5-40 [facility] Serum or plasma creatinine m easurement (mass/volume)Ordered By: Shay Askew on 12-22-2022 Creatinine [Mass/Vol] 0.86 mg/dL 0.70-1.30 [facility] Comment on above: The validity of the calculated GFR & GFRAA in patients over 70 years has not been determined. Clinical correlation is essential. Serum or plasma low density lipoprotein (LDL) cholesterol measurement (mass/volume)Ordered By: Shay Askew on 12-22-2022 Cholesterol in LDL [Mass/Vol] 174 mg/dL 0-130 [facility] Serum or plasma urea nitroge n measurement (mass/volume)Ordered By: Shay Askew on 12-22-2022 Urea nitrogen [Mass/Vol] 18 mg/dL 7-18 [facility] Serum sheep sorrel IgE antib jackie assay (units/volume)Ordered By: Shay Askew on 12-22-2022 Sheep Tamora IgE Qn (S) <0.10 kU/L Class 0 [facility] Serum sweet gum IgE radioall ergosorbent test (RAST) class determinationOrdered By: Shay Askew on 12-22-2022 Sweet gum IgE RAST class (S) <0.10 kU/L Class 0 [facility] Serum white elm IgE antibody assay (units/volume)Ordered By: Shay Askew on 12-22-2022 White Elm IgE Qn (S) <0.10 kU/L Class 0 [facility] Serum white hickory IgE anti body assay (units/volume)Ordered By: Shay Askew on 12-22-2022 White [place] Bay IgE Qn (S) <0.10 kU/L Class 0 [facility] Serum white mulberry IgE ant ibody assay (units/volume)Ordered By: Shay Askew on 12-22-2022 White mulberry IgE Qn (S) <0.10 kU/L Class 0 [facility] Serum white oak IgE antibody assay (units/volume)Ordered By: Shay Askew on 12-22-2022 Blaine IgE Qn (S) <0.10 kU/L Class 0 [facility] Stemphylium herbarum IgE ser umOrdered By: Shay Askew on 12-22-2022 Stemphylium botryosum IgE Qn (S) <0.10 kU/L Class 0 [facility] Thin prep Papanicolaou smear with manual screeningOrdered By: Shay Askew on 12-22-2022 Thin prep Papanicolaou smear with manual screening 16 U/L 15-37 [facility] Thin prep Papanicolaou smear with manual screening 4 5-15 [facility] Basophil percentageon 2021 Bilirubin [Mass/Vol] 0.70 mg/dL 0.20-1.00 [facility] Work Phone: Comment on above: For patients on eltr ombopag therapy, use of Dimension [place] TBIL is not recommended. Chloride [Moles/Vol] 101 mmol/L 98-107 [facility] Work Phone: Glucose [Mass/Vol] 87 mg/dL 74-106 [facility] Work Phone: [phone] Potassium [Moles/Vol] 4.2 mmol/L 3.5-5.1 [facility] Work Phone: [phone] Protein [Mass/Vol] 7.2 g/dL 6.4-8.2 [facility] Work Phone: [phone] Sodium [Moles/Vol] 136 mmol/L 136-145 [facility] Work Phone: Testosterone [Mass/Vol] 280.04 ng/dL [facility] Work Phone: Comment on above: CENTRAL [...] 12-19-2021 ALP [Catalytic activity/Vol] 70 U/L 45-117 [facility] Work Phone: ALT [Catalytic activity/Vol] 37 U/L 16-61 [facility] Work Phone: CO2 [Moles/Vol] 28.0 mmol/L 21.0-32.0 [facility] Work Phone: Globulin (S) [Mass/Vol] 3.3 g/dL 2.2-4.2 [facility] Work Phone: Urea nitrogen/Creatinine [Mass ratio] 22.1 mg/mg 10-20 [facility] Work Phone: No Panel Informationon 12-19 Estimated GFR (MDRD) Amer 112 mL/min >60 [facility] Work Phone: Comment on above: GFR Calc Estimated GFR (MDRD) Non-Af Amer 92 mL/min >60 [facility] Work Phone: Comment on above: Non- GFR Calc Prostate Specific Antigen Screen 0.46 ng/mL 0.00-4.00 [facility] Work Phone: Comment on above: This test was perfor med using the TPSA assay method for [employer] chemistry system. Values obtained with differentassay methods cannot be used interchangably.When changing PSA assays in the course of monitoring apatient, additional sequential testing should be carriedout to confirm baseline values. Serum or plasma albumin trevon urement (mass/volume)on 12-19-2021 Albumin [Mass/Vol] 3.9 g/dL 3.2-5.0 [facility] Work Phone: Serum or plasma albumin/glob ulin mass ratioon 12-19-2021 Albumin/Globulin [Mass ratio] 1.2 {ratio} 0.9-2.4 [facility] Work Phone: Serum or plasma calcium trevon urement (mass/volume)on 12-19-2021 Calcium [Mass/Vol] 8.9 mg/dL 8.5-10.1 [facility] Work Phone: Serum or plasma creatinine m easurement (mass/volume)on 12-19-2021 Creatinine [Mass/Vol] 0.90 mg/dL 0.70-1.30 [facility] Work Phone: Comment on above: The validity of the calculated GFR & GFRAA in patients over 70 years has not been determined. Clinical correlation is essential. Serum or plasma urea nitroge n measurement (mass/volume)on 12-19-2021 Urea nitrogen [Mass/Vol] 20 mg/dL 7-18 [facility] Work Phone: Thin prep Papanicolaou smear with manual screeningon 12-19-2021 Thin prep Papanicolaou smear with manual screening 18 U/L 15-37 [facility] Work Phone: Thin prep Papanicolaou smear with manual screening 7 5-15 [facility] Work Phone: Vital Signs Date Time Vital Sign Value Performing Clinician Faci lity 12-27-2024 15:08-0400 Body temperature 97.3 [degF] Dr. Shay Askew MD Work Phone: [facility] 12-27-2024 15:08-0400 Diastolic blood pressure 96 mm[Hg] Dr. Shay Askew MD Work Phone: [facility] 12-27-2024 15:08-0400 Heart rate 81 /min Dr. Shay Askew MD Work Phone: [facility] 12-27-2024 15:08-0400 Respiratory rate 16 /min Dr. Shay Askew MD Work Phone: [facility] 12-27-2024 15:08-0400 SaO2% (BldA) [Mass fraction] 99 % Dr. Shay Askew MD Work Phone: [facility] 12-27-2024 15:08-0400 Systolic blood pressure 148 mm[Hg] Dr. Shay Askew MD Work Phone: [facility] 12-27-2024 12:53-0400 Body height 182.[address] Shay Askew MD Work Phone: [facility] 12-27-2024 12:53-0400 Body mass index (BMI) [Ratio] 26 kg/m2 Dr. Shay Askew MD Work Phone: [facility] 12-27-2024 12:53-0400 Body weight 87.[address] Shay Askew MD Work Phone: [facility] 12-20-2024 13:13-0400 Body temperature 98.7 [degF] Dr. Shay Askew MD Work Phone: [facility] 12-20-2024 13:13-0400 Diastolic blood pressure 84 mm[Hg] Dr. Shay Askew MD Work Phone: [facility] 12-20-2024 13:13-0400 Heart rate 107 /min Dr. Shay Askew MD Work Phone: [facility] 12-20-2024 13:13-0400 Respiratory rate 18 /min Dr. Shay Askew MD Work Phone: [phone] [place] [address] 12-20-2024 13:13-0400 SaO2% (BldA) [Mass fraction] 97 % Dr. Shay Askew MD Work Phone: [phone] [address] 12-20-2024 13:13-0400 Systolic blood pressure 124 mm[Hg] Dr. Shay Askew MD Work Phone: [phone] [place] [address] 12-20-2024 09:29-0400 Body height 182.[address] Shay Askew MD Work Phone: [phone] [address] 12-20-2024 09:29-0400 Body mass index (BMI) [Ratio] 27.3 kg/m2 Dr. Shay Askew MD Work Phone: [phone] [address] 12-20-2024 09:29-0400 Body weight 91.[address] Shay Askew MD Work Phone: [phone] [address] 11-16-2024 13:23-0400 Body height 182.[address] Shay Askew MD Work Phone: [phone] [place] [address] 11-16-2024 13:23-0400 Body mass index (BMI) [Ratio] 27.3 kg/m2 Dr. Shay Askew MD Work Phone: [phone] [address] 11-16-2024 13:23-0400 Body weight 91.[address] Shay Askew MD Work Phone: [facility] 11-05-2024 19:47-0400 Heart rate 84 /min Dr. Shay Askew MD Work Phone: [facility] 11-05-2024 19:47-0400 Respiratory rate 16 /min Dr. Shay Askew MD Work Phone: [facility] 11-05-2024 19:18-0400 Body temperature 98.1 [degF] Dr. Shay Askew MD Work Phone: [facility] 11-05-2024 19:18-0400 Diastolic blood pressure 115 mm[Hg] Dr. Shay Askew MD Work Phone: [facility] 11-05-2024 19:18-0400 SaO2% (BldA) [Mass fraction] 98 % Dr. Shay Askew MD Work Phone: [facility] 11-05-2024 19:18-0400 Systolic blood pressure 151 mm[Hg] Dr. Shay Askew MD Work Phone: [facility] 11-05-2024 18:04-0400 Body mass index (BMI) [Ratio] 27.1 kg/m2 Dr. Shay Askew MD Work Phone: [phone] [place] [address] 11-05-2024 18:04-0400 Body weight 90.[address] Shay Askew MD Work Phone: [facility] 11-05-2024 18:02-0400 Body height 182.[address] Shay Askew MD Work Phone: [facility] 09-01-2021 07:20-0400 Body height 182.[address] Shay Askew Work Phone: [facility] Work Phone: Encounters Encounter Date Encounter Type Care Provider Facility Start: 12-27-2024 ambulatory Shay Askew Facility:[facility] Start: 12-27-2024 Non-patient / Non-visit Dr. Jani batista MD -[facility] Start: 12-27-2024 End: 12-27-2024 Admission to same day surgery center Dr. Jani Ellington [facility] Start: 12-27-2024 End: 12-27-[address] Shay Askew MD Work Phone: [facility] Start: 12-26-2024 Encounter for other preprocedural examination Jani Ellington [facility] Start: 12-20-2024 End: 12-20-2024 Emergency department patient visit Dr. Shay Askew MD Work Phone: -Emergency Department Work Phone: Start: 12-18-2024 ambulatory Chai Rosario Facility:[facility] Start: 12-18-2024 Non-patient / Non-visit Dr. Deja LYONS -[facility] Work Phone: Start: 12-06-2024 End: 12-06-[address] Jani Ellington MD -[facility] Work Phone: Start: 12-06-2024 End: 12-06-[address] Shay Askew MD Work Phone: -[facility] Start: 11-16-2024 End: 11-16-[address] Chai Rosario MD -[facility] Start: 11-16-2024 End: 11-16-[address] Shay Askew MD Work Phone: -[facility] Start: 11-14-2024 End: 11-14-[address] Shay Askew MD Work Phone: -[facility] Start: 11-14-2024 End: 11-14-[address] Shay Askew MD -[facility] Work Phone: Start: 11-14-2024 End: 11-14-2024 ambulatory Shay Askew Facility:[facility] Start: 11-05-2024 End: 11-05-2024 Emergency department patient [...] Dr. Shay Askew MD Work Phone: -[facility] Start: 11-01-2024 End: 11-01-[address] Shay Askew MD -[facility] Work Phone: Start: 11-01-2024 End: 11-01-2024 ambulatory Shay Askew Facility:[facility] Start: 09-29-2024 End: 09-29-[address] Shay Askew MD Work Phone: [facility] Work Phone: Start: 09-29-2024 End: 09-29-[address] Shay Askew MD -[facility] Work Phone: Start: 09-29-2024 End: 09-29-2024 ambulatory Shay Askew Facility:[facility] Start: 06-23-2024 End: 06-23-[address] Shay Askew MD -[facility] Work Phone: Start: 06-23-2024 End: 06-23-2024 ambulatory Shay Askew Facility:[facility] Start: 01-18-2024 Encounter for genera l adult medical examination without abnormal findings Shay Askew [facility] Start: 01-04-2024 End: 01-04-2024 ambulatory Shay Askew Facility:[facility] Start: 12-22-2022 End: 12-22-2022 ambulatory [facility] Work Phone: Start: 12-22-2022 End: 12-22-2022 Patient encounter procedure [facility] Work Phone: Start: 12-19-2021 End: 12-19-[address] Shay Askew Work Phone: [facility] Start: 09-01-2021 End: 09-01-[address] Shay Askew Work Phone: [facility] Procedures Date Procedure Procedure Detail Performing Clinician Start: 12-27-2024 Laminectomy,Lumbar M icro Decompression (Not Applicable) Dr. Shay Askew MD Work Phone: Start: 12-20-2024 Plain chest X-ray Dr. Micheline Askew MD Work Phone: Start: 12-20-[address] Shay Askew MD Work Phone: Start: 12-18-2024 Methicillin resistan t Staphylococcus aureus screening test Dr. Shay Askew MD Work Phone: Start: 12-18-2024 Hepatitis A virus an tibody, total measurement Dr. Shay Askew MD Work Phone: Comment on above: Comment: The HAV tot al antibody assay detects both IgG andIgM but does not differentiate between them. A negativeresult suggests susceptibility to infection. A positiveresult could be due to vaccination, previously resolvedinfection or active infection. Testing for HAV IgM shouldbe performed if active HAV infection is suspected. [facility] profiles that will automatically reflex positive HAVtotal antibody results to IgM (e.g., panel #[id number] HAVAntibody w/ Rfx).Performed at: [address] [id number] Director: Sherman Romero PhD, Phone: [phone] Start: 12-18-2024 Hepatitis C antibody measurement Dr. Shay Askew MD Work Phone: Comment on above: Reactive: Presumptiv e evidence of antibodies to HCV. Follow CDC recommendations for supplemental testing.Non-Reactive: Antibodies to HCV were not detected; does not exclude the possibility of exposure to HCVReactive Results are presumptive evidence of antibodies to HCV. Follow CDC recommendations for supplemental testing.Order confirmation testing: HCV Quant by PCR testing - HCVPCR #[id number] Non Reactive: < 0.8 Equivocal: >/= 0.8 to < 1.0 Reactive: >/= 1.0The CDC requires that a reactive/equivocal HCV antibody result be sent out for confirmation. HCV Quant by PCR testing. Start: 11-16-2024 X-ray of lumbosacral spine Dr. Shay Askew MD Work Phone: Start: 11-14-2024 MRI of lumbar spine Dr. Shay Askew MD Work Phone: Start: 09-29-2024 Plain x-ray of pelvi s and lower extremity Dr. hSay Askew MD Work Phone: Start: 09-29-2024 X-ray of lumbosacral spine Dr. Shay Askew MD Work Phone: Start: 06-23-2024 Measurement of renal function Dr. Shay Askew MD Work Phone: Comment on above: GFR Calc Plan of Treatment Date Care Activity Detail Author Start: 12-27-2024 Patient discharge [facility] Start: 12-20-2024 [facility] Start: 12-20-2024 [facility] Start: 11-16-2024 X-ray of lumbosacral spine L/S Spine Bending Flex/Ext [facility] Start: 11-16-2024 XR Spine Lumbar and Sacrum Views [facility] Start: 11-05-2024 [facility] Patient Education [facility] Work Phone: Payers Date Payer Category Payer Self-pay [id number] 2022 Unknown [id number] Unknown [id number] Unknown [id number] Unknown [id number] Unknown [id number] 2.16.8 [id number] Unknown [id number] 2.16.8 [id number] Unknown [id number] 2.16.8 [id number] Unknown [id number] 2.16.8 [id number] Unknown [id number] 2.16.8 [id number] Unknown [id number] 2.16.8 [id number] Unknown [id number] 2.16.8 [id number] Unknown [id number] 2.16.8 [id number] Unknown [id number] 2.16.8 [id number] Unknown [id number] 2.16.8 [id number] Unknown [id number] 2.16.8 [id number] Unknown [id number] 2.16.8 [id number] Unknown [id number] 2.16.8 [id number] Social History Date Type Detail Facility Start: 09-01-2021 Tobacco smoking stat us GAIS Unknown if ever smoked [facility] Start: 1965 Sex Assigned At Male [facility] Start: 09-01-2021 End: 12-20-2024 Tobacco smoking status NHIS Never smoked tobacco (finding) [facility] Goals Date Patient Goal Desired Activity /State Mental Status Date Assessment Result Facility 12-27-2024 Cognitive function Voice/Name [facility] Work Phone: 12-20-2024 Cognitive function Level Of Cons ciousness Awake;Alert;Appropriate;Follow s Commands [facility] Work Phone: Clinical Notes 09-29-2024 to 12-27-2024 Note Date & Type Note Facility 12-27-2024 History and physi dameon note Note Date/Time December 27, 2024 1:13pm [facility] Medical Records Department [address] [place] [address] History & Physical Exam 12/27/24 1310 MR#: [id number] Acct: [id number] Name: BENJAMIN SINGLETON Rep #:[id number] : 1965 59 From: Jani Ellington MD PCP: Dr. Shay Askew MD Status:REG S DC Location: AC01-1 History and Physical MR#: [id number] Acct: [id number] Name: BENJAMIN SINGLETON Rep #: [id number] : 1965 Provider: Dr. Jani Ellington MD Age/Sex: 59/M Location: [facility] Status: Signed Intake Vital Signs 11/16/2512:23 Height 6 ft Weight: 202 lb BMI 27.3 Intake Visit Reasons: LUMBAR SPINE Accompanied by: Is patient in pain?: Yes Pain scale (1-10): 4 Allergies No Known Allergies Allergy (Verified 12/06/24 15:20) Medications ?Medication ?Instructions ?Recorded ?Confirmed ?Type atorvastatin 20 mg tablet 20 mg PO DAILY 11/05/24 12/06/24 History lidocaine 5 % topical patch 1 patch topical DAILY #15 ea 11/05/24 Rx (Lidoderm) lisinopril 10 mg tablet 10 mg PO DAILY 11/05/24 12/06/24 History ondansetron 4 mg disintegrating 4 mg PO Q8H PRN PRN Nausea #10 tabs 10/0912/06/24 Rx tablet gabapentin 300 mg capsule 600 mg PO TID 12/06/24 12/06/24 History gabapentin 600 mg tablet 600 mg PO TID 12/06/24 12/06/24 History ibuprofen 200 mg tablet 600 mg PO TID Pain 12/06/24 12/06/24 His tory tramadol 50 mg tablet 50 mg PO TID PRN 12/06/24 12/06/24 [facility] Medical History Encounter for examination required by [...] Jani Ellington MD 12/06/24 0812. Part of today?s visit was documented by Monica WARNER, acting as scribe. BENJAMIN SINGLETON is a 59 year old M here today for a follow-up on continued low back pain. He states that he only had the one injection which was on 11-22-24 he had aright TFE L3-L4, L4-L5 with Dr. Lam. He stats the first day after the injection he did get some mild relief but after the first day he was back to where he was before the injection. He notes that his lower back pain is worse inthe mornings after he first wakes up. He would like to talk about his next stepstoday. The patient is a 59-year-old male presenting with lumbar disc herniation and associated symptoms. The issue began in June with lower back pain after sitting on bleachers for an extended period, which has always been bothersome for him. The pain initially improved in early September but worsened later that month,particularly with sitting, which is the worst position [...] walking distance due to frustration with not knowingwhat activities exacerbate his condition. He was previously [...] the encounter. Provider reviewed content of the generatednote prior to signature. 11/16/24: BENJAMIN SINGLETON is [...] gradually worsened. Says that he was playing [employer] ball. XRAY of hip and back in 10/2024. Recent MRI. Hx of right total hip replacement. History of right knee arthroscopy. Denies hx of injections. Pain exacerbated with sitting for long periods. Pain improved with laying flat and movement. Recently prescribed Langley and [id number] days ago with significant relief. Says that he has been taking the Langley 3 times a day. His pain is [...] been given cyclobenzaprine 5 mg which he hasbeen taking as needed with some mild improvement. [...] mild right paraspinal tenderness. Figure 4 and Gaenslen's negative. Coding Level of Care Code Off vis,est,level 5 Diagnoses Degenerative disc disease (DDD) of lumbar region with discogenic back pain and leg pain M51.362 Lumbar stenosis without neurogenic claudication M48.061 Lumbar disc herniation with radiculopathy M51.16 Time Spent (min) 45 Assessment and Plan Assessment and Plan (1) Degenerative disc disease (DDD) of lumbar region with discogenic back pain and leg pain: Status: Acute (2) Lumbar stenosis without neurogenic claudication: Status: Acute (3) Lumbar disc herniation with radiculopathy: Status: Acute Plan Again reviewed prior AP and lateral x-rays from September 2024. X-rays show a multilevel disc height loss throughout the lumbar spine, there is vacuum phenomenon seen at L2-3, L3-4, L4-5. No significant instability, no acute fractures. Reviewed lumbar MRI from November 14, 2024 which showed L2-3 prominent disc height loss with a diffuse disc bulge resulting in mild to moderate spinal stenosis with mild bilateral foraminal stenosis, L3-4 significant disc height loss with a diffuse disc bulge with inferiorly migrated disc towards the right. This causes moderate focal spinal stenosis and mild to moderate left and mild right foraminal stenosis. L4-5 disc height loss with diffuse disc bulge resulting in moderate to severe spinal stenosis and mild to moderate bilateral foraminal stenosis. L5-S1 moderate to severe left and moderate right foraminal stenosis. - Imaging: MRI shows herniated disc at L3-4 with cystic swelling and stenosis atL4-5. 1. Lumbar disc herniation - Surgical intervention with discectomy and laminectomy is planned to relieve nerve pressure and address herniation and stenosis at L3-4 and L4-5. 2. Right-sided radiculopathy - The surgery aims to alleviate the right-sided nerve compression symptoms. 3. Hypertension - Continue current management with medication, ensure blood pressure is controlled preoperatively. 4. Hyperlipidemia - Continue current management with medication, monitor lipid levels as part of routine care. - Continue taking prescribed medications for hypertension and hyperlipidemia. - Use crutches as needed to alleviate back pressure. - Avoid activities that exacerbate back pain, such as prolonged sitting. - Follow up with primary care for surgical clearance. - Prepare for surgery by maintaining good nutrition and mobility. Discussed imaging findings in detail. Patient has a large disc extrusion at L3-4 with inferior migration with severe central stenosis at L4-5 as well. Discussed treatment options which include continued nonoperative treat measures versus surgery. Patient symptoms are not improving with time and they are affecting his quality of life and ability to get around. Considering patient has exhausted nonsurgical treatment with physical therapy and injections no longer giving him relief, at this point I recommend L3-5 laminectomy with L3-4 discectomy. All risk benefits and alternatives were discussed in detail. The risks include but are not limited to infection, bleeding, hematoma formation, need for further surgery, injury to nerves and vessels, foot drop, nerve root injury, dural leak, need for further surgery, need for fusion in future, persistent pain, persistent numbness and weakness, DVT, pulm embolism, pneumonia, atelectasis, cardiopulmonary event. Patient understands agrees to proceed with surgery. 12/27/24 1313 <Electronically signed by Jani Ellington MD> Cosigner Signature (if applicable): CC: Dr. Jani Ellington MD; Dr. Shay Askew MD~ Signed [facility] Work Phone: 1(306) 909-108208-20-2025 Consult note [facility] Medical Records Department [address] [place] [address] Anesthesia Postop Eval I 12/27/24 1438 MR#: [id number] Acct: [id number] Name: BENJAMIN SINGLETON Rep #:[id number] : 1965 59 From: Ashley CAMERON PCP: Dr. Shay Askew MD Status:REG S DC Y Race: C Location: [place] [address]-1 Anesthesia: Postop Eval I Current Vital Signs Temperature: 97.3 F Pulse Rate: 96 Blood Pressure: 159/110 Respiratory Rate: 16 Pulse Ox: 99 Oxygen Delivery Method: Room Air Assessment Airway patent: Yes Spontaneous unlabored respirations: Yes Mental status: Awake nausea: No Vomiting: No Anesthesia Complication: No Fluid Hydration Crystalloid volume administer (ml): 500 Total IV fluid infused: 500 Progress Note Anesthesia document: Postop Eval 1 completed: Yes 12/27/24 1439 SENIOR INTERNAL AUDITOR> Date _ Ashley Crawley SENIOR INTERNAL AUDITOR Cosigner Signature: Date CC: ~ Signed [facility]08-20-2025 History and physical note [facility] Medical Records Department [address] [place] [address] History & Physical Exam 12/27/24 1310 MR#: [id number] Acct: [id number] Name: BENJAMIN SINGLETON Rep #:[id number] : 1965 59 From: Jani Ellington MD PCP: Dr. Shay Askew MD Status:REG S DC Location: [place] [address]- History and Physical MR#: [id number] Acct: [id number] Name: BENJAMIN SINGLETON Rep #: [id number] : 1965 Provider: Dr. Jani Ellington MD Age/Sex: 59/M Location: [facility] Status: Signed Intake Vital Signs 11/16/2512:23 Height 6 ft Weight: 202 lb BMI 27.3 Intake Visit Reasons: LUMBAR SPINE Accompanied by: Is patient in pain?: Yes Pain scale (1-10): 4 Allergies No Known Allergies Allergy (Verified 12/06/24 15:20) Medications ?Medication ?Instructions ?Recorded ?Confirmed ?Type atorvastatin 20 mg tablet 20 mg PO DAILY 11/05/24 12/06/24 History lidocaine 5 % topical patch 1 patch topical DAILY #15 ea 11/05/24 Rx (Lidoderm) lisinopril 10 mg tablet 10 mg PO DAILY 11/05/24 12/06/24 History ondansetron 4 mg disintegrating 4 mg PO Q8H PRN PRN Nausea #10 tabs 10/0912/06/24 Rx tablet gabapentin 300 mg capsule 600 mg PO TID 12/06/24 12/06/24 History gabapentin 600 mg tablet 600 mg PO TID 12/06/24 12/06/24 History ibuprofen 200 mg tablet 600 mg PO TID Pain 12/06/24 12/06/24 His tory tramadol 50 mg tablet 50 mg PO TID PRN 12/06/24 12/06/24 Histo [facility] Medical History Encounter for examination required by [...] Jani Ellington MD 12/06/24 0812. Part of today?s visit was documented by Monica WARNER, acting as scribe. BENJAMIN SINGLETON is a 59 year old M here today for a follow-up on continued low back pain. He states thathe only had the one injection which was on 11-22-24 he had aright TFE L3-L4, L4-L5 with Dr. Lam. He stats the first day after the injection he did get some mild relief but after the first day he was back to where he was before the injection. He notes that his lower back pain is worse inthe mornings after he first wakes up. He would like to talk about his next stepstoday. The patient is a 59-year-old male presenting with lumbar disc herniation and associated symptoms. The issue began in June with lower back pain after sitting on bleachers for an extended period, which has always been bothersome for him. The pain initially improved in early September but worsened laterthat month,particularly with sitting, which is the worst position [...] uses crutches in the morning to alleviate pressureon his back and takes ibuprofen for pain relief. The patient has reduced his walking distance due to frustration with not knowingwhat activities exacerbate his condition. He was previously walking 45 minutes daily but has cut back to 10-15 minutes,2-3 times a day. The patient has undergone an injection, which initially provided relief but ultimately did not improve his symptoms. MRI findings indicate a herniated disc at L3-4 with a cystic swelling and stenosisat L4-5. The patient has a history of [...] the encounter. Provider reviewed content of the generatednote prior to signature. 11/16/24: BENJAMIN SINGLETON is [...] long periods. Pain improved with laying flat andmovement. Recently prescribed Langley and aangrjwsrr70 days ago with significant relief. Says that hehas been taking the Langley 3 times a day. His pain is [...] take some pressure off of the spine. Thisdid give some improvement. No prior surgeries on the back. He has also been given cyclobenzaprine 5mg which he hasbeen taking as needed with some mild improvement. [...] mild right paraspinal tenderness. Figure 4 and Keke'douglastive. Coding Level of Care Code Off vis,est,level 5 Diagnoses Degenerative disc disease (DDD) of lumbar region with discogenic back pain and leg pain M51.362 Lumbar stenosis without neurogenic claudication M48.061 Lumbar disc herniation with radiculopathy M51.16 Time Spent (min) 45 Assessment and Plan Assessment and Plan (1) Degenerative disc disease (DDD) of lumbar region with discogenic back pain and leg pain: Status: Acute (2) Lumbar stenosis without neurogenic claudication: Status: Acute (3) Lumbar disc herniation with radiculopathy: Status: Acute Plan Again reviewed prior AP and lateral x-rays from September 2024. X-rays show a multilevel disc height lossthroughout the lumbar spine, there is vacuum phenomenon seen at L2-3, L3-4, L4-5. No significant instability, no acute fractures. Reviewed lumbar MRI from November 14, 2024 which showed L2-3 prominent disc height loss with a diffuse disc bulge resulting in mild to moderate spinal stenosis with mild bilateral foraminal stenosis, L3-4 significant disc height loss with a diffuse disc bulge with inferiorly migrated disc towards the right. This causes moderate focal spinal stenosis and mild to moderate left and mild right foraminal stenosis. L4-5 disc height loss with diffuse disc bulge resulting in moderate to severe spinal stenosis and mild to moderate bilateral foraminal stenosis. L5-S1 moderate to severe left and moderate right foraminal stenosis. - Imaging: MRI shows herniated disc at L3-4 with cystic swelling and stenosis atL4-5. 1. Lumbar disc herniation - Surgical intervention with discectomy and laminectomy is planned to relieve nerve pressure and address herniation and stenosis at L3-4 and L4-5. 2. Right-sided radiculopathy - The surgery aims to alleviate the right-sided nerve compression symptoms. 3. Hypertension - Continue current management with medication, ensure blood pressure is controlled preoperatively. 4. Hyperlipidemia - Continue current management with medication, monitor lipid levels as part of routine care. - Continue taking prescribed medications for hypertension and hyperlipidemia. - Use crutches as needed to alleviate back pressure. - Avoid activities that exacerbate back pain, such as prolonged sitting. - Follow up with primary care for surgical clearance. - Prepare for surgery by maintaining good nutrition and mobility. Discussed imaging findings in detail. Patient has a large disc extrusion at L3-4 with inferior migration with severe central stenosis at L4-5 as well. Discussed treatment options which include continued nonoperative treat measures versus surgery. Patient symptoms are not improving with time and they are affecting his quality of life and ability to get around. Considering patient has exhausted nonsurgical treatment with physical therapy and injections no longer giving him relief, at this point Irecommend L3-5 laminectomy with L3-4 discectomy. All risk benefits and alternatives were discussed in detail. The risks include but are not limited to infection, bleeding, hematoma formation, need for further surgery, injury to nerves and vessels, foot drop, nerve root injury, dural leak, need for further surgery, need for fusion in future, persistent pain, persistent numbness and weakness, DVT, pulm embolism, pneumonia, atelectasis, cardiopulmonary event. Patient understands agrees to proceed with surgery. 12/27/24 1313 Cosigner Signature (if applicable): CC: Dr. Jani Ellington MD; Dr. Shay Askew MD~ Signed [facility]08-13-2025 Discharge summary [facility] Medical Records Department [address] [place] [address] Emergency Department Summary 12/20/24 MR#: [id number] Acct: [id number] Name: BENJAMIN SINGLETON Rep #:[id number] : 1965 59 From: Garcia Martin PCP: Dr. Shay Askew MD Status:REG E R Location: ED HPI History of Present Illness Chief Complaint: Syncope PFSH PFSH Medical History (Updated 12/13/24 @ 13:40 by [...] Mean 116 Pulse Ox Oxygen Delivery Method [facility] Narrative Medical decision making narrative: HISTORY OF [...] be dehydrated. Notes feeling warm, nauseous and lightheadedprior to passing out. No shaking tongue biting [...] nerves II through XII intact,5/5 strength in allpresent extremities. Intact sensation to light touch in [...] secondary to the patient having high probability ofclinically significant/life threatening deterioration in the patient's condition which required my urgent intervention. Impression: 1. Syncope 2. Dehydration Dispo: Discharge home This note was generated with Instant BioScan[employer] software. It may contain incorrectwords, spelling, and [...] 78.1 H Lymph % (Auto) 14.3 L Nolan % (Auto) 5.4 Eos % (Auto) 1.0 [...] No acute abnormality is seen. Reading Location: [id number] Discharge Plan Triage Chief Complaint: Syncope ED [...] MD [Primary Care Provider] - Print Language: Serbian What to do if you have Problems For any increased pain, shortness of breath, bleeding, nausea or vomiting, chestpain, or any unexpected problems, contact your Primary Care Provider. Call [facility] ([phone]) or report tothe closest Emergency Room. Call 911 if necessary. 12/20/24 1300 Cosigner Signature (if applicable): CC: Dr. Shay Askew MD ~ Signed [facility]08-13-2025 Radiology Diagnostic study note [facility] Imaging Services [address] [place] [address] Chest 1 View (Portable) MR#: [id number] Acct: [id number] Name: BENJAMIN SINGLETON Rep #: [id number] : 1965 M 59 From: Ed Davies MD PCP: Dr. Shay Askew MD Status: REG E R Study:Chest 1 View (Portable) Date of Exam: 12/20/24 Exam# [id number] Ordering Dr: Neda Vargas DO PROCEDURE: CHEST 1 VIEW (PORTABLE) 12/20/2024 REASON FOR EXAM: CHEST PAIN TECHNIQUE: Frontal view of the chest. COMPARISON: None FINDINGS: Hardware: EKG electrodes are seen. Heart: The heart size is normal. Lungs: The lungs are clear. Bones: Degenerative changes are identified within the thoracic spine. Other: RAD/Chest 1 View (Portable) IMPRESSION: No acute abnormality is seen. Reading Location: [id number] CC: Dr. Shay Askew MD; Dr. Garcia Vargas DO ~ Analytics Associate: Signed [facility]07-10-2025 Evaluation note* Diagnosis Onset Date Resolution Status Admit Date Degenerative disc disease (D DD) of lumbar region with discogenic back pain acute November 16, 2024 12:38pm Lumbar stenosis without neurogenic claudication acute November 12:38pm [facility] Work Phone: 1(542) 711-675307-10-2025 Evaluation note* Diagnosis Onset Date Resolution Status [...] stenosis without neurogenic claudication acute November 3:11pm [facility] Work Phone: [phone]) 736-452506-27-2025 Discharge summary Author Kush Bethea [facility] Note Date/Time November 03, 2024 7:00 pm [facility] Physical Therapy [facility] [address] [place] [address] / REHABILITATION SERVICES DISCHARGE SUMMARY MR#: [id number] Acct: [id number] Name: BENJAMIN SINGLETON Rep #: [id number] : 1965 59 From: Kush Bethea DPT, OCS, CSCS Referring Dr.: Dr. Shay Askew MD Status: REG RCR Insurance: [facility] SELF PAY INSURANCE Discharge Summary [...] . Better as day goes on bu 9 in am. Took muscle relaxer until 2 [...] please feel free to call me at [phone]. Thank you for the referral of thispatient. Sincerely, Kush Bethea DPT, OCS, CSCS Balance/Gait/Functional tests Balance/Special Test Scores Oswestry Low Back Score: 23 Improvement % Improvement: 50 <Electronically signed by Kush Bethea DPT, EDER, CSCS> 11/03/24 1022 CC: Dr. Shay Askew MD; Shay Askew ~ EBG Signed [facility] Work Phone: 1(774) 845-153806-27-2025 Discharge summary [facility] Physical Therapy [facility] [address] [place] [address] [address] [place] [address] / REHABILITATION SERVICES DISCHARGE SUMMARY MR#: [id number] Acct: [id number] Name: BENJAMIN SINGLETON Rep #: [id number] : 1965 59 From: Kush Bethea DPT, OCS, CSCS Referring Dr.: Dr. Shay Askew MD Status: REG RCR Insurance: [facility] SELF PAY INSURANCE Discharge Summary [...] please feel free to call me at [phone]. Thank you for the referral of thispatient. Sincerely, Kush Bethea, DPT, OCS, CSCS Balance/Gait/Functional tests Balance/Special Test Scores Oswestry Low Back Score: 23 Improvement % Improvement: 50 11/03/24 1022 CC: Dr. Shay Askew MD; Shay Askew ~ EBG Signed [facility]05-23-2025 Radiology Diagnostic study note [facility] Imaging Services [address] [place] [address] Hips B/L min 2 views w/ Pelvis MR#: [id number] Acct: [id number] Name: BENJAMIN SINGLETON Rep #: [id number] : 1965 M 59 From: Cristy Chauhan MD PCP: Dr. Shay Askew MD Status: REG [facility] Study:Hips B/L min 2 views w/ Pelvis Date of Exam: 09/29/24 Exam# [id number] Ordering Dr: Shay Askew MD EXAM: XR [...] changes as above. Reading Location: [facility] CC: Dr. Shay Askew MD ~ Analytics Associate: Signed [facility]05-23-2025 Radiology Diagnostic study note [facility] Imaging Services [address] [place] [address] L/S Spine Min 4 Views MR#: [id number] Acct: [id number] Name: BENJAMIN SINGLETON Rep #: [id number] : 1965 M 59 From: Cristy Chauhan MD PCP: Dr. Shay Askew MD Status: REG [facility] Study:L/S Spine Min 4 Views Date of Exam: 09/29/24 Exam# [id number] Ordering Dr: Shay Askew MD EXAM: XR [...] evaluation with MRI is recommended. Reading [facility] CC: Dr. Shay Askew MD ~ Analytics Associate: Signed [facility] Author Ashley Crawley [facility] Note Date/Time December 27, 2024 2: 39pm [facility] Medical Records Department [address] [place] [address] Anesthesia Postop Eval I 12/27/24 1438 MR#: [id number] Acct: [id number] Name: BENJAMIN SINGLETON Rep #:[id number] : 1965 59 From: Ashley Jackson RNA PCP: Dr. Shay Askew MD Status:REG S DC Y Race: C Location: [place] [address] Anesthesia: Postop Eval I Current Vital Signs Temperature: 97.3 F Pulse Rate: 96 Blood Pressure: 159/110 Respiratory Rate: 16 Pulse Ox: 99 Oxygen Delivery Method: Room Air Assessment Airway patent: Yes Spontaneous unlabored respirations: Yes Mental status: Awake nausea: No Vomiting: No Anesthesia Complication: No Fluid Hydration Crystalloid volume administer (ml): 500 Total IV fluid infused: 500 Progress Note Anesthesia document: Postop Eval 1 completed: Yes 12/27/24 1439 <Electronically signed by Ashley Crawley CRNA> Date _ Ashley Crawley CRNA Cosigner Signature: Date CC: ~ Signed [facility] Work Phone: Discharge summary Author Garcia Vargas [facility] Note Date/Time December 20, 2024 1: 00pm [facility] Medical Records Department [address] [place] [address] Emergency Department Summary 12/20/24 MR#: [id number] Acct: [id number] Name: BENJAMIN SINGLETON Rep #:[id number] : 1965 59 From: Garcia Martin PCP: Dr. Shay Askew MD Status:REG E R Location: ED HPI History of Present Illness Chief Complaint: Syncope PFSH PFS Medical History (Updated 12/13/24 @ 13:40 by [...] Discharge home This note was generated with [employer] dictation software. It may contain incorrectwords, spelling, [...] 78.1 H Lymph % (Auto) 14.3 L Nolan % (Auto) 5.4 Eos % (Auto) 1.0 [...] No acute abnormality is seen. Reading Location: [facility] Discharge Plan Triage Chief Complaint: Syncope ED [...] MD [Primary Care Provider] - Print Language: Serbian What to do if you have Problems For any increased pain, shortness of breath, bleeding, nausea or vomiting, chestpain, or any unexpected problems, contact your Primary Care Provider. Call [facility] ([phone]) or report to the closest Emergency Room. Call 911 if necessary. 12/20/24 1300 <Electronically signed by Garcia Vargas DO> Cosigner Signature (if applicable): CC: Dr. 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 Follow-up with your primary care doctor to discuss how the medications are helping and schedule your MRI.[facility] Work Phone: Hospital Discharge instructionsAdditional Instructions Thank you for trusting us with your care today! Please drink plenty of oral fluids recommend Body Armor, Pedialyte or Gatorade. Please return to the emergency department if your symptoms change or worsen. Please follow with your primary care physician for further outpatient evaluation and management.[facility] Work Phone: Reason for referral (narrative)No reason for referral information availableWMetroHealth [facility] Work Phone: Chief Complaint and Reason for [...] neurogenic dean ication December 06, 2024 3:11pm Chief Complaint Admit Date HIP AND BACK [...] 56am syncope December 20, 2024 9: 28am ERAS, Lumbar laminectomy L3-4 and L4-5, discectomy December 27, 2024 11:16am ERAS, Lumbar laminectomy L3-4 and L4-5, discectomy December 27, 2024 1:10pm Advance Directives Advance Directive Response Recorded Date/ Time Living Will No September 01, 2021 7:20am Power of Electrotyper No September 01 7:20am Advance Directive Response Recorded Date/ Time Do you have a Healthcare Power of Electrotyper? No November 05, 2024 6:15pm Advance Directive Response Recorded Date/ Time Do you have a Healthcare Power of Electrotyper? No November 05, 2024 6:15pm Do you have a Healthcare Power of Electrotyper? No December 20, 2024 9:32am Advance Directive Response Recorded Date/ Time Do you have a Healthcare Power of Electrotyper? No November 05, 2024 6:15pm Do you have a Healthcare Power of Electrotyper? No December 13, 2024 1:40pm Do you have a Healthcare Power of Electrotyper? No December 20, 2024 9:32am Family History [...] Jamilah Day Referring Provider Active Start: 2024 End: November 03, 2024 Team Status: [...] December 20, 2024 End: December 20, 2024 Team Status: Inactive Member Role/Relationship Status Dates Dr. Shay Askew MD Primary Care Provider Active Start: December 20, 2024 End: December 20, 2024 Dr. Garcia Vargas DO Attending Provider Active Start: December 20, 2024 End: December 20, 2024 Dr. Garcia Vargas DO Emergency Provider Active Start: December 20, 2024 End: December 20, 2024 Team Status: Inactive Member Role/Relationship Status Dates Dr. Shay Askew MD Primary Care Provider Active Start: December 27, 2024 End: December 27, 2024 Dr. Jani Ellington MD Attending Provider Active Start: December 27, 2024 End: December 27, 2024 Dr. Jani Ellington MD Referring Provider Active Start: December 27, 2024 End: December 27, 2024 Team Status: Active Member Role/Relationship Status Dates Dr. Shay Askew MD Primary Care Provider Active Start: December 27, 2024 Dr. Jani Ellington MD Attending Provider Active Start: December 27, 2024 Dr. Jani Ellington MD Referring Provider Active Start: December 27, 2024 Dr. Jani Ellington MD Other Provider Active Star t: December 27, 2024 (unrecognized sect ion and content) No Status Records Found INFORMATION SOURCE (unrecogn ized section and content) DATE CREATED AUTHOR 12/27/2024 [facility] FOR RECORDS PERTAINING TO PATIENTS WHO ARE [...] BE BASED ON THE PRIMARY CLINICAL RECORDS. [employer] provides no warranty or guarantee of the accuracy or completeness of information in this document.
== END 2024-12-27 15:55 | disposition home or self-care (01) ==
LOC: SDC 11:17 → AC 11:19
PROVIDERS: Anesthesiology; PCP Family Medicine; Referring Provider Orthopaedic Surgery Orthopaedic Surgery of the Spine; Visit Provider Orthopaedic Surgery Orthopaedic Surgery of the Spine
PROC: (CPT 63030; principal; 2024-12-27 13:45)
DX: M48.061 Spinal stenosis, lumbar region without neurogenic claudication (principal); E78.00 Pure hypercholesterolemia, unspecified; I10 Essential (primary) hypertension; M51.26 Other intervertebral disc displacement, lumbar region; M51.360 Other intervertebral disc degeneration, lumbar region with discogenic back pain only; Z53.09 Procedure and treatment not carried out because of other contraindication
CPT/HCPCS: 63047; 36415; 80048; 82962; 83036; 83735; 85025; 86703; 86706; 86708; 86803; 86850; 86900; 86901; 87081; 93005; J2405; J3475

== ENCOUNTER 2024-12-28 12:35 | Day surgery (SDC) | payer OTHER, SELFPAY ==
[2024-12-28] VITALS (9 sets, daily range): BP systolic 135–152; BP diastolic 95–107; PULSE 72–79; RESP 14–18; TEMP 35.9–36.6; O2SAT 99–100; BMI 26.0
[2024-12-28] MEDS: Magnesium 1 GM over 15 mins IV (13:09)
[2024-12-28] MEDS: Lactated Ringers 1,000 ML 15 ML IV (13:09)
--- NOTE | 2024-12-28 13:34 | PCM.HP.BLA ---
History and Physical Date of Admission: 12/28/24 MR#: [id number] Acct: [id number] Name: BENJAMIN SINGLETON Rep #: [id number] : 1965 Provider: Dr. Jani Ellington MD Age/Sex: 59/M Location: [facility] [place] Status: Signed Intake Vital Signs 11/16/2512:23 Height 6 ft Weight: 202 lb BMI 27.3 Intake Visit Reasons: LUMBAR SPINE Accompanied by: Is patient in pain?: Yes Pain scale (1-10): 4 Allergies No Known Allergies Allergy (Verified 12/06/24 15:20) Medications ?Medication ?Instructions ?Recorded ?Confirmed ?Type atorvastatin 20 mg tablet 20 mg PO DAILY 11/05/24 12/06/24 History lidocaine 5 % topical patch 1 patch topical DAILY #15 ea 11/05/24 12/06/24 Rx (Lidoderm) lisinopril 10 mg tablet 10 mg PO DAILY 11/05/24 12/06/24 History ondansetron 4 mg disintegrating 4 mg PO Q8H PRN PRN Nausea #10 tabs 11/05/24 12/06/24 Rx tablet gabapentin 300 mg capsule 600 mg PO TID 12/06/24 12/06/24 History gabapentin 600 mg tablet 600 mg PO TID 12/06/24 12/06/24 History ibuprofen 200 mg tablet 600 mg PO TID Pain 12/06/24 12/06/24 History tramadol 50 mg tablet 50 mg PO TID PRN 12/06/24 12/06/24 History PFSH Medical History 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 Jani Ellington MD 12/06/24 0812. Part of today?s visit was documented by Monica WARNER, acting as scribe. BENJAMIN SINGLETON is a 59 year old M here today for a follow-up on continued low back pain. He states that he only had the one injection which was on 11-22-24 he had a right TFE L3-L4, L4-L5 with Dr. Lam. He stats the first day after the injection he did get some mild relief but after the first day he was back to where he was before the injection. He notes that his lower back pain is worse in the mornings after he first wakes up. He would like to talk about his next steps today. The patient is a 59-year-old male presenting with lumbar disc herniation and associated symptoms. The issue began in June with lower back pain after sitting on bleachers for an extended period, which has always been bothersome for him. The pain initially improved in early September but worsened later that month, particularly with sitting, which is the worst position for him. 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 By the end of September, the pain had become debilitating, especially in the mornings. The patient describes the pain as feeling like his thigh is going to explode, with tingling sensations in the iverson, and occasionally in the foot. He uses crutches in the morning to alleviate pressure on his back and takes ibuprofen for pain relief. The patient has reduced his walking distance due to frustration with not knowing what activities exacerbate his condition. He was previously walking 45 minutes daily but has cut back to 10-15 minutes, 2-3 times a day. The patient has undergone an injection, which initially provided relief but ultimately did not improve his symptoms. MRI findings indicate a herniated disc at L3-4 with a cystic swelling and stenosis at L4-5. The patient has a history of hypertension and hyperlipidemia, managed with medication. - Musculoskeletal: Reports right-sided leg pain, tingling in the iverson, and occasional foot tingling. Denies left-sided symptoms. - Neurological: Reports morning tingling sensation in the iverson, no foot drop. - General: Reports pain exacerbated by sitting, relieved by ibuprofen and crutches. Attestation: Documentation on this patient encounter was supported using ambient scribe technology/ voice AI technology. The patient consented to recording for the purpose of documenting the encounter. Provider reviewed content of the generated note prior to signature. 11/16/24: BENJAMIN SINGLETON is a 59 year old M here today for middle low back that radiates sharp right sided lateral thigh pain and right sided iverson pain. He denies any left-sided involvement. He has completed PT for 4 weeks in 10/2024 with some improvement at first then sx appeared to worsen. Pain began about 06/2024 after prolonged sitting on bleachers while watching basketball game. Says that prior to June he has had some chronic low back pain over several years that would come and go. Intensified 09/2024 and has gradually worsened. Says that he was playing pickle ball. XRAY of hip and back in 10/2024. Recent MRI. Hx of right total hip replacement. History of right knee arthroscopy. Denies hx of injections. Pain exacerbated with sitting for long periods. Pain improved with laying flat and movement. Recently prescribed [place] and gabapentin 10 days ago with significant relief. Says that he has been taking the [place] 3 times a day. His pain is worse in the morning and gradually gets better throughout the day. He says that over the last couple of days his pain has slowly started to show some improvement. Sitting worsens the pain. Says that he can only sit for about 20 to 30 minutes before he gets an increase in pain and he needs to move. Walking does not seem to increase his pain. Patient was standing for most of the duration of his exam today. Says that at first when his pain was at its worst back in September he was using some crutches to help take some pressure off of the spine. This did give some improvement. No prior surgeries on the back. He has also been given cyclobenzaprine 5 mg which he has been taking as needed with some mild improvement. No diabetes, no heart or lung issues, no blood thinners. Ortho Exam General General: Yes no acute distress Neurologic: Yes alert and Yes oriented x3 Spine SPINE TESTING CERVICAL THORACIC LUMBAR Musculoskeletal Strength 0=absent - 5=normal Details: Neurological exam of the lower extremities shows 5x5 power. Normal sensations across all dermatomes. No hyperreflexia. No midline tenderness, mild right paraspinal tenderness. Figure 4 and Keke's negative. Coding Level of Care Code Off vis,est,level 5 Diagnoses Degenerative disc disease (DDD) of lumbar region with discogenic back pain and leg pain M51.362 Lumbar stenosis without neurogenic claudication M48.061 Lumbar disc herniation with radiculopathy M51.16 Time Spent (min) 45 Assessment and Plan Assessment and Plan (1) Degenerative disc disease (DDD) of lumbar region with discogenic back pain and leg pain: Status: Acute (2) Lumbar stenosis without neurogenic claudication: Status: Acute (3) Lumbar disc herniation with radiculopathy: Status: Acute Plan Again reviewed prior AP and lateral x-rays from September 2024. X-rays show a multilevel disc height loss throughout the lumbar spine, there is vacuum phenomenon seen at L2-3, L3-4, L4-5. No significant instability, no acute fractures. Reviewed lumbar MRI from November 14, 2024 which showed L2-3 prominent disc height loss with a diffuse disc bulge resulting in mild to moderate spinal stenosis with mild bilateral foraminal stenosis, L3-4 significant disc height loss with a diffuse disc bulge with inferiorly migrated disc towards the right. This causes moderate focal spinal stenosis and mild to moderate left and mild right foraminal stenosis. L4-5 disc height loss with diffuse disc bulge resulting in moderate to severe spinal stenosis and mild to moderate bilateral foraminal stenosis. L5-S1 moderate to severe left and moderate right foraminal stenosis. - Imaging: MRI shows herniated disc at L3-4 with cystic swelling and stenosis at L4-5. 1. Lumbar disc herniation - Surgical intervention with discectomy and laminectomy is planned to relieve nerve pressure and address herniation and stenosis at L3-4 and L4-5. 2. Right-sided radiculopathy - The surgery aims to alleviate the right-sided nerve compression symptoms. 3. Hypertension - Continue current management with medication, ensure blood pressure is controlled preoperatively. 4. Hyperlipidemia - Continue current management with medication, monitor lipid levels as part of routine care. - Continue taking prescribed medications for hypertension and hyperlipidemia. - Use crutches as needed to alleviate back pressure. - Avoid activities that exacerbate back pain, such as prolonged sitting. - Follow up with primary care for surgical clearance. - Prepare for surgery by maintaining good nutrition and mobility. Discussed imaging findings in detail. Patient has a large disc extrusion at L3-4 with inferior migration with severe central stenosis at L4-5 as well. Discussed treatment options which include continued nonoperative treat measures versus surgery. Patient symptoms are not improving with time and they are affecting his quality of life and ability to get around. Considering patient has exhausted nonsurgical treatment with physical therapy and injections no longer giving him relief, at this point I recommend L3-5 laminectomy with L3-4 discectomy. All risk benefits and alternatives were discussed in detail. The risks include but are not limited to infection, bleeding, hematoma formation, need for further surgery, injury to nerves and vessels, foot drop, nerve root injury, dural leak, need for further surgery, need for fusion in future, persistent pain, persistent numbness and weakness, DVT, pulm embolism, pneumonia, atelectasis, cardiopulmonary event. Patient understands agrees to proceed with surgery. Patient was scheduled for surgery on 12/27/2024, however there was contamination of surgical instruments and the surgery was canceled before placing any incision. Surgery is now rescheduled today 12/28/2024. Patient reports continued pain lower back going into the right anterior thigh. No other changes.
--- NOTE | 2024-12-28 13:40 | PRE.ANES_ITS ---
ASA Classification* ASA Classification ASA Classification: 3 Assessment & Plan Anesthesia* Anesthesia Assessment Anesthesia Assessment: Discussed sedation and/or anesthesia options, risks, benefits, and alternatives with patient/parents/legal guardian/POA. Questions invited. The patient/parents/legal guardian/POA seems to understand and agrees to proceed with anesthesia plan. Reviewed the physical assessment, medical history, allergy history and patient home medications list prior to surgery/procedure/anesthetic and documented any changes. Performed airway and anesthesia risk assessments. Anesthesia Type Anesthesia Type: General History Source History Obtained from:: Patient and Chart Anesthesia Focused Assessment* Temperature: 98 F Pulse Rate: 77 Blood Pressure: 142/95 Respiratory Rate: 16 Pulse Ox: 99 Oxygen Delivery Method: Room Air Airway Assessment Mouth opens: 2 cm Mallampati Score: III Teeth Condition: Intact Labs Anesthesia Preop lab: CBC WBC 5.0 K/mm3 (4.4-11.0) 12/20/24 10:08 12/20/24 RBC 4.11 M/mm3 (4.6-6.2) L 12/20/24 10:08 12/20/24 Hgb 13.5 g/dL (13.0-16.5) 12/20/24 10:08 12/20/24 Hct 38.7 % (40-54) L 12/20/24 10:08 12/20/24 Plt Count 185 K/mm3 (150-450) 12/20/24 10:08 12/20/24 CHEMISTRY Potassium 4.0 mmol/L (3.3-5.1) 12/20/24 10:08 12/20/24 Sodium 138 mmol/L (133-145) 12/20/24 10:08 12/20/24 Magnesium 2.3 mg/dL (1.5-2.2) H 12/18/24 09:15 12/18/24 BUN 21 mg/dL (4-19) H 12/20/24 10:08 12/20/24 Creatinine 0.87 mg/dL (0.70-1.20) 12/20/24 10:08 12/20/24 Glucose 147 mg/dL (70-99) H 12/20/24 10:08 12/20/24 POC Glucose 120 mg/dL (74-106) H 12/27/24 12:49 12/27/24 TSH 3.20 uIU/mL (0.358-3.74) 07/16/16 08:03 COAG Pre-Assessment Diagnosis/Proposed Procedure Planned Operative Procedure(s): Laminectomy and discectomy Anesthesia History 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 When Was Last Pacemaker Check QUESTION #4 FULL TEXT: You/Your Family Experience fever (hyperthermia) with Anesthesia Last Oral Intake Last Oral intake: Last Oral Intake NPO since 00:00 12/28/24 12:53 Meds taken in AM with sips of Yes 12/28/24 12:53 water? Meds patient instructed to gabapentin 12/28/24 12:53 take am of surgery PONV PONV - solid waste management engineer: PONV - solid waste management engineer Female HX of Motion Sickness HX of N/V After Surgery Non-Smoker Duration of Surgery greater than 60 minutes Number of Risk Factors PONV Score Height & Weight Height & Weight: Anesthesia: Height & Weight Height 6 ft 12/28/24 12:53 Weight: 87.09 kg 12/28/24 12:53 Body Mass Index (BMI) 26.0 12/28/24 12:53 Respiratory Assessment Respiratory Assessment - solid waste management engineer: Respiratory Tract Infection Hx - solid waste management engineer Hx Respiratory Tract Infection No 12/13/24 13:40 STOP Sleep Apnea STOP Sleep Apnea - solid waste management engineer: STOP Sleep Apnea - solid waste management engineer Hx Hypertension Yes 12/13/24 13:40 Hx Sleep Apnea No 12/13/24 13:40 CPAP BIPAP Do you snore loudly (louder than talking or can be heard Do you often feel tired/ fatigued/ sleepy during daytime? Has anyone observed you stop breathing during sleep? STOP Results QUESTION #5 FULL TEXT : Do you snore loudly (louder than talking or can be heard through closed doors)? 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 Specify any problems Hx of Preganancy in last 3 Months Nurse Filling Out Transfusion & Questions: Date: Time: Patient unable to answer at this time (ie. confused, unrespo /Reproduction History /Reproductive History - solid waste management engineer: /Reproductive Hx- solid waste management engineer Hx Now Gestational Age (in weeks): EDC: Hx Hx Para Hx Section SAB No 12/13/24 13:40 Active Medications Active Medications: Current Medications Generic Name Dose Route Start Last Admin Trade Name Freq PRN Reason Stop Dose Admin Acetaminophen 1,000 mg 12/28/24 14:45 12/28/24 13:09 Acetaminophen 500 Mg Tablet PO 12/28/24 14:46 1,000 mg PREOP ONE Administration Cefazolin Sodium 2 gm/ Sodium 110 mls @ 150 mls/hr 12/28/24 14:45 Chloride IV 12/28/24 15:28 INTRAOP ONE Tranexamic Acid 1,000 mg/ 110 mls @ 440 mls/hr 12/28/24 14:45 Sodium Chloride IV 12/28/24 14:59 INTRAOP ONE Tranexamic Acid 1,000 mg/ 110 mls @ 440 mls/hr 12/28/24 14:45 Sodium Chloride IV 12/28/24 14:59 INTRAOP ONE Magnesium Sulfate 1 gm/ 102 mls @ 408 mls/hr 12/28/24 14:45 12/28/24 13:28 Dextrose IV 12/28/24 14:59 Infused PREOP ONE Infusion Lactated Ringer's 1,000 mls @ 15 mls/hr 12/28/24 12:45 12/28/24 13:09 IV 15 mls/hr .Q48H RJ Administration Insulin Human Lispro 1 - 6 unit 12/28/24 14:45 Insulin Lispro 100 Unit/Ml Insuln.Pen SC Q4H PRN PRN BG>/= 180, SEE PROTOCOL Protocol PFSH Medical History Arthritis Encounter for examination required by 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 (DOT) Wears glasses High cholesterol Non-smoker Hypertension Home Medications ?Medication ?Instructions ?Recorded ?Last Taken ?Type atorvastatin 20 mg tablet 20 mg PO DAILY 11/05/24 08/06/03 History lisinopril 10 mg tablet 10 mg PO DAILY 11/05/2412/08 History ondansetron 4 mg disintegrating 4 mg PO Q8H PRN PRN Na usea #10 tabs 11/05/24 Unknown Rx tablet gabapentin 600 mg tablet 600 mg PO TID 12/06/2412/28 06:00 History acetaminophen 500 mg capsule 1,000 mg PO TID PRN pain 12/13/24 12/27/24 History hydrocodone-acetaminophen 5-325mg 1 tab PO 4X/DAY PRN PRN pain 12/27/24 12/27/24 History 5mg-325mg Allergy/AdvReac Type Severity Reaction Status Date / Time No Known Allergies Allergy Verified 12/28/24 12:51 Family History Other Diabetes High cholesterol Surgical History Hx of colonoscopy Hx of arthroscopic knee surgery History of total right hip replacement Social History Smoking Status: Never smoker alcohol intake: never Review of Systems (Anesthesia) ROS Narrative System reviewed and no additional complaints, except as documented.
[2024-12-28] MEDS: Cefazolin 1 GM/5 ML Vial 2 GM IV (14:06)
[2024-12-28] MEDS: Midazolam 2 MG/2 ML Syringe IV (14:09)
[2024-12-28] MEDS: fentaNYL 100 MCG/2 ML Ampul IV (14:13)
[2024-12-28] MEDS: Lidocaine 1% (5 ml sdv) 5 ML Vial IV (14:13)
--- NOTE | 2024-12-28 14:24 | RAD_ITS ---
PROCEDURE: LUMBAR SPINE 2 OR 3 VIEWS 12/28/2024 REASON FOR EXAM: LUMBAR LAMINECTOMY L3-4 L4-5, DISCECTOMY TECHNIQUE: LUMBAR SPINE 2 OR 3 VIEWS FINDINGS: Intraoperative fluoroscopy of the lumbar spine was performed. See procedure report for full details. RAD/Lumbar Spine 2 or 3 Views IMPRESSION: As above. Reading Location: [id number]
[2024-12-28] MEDS: TRANEXAMIC ACID 1,000 MG in 0.9% Normal Saline (100mL Bag) 100 ML 440 MG IV (14:45)
[2024-12-28] MEDS: TRANEXAMIC ACID 1,000 MG/10 ML ML 2000 MG IV (15:48)
[2024-12-28] MEDS: Ketorolac 30 MG/ML Syringe IV (16:03)
--- NOTE | 2024-12-28 16:27 | OP.PCM_ITS ---
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, L3-4 right disc extrusion with inferior migration Post-Operative Diagnosis: Same Surgery/Procedure Performed: L3-5 laminectomy, L3-4 discectomy, decompression of bilateral L4 and L5 nerve roots research analyst: Yes Human Resources Trainer: Brenda Patel Tasks completed by assistant purchasing manager: Closing, Removing tissue, Hemostasis: Electrocautery and Retracting Type of Anesthesia: General RN Documented Start/Stop Times: Operation Date: 12/28/24 14:45 Case Time Into Pre-Op 12/28/24 12:37 Out of Pre-Op 12/28/24 14:02 Anesthesia Start 12/28/24 14:06 Into Room 12/28/24 14:06 Procedure Start 12/28/24 14:32 Procedure End 12/28/24 16:16 Anesthesia End 12/28/24 16:25 Out of Room 12/28/24 16:25 Procedure Start Time: 14:32 Procedure Stop Time: 16:16 Select all DRAINS/GRAFTS/IMPLANTS that apply: None Estimated Blood Loss: 30 cc Specimen collected: No Description of surgery: Preoperative diagnosis: L3-4, L4-5 central lateral recess stenosis bilateral, neurogenic claudication, L3-4 right-sided disc herniation with inferior migration Postoperative diagnosis: Same Name of procedure: L3-4, L4-5 open laminectomy, L3-4 discectomy, decompression of bilateral L4 and L5 nerve roots CPT 86469, [id number] Attending Surgeon: Dr. Jani Ellington Estimated blood loss: 30 mL Anesthesia: General Indications: Patient is a 59-year-old gentleman who presented with low back pain and severe right lower extremity radiation, with difficulty walking distances and neurogenic claudication. MRI revealed L3-5 central and bilateral lateral recess stenosis, L3-4 right sided disc herniation with inferior migration into the L4 foramen. All options of treatment were discussed which included continued nonoperative treatment measures like rest physical therapy, injections. After prolonged nonsurgical treatment, patient requested surgical intervention for laminectomy. All risks and benefits associated with the procedure were explained to the patient. The risks include but are not limited to infection, bleeding, injury to nerves and vessels, persistent paresthesia, incidental dural tear, recurrent disc herniation, spinal instability and need for fusion or other procedures in future, persistent pain, persistent weakness and numbness, etc. Procedure: The patient was identified in the preoperative holding suite using Unique patient identifiers. Skin was marked, consent was reviewed, and all questions were answered. The patient was then brought back to the operative room. A surgical timeout was performed to make sure correct procedure was being done on the correct patient and all operative room staff were on the same page. General endotracheal anesthesia was then given to the patient. The patient was then turned prone onto a Curtis table over a Car frame. The back was prepped and draped in usual fashion. Preoperative antibiotic was given. A final timeout was then again done just before starting the procedure. An 18-gauge spinal needle was inserted and level was identified. An incision was then carried out approximately 1 inch length in the midline. Bovie was utilized to dissect through the subcutaneous tissue up to the fascia. The fascia was bovied at the spinous process. Subperiosteal dissection was carried out along the both side of the spinous process and the lamina. This dissection was stopped at the level of the medial capsule of the facet joint. Lateral edge of the pars was also identified. A [place] was then placed under the inferior edge of the lamina and a C-arm lateral view was repeated. The level was confirmed to be the L4-5 interspace. Exposure of both L3-4 and L4-5 interspace was then completed. A Winkler retractor of appropriate depth was then placed to provide retraction throughout the remainder of the surgery. A bone cutter was used to remove the spinous process. Misonix bone scalpel was then utilized to first create a score along the area of the laminectomy. Care was taken to preserve at least 1 cm of bone from the lateral border of the pars. The bone scalpel was then advanced to perform the cuts along this score. The lamina was then removed with the help of procedures. The flavum was utilized to protect the dura and superior articular process was carefully from the flavum. Partial medial facetectomy was performed to provide adequate lateral recess decompression bilaterally at both levels. The flap from was completely removed. Dura and right L4 nerve root was identified and carefully retracted medially to expose the lateral recess on the right at L3-4. Extruded disc that had migrated inferiorly from L3-4 was removed piecemeal. Once decompression was adequately assessed with [place] in both L5 and L4 foramina bilaterally, irrigation was done with normal saline. Valsalva maneuver up to 40 mmHg pressure sustained was then done by anesthesia for a few seconds to confirm no dural leak. Irrisept was kept in the wound for 1 minute and then rinsed with saline. A small piece of Gelfoam was then placed over the bony window. The Winkler retractor was then removed. And closure was done in layers, 0 Vicryl for the deep fascia, 2-0 Vicryl for subcutaneous tissue, and jan for the skin. The deep fascial layer was closed in a watertight fashion with interrupted 0 Vicryl. 2 x 2 gauze was then placed over the wound covered with Tegaderm. The patient was then turned supine onto a hospital bed. The patient was extubated and taken to PACU in stable condition. The patient tolerated the procedure well and no complications occurred. Estimated blood loss for the entire surgery was 30 mL. No instrumentation was utilized in this case. No dural tear was identified in this case. I was present for the entirety of the case and performed the surgery myself. General Office Dispatcher Brenda Patel PA-C. My physician insurance assistant was a vital part of this case. They were important in appropriate retraction during the case, and protection of soft tissues during the procedure. Their intimate knowledge of the case and my steps aided in safe and expedient completion of the procedure as well as appropriate position of the patient during the surgery. They were also vital in assisting with closure under my direct supervision. Surgical Findings: See operative note Complications Complications: No
--- NOTE | 2024-12-28 16:34 | PCM.POST.ANE ---
Anesthesia: Postop Eval I Current Vital Signs Temperature: 97 F Pulse Rate: 72 Blood Pressure: 149/107 (to recheck) Respiratory Rate: 16 Pulse Ox: 100 Oxygen Delivery Method: Simple Mask Oxygen Flow Rate (L/min): 6 Assessment Airway patent: Yes Spontaneous unlabored respirations: Yes Mental status: Awake and Calm nausea: No Vomiting: No Anesthesia Complication: No Fluid Hydration Crystalloid volume administer (ml): 1,200 Total IV fluid infused: 1,200 Progress Note Anesthesia document: Postop Eval 1 completed: Yes
--- NOTE | 2024-12-29 06:09 | POSTOPAN2_ITS ---
Anesthesia Postop Eval I Sum Postop Eval Completion status Anesthesia document: Postop Eval 1 completed: Yes Anesthesia Postop Eval I Summary Anesthesia Postop Eval I Summary: Anesthesia Postop Eval I: Assessment Summary Airway patent Yes 12/28/24 16:35 [email or web address] Spontaneous unlabored Yes 12/28/24 16:35 TAILOR [email or web address] respirations Mental status Awake,Calm 12/28/24 16:35 TAILOR [email or web address] nausea No 12/28/24 16:35 TAILOR [email or web address] Vomiting No 12/28/24 16:35 TAILOR [email or web address] Anesthesia Postop Eval I: Fluid Summary Crystalloid volume administer 1,200 12/28/24 16:35 [email or web address] (ml) Colloids volume administered ( ml) Blood Product volume administered (ml) Total IV fluid infused 1,200 12/28/24 16:35 TAILOR [email or web address] Anesthesia Postop Eval I: Summary Notes Anesthesia Complication No 12/28/24 16:35 TAILOR [email or web address] Anesthesia Complication Comment: Post-operative progress note Anesthesia: Postop Eval II Evaluation Mental status: Awake Pain Level: 0 nausea: No Vomiting: No Complications Anesthesia Complication: No
--- NOTE | 2024-12-29 06:09 | PCM.POSTANE2 ---
Anesthesia Postop Eval I Sum Postop Eval Completion status Anesthesia document: Postop Eval 1 completed: Yes Anesthesia Postop Eval I Summary Anesthesia Postop Eval I Summary: Anesthesia Postop Eval I: Assessment Summary Airway patent Yes 12/28/24 16:35 [email or web address] [email or web address] Spontaneous unlabored Yes 12/28/24 16:35 [email or web address] [email or web address] respirations Mental status Awake,Calm 12/28/24 16:35 [email or web address] [email or web address] nausea No 12/28/24 16:35 [email or web address] [email or web address] Vomiting No 12/28/24 16:35 [email or web address] [email or web address] Anesthesia Postop Eval I: Fluid Summary Crystalloid volume administer 1,200 12/28/24 16:35 [email or web address] [email or web address] (ml) Colloids volume administered ( ml) Blood Product volume administered (ml) Total IV fluid infused 1,200 12/28/24 16:35 [email or web address] [email or web address] Anesthesia Postop Eval I: Summary Notes Anesthesia Complication No 12/28/24 16:35 [email or web address] [email or web address] Anesthesia Complication Comment: Post-operative progress note Anesthesia: Postop Eval II Evaluation Mental status: Awake Pain Level: 0 nausea: No Vomiting: No Complications Anesthesia Complication: No
== END 2024-12-28 18:07 | disposition home or self-care (01) ==
LOC: SDC 12:36 → AC 12:38
PROVIDERS: PCP Family Medicine; Referring Provider Orthopaedic Surgery Orthopaedic Surgery of the Spine; Visit Provider Orthopaedic Surgery Orthopaedic Surgery of the Spine
PROC: (CPT 63030; principal; 2024-12-28 14:15)
DX: M48.062 Spinal stenosis, lumbar region with neurogenic claudication (principal); M51.16 Intervertebral disc disorders with radiculopathy, lumbar region; M51.362 Other intervertebral disc degeneration, lumbar region with discogenic back pain and lower extremity pain; I10 Essential (primary) hypertension; E78.00 Pure hypercholesterolemia, unspecified; M16.11 Unilateral primary osteoarthritis, right hip; Z96.641 Presence of right artificial hip joint; Z79.899 Other long term (current) drug therapy
CPT/HCPCS: 63047; 63048; 00630; 72100; 76000; 82962; J2405; J3475

== ENCOUNTER → 2025-04-17 | Outpatient (CLI) | payer OTHER, SELFPAY ==
[2025-04-17 13:03] LABS: AST(SGOT) 23 U/L (<=37); Alanine Aminotransfer ALT/SGPT 35 U/L (<=46); Albumin, Serum 4.8 g/dL (3.5-5.0); Alkaline Phosphatase 68 U/L (40-129); Anion Gap 11 (5-15); BUN 15 mg/dL (4-19); BUN/Creat Ratio 19.0 RATIO (10-20); Calcium,Total 9.7 mg/dL (7.6-11.0); Carbon Dioxide 26.9 mmol/L (21.0-32.0); Chloride 101 mmol/L (98-108); Cholesterol 309 mg/dL (<=200); Globulin 2.7 g/dL (2.2-4.2); Glucose 102 mg/dL (70-99); Low Density Lipoprotein Calc. 216 mg/dL; Potassium 4.6 mmol/L (3.3-5.1); Triglycerides 105 mg/dL; Very Low Density Lipoprotein 21 mg/dL (5-40); cholesterol:hdl ratio screen 4.09
[2025-04-20 12:08] LABS: Testosterone, % Free 1.82 % (1.50-4.20); Testosterone, Free 6.66 ng/dL (5.00-21.00)
== END | disposition home or self-care (01) ==
LOC: MTLAB 09:31
PROVIDERS: PCP Family Medicine; Referring Provider Family Medicine; Visit Provider Family Medicine
DX: E78.00 Pure hypercholesterolemia, unspecified (principal); R79.89 Other specified abnormal findings of blood chemistry
CPT/HCPCS: 36415; 80053; 80061; 84402; 84403